=== PATIENT | female | born 1935 | race Caucasian/White ===

== ENCOUNTER → 2017-06-17 | Outpatient (CLI) | payer OTHER ==
[2017-06-17 18:04] LABS: BASO % 0.6 %; BASO ABS # 0.03 K/uL (0-0.2); COMPLETE YES; EOS % 0.4 %; HEMATOCRIT 39.1 % (37-47); IG% 0.2 %; LYMPH % 18.9 %; LYMPH ABS # 1.01 K/uL (1.2-3.4); MEAN CELL VOLUME 89.3 fL (80-100); MEAN CORPUSCULAR HEMOGLOBIN 29.2 pg (25-34); MEAN CORPUSCULAR HGB CONC 32.7 g/dl (32-36); MEAN PLATELET VOLUME 9.8 fL (7.4-10.4); MONO % 10.7 %; NEUT % 69.2 %; PLATELET COUNT 324 K/uL (130-400); RED BLOOD COUNT 4.38 M/uL (4.2-5.4); WHITE BLOOD COUNT 5.34 K/uL (4.8-10.8)
[2017-06-17 18:15] LABS: ALT/SGPT 22 U/L (12-78); AST/SGOT 18 U/L (15-37); BLOOD UREA NITROGEN 17 mg/dl (7-18); BUN/CREATININE RATIO 20.3 (10-20); CALCIUM 9.5 mg/dl (8.5-10.1); CARBON DIOXIDE 31 mmol/L (21-32); CHLORIDE 101 mmol/L (98-107); CREATININE 0.83 mg/dl (0.60-1.20); GLUCOSE 80 mg/dl (70-99); POTASSIUM 3.9 mmol/L (3.5-5.1); SODIUM 137 mmol/L (136-145)
[2017-06-17 18:26] LABS: ALKALINE PHOSPHATASE 20 U/L (45-117); CHOLESTEROL 241 mg/dl (0-200); CHOLESTEROL/HDL RATIO 2.7; HDL CHOLESTEROL 90 mg/dl; TRIGLYCERIDES 62 mg/dl (0-150); VERY LOW DENSITY LIPOPROT CALC 12 mg/dl
== END | disposition home or self-care (01) ==
LOC: C.LABSPEC 17:26
PROVIDERS: ATTEND Internal Medicine
DX: R53.83 Other fatigue (principal); E78.5 Hyperlipidemia, unspecified; R63.4 Abnormal weight loss

== ENCOUNTER → 2018-01-30 | Outpatient (CLI) | payer OTHER ==
[2018-01-30 18:16] LABS: BASO % 0.3 %; BASO ABS # 0.02 K/uL (0-0.2); EOS % 0.5 %; EOS ABS # 0.03 K/uL (0-0.5); HEMATOCRIT 38.5 % (37-47); HEMOGLOBIN 12.7 g/dL (12.0-16.0); IG# 0.02 K/uL (0.00-0.02); LYMPH % 20.3 %; LYMPH ABS # 1.32 K/uL (1.2-3.4); MEAN CELL VOLUME 85.6 fL (80-100); MEAN CORPUSCULAR HEMOGLOBIN 28.2 pg (25-34); MEAN PLATELET VOLUME 9.6 fL (7.4-10.4); MONO % 9.5 %; MONO ABS # 0.62 K/uL (0.11-0.59); NEUT % 69.1 %; PLATELET COUNT 378 K/uL (130-400); RED CELL DISTRIBUTION WIDTH CV 13.7 % (11.5-14.5); RED CELL DISTRIBUTION WIDTH SD 42.5 fL (36.4-46.3); WHITE BLOOD COUNT 6.51 K/uL (4.8-10.8)
[2018-01-30 18:39] LABS: ALBUMIN 3.5 gm/dl (3.4-5.0); ALT/SGPT 20 U/L (12-78); BLOOD UREA NITROGEN 26 mg/dl (7-18); CALCIUM 9.4 mg/dl (8.5-10.1); CARBON DIOXIDE 30 mmol/L (21-32); CREATININE 0.87 mg/dl (0.60-1.20); GLUCOSE 107 mg/dl (70-99); LIPASE 213 U/L (73-393); POTASSIUM 4.1 mmol/L (3.5-5.1); SODIUM 136 mmol/L (136-145)
[2018-01-30 18:42] LABS: ALKALINE PHOSPHATASE 25 U/L (45-117); AST/SGOT 14 U/L (15-37); TOTAL PROTEIN 7.2 gm/dl (6.4-8.2)
== END | disposition home or self-care (01) ==
LOC: C.LABSPEC 17:51
PROVIDERS: ATTEND Internal Medicine
DX: R10.9 Unspecified abdominal pain (principal); R63.4 Abnormal weight loss

== ENCOUNTER → 2018-06-15 | Outpatient (CLI) | payer OTHER ==
[2018-06-15 18:30] LABS: BASO % 0.5 %; BASO ABS # 0.03 K/uL (0-0.2); EOS % 0.6 %; EOS ABS # 0.04 K/uL (0-0.5); HEMATOCRIT 40.7 % (37-47); HEMOGLOBIN 12.8 g/dL (12.0-16.0); IG# 0.02 K/uL (0.00-0.02); LYMPH % 17.8 %; LYMPH ABS # 1.14 K/uL (1.2-3.4); MEAN CELL VOLUME 86.2 fL (80-100); MEAN CORPUSCULAR HEMOGLOBIN 27.1 pg (25-34); MEAN CORPUSCULAR HGB CONC 31.4 g/dl (32-36); MEAN PLATELET VOLUME 9.8 fL (7.4-10.4); MONO % 6.6 %; MONO ABS # 0.42 K/uL (0.11-0.59); NEUT % 74.2 %; NEUT ABS # 4.75 K/uL (1.4-6.5); PLATELET COUNT 381 K/uL (130-400); RED CELL DISTRIBUTION WIDTH CV 14.5 % (11.5-14.5); RED CELL DISTRIBUTION WIDTH SD 44.9 fL (36.4-46.3)
[2018-06-15 18:45] LABS: ALBUMIN 3.4 gm/dl (3.4-5.0); ALKALINE PHOSPHATASE 27 U/L (45-117); ALT/SGPT 20 U/L (12-78); AST/SGOT 20 U/L (15-37); BLOOD UREA NITROGEN 20 mg/dl (7-18); CALCIUM 8.8 mg/dl (8.5-10.1); CARBON DIOXIDE 29 mmol/L (21-32); CHOLESTEROL 223 mg/dl (0-200); CREATININE 0.94 mg/dl (0.60-1.20); GLUCOSE 87 mg/dl (70-99); LDL CHOLESTEROL (DIRECT) 123 mg/dl; POTASSIUM 4.5 mmol/L (3.5-5.1); SODIUM 135 mmol/L (136-145); TOTAL PROTEIN 7.7 gm/dl (6.4-8.2)
== END | disposition home or self-care (01) ==
LOC: C.LABSPEC 17:41
PROVIDERS: ATTEND Internal Medicine
DX: E78.5 Hyperlipidemia, unspecified (principal); R63.4 Abnormal weight loss

== ENCOUNTER 2018-11-16 08:20 | Inpatient (IN) ==
[2018-11-16] MEDS ORDERED: ONDANSETRON INJ 2 MG/ML 2 ML VIAL IV STA (08:52)
[2018-11-16] MEDS ORDERED: SODIUM CHLORIDE 0.9% 1000ML 500 ML IV ONE (08:52)
[2018-11-16] MEDS ORDERED: HYDROmorphone INJ 0.5 MG/0.5 ML SYR IV PRN (08:52)
[2018-11-16 09:00] LABS: iSTAT Ionized Calcium 1.1 mmol/l (1.12-1.32)
[2018-11-16 09:04] LABS: Basophils # (auto) 0.02 K/uL (0-0.2); Basophils % (auto) 0.2 %; Hematocrit (blood only) 43.3 % (37-47); Hemoglobin 14.4 g/dL (12.0-16.0); Immature Granulocytes # (auto) 0.02 K/uL (0.00-0.02); Immature Granulocytes % (auto) 0.2 %; Lymphocytes # (auto) 0.57 K/uL (1.2-3.4); Lymphocytes % (auto) 5.5 %; Mean Corpuscular Hgb Conc 33.3 g/dL (32-36); Mean Corpuscular Volume 84.4 fL (80-100); Mean Platelet Volume 9.9 fL (7.4-10.4); Monocytes # (auto) 0.35 K/uL (0.11-0.59); Monocytes % (auto) 3.4 %; Neutrophils # (auto) 9.37 K/uL (1.4-6.5); Neutrophils % (auto) 90.7 %; Platelet Count 387 K/uL (130-400); RDW Coefficient of Variation 13.8 % (11.5-14.5); RDW Standard Deviation 42.8 fL (36.4-46.3); Red Blood Count 5.13 M/uL (4.2-5.4); White Blood Count 10.33 K/uL (4.8-10.8)
[2018-11-16 09:12] LABS: Alanine Aminotransferase 16 U/L (12-78); Albumin Level 3.8 gm/dl (3.4-5.0); Aspartate Aminotransferase 15 U/L (15-37); BUN Creatinine Ratio 27.7 (10-20); Blood Urea Nitrogen 27 mg/dl (7-18); Calcium 9.8 mg/dl (8.5-10.1); Carbon Dioxide 20 mmol/L (21-32); Chloride 98 mmol/L (98-107); Est GFR (Non-African American) 52.6; Glucose 101 mg/dl (70-99); Potassium 4.3 mmol/L (3.5-5.1); Sodium 134 mmol/L (136-145)
[2018-11-16] MEDS ORDERED: OPTIRAY 320 125ml IV PRN (09:13)
[2018-11-16 09:15] LABS: Albumin Globulin Ratio 0.8 (0.9-2); Alkaline Phosphatase 32 U/L (45-117); Bilirubin,Total 0.5 mg/dl (0.1-1); Globulin 4.8 gm/dl (2.5-4.0); Total Protein 8.6 gm/dl (6.4-8.2)
--- NOTE | 2018-11-16 09:42 | CT Scan Report ---
ADDENDUM Addendum: Left lower lobe consolidation and tree-in-bud nodules suggest an infectious process such as bronchopneumonia. Electronically signed by: Suleman Salazar M.D. 11/16/2018 9:[address] OF THE ABDOMEN AND PELVIS WITH CONTRAST CLINICAL HISTORY: Diffuse abdominal pain. COMPARISON STUDY: None. TECHNIQUE: Following IV administration of 120 mL of Optiray-320, axial images of the abdomen and pelv is were obtained from the lung bases to the proximal femurs. Images were reviewed in the axial, sagit leodan, and coronal planes. IV contrast was administered without complication. Automated exposure contr ol was utilized for the study. A dose lowering technique was utilized adhering to the principles of ALARA. Oral contrast was administered. CT DOSE: 246.59 mGy.cm FINDINGS: Visualized portions of the lower lungs demonstrate tree-in-bud nodules within the left lowe r lobe with mild consolidation. No pneumatosis, free air or portal venous gas is present. A small codi unt of ascites within the pelvis is noted. The liver, spleen, right adrenal gland, pancreas are unrem arkable. A small left adrenal nodule is statistically benign. There is no biliary or pancreatic ducta l dilatation. There is extensive plaque of the abdominal aorta which is normal in caliber. There is m oderate to marked cecal distention. The cecum measures 7.2 cm in caliber. There is twisting of the m esentery within the right lower quadrant and multiple colonic transition points are noted with twisti ng of the central mesentery with involvement of the transverse colon/ascending colon. There is mesent malgorzata vessels]. There is wall thickening of a loop of colon. Several suspected fibroids measure up to 3.9 cm. No suspicious osseous lesions are noted. Oral contrast reaches the cecum. The colon is redund ant. IMPRESSION: Moderate to marked cecal distention with swirling of the central mesentery and right colon mesentery. These findings suggest a volvulus/internal hernia which involves the cecum. In addition, transition points within the ascending colon and transverse colon suggest additional sites of colonic obstructio n either due to internal hernia or volvulus. Associated ascites, mesenteric vessel engorgement and mi ld wall thickening of a colonic loop. No pneumatosis, free air or portal venous gas. Surgical consult ation is recommended. Discussed with Dr. Blancas at time of dictation. Electronically signed by: Suleman Salazar M.D. 11/16/2018 9:41 AM
[2018-11-16] MEDS ORDERED: LORazepam 0.25 MG/0.5 ML VIAL IV PRN (09:43)
[2018-11-16 09:52] LABS: Creatine Kinase 41 U/L (26-192); Creatine Kinase MB 1.6 ng/ml (0.5-3.6); Troponin I < 0.015 ng/ml (0-0.045)
--- NOTE | 2018-11-16 10:01 | XRay Report ---
XR chest 1V portable HISTORY: 83 years-old Female Pt diffuse abd pain acute generalized abdominal pain COMPARISON: CT abdomen and pelvis same day, chest radiograph 07/24/2009 TECHNIQUE: Portable AP view of the chest FINDINGS: Cardiac silhouette is normal in size. Calcification the thoracic aortic arch. Suggested emphysema wit h areas of chronic interstitial coarsening. Reticular nodular opacities about the left midlung and le ft lung base are noted with ill-defined 1.8 x 2.7 cm nodule of the lateral left midlung. Degenerative changes of the shoulders and spine. IMPRESSION: 1. Reticular nodular opacities about the left midlung and left lung base suggest pneumonitis with bro nchiolitis as seen on CT study of same day. 2. Ill-defined 2.4 x 1.8 cm nodular opacity of the lateral left midlung may reflect focal area of pne umonitis, scarring or underlying pulmonary nodule. Follow-up imaging to document resolution recommend ed. The above report was generated using voice recognition software. It may contain grammatical, syntax o r spelling errors. Electronically signed by: David Egan M.D. 11/16/2018 10:00 AM
--- NOTE | 2018-11-16 10:02 | History & Physical Report ---
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 Will need abdominal exploration with possible bowel resection, possible ileostomy or colostomy. History of Present Illness Primary Care Provider: David Lee MD 83 y/o female woke up early Andre morning bloated with nausea, vomiting, dry heaves. Not able to tolerate anything po for past two days, no flatus or BM. Has tried taking Pepto. Has lost 30 pounds in past 12-18 months. Has had some bloating, urgent BMs, diarrhea off and on during that time. No previous abdominal surgery or colonoscopy. Allergies Allergy/AdvReac Type Severity Reaction Status Date / Time codeine Allergy Unknown ? Verified 11/16/18 10:06 Home Medications Home Medications Medication Instructions Recorded Confirmed Type bismuth subsalicylate 524 mg PO QID PRN 11/16/18 11/16/18 History [Pepto-Bismol] Past Med/Surg History Medical History No known health problems Family History Other Family history non-contributory Social History marital status: / Current Living Situation: Alone current occupational status: retired Other Information That Helps Us Care for You: No Feels Safe at Home: Yes Safety Concerns: Feels Safe At This Time Smoking Status: Never smoker Do You Dip or Chew Tobacco: No Second Hand Exposure: No Tobacco Cessation Education Requested by Patient: No Hx Alcohol Use: No Hx Substance Use: No Beliefs That Will Affect Care: None Preferred Language: Estonian Communication Ability: Effective Review of Systems lives alone Constitutional: + weight loss Respiratory: no cough and no dyspnea Cardiovascular: no chest pain and no chest pain with activity Physical Exam 2 Vital Signs (Past 24 Hours): Last Vital Signs Temp 36.5 C 11/16/18 08:26 Pulse 105 H 11/16/18 09:19 Resp 24 11/16/18 09:19 BP 184/67 H 11/16/18 09:19 Pulse Ox 100 11/16/18 09:23 Constitutional: + thin and + in distress (mild) Respiratory: normal respiratory effort, lungs clear to auscultation Cardiovascular: Rate/Rhythm: + tachycardic Extremities: no pedal edema Gastrointestinal (Abdomen): Inspection/Auscultation: + abdomen distended Percussion/Palpation: + abdomen tender Skin: no rashes, warm and dry Results & Data Diagnostic Findings CT OF THE ABDOMEN AND PELVIS WITH CONTRAST CLINICAL HISTORY: Diffuse abdominal pain. COMPARISON STUDY: None. TECHNIQUE: Following IV administration of 120 mL of Optiray-320, axial images of the abdomen and pelvis were obtained from the lung bases to the proximal femurs. Images were reviewed in the axial, sagittal, and coronal planes. IV contrast was administered without complication. Automated exposure control was utilized for the study. A dose lowering technique was utilized adhering to the principles of ALARA. Oral contrast was administered. CT DOSE: 246.59 mGy.cm FINDINGS: Visualized portions of the lower lungs demonstrate tree-in-bud nodules within the left lower lobe with mild consolidation. No pneumatosis, free air or portal venous gas is present. A small amount of ascites within the pelvis is noted. The liver, spleen, right adrenal gland, pancreas are unremarkable. A small left adrenal nodule is statistically benign. There is no biliary or pancreatic ductal dilatation. There is extensive plaque of the abdominal aorta which is normal in caliber. There is moderate to marked cecal distention. The cecum measures 7.2 cm in caliber. There is twisting of the mesentery within the right lower quadrant and multiple colonic transition points are noted with twisting of the central mesentery with involvement of the transverse colon/ascending colon. There is mesenteric vessels]. There is wall thickening of a loop of colon. Several suspected fibroids measure up to 3.9 cm. No suspicious osseous lesions are noted. Oral contrast reaches the cecum. The colon is redundant. IMPRESSION: Moderate to marked cecal distention with swirling of the central mesentery and right colon mesentery. These findings suggest a volvulus/internal hernia which involves the cecum. In addition, transition points within the ascending colon and transverse colon suggest additional sites of colonic obstruction either due to internal hernia or volvulus. Associated ascites, mesenteric vessel engorgement and mild wall thickening of a colonic loop. No pneumatosis, free air or portal venous gas. Surgical consultation is recommended. Discussed with Dr. Blancas at time of dictation. Electronically signed by: Suleman Salazar M.D. 11/16/2018 9:41 AM Dictated: 11/16/18943 Transcribed: 11/16/1844
[2018-11-16] MEDS ORDERED: PIPERACILL/TAZOBAC CONSULT ACTIVE PRN (10:17)
[2018-11-16] MEDS ORDERED: PIPERACILLIN/TAZOBACTAM 3.375 GM/115 ML BAG IV STA (10:17)
[2018-11-16] MEDS ORDERED: fentaNYL citrate 100 MCG/2 ML VIAL ONE ×2 (10:24→11:32)
[2018-11-16] MEDS ORDERED: LACTATED RINGER'S 1,000 ML IV SCH (10:30)
[2018-11-16] MEDS ORDERED: PROPOFOL IV EMULSION 10 MG/ML 20 ML VIAL IV ONE (10:34)
[2018-11-16] MEDS ORDERED: ONDANSETRON INJ 2 MG/ML 2 ML VIAL ONE (10:34)
[2018-11-16] MEDS ORDERED: LIDOCAINE HCL 2% 2 ML VIAL/AMP(20MG/ML) INFIL ONE (10:34)
[2018-11-16] MEDS ORDERED: DEXAMETHASONE SOD INJ 4 MG/ML VIAL ONE (10:34)
[2018-11-16] MEDS ORDERED: ROCURONIUM BROMIDE 10 MG/ML 5 ML VIAL ONE (10:34)
--- NOTE | 2018-11-16 10:34 | Anesthesiology Consultation ---
Date of Service November 16, 2018 Assessment & Plan (1) Encounter for pre-operative examination: Chart Review Chart Review: Acceptable Risk for Surgery and Patient NOT seen in Pre Admission Testing Consults Requested none ASA [id number] Proposed Anesthesia Anesthesia Type: General Risk / Benefits Reviewed With: PT / POA / Parent / Guardian, Accepts Plan and Informed Consent Obtained NPO Date Last Intake of Fluids: 11/15/18 Time Last Intake of Fluids: 22:00 Date Last Intake of Solids: 11/14/18 Time Last Intake of Solids: 19:00 History Surgery Operation Date: 11/16/18 07:00 Proposed Procedures p Exploratory Laparotomy, Bowel Resection - Alonso Granados MD, FACS Height/Weight Height: 5 ft Weight: 42.6 kg Allergies Allergy/AdvReac Type Severity Reaction Status Date / Time codeine Allergy Unknown ? Verified 11/16/18 10:06 Medications Home Medications Medication Instructions Recorded Confirmed Last Taken bismuth subsalicylate 524 mg PO QID PRN 11/16/18 11/16/18 11/15/18 09:00 [Pepto-Bismol] Active Medications Generic Name Dose Route Start Last Admin Trade Name Freq PRN Reason Stop Dose Admin Hydromorphone HCl 0.5 mg 11/16/18 08:52 11/16/18 09:01 Dilaudid IV 11/30/18 08:51 0.5 mg Q15M PRN Administration Pain Lorazepam 0.25 mg in 0.5 mls @ 0.5 mls/min 11/16/18 09:43 11/16/18 09:59 Ativan IV 12/16/18 09:42 0.5 mls/min UD PRN Administration Agitation Ioversol 120 ml 11/16/18 09:13 11/16/18 09:13 Optiray 320 125ml IV 11/20/18 09:12 120 ml ONCE PRN Administration Interaction Checking Past Medical History Medical History Advanced age Bowel obstruction No known health problems Past Family History Family History Other Family history non-contributory Social History Smoking Status: Never smoker Do You Dip or Chew Tobacco: No Hx Alcohol Use: No Hx Substance Use: No Physical Exam Vital Signs Last Vital Signs Temp 36.6 C 11/16/18 10:55 Pulse 102 H 11/16/18 10:55 Resp 20 11/16/18 10:55 BP 172/79 H 11/16/18 10:55 Pulse Ox 95 11/16/18 10:55 Constitutional + cachectic ENMT Mouth: + dentures Thyromental Distance: > or= 3.5 Finger Breadths Mallampati Class: II Neck normal visual inspection Respiratory normal respiratory effort Cardiovascular Rate/Rhythm: regular rhythm and + tachycardic Musculoskeletal Spine: no pain with cervical ROM Neurologic moves all extremities Psychiatric Orientation: alert and oriented x 3 Patient appears to be in discomfort Testing Electrocardiogram Date: 11/16/18 Findings: + ST @ (118) Laboratory Results 11/16/18 08:40 11/16/18 08:40 11/16/18 08:46 POC Glucose (other) 101 H
--- NOTE | 2018-11-16 10:54 | History & Physical Bridge Note ---
Date of Service November 16, 2018 History & Physical Bridge Note I have examined the patient, reviewed the History & Physical and in the interval since the performance of the History & Physical I have noted the following changes of clinical significance: no changes noted have discussed surgery in detail with pt and family including colon resection unlikely colostomy they want to proceed with surgery for acute abdomen secondary colonic distention etc
[2018-11-16] MEDS ORDERED: MEPERIDINE HCL 25 MG/ML CARP IV PRN (11:39)
[2018-11-16] MEDS ORDERED: ATROPINE SULFATE 0.1 MG/ML 5ML SYR IV PRN (11:39)
[2018-11-16] MEDS ORDERED: PHENYLEPHRINE 100MCG/ML 5ML SYR IV PRN (11:39)
[2018-11-16] MEDS ORDERED: ePHEDrine sulfate 50 MG/ML AMP IV PRN (11:39)
[2018-11-16] MEDS ORDERED: ONDANSETRON INJ 2 MG/ML 2 ML VIAL IV PRN ×2 (11:39→14:30)
[2018-11-16] MEDS ORDERED: NEOSTIGMINE METHYLSULFATE 5 MG/5 ML SYR ONE (11:46)
[2018-11-16] MEDS ORDERED: GLYCOPYRROLATE 0.2 MG/ML VIAL ONE (11:46)
--- NOTE | 2018-11-16 12:35 | Post Operative Brief Note ---
Immediate Post Op Note v1 Date of Surgery November 16, 2018 Pre & Post Diagnosis Operation Date: 11/16/18 07:00 Pre-Op Diagnosis: Cecal volvulus Post-Op Diagnosis: Cecal volvulus Procedure Operation Date: 11/16/18 07:00 Actual Procedures p Exploratory Laparotomy, Bowel Resection(Not Applicable) - Alonso Granados MD, FACS Surgeon Alonso Granados MD, FACS Credit Resolution Representative b mally magdaleno Estimated Blood Loss 50 Findings Consistent with Post-Op Diagnosis
--- NOTE | 2018-11-16 12:56 | Operative Report ---
Post Operative Report Date of Surgery November 16, 2018 Pre & Post Diagnosis Operation Date: 11/16/18 07:00 Pre-Op Diagnosis: Cecal volvulus Post-Op Diagnosis: Cecal volvulus Procedure Operation Date: 11/16/18 07:00 Actual Procedures p Exploratory Laparotomy, Bowel Resection(Not Applicable) - Alonso Granados MD, FACS Patient was brought into the operating room theater supine position general endotracheal anesthesia Marie catheter inserted the abdomen was prepped Betadine solution properly draped systemic antibiotics giving a timeout was had made an incision starting just to the left of the umbilicus right of the umbilicus approximately 3 inches up for the epigastric area deepened to subcutaneous tissue cautery was used to control some bleeders the abdomen was entered easily identified distended colon that appeared grossly nonischemic we then we were able to extract it out of the abdomen and the cecum up towards the hepatic flexure and what we identified that the patient had at least 2 twists in the involving the right colon the hepatic flexure to the transverse colon area we were able then to in a counterclockwise fashion reduce this to normal position were we able then to align it on top of the abdomen identify the terminal ileum the right colon hepatic flexure transverse colon down to the descending colon of note there was no evidence of ischemia although the cecum was markedly dilated we also noted that the patient had a significant amount of fecal contents all the way to the most of the splenic flexure where further down there was just gas and no real contents we at this point then used a ETHAN stapler to divide the terminal ileum approximately 6 inches from the ileocecal valve and similarly divided the colon and the ETHAN stapler just proximal to the hepatic flexure and splenic flexure we then scored the mesentery and using Cheri clamps divided the mesentery to the colon that we had outlined the omentum greater omentum was freed up from the stomach the duodenum was avoided I was the stomach we marked the apical mesenteric resection with a hemostat as we tied a 2-0 silk doubly the 2 edges of the colon and the terminal ileum was then aligned by first closing the mesentery with interrupted 3-0 silk sutures sufficient enough to avoid any opening for an internal hernia the 2 lines of the staple line was then reimburse is reinforced with 3-0 silk interrupted suture intestinal clamps were placed we placed towels around the operative field at this time have returned all the intestine back into the abdomen except the loops of we were working another towel was placed that we would use that as the contents of anything that we did with the anastomosis a euif-le-snof anastomosis was done with 3-0 silk outer layer 3-0 chromic inner layer anastomosis was checked for patency appears satisfactory could accommodate 2 fingers. Once this had been completed we noticed that when we opened the small bowel with a significant amount of thickened greenish contents indicating that almost like a vegetable bezoar patient may not be chewing her food very well but this was very well localized. All the instruments used for anastomosis were then taken off the operative field we changed our gloves and then returned the viscera back in anatomic position we actually had done the changing of the glove pliers to as closing the external layer of 3-0 silk sutures. The area was checked hemostasis appear satisfactory the NG tube was at 55 in the stomach we closed the wound with interrupted number pretty 1 PDS [id number] also of note we checked the descending colon after what appeared to be the proximal sigmoid there was just distention there was no evidence of any structure in the colon itself was normal caliber there. Subcutaneous tissue not closed quarter- inch [place] subcuticular katie for skin edges dressing was applied procedure was tolerated well estimated blood loss 50 cc addendum Patrice TARANGO was present throughout the whole case helped with exposure anastomosis and closure of the wound` Surgeon Alonso Granados MD, FACS Hull Line Crew Member jean carlos tarango Estimated Blood Loss 50 Findings Consistent with Post-Op Diagnosis Specimens right hepatic and transverse colon I attest to the content of the Intraoperative Record and any orders documented therein. Any exceptions are noted below.
[2018-11-16] MEDS: LABETALOL HCL IV 5 MG/ML 20ML IV PRN ×3 (13:05→13:33)
[2018-11-16] MEDS: fentaNYL citrate 100 MCG/2 ML VIAL IV PRN ×4 (13:10→13:35)
--- NOTE | 2018-11-16 13:37 | Anesthesiology Progress Note ---
Date of Service November 16, 2018 Anesthesia Post Procedure Vital Signs Vital Signs: Temp Pulse Pulse Pulse Pulse Resp BP 11/16/18 13:15 91 H 18 11/16/18 13:05 114 H 20 11/16/18 12:55 102 H 15 11/16/18 12:47 36.8 C 101 H 20 11/16/18 10:55 36.6 C 102 H 20 11/16/18 10:31 108 H 20 197/87 H 11/16/18 10:30 109 H 28 H 11/16/18 10:00 106 H 32 H 190/84 H 11/16/18 09:30 106 H 25 H 191/85 H 11/16/18 09:23 11/16/18 09:19 105 H 24 11/16/18 09:18 103 H 24 11/16/18 09:17 104 H 29 H 184/67 H 11/16/18 09:01 105 H 33 H 194/81 H 11/16/18 09:00 104 H 34 H 11/16/18 08:59 105 H 34 H 181/116 H 11/16/18 08:51 106 H 37 H 11/16/18 08:47 107 H 33 H 200/82 H 11/16/18 08:26 36.5 C 114 H 20 154/71 H BP BP Pulse Ox 11/16/18 13:15 193/74 H 100 11/16/18 13:05 201/90 H 100 11/16/18 12:55 189/73 H 100 11/16/18 12:47 186/75 H 100 11/16/18 10:55 172/79 H 95 11/16/18 10:31 95 11/16/18 10:30 91 11/16/18 10:00 11/16/18 09:30 99 11/16/18 09:23 100 11/16/18 09:19 184/67 H 100 11/16/18 09:18 99 11/16/18 09:17 100 11/16/18 09:01 100 11/16/18 09:00 100 11/16/18 08:59 100 11/16/18 08:51 98 11/16/18 08:47 100 11/16/18 08:26 95 Pain Intensity Bilateral Abdomen: Pain Intensity: 4 Notes Mental Status: alert / awake / arousable Patient Amnestic to Procedure: Yes Nausea / Vomiting: adequately controlled Pain: adequately controlled Airway Patency, RR, SpO2: stable & adequate BP & HR: stable & adequate Hydration State: stable & adequate Anesthetic Complications: no major complications apparent and Pt Satisfied with anesthetic care
[2018-11-16] MEDS ORDERED: MoRPHine SULFATE 4 MG/ML 1 ML CARP\\VIAL IV PRN (14:30)
[2018-11-16] MEDS ORDERED: MoRPHine SULFATE 2 MG/ML CARP IV PRN (14:30)
[2018-11-16] MEDS: LACTATED RINGER'S 1,000 ML IV SCH (14:45)
[2018-11-16 15:20] LABS: Prothrombin Time 10.5 Seconds (9.0-12.0)
[2018-11-16] MEDS: ACETAMINOPHEN 1,000 MG/100 ML VIAL IV PRN (15:58)
[2018-11-16] MEDS ORDERED: MoRPHine SULFATE 4 MG/ML 1 ML CARP\\VIAL IV STA (16:29)
[2018-11-16] MEDS ORDERED: NALOXONE HCL 0.4 MG/1 ML VIAL/CARP IV PRN (16:29)
[2018-11-16] MEDS: SODIUM CHLORIDE 0.9% 1000ML 1,000 ML IV SCH (16:54)
[2018-11-16] MEDS: MoRPHine SULFATE PCA 50 MG/50ML IV PRN ×2 (17:37→18:57)
[2018-11-16] MEDS: PIPERACILLIN/TAZOBACTAM 3.375 GM in DEXTROSE 5% 100 ML IV SCH (18:14)
--- NOTE | 2018-11-16 18:15 | Critical Care Consultation ---
Date of Consultation November 16, 2018 Assessment & Plan (1) Cecal volvulus: Impression: 1. Cecal volvulus, status post partial colectomy. 2. Postop pain. 3. Postop delirium, improving. 4. History of abnormal CT of the chest with tree-in-bud, there is also left midlung nodule which needs to be evaluated later. Plan: 1. Appreciate Dr. Granados input. 2. Pain control with HYDROELECTRIC PRODUCTION MANAGER. 3. Gentle hydration. 4. N.p.o. 5. DVT and GI prophylaxis. 6. Further evaluation of the chest with CT scan was the patient is recovered from her surgery. 7. The tree-in-bud appearance is suspicious for chronic micro-aspiration. 8. Discussed with the nursing staff. Critical care time spent with the patient was 35 minutes. History of Present Illness Reason for Consultation: Post abdominal surgery. Needed ICU monitoring. Requesting Physician: Dr. Granados Attending Physician: Alonso Granados MD, [facility] History of Present Illness Dear Dr. Granados: Thank you for the kind referral of Mrs. Benavides to critical care service. This is 83-year-old female without significant past medical history has been taken only Pepto-Bismol, has been in her usual status of health, she presented after waking up on the morning of the with unusual abdominal pain accompanied also with nausea. The patient presented to the hospital and underwent a workup which revealed cecal volvulus. Patient was taken to the OR and had surgical repair, the patient returned to the ICU for further monitoring the patient does not have a history of cardiac disease in the past. And she has not had a history of lung disease. Previous workup including CAT scan back in 2008 showed tree-in-bud appearance mainly in the right lower lobe. However the patient could not give me history at the moment as she was postop. Review of system was very limited. No chest pain was reported and abdominal pain has been noted and expected postop. No increased swelling in her lower extremities. No bowel movement reported prior to her admission. Family history is not obtainable, as well as review of system was very limited. Social history, the patient is non-smoker lifetime. Allergies Allergy/AdvReac Type Severity Reaction Status Date / Time codeine Allergy Unknown ? Verified 11/16/18 10:06 Home Medications Home Medications Medication Instructions Recorded Confirmed Type bismuth subsalicylate 524 mg PO QID PRN 11/16/18 11/16/18 History [Pepto-Bismol] Patient History Medical History Advanced age Bowel obstruction No known health problems Family History Other Family history non-contributory Social History marital status: / Current Living Situation: Alone current occupational status: retired Other Information That Helps Us Care for You: No Feels Safe at Home: Yes Smoking Status: Never smoker Do You Dip or Chew Tobacco: No Hx Alcohol Use: No Hx Substance Use: No Beliefs That Will Affect Care: Evangelical Communication Ability: Effective Environmental Project Manager Required: No Review of Systems Review of system is limited, as the patient was barely awakened from the operation. Physical Exam 2 Vital Signs (Past 24 Hours): Last Vital Signs Temp 36.6 C 11/16/18 17:00 Pulse 86 11/16/18 16:16 Resp 25 H 11/16/18 16:16 BP 125/43 L 11/16/18 16:16 Pulse Ox 99 11/16/18 16:16 Physical Exam: Elderly female, her vital signs remained stable, O2 sat is maintained at 98% on nasal cannula, S1-S2 regular rate and rhythm, lungs are clear, silent bowel sounds, postop, no edema. Neurologically difficult to assess as the patient still lethargic from the effect of the medications. Results & Data Laboratory Results Her labs were reviewed personally. Diagnostic Findings Chest x-ray showed left mid lung nodule, hyperinflated lungs, previous CAT scan of the chest as well as a CAT scan of the abdomen on this admission showing the lower part of the chest with tree-in-bud appearance. The patient does have dilated colon on the abdominal CT consistent with large bowel obstruction.
[2018-11-16] MEDS: HEPARIN SOD 5,000 UNIT/0.5 ML VIAL SQ SCH (20:20)
[2018-11-16 20:42] LABS: Appearance Urine Clear (Clear); Bacteria Urine Automated Negative (Negative); Bilirubin Urine Negative (Negative); Color Urine Yellow; Glucose Urine UA Negative (Negative); Ketones Urine 1+ (Negative); Leukocyte Esterase Urine Negative (Negative); Nitrite Urine Negative (Negative); Protein Urine Trace (Negative); Specific Gravity Urine > 1.045 (1.000-1.030); Urobilinogen Urine Negative (Negative)
[2018-11-17] MEDS: PIPERACILLIN/TAZOBACTAM 3.375 GM in DEXTROSE 5% 100 ML IV SCH ×3 (00:11→17:30)
[2018-11-17] MEDS: LACTATED RINGER'S 1,000 ML IV SCH ×2 (00:17→07:58)
[2018-11-17 04:50] LABS: Basophils # (auto) 0.01 K/uL (0-0.2); Basophils % (auto) 0.1 %; Hematocrit (blood only) 36.2 % (37-47); Hemoglobin 11.6 g/dL (12.0-16.0); Immature Granulocytes # (auto) 0.06 K/uL (0.00-0.02); Immature Granulocytes % (auto) 0.3 %; Lymphocytes # (auto) 0.77 K/uL (1.2-3.4); Lymphocytes % (auto) 4.1 %; Mean Corpuscular Volume 84.4 fL (80-100); Mean Platelet Volume 9.2 fL (7.4-10.4); Monocytes # (auto) 1.15 K/uL (0.11-0.59); Monocytes % (auto) 6.1 %; Neutrophils # (auto) 16.99 K/uL (1.4-6.5); Neutrophils % (auto) 89.4 %; Platelet Count 255 K/uL (130-400); RDW Coefficient of Variation 14.1 % (11.5-14.5); Red Blood Count 4.29 M/uL (4.2-5.4); White Blood Count 18.98 K/uL (4.8-10.8)
[2018-11-17] MEDS: ACETAMINOPHEN 1,000 MG/100 ML VIAL IV PRN (05:31)
[2018-11-17 05:34] LABS: BUN Creatinine Ratio 28.2 (10-20); Calcium 8.5 mg/dl (8.5-10.1); Creatinine Clr Calc Pharmacy 26.6 ml/min; Est GFR (African American) 68.5; Est GFR (Non-African American) 59.1; Magnesium 1.9 mg/dl (1.8-2.4); Phosphorus 4.5 mg/dl (2.5-4.9); Potassium 3.6 mmol/L (3.5-5.1)
[2018-11-17] MEDS: MoRPHine SULFATE PCA 50 MG/50ML IV PRN ×3 (06:55→23:30)
--- NOTE | 2018-11-17 07:49 | Emergency Department Note ---
Entered by Mili Whitney acting as a scribe for History of Present Illness General Chief complaint: Abdominal Pain Stated complaint: ABDOMINAL PAIN Time Seen by Provider: 11/16/18 08:31 Source: patient History of Present Illness Onset (ago): day(s) 3 Location: abdomen Pain Consistency: + other (worsening) Maximum Pain Intensity: 10 Exacerbated By: + movement Associated symptoms: + nausea/vomiting (Positive nausea. Negative vomiting.) and + other (constipated) The patient is an 83 year old female who presents to the Emergency Room with complaints of worsening abdominal pain starting 3 days ago. The patient states that the pain started when she was no longer able to acid remover her bowels. She states that along with it she has been nauseous and attempted to vomit, but can t. She notes that moving around makes the pain a little better. The patient denies a history of having any abdominal surgeries. Home Medications Home Medications Medication Instructions Recorded Confirmed Type bismuth subsalicylate 524 mg PO QID PRN 11/16/18 11/16/18 History [Pepto-Bismol] Allergies Allergy/AdvReac Type Severity Reaction Status Date / Time codeine Allergy Unknown ? Verified 11/16/18 10:06 Past Med/Surg History Medical History Advanced age Bowel obstruction No known health problems Family History Other Family history non-contributory Social History marital status: / Current Living Situation: Alone current occupational status: retired Other Information That Helps Us Care for You: No Feels Safe at Home: Yes Smoking Status: Never smoker Do You Dip or Chew Tobacco: No Hx Alcohol Use: No Hx Substance Use: No Beliefs That Will Affect Care: Worship Communication Ability: Effective De Icer Required: No Review of Systems See HPI for pertinent positives & negatives. and A total of 10 systems reviewed and were otherwise negative Physical Exam Vital Signs Vital Signs - 24 hr 11/16/18 08:26 11/16/18 08:47 11/16/18 08:51 Temperature 36.5 C Temperature Source Oral Sepsis Recent Fever Within 48 Hours No Sepsis Action Taken by Nursing No Action Required Pulse Rate 114 H 107 H 106 H Pulse Rate [Apical] Pulse Rate [Bilateral Carotid] Pulse Rate [Right Finger] Pulse Rhythm [Apical] Pulse Rhythm [Right Finger] Pulse Strength [Apical] Pulse Strength [Right Finger] Respiratory Rate 20 33 H 37 H Respiratory Effort / Characteristics Non-Labored Respiratory Depth Normal Respiratory Pattern Blood Pressure 154/71 H 200/82 H Blood Pressure [Left Arm] Blood Pressure [Right Arm] Blood Pressure Mean 98 121 Blood Pressure Mean [Left Arm] Blood Pressure Mean [Right Arm] Blood Pressure Position [Left Arm] Blood Pressure Position [Right Arm] Pulse Oximetry 95 100 98 Oxygen Delivery Method Room Air Oxygen Flow Rate Fraction of Inspired Oxygen SaO2/FiO2 Ratio 11/16/18 08:59 11/16/18 09:00 11/16/18 09:01 Temperature Temperature Source Sepsis Recent Fever Within 48 Hours Sepsis Action Taken by Nursing Pulse Rate 105 H 104 H 105 H Pulse Rate [Apical] Pulse Rate [Bilateral Carotid] Pulse Rate [Right Finger] Pulse Rhythm [Apical] Pulse Rhythm [Right Finger] Pulse Strength [Apical] Pulse Strength [Right Finger] Respiratory Rate 34 H 34 H 33 H Respiratory Effort / Characteristics Respiratory Depth Respiratory Pattern Blood Pressure 181/116 H 194/81 H Blood Pressure [Left Arm] Blood Pressure [Right Arm] Blood Pressure Mean 137 118 Blood Pressure Mean [Left Arm] Blood Pressure Mean [Right Arm] Blood Pressure Position [Left Arm] Blood Pressure Position [Right Arm] Pulse Oximetry 100 100 100 Oxygen Delivery Method Oxygen Flow Rate Fraction of Inspired Oxygen SaO2/FiO2 Ratio 11/16/18 09:17 11/16/18 09:18 11/16/18 09:19 Temperature Temperature Source Sepsis Recent Fever Within 48 Hours Sepsis Action Taken by Nursing Pulse Rate 104 H 103 H Pulse Rate [Apical] Pulse Rate [Bilateral Carotid] 105 H Pulse Rate [Right Finger] Pulse Rhythm [Apical] Pulse Rhythm [Right Finger] Pulse Strength [Apical] Pulse Strength [Right Finger] Respiratory Rate 29 H 24 24 Respiratory Effort / Characteristics Non-Labored Respiratory Depth Normal Respiratory Pattern Blood Pressure 184/67 H Blood Pressure [Left Arm] Blood Pressure [Right Arm] 184/67 H Blood Pressure Mean 106 Blood Pressure Mean [Left Arm] Blood Pressure Mean [Right Arm] 106 Blood Pressure Position [Left Arm] Blood Pressure Position [Right Arm] Pulse Oximetry 100 99 100 Oxygen Delivery Method Room Air Oxygen Flow Rate Fraction of Inspired Oxygen SaO2/FiO2 Ratio 11/16/18 09:23 11/16/18 09:30 11/16/18 09:51 Temperature Temperature Source Sepsis Recent Fever Within 48 Hours Sepsis Action Taken by Nursing Pulse Rate 106 H Pulse Rate [Apical] Pulse Rate [Bilateral Carotid] Pulse Rate [Right Finger] Pulse Rhythm [Apical] Pulse Rhythm [Right Finger] Pulse Strength [Apical] Pulse Strength [Right Finger] Respiratory Rate 25 H Respiratory Effort / Characteristics Spontaneous Respiratory Depth Normal Respiratory Pattern Tachypnea Blood Pressure 191/85 H Blood Pressure [Left Arm] Blood Pressure [Right Arm] Blood Pressure Mean 120 Blood Pressure Mean [Left Arm] Blood Pressure Mean [Right Arm] Blood Pressure Position [Left Arm] Blood Pressure Position [Right Arm] Pulse Oximetry 100 99 Oxygen Delivery Method Room Air Room Air Oxygen Flow Rate Fraction of Inspired Oxygen SaO2/FiO2 Ratio 11/16/18 10:00 11/16/18 10:30 11/16/18 10:31 Temperature Temperature Source Sepsis Recent Fever Within 48 Hours Sepsis Action Taken by Nursing Pulse Rate 106 H 109 H 108 H Pulse Rate [Apical] Pulse Rate [Bilateral Carotid] Pulse Rate [Right Finger] Pulse Rhythm [Apical] Pulse Rhythm [Right Finger] Pulse Strength [Apical] Pulse Strength [Right Finger] Respiratory Rate 32 H 28 H 20 Respiratory Effort / Characteristics Respiratory Depth Respiratory Pattern Blood Pressure 190/84 H 197/87 H Blood Pressure [Left Arm] Blood Pressure [Right Arm] Blood Pressure Mean 119 123 Blood Pressure Mean [Left Arm] Blood Pressure Mean [Right Arm] Blood Pressure Position [Left Arm] Blood Pressure Position [Right Arm] Pulse Oximetry 91 95 Oxygen Delivery Method Oxygen Flow Rate Fraction of Inspired Oxygen SaO2/FiO2 Ratio 11/16/18 10:32 11/16/18 10:55 11/16/18 12:47 Temperature 36.6 C 36.8 C Temperature Source Oral Temporal Artery Scan Sepsis Recent Fever Within 48 Hours Sepsis Action Taken by Nursing Pulse Rate 108 H Pulse Rate [Apical] 101 H Pulse Rate [Bilateral Carotid] Pulse Rate [Right Finger] 102 H Pulse Rhythm [Apical] Regular Pulse Rhythm [Right Finger] Regular Pulse Strength [Apical] Pulse Strength [Right Finger] Normal Respiratory Rate 27 H 20 20 Respiratory Effort / Characteristics Non-Labored Spontaneous Normal for Patient Non-Labored Spontaneous Respiratory Depth Normal Normal Respiratory Pattern Regular Regular Blood Pressure Blood Pressure [Left Arm] 186/75 H Blood Pressure [Right Arm] 172/79 H Blood Pressure Mean Blood Pressure Mean [Left Arm] 112 Blood Pressure Mean [Right Arm] 110 Blood Pressure Position [Left Arm] Lying Blood Pressure Position [Right Arm] Semi-fowlers Pulse Oximetry 94 95 100 Oxygen Delivery Method Room Air Oxymask Oxygen Flow Rate 10 Fraction of Inspired Oxygen SaO2/FiO2 Ratio 11/16/18 12:55 11/16/18 13:05 11/16/18 13:15 Temperature Temperature Source Temporal Artery Scan Temporal Artery Scan Temporal Artery Scan Sepsis Recent Fever Within 48 Hours Sepsis Action Taken by Nursing Pulse Rate Pulse Rate [Apical] 102 H 114 H 91 H Pulse Rate [Bilateral Carotid] Pulse Rate [Right Finger] Pulse Rhythm [Apical] Regular Regular Regular Pulse Rhythm [Right Finger] Pulse Strength [Apical] Pulse Strength [Right Finger] Respiratory Rate 15 20 18 Respiratory Effort / Characteristics Non-Labored Spontaneous Non-Labored Spontaneous Non-Labored Spontaneous Respiratory Depth Normal Normal Normal Respiratory Pattern Regular Regular Regular Blood Pressure Blood Pressure [Left Arm] 189/73 H 201/90 H 193/74 H Blood Pressure [Right Arm] Blood Pressure Mean Blood Pressure Mean [Left Arm] 111 127 113 Blood Pressure Mean [Right Arm] Blood Pressure Position [Left Arm] Lying Lying Lying Blood Pressure Position [Right Arm] Pulse Oximetry 100 100 100 Oxygen Delivery Method Oxymask Oxymask Oxymask Oxygen Flow Rate 10 10 10 Fraction of Inspired Oxygen SaO2/FiO2 Ratio 11/16/18 13:25 11/16/18 13:35 11/16/18 13:45 Temperature Temperature Source Temporal Artery Scan Temporal Artery Scan Temporal Artery Scan Sepsis Recent Fever Within 48 Hours Sepsis Action Taken by Nursing Pulse Rate Pulse Rate [Apical] 83 82 82 Pulse Rate [Bilateral Carotid] Pulse Rate [Right Finger] Pulse Rhythm [Apical] Regular Regular Regular Pulse Rhythm [Right Finger] Pulse Strength [Apical] Pulse Strength [Right Finger] Respiratory Rate 18 18 18 Respiratory Effort / Characteristics Non-Labored Spontaneous Non-Labored Spontaneous Non-Labored Spontaneous Respiratory Depth Normal Normal Normal Respiratory Pattern Regular Regular Regular Blood Pressure Blood Pressure [Left Arm] 160/56 H 141/54 H 157/58 H Blood Pressure [Right Arm] Blood Pressure Mean Blood Pressure Mean [Left Arm] 90 83 91 Blood Pressure Mean [Right Arm] Blood Pressure Position [Left Arm] Lying Lying Lying Blood Pressure Position [Right Arm] Pulse Oximetry 100 100 100 Oxygen Delivery Method Oxymask Nasal Cannula Nasal Cannula Oxygen Flow Rate 10 3 3 Fraction of Inspired Oxygen SaO2/FiO2 Ratio 11/16/18 13:55 11/16/18 14:16 11/16/18 14:25 Temperature 36.3 C L Temperature Source Temporal Artery Scan Sepsis Recent Fever Within 48 Hours Sepsis Action Taken by Nursing Pulse Rate 86 84 Pulse Rate [Apical] 84 Pulse Rate [Bilateral Carotid] Pulse Rate [Right Finger] Pulse Rhythm [Apical] Regular Pulse Rhythm [Right Finger] Pulse Strength [Apical] Pulse Strength [Right Finger] Respiratory Rate 13 24 18 Respiratory Effort / Characteristics Non-Labored Spontaneous Respiratory Depth Normal Respiratory Pattern Regular Blood Pressure 154/60 H Blood Pressure [Left Arm] 150/64 H Blood Pressure [Right Arm] Blood Pressure Mean 91 Blood Pressure Mean [Left Arm] 92 Blood Pressure Mean [Right Arm] Blood Pressure Position [Left Arm] Lying Blood Pressure Position [Right Arm] Pulse Oximetry 100 100 100 Oxygen Delivery Method Nasal Cannula Oxygen Flow Rate 3 Fraction of Inspired Oxygen SaO2/FiO2 Ratio 11/16/18 14:30 11/16/18 14:31 11/16/18 14:45 Temperature 36.5 C Temperature Source Oral Sepsis Recent Fever Within 48 Hours Sepsis Action Taken by Nursing Pulse Rate 82 81 84 Pulse Rate [Apical] 82 Pulse Rate [Bilateral Carotid] Pulse Rate [Right Finger] Pulse Rhythm [Apical] Regular Pulse Rhythm [Right Finger] Pulse Strength [Apical] Normal Pulse Strength [Right Finger] Respiratory Rate 19 24 17 Respiratory Effort / Characteristics Non-Labored Spontaneous Respiratory Depth Normal Respiratory Pattern Regular Blood Pressure 156/60 H Blood Pressure [Left Arm] 154/60 H Blood Pressure [Right Arm] Blood Pressure Mean 92 Blood Pressure Mean [Left Arm] 91 Blood Pressure Mean [Right Arm] Blood Pressure Position [Left Arm] Lying Blood Pressure Position [Right Arm] Pulse Oximetry 100 100 95 Oxygen Delivery Method Nasal Cannula Oxygen Flow Rate Fraction of Inspired Oxygen 2 SaO2/FiO2 Ratio 5000 11/16/18 14:46 11/16/18 15:00 11/16/18 15:01 Temperature Temperature Source Sepsis Recent Fever Within 48 Hours Sepsis Action Taken by Nursing Pulse Rate 86 83 84 Pulse Rate [Apical] Pulse Rate [Bilateral Carotid] Pulse Rate [Right Finger] Pulse Rhythm [Apical] Pulse Rhythm [Right Finger] Pulse Strength [Apical] Pulse Strength [Right Finger] Respiratory Rate 19 19 21 Respiratory Effort / Characteristics Respiratory Depth Respiratory Pattern Blood Pressure 126/57 L 134/52 L Blood Pressure [Left Arm] Blood Pressure [Right Arm] Blood Pressure Mean 80 79 Blood Pressure Mean [Left Arm] Blood Pressure Mean [Right Arm] Blood Pressure Position [Left Arm] Blood Pressure Position [Right Arm] Pulse Oximetry 98 100 100 Oxygen Delivery Method Oxygen Flow Rate Fraction of Inspired Oxygen SaO2/FiO2 Ratio 11/16/18 15:15 11/16/18 15:16 11/16/18 15:30 Temperature Temperature Source Sepsis Recent Fever Within 48 Hours Sepsis Action Taken by Nursing Pulse Rate 88 89 87 Pulse Rate [Apical] Pulse Rate [Bilateral Carotid] Pulse Rate [Right Finger] Pulse Rhythm [Apical] Pulse Rhythm [Right Finger] Pulse Strength [Apical] Pulse Strength [Right Finger] Respiratory Rate 19 29 H 16 Respiratory Effort / Characteristics Respiratory Depth Respiratory Pattern Blood Pressure 115/45 L Blood Pressure [Left Arm] Blood Pressure [Right Arm] Blood Pressure Mean 68 Blood Pressure Mean [Left Arm] Blood Pressure Mean [Right Arm] Blood Pressure Position [Left Arm] Blood Pressure Position [Right Arm] Pulse Oximetry 100 100 100 Oxygen Delivery Method Oxygen Flow Rate Fraction of Inspired Oxygen SaO2/FiO2 Ratio 11/16/18 15:31 11/16/18 15:45 11/16/18 15:46 Temperature Temperature Source Sepsis Recent Fever Within 48 Hours Sepsis Action Taken by Nursing Pulse Rate 87 92 H 89 Pulse Rate [Apical] Pulse Rate [Bilateral Carotid] Pulse Rate [Right Finger] Pulse Rhythm [Apical] Pulse Rhythm [Right Finger] Pulse Strength [Apical] Pulse Strength [Right Finger] Respiratory Rate 14 30 H 19 Respiratory Effort / Characteristics Respiratory Depth Respiratory Pattern Blood Pressure 135/45 L 120/45 L Blood Pressure [Left Arm] Blood Pressure [Right Arm] Blood Pressure Mean 75 70 Blood Pressure Mean [Left Arm] Blood Pressure Mean [Right Arm] Blood Pressure Position [Left Arm] Blood Pressure Position [Right Arm] Pulse Oximetry 100 98 99 Oxygen Delivery Method Oxygen Flow Rate Fraction of Inspired Oxygen SaO2/FiO2 Ratio 11/16/18 16:00 11/16/18 16:01 11/16/18 16:15 Temperature 36.9 C Temperature Source Oral Sepsis Recent Fever Within 48 Hours Sepsis Action Taken by Nursing Pulse Rate 88 91 H 88 Pulse Rate [Apical] Pulse Rate [Bilateral Carotid] Pulse Rate [Right Finger] Pulse Rhythm [Apical] Pulse Rhythm [Right Finger] Pulse Strength [Apical] Pulse Strength [Right Finger] Respiratory Rate 20 31 H 24 Respiratory Effort / Characteristics Respiratory Depth Respiratory Pattern Blood Pressure 123/48 L Blood Pressure [Left Arm] Blood Pressure [Right Arm] Blood Pressure Mean 73 Blood Pressure Mean [Left Arm] Blood Pressure Mean [Right Arm] Blood Pressure Position [Left Arm] Blood Pressure Position [Right Arm] Pulse Oximetry 100 100 100 Oxygen Delivery Method Oxygen Flow Rate Fraction of Inspired Oxygen SaO2/FiO2 Ratio 11/16/18 16:16 11/16/18 17:00 11/16/18 20:00 Temperature 36.6 C Temperature Source Oral Sepsis Recent Fever Within 48 Hours Sepsis Action Taken by Nursing Pulse Rate 86 Pulse Rate [Apical] 94 H Pulse Rate [Bilateral Carotid] Pulse Rate [Right Finger] Pulse Rhythm [Apical] Regular Pulse Rhythm [Right Finger] Pulse Strength [Apical] Normal Pulse Strength [Right Finger] Respiratory Rate 25 H 11 L Respiratory Effort / Characteristics Non-Labored Spontaneous Respiratory Depth Normal Respiratory Pattern Regular Blood Pressure 125/43 L Blood Pressure [Left Arm] 132/48 L Blood Pressure [Right Arm] Blood Pressure Mean 70 Blood Pressure Mean [Left Arm] 76 Blood Pressure Mean [Right Arm] Blood Pressure Position [Left Arm] Left Lateral Blood Pressure Position [Right Arm] Pulse Oximetry 99 100 Oxygen Delivery Method Nasal Cannula Oxygen Flow Rate 2 Fraction of Inspired Oxygen SaO2/FiO2 Ratio 11/16/18 22:00 11/16/18 23:00 11/17/18 00:00 Temperature 36.4 C L Temperature Source Oral Sepsis Recent Fever Within 48 Hours Sepsis Action Taken by Nursing Pulse Rate 90 Pulse Rate [Apical] 87 90 90 Pulse Rate [Bilateral Carotid] Pulse Rate [Right Finger] Pulse Rhythm [Apical] Regular Regular Regular Pulse Rhythm [Right Finger] Pulse Strength [Apical] Normal Normal Normal Pulse Strength [Right Finger] Respiratory Rate 18 19 17 Respiratory Effort / Characteristics Non-Labored Spontaneous Non-Labored Spontaneous Non-Labored Spontaneous Respiratory Depth Normal Normal Normal Respiratory Pattern Regular Regular Regular Blood Pressure Blood Pressure [Left Arm] 144/78 H 149/51 H 138/50 L Blood Pressure [Right Arm] Blood Pressure Mean Blood Pressure Mean [Left Arm] 100 83 79 Blood Pressure Mean [Right Arm] Blood Pressure Position [Left Arm] Lying Lying Lying Blood Pressure Position [Right Arm] Pulse Oximetry 100 100 100 Oxygen Delivery Method Nasal Cannula Nasal Cannula Nasal Cannula Oxygen Flow Rate 2 2 2 Fraction of Inspired Oxygen SaO2/FiO2 Ratio 11/17/18 01:00 11/17/18 01:52 11/17/18 03:00 Temperature Temperature Source Sepsis Recent Fever Within 48 Hours Sepsis Action Taken by Nursing Pulse Rate Pulse Rate [Apical] 80 92 H 85 Pulse Rate [Bilateral Carotid] Pulse Rate [Right Finger] Pulse Rhythm [Apical] Regular Regular Regular Pulse Rhythm [Right Finger] Pulse Strength [Apical] Normal Normal Normal Pulse Strength [Right Finger] Respiratory Rate 14 17 12 Respiratory Effort / Characteristics Non-Labored Spontaneous Non-Labored Spontaneous Non-Labored Spontaneous Respiratory Depth Normal Normal Normal Respiratory Pattern Regular Regular Regular Blood Pressure Blood Pressure [Left Arm] 139/53 L 135/60 140/60 Blood Pressure [Right Arm] Blood Pressure Mean Blood Pressure Mean [Left Arm] 81 85 86 Blood Pressure Mean [Right Arm] Blood Pressure Position [Left Arm] Lying Lying Lying Blood Pressure Position [Right Arm] Pulse Oximetry 98 98 99 Oxygen Delivery Method Nasal Cannula Nasal Cannula Nasal Cannula Oxygen Flow Rate 2 2 2 Fraction of Inspired Oxygen SaO2/FiO2 Ratio 11/17/18 04:00 11/17/18 05:00 11/17/18 06:00 Temperature 36.5 C Temperature Source Oral Sepsis Recent Fever Within 48 Hours Sepsis Action Taken by Nursing Pulse Rate Pulse Rate [Apical] 92 H 104 H 90 Pulse Rate [Bilateral Carotid] Pulse Rate [Right Finger] Pulse Rhythm [Apical] Regular Regular Pulse Rhythm [Right Finger] Pulse Strength [Apical] Normal Normal Pulse Strength [Right Finger] Respiratory Rate 15 24 17 Respiratory Effort / Characteristics Non-Labored Spontaneous Non-Labored Spontaneous Non-Labored Spontaneous Respiratory Depth Normal Normal Normal Respiratory Pattern Regular Regular Regular Blood Pressure Blood Pressure [Left Arm] 132/58 L 150/62 H 124/55 L Blood Pressure [Right Arm] Blood Pressure Mean Blood Pressure Mean [Left Arm] 82 91 78 Blood Pressure Mean [Right Arm] Blood Pressure Position [Left Arm] Lying Lying Lying Blood Pressure Position [Right Arm] Pulse Oximetry 96 97 97 Oxygen Delivery Method Room Air Room Air Room Air Oxygen Flow Rate Fraction of Inspired Oxygen SaO2/FiO2 Ratio GENERAL: Awake, alert, well-appearing, in no distress HENT: Normocephalic, atraumatic. Oropharynx unremarkable. EYES: Normal conjunctiva. Sclera non-icteric. NECK: Supple. No nuchal rigidity. FROM. No masses. RESPIRATORY: Clear to auscultation. No wheezes. No rales. Normal respiratory effort. CARDIAC: Normal rate. Normal rhythm. No murmurs. No rubs. Extremities warm and well perfused. Pulses equal. No JVD. GI: Soft, non-distended. Diffuse tenderness to palpation. No rebound or guarding. No masses. RECTAL: Deferred. MUSCULOSKELETAL: Atraumatic. Chest examination reveals no tenderness. The back is symmetrical on inspection without obvious abnormality. There is no CVA tenderness to palpation. No joint edema. LOWER EXTREMITIES: Calves are equal size bilaterally and non-tender. No edema. No discoloration. NEURO: Normal sensorium. No sensory or motor deficits noted. Course 0850: Past medical records reviewed. The patient was evaluated in room B4B, and a complete history and physical examination were performed. I originally went to see the patient 10 minutes prior, but she was placed in the wrong room by the nursing staff. In turn, she was not seen by me for half an hour from the time of checking in. 0853: I called CT at this time and expressed that it is important that she goes to CT as soon as possible. 0913: I reevaluated the patient and spoke with the family at this time. They note that she was supposed to have a CT a year ago, but she cancelled it. 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 0936: I called for the general surgeon at this time. 0938: I reviewed the patient's case with Patrice Cevallos PA-C -General Surgeon. He will evaluate the patient for further management. 0943: I reevaluated the patient. I updated her and her family at this time on her test results. I discussed the treatment plan with them at this time. They verbally agree and understand. 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 Time: 09:35 Consultation #2: I reviewed the patient's case with Patrice Cevallos PA-C -General Surgeon. He will evaluate the patient for further management. Time: 09:38 Administered Medications Heparin Sodium (Porcine) (Heparin Sodium (Porcine)) 5,000 units SQ Q12 CLEO Stop: 12/16/18 20:59 Last Admin: 11/16/18 20:20 Dose: 5,000 units Lactated Ringer's (Lr) 1,000 mls @ 125 mls/hr IV .Q8H CLEO Stop: 12/16/18 14:29 Last Infusion: 11/17/18 00:17 Dose: 125 mls/hr Admin: 11/17/18 00:17 Dose: 100 mls/hr Infusion: 11/17/18 00:17 Dose: 100 mls/hr Admin: 11/16/18 14:45 Dose: 100 mls/hr Acetaminophen (Ofirmev) 1,000 mg in 100 mls @ 400 mls/hr IV Q8H PRN PRN Reason: MILD Pain (Scale 1,2,3) Stop: 12/16/18 14:29 Last Infusion: 11/17/18 05:47 Dose: 0 mls/hr Admin: 11/17/18 05:31 Dose: 400 mls/hr Infusion: 11/16/18 16:42 Dose: 0 mls/hr Admin: 11/16/18 15:58 Dose: 400 mls/hr Piperacillin Sod/Tazobactam (Sod 3.375 gm/ Dextrose) 115 mls @ 28.75 mls/hr IV Q8H CLEO; Protocol Stop: 11/26/18 15:59 Last Infusion: 11/17/18 04:11 Dose: 0 mls/hr Admin: 11/17/18 00:11 Dose: 28.8 mls/hr Infusion: 11/16/18 22:14 Dose: 0 mls/hr Admin: 11/16/18 18:14 Dose: 28.8 mls/hr Sodium Chloride (Nss 1000ml) 1,000 mls @ 15 mls/hr IV .Q24H CLEO Stop: 11/30/18 16:29 Last Admin: 11/16/18 16:54 Dose: Not Given Morphine Sulfate (Morphine Fuse Assembler 50 Mg/50 Ml) 50 mg IV PRN PRN; Protocol PRN Reason: Pain Stop: 11/30/18 16:28 Last Admin: 11/17/18 06:55 Dose: 50 mg Admin: 11/16/18 18:57 Dose: 50 mg Admin: 11/16/18 17:37 Dose: 50 mg Discontinued Medications Fentanyl Citrate (Fentanyl Citrate) 25 mcg IV Q5M PRN PRN Reason: PACU Use Only-Pain Stop: 11/16/18 16:39 Last Admin: 11/16/18 13:35 Dose: 25 mcg Admin: 11/16/18 13:25 Dose: 25 mcg Admin: 11/16/18 13:15 Dose: 25 mcg Admin: 11/16/18 13:10 Dose: 25 mcg Hydromorphone HCl (Dilaudid) 0.5 mg IV Q15M PRN PRN Reason: Pain Stop: 11/30/18 08:51 Last Admin: 11/16/18 09:01 Dose: 0.5 mg Sodium Chloride (Nss 1000ml) 500 mls @ 999 mls/hr IV .Q31M ONE Stop: 11/16/18 09:22 Last Infusion: 11/16/18 09:52 Dose: Admin: 11/16/18 09:16 Dose: 999 mls/hr Lorazepam (Ativan) 0.25 mg in 0.5 mls @ 0.5 mls/min IV UD PRN PRN Reason: Agitation Stop: 12/16/18 09:42 Last Admin: 11/16/18 09:59 Dose: 0.5 mls/min Piperacillin Sod/Tazobactam Sod (Zosyn) 3.375 gm in 115 mls @ 230 mls/hr IV NOW STA Stop: 11/16/18 10:46 Last Infusion: 11/16/18 17:49 Dose: 0 mls/hr Admin: 11/16/18 11:09 Dose: 230 mls/hr Ioversol (Optiray 320 125ml) 120 ml IV ONCE PRN PRN Reason: Interaction Checking Stop: 11/20/18 09:12 Last Admin: 11/16/18 09:13 Dose: 120 ml Labetalol HCl (Normodyne) 5 mg IV Q5M PRN PRN Reason: PACU Use-SBP>160 or DBP>100 Stop: 11/16/18 16:39 Last Admin: 11/16/18 13:33 Dose: 5 mg Admin: 11/16/18 13:20 Dose: 5 mg Admin: 11/16/18 13:05 Dose: 5 mg Morphine Sulfate (Morphine Sulfate) 4 mg IV Q2H PRN PRN Reason: MODERATE Pain (Scale 4,5,6) Stop: 11/30/18 14:29 Last Admin: 11/16/18 14:46 Dose: 4 mg Morphine Sulfate (Morphine Sulfate) 4 mg IV NOW STA Stop: 11/16/18 16:30 Last Admin: 11/16/18 17:16 Dose: 4 mg Ondansetron HCl (Zofran) 4 mg IV NOW STA Stop: 11/16/18 08:53 Last Admin: 11/16/18 09:00 Dose: 4 mg Medical Decision Making Differential Diagnosis Differential diagnosis: Etiologies such as biliary colic, cholecystitis, hepatitis, perihepatitis, pancreatitis, cardiac disease, pancreatitis, gastritis, peptic ulcer disease, appendicitis, ovarian cyst, ovarian torsion, ectopic , pelvic inflammatory disease, cystitis, diverticulitis, mesenteric ischemia, inflammatory bowel disease, ileus, bowel obstruction, aortic pathology, shingles , as well as others were considered. Medical Records Attestation: I reviewed the patient's medical records. Home Medications Current Medication List: was personally reviewed by me Laboratory Data Attestation: I reviewed the patient's lab results. Result diagrams: 11/17/18 04:41 11/17/18 04:41 Lab Results 11/16/18 11/16/18 11/16/18 Range/Units 08:40 08:40 08:40 WBC 10.33 (4.8-10.8) K/uL RBC 5.13 (4.2-5.4) M/uL Hgb 14.4 (12.0-16.0) g/dL POC Hgb (12.0-16.0) g/dl Hct 43.3 (37-47) % POC Hct (37-47) % MCV 84.4 (80-100) fL MCH 28.1 (25-34) pg MCHC 33.3 (32-36) g/dL RDW Std Deviation 42.8 (36.4-46.3) fL RDW Coeff of Sidney 13.8 (11.5-14.5) % Plt Count 387 (130-400) K/uL MPV 9.9 (7.4-10.4) fL Immature Gran % (Auto) 0.2 % Neut % (Auto) 90.7 % Lymph % (Auto) 5.5 % [place] % (Auto) 3.4 % Eos % (Auto) 0.0 % Baso % (Auto) 0.2 % Immature Gran # (Auto) 0.02 (0.00-0.02) K/uL Neut # (Auto) 9.37 H (1.4-6.5) K/uL Lymph # (Auto) 0.57 L (1.2-3.4) K/uL [place] # (Auto) 0.35 (0.11-0.59) K/uL Eos # (Auto) 0.00 (0-0.5) K/uL Baso # (Auto) 0.02 (0-0.2) K/uL PT (9.0-12.0) Seconds INR (0.9-1.1) POC Sodium (135-144) mEq/L Sodium 134 L (136-145) mmol/L POC Potassium (3.3-5.0) mEq/L Potassium 4.3 (3.5-5.1) mmol/L POC Chloride (101-112) mEq/L Chloride 98 (98-107) mmol/L Carbon Dioxide 20 L (21-32) mmol/L POC Total CO2 (24-31) mEq/l Anion Gap 16.0 H (3-11) POC Anion Gap (16-25) mmol/L POC BUN (7-18) mg/dl BUN 27 H (7-18) mg/dl Creatinine 0.98 (0.6-1.2) mg/dl POC Creatinine (0.6-1.3) mg/dl Est Cr Clr Drug Dosing Not Reportable Est GFR ( Amer) 61.0 Est GFR (Non-Af Amer) 52.6 BUN/Creatinine Ratio 27.7 H (10-20) Glucose 101 H (70-99) mg/dl POC Glucose (70-99) POC Glucose (other) (70-99) mg/dl Calcium 9.8 (8.5-10.1) mg/dl POC Ioniz Calcium Jojo (1.12-1.32) mmol/l Phosphorus (2.5-4.9) mg/dl Magnesium (1.8-2.4) mg/dl Total Bilirubin 0.5 (0.1-1) mg/dl AST 15 (15-37) U/L ALT 16 (12-78) U/L Alkaline Phosphatase 32 L (45-117) U/L Total Creatine Kinase 41 (26-192) U/L CK-MB (CK-2) 1.6 (0.5-3.6) ng/ml CK/CKMB % Calc 3.9 H (0-3.0) Troponin I < 0.015 (0-0.045) ng/ml Total Protein 8.6 H (6.4-8.2) gm/dl Albumin 3.8 (3.4-5.0) gm/dl Globulin 4.8 H (2.5-4.0) gm/dl Albumin/Globulin Ratio 0.8 L (0.9-2) Lipase 158 (73-393) U/L Urine Color Urine Appearance (Clear) Urine pH (4.5-7.5) Ur Specific [place] (1.000-1.030) Urine Protein (Negative) Urine Glucose (UA) (Negative) Urine Ketones (Negative) Urine Blood (Negative) Urine Nitrite (Negative) Urine Bilirubin (Negative) Urine Urobilinogen (Negative) Ur Leukocyte Esterase (Negative) Urine WBC (Auto) (0-5) /hpf Urine RBC (Auto) (0-4) /hpf U Hyaline Cast (Auto) (0-5) /lpf U Epithel Cells (Auto) (0-5) /lpf Urine Bacteria (Auto) (Negative) Nasal Screen MRSA (PCR) (Negative) 11/16/18 11/16/18 11/16/18 Range/Units 08:40 08:46 14:50 WBC (4.8-10.8) K/uL RBC (4.2-5.4) M/uL Hgb (12.0-16.0) g/dL POC Hgb 16.0 (12.0-16.0) g/dl Hct (37-47) % POC Hct 47 (37-47) % MCV (80-100) fL MCH (25-34) pg MCHC (32-36) g/dL RDW Std Deviation (36.4-46.3) fL RDW Coeff of Sidney (11.5-14.5) % Plt Count (130-400) K/uL MPV (7.4-10.4) fL Immature Gran % (Auto) % Neut % (Auto) % Lymph % (Auto) % [place] % (Auto) % Eos % (Auto) % Baso % (Auto) % Immature Gran # (Auto) (0.00-0.02) K/uL Neut # (Auto) (1.4-6.5) K/uL Lymph # (Auto) (1.2-3.4) K/uL [place] # (Auto) (0.11-0.59) K/uL Eos # (Auto) (0-0.5) K/uL Baso # (Auto) (0-0.2) K/uL PT 10.5 (9.0-12.0) Seconds INR 1.0 (0.9-1.1) POC Sodium 136 (135-144) mEq/L Sodium (136-145) mmol/L POC Potassium 4.3 (3.3-5.0) mEq/L Potassium (3.5-5.1) mmol/L POC Chloride 100 L (101-112) mEq/L Chloride (98-107) mmol/L Carbon Dioxide (21-32) mmol/L POC Total CO2 21 L (24-31) mEq/l Anion Gap (3-11) POC Anion Gap 20.0 (16-25) mmol/L POC BUN 26 H (7-18) mg/dl BUN (7-18) mg/dl Creatinine (0.6-1.2) mg/dl POC Creatinine 0.9 (0.6-1.3) mg/dl Est Cr Clr Drug Dosing Est GFR ( Amer) Est GFR (Non-Af Amer) BUN/Creatinine Ratio (10-20) Glucose (70-99) mg/dl POC Glucose (70-99) POC Glucose (other) 101 H (70-99) mg/dl Calcium (8.5-10.1) mg/dl POC Ioniz Calcium Jojo 1.10 L (1.12-1.32) mmol/l Phosphorus (2.5-4.9) mg/dl Magnesium (1.8-2.4) mg/dl Total Bilirubin (0.1-1) mg/dl AST (15-37) U/L ALT (12-78) U/L Alkaline Phosphatase (45-117) U/L Total Creatine Kinase (26-192) U/L CK-MB (CK-2) (0.5-3.6) ng/ml CK/CKMB % Calc (0-3.0) Troponin I (0-0.045) ng/ml Total Protein (6.4-8.2) gm/dl Albumin (3.4-5.0) gm/dl Globulin (2.5-4.0) gm/dl Albumin/Globulin Ratio (0.9-2) Lipase (73-393) U/L Urine Color Urine Appearance (Clear) Urine pH (4.5-7.5) Ur Specific [place] (1.000-1.030) Urine Protein (Negative) Urine Glucose (UA) (Negative) Urine Ketones (Negative) Urine Blood (Negative) Urine Nitrite (Negative) Urine Bilirubin (Negative) Urine Urobilinogen (Negative) Ur Leukocyte Esterase (Negative) Urine WBC (Auto) (0-5) /hpf Urine RBC (Auto) (0-4) /hpf U Hyaline Cast (Auto) (0-5) /lpf U Epithel Cells (Auto) (0-5) /lpf Urine Bacteria (Auto) (Negative) Nasal Screen MRSA (PCR) Negative (Negative) 11/16/18 11/17/18 11/17/18 Range/Units 20:20 00:44 04:41 WBC 18.98 H (4.8-10.8) K/uL RBC 4.29 (4.2-5.4) M/uL Hgb 11.6 L (12.0-16.0) g/dL POC Hgb (12.0-16.0) g/dl Hct 36.2 L (37-47) % POC Hct (37-47) % MCV 84.4 (80-100) fL MCH 27.0 (25-34) pg MCHC 32.0 (32-36) g/dL RDW Std Deviation 43.0 (36.4-46.3) fL RDW Coeff of Sidney 14.1 (11.5-14.5) % Plt Count 255 (130-400) K/uL MPV 9.2 (7.4-10.4) fL Immature Gran % (Auto) 0.3 % Neut % (Auto) 89.4 % Lymph % (Auto) 4.1 % [place] % (Auto) 6.1 % Eos % (Auto) 0.0 % Baso % (Auto) 0.1 % Immature Gran # (Auto) 0.06 H (0.00-0.02) K/uL Neut # (Auto) 16.99 H (1.4-6.5) K/uL Lymph # (Auto) 0.77 L (1.2-3.4) K/uL [place] # (Auto) 1.15 H (0.11-0.59) K/uL Eos # (Auto) 0.00 (0-0.5) K/uL Baso # (Auto) 0.01 (0-0.2) K/uL PT (9.0-12.0) Seconds INR (0.9-1.1) POC Sodium (135-144) mEq/L Sodium (136-145) mmol/L POC Potassium (3.3-5.0) mEq/L Potassium (3.5-5.1) mmol/L POC Chloride (101-112) mEq/L Chloride (98-107) mmol/L Carbon Dioxide (21-32) mmol/L POC Total CO2 (24-31) mEq/l Anion Gap (3-11) POC Anion Gap (16-25) mmol/L POC BUN (7-18) mg/dl BUN (7-18) mg/dl Creatinine (0.6-1.2) mg/dl POC Creatinine (0.6-1.3) mg/dl Est Cr Clr Drug Dosing Est GFR ( Amer) Est GFR (Non-Af Amer) BUN/Creatinine Ratio (10-20) Glucose (70-99) mg/dl POC Glucose 141 H (70-99) POC Glucose (other) (70-99) mg/dl Calcium (8.5-10.1) mg/dl POC Ioniz Calcium Jojo (1.12-1.32) mmol/l Phosphorus (2.5-4.9) mg/dl Magnesium (1.8-2.4) mg/dl Total Bilirubin (0.1-1) mg/dl AST (15-37) U/L ALT (12-78) U/L Alkaline Phosphatase (45-117) U/L Total Creatine Kinase (26-192) U/L CK-MB (CK-2) (0.5-3.6) ng/ml CK/CKMB % Calc (0-3.0) Troponin I (0-0.045) ng/ml Total Protein (6.4-8.2) gm/dl Albumin (3.4-5.0) gm/dl Globulin (2.5-4.0) gm/dl Albumin/Globulin Ratio (0.9-2) Lipase (73-393) U/L Urine Color Yellow Urine Appearance Clear (Clear) Urine pH 5.0 (4.5-7.5) Ur Specific [place] > 1.045 H (1.000-1.030) Urine Protein Trace H (Negative) Urine Glucose (UA) Negative (Negative) Urine Ketones 1+ H (Negative) Urine Blood 1+ H (Negative) Urine Nitrite Negative (Negative) Urine Bilirubin Negative (Negative) Urine Urobilinogen Negative (Negative) Ur Leukocyte Esterase Negative (Negative) Urine WBC (Auto) 1-5 (0-5) /hpf Urine RBC (Auto) 10-30 H (0-4) /hpf U Hyaline Cast (Auto) 1-5 (0-5) /lpf U Epithel Cells (Auto) 10-20 H (0-5) /lpf Urine Bacteria (Auto) Negative (Negative) Nasal Screen MRSA (PCR) (Negative) 11/17/18 11/17/18 Range/Units 04:41 05:43 WBC (4.8-10.8) K/uL RBC (4.2-5.4) M/uL Hgb (12.0-16.0) g/dL POC Hgb (12.0-16.0) g/dl Hct (37-47) % POC Hct (37-47) % MCV (80-100) fL MCH (25-34) pg MCHC (32-36) g/dL RDW Std Deviation (36.4-46.3) fL RDW Coeff of Sidney (11.5-14.5) % Plt Count (130-400) K/uL MPV (7.4-10.4) fL Immature Gran % (Auto) % Neut % (Auto) % Lymph % (Auto) % [place] % (Auto) % Eos % (Auto) % Baso % (Auto) % Immature Gran # (Auto) (0.00-0.02) K/uL Neut # (Auto) (1.4-6.5) K/uL Lymph # (Auto) (1.2-3.4) K/uL [place] # (Auto) (0.11-0.59) K/uL Eos # (Auto) (0-0.5) K/uL Baso # (Auto) (0-0.2) K/uL PT (9.0-12.0) Seconds INR (0.9-1.1) POC Sodium (135-144) mEq/L Sodium 137 (136-145) mmol/L POC Potassium (3.3-5.0) mEq/L Potassium 3.6 D (3.5-5.1) mmol/L POC Chloride (101-112) mEq/L Chloride 103 (98-107) mmol/L Carbon Dioxide 27 (21-32) mmol/L POC Total CO2 (24-31) mEq/l Anion Gap 7.0 (3-11) POC Anion Gap (16-25) mmol/L POC BUN (7-18) mg/dl BUN 25 H (7-18) mg/dl Creatinine 0.89 (0.6-1.2) mg/dl POC Creatinine (0.6-1.3) mg/dl Est Cr Clr Drug Dosing 26.6 Est GFR ( Amer) 68.5 Est GFR (Non-Af Amer) 59.1 BUN/Creatinine Ratio 28.2 H (10-20) Glucose 134 H (70-99) mg/dl POC Glucose 126 H (70-99) POC Glucose (other) (70-99) mg/dl Calcium 8.5 (8.5-10.1) mg/dl POC Ioniz Calcium Jojo (1.12-1.32) mmol/l Phosphorus 4.5 (2.5-4.9) mg/dl Magnesium 1.9 (1.8-2.4) mg/dl Total Bilirubin (0.1-1) mg/dl AST (15-37) U/L ALT (12-78) U/L Alkaline Phosphatase (45-117) U/L Total Creatine Kinase (26-192) U/L CK-MB (CK-2) (0.5-3.6) ng/ml CK/CKMB % Calc (0-3.0) Troponin I (0-0.045) ng/ml Total Protein (6.4-8.2) gm/dl Albumin (3.4-5.0) gm/dl Globulin (2.5-4.0) gm/dl Albumin/Globulin Ratio (0.9-2) Lipase (73-393) U/L Urine Color Urine Appearance (Clear) Urine pH (4.5-7.5) Ur Specific [place] (1.000-1.030) Urine Protein (Negative) Urine Glucose (UA) (Negative) Urine Ketones (Negative) Urine Blood (Negative) Urine Nitrite (Negative) Urine Bilirubin (Negative) Urine Urobilinogen (Negative) Ur Leukocyte Esterase (Negative) Urine WBC (Auto) (0-5) /hpf Urine RBC (Auto) (0-4) /hpf U Hyaline Cast (Auto) (0-5) /lpf U Epithel Cells (Auto) (0-5) /lpf Urine Bacteria (Auto) (Negative) Nasal Screen MRSA (PCR) (Negative) Imaging Data Radiologist's Impression: Radiology results as stated below per my review and the radiologist's interpretation: ADDENDUM Addendum: Left lower lobe consolidation and tree-in-bud nodules suggest an infectious process such as bronchopneumonia. Electronically signed by: Suleman Salazar M.D. 11/16/2018 9:[address] OF THE ABDOMEN AND PELVIS WITH CONTRAST CLINICAL HISTORY: Diffuse abdominal pain. COMPARISON STUDY: None. TECHNIQUE: Following IV administration of 120 mL of Optiray-320, axial images of the abdomen and pelvis were obtained from the lung bases to the proximal femurs. Images were reviewed in the axial, sagittal, and coronal planes. IV contrast was administered without complication. Automated exposure control was utilized for the study. A dose lowering technique was utilized adhering to the principles of ALARA. Oral contrast was administered. CT DOSE: 246.59 mGy.cm FINDINGS: Visualized portions of the lower lungs demonstrate tree-in-bud nodules within the left lower lobe with mild consolidation. No pneumatosis, free air or portal venous gas is present. A small amount of ascites within the pelvis is noted. The liver, spleen, right adrenal gland, pancreas are unremarkable. A small left adrenal nodule is statistically benign. There is no biliary or pancreatic ductal dilatation. There is extensive plaque of the abdominal aorta which is normal in caliber. There is moderate to marked cecal distention. The cecum measures 7.2 cm in caliber. There is twisting of the mesentery within the right lower quadrant and multiple colonic transition points are noted with twisting of the central mesentery with involvement of the transverse colon/ascending colon. There is mesenteric vessels]. There is wall thickening of a loop of colon. Several suspected fibroids measure up to 3.9 cm. No suspicious osseous lesions are noted. Oral contrast reaches the cecum. The colon is redundant. IMPRESSION: Moderate to marked cecal distention with swirling of the central mesentery and right colon mesentery. These findings suggest a volvulus/internal hernia which involves the cecum. In addition, transition points within the ascending colon and transverse colon suggest additional sites of colonic obstruction either due to internal hernia or volvulus. Associated ascites, mesenteric vessel engorgement and mild wall thickening of a colonic loop. No pneumatosis, free air or portal venous gas. Surgical consultation is recommended. Discussed with Dr. Blancas at time of dictation. Electronically signed by: Suleman Salazar M.D. 11/16/2018 9:41 AM XR chest 1V portable HISTORY: 83 years-old Female Pt diffuse abd pain acute generalized abdominal pain COMPARISON: CT abdomen and pelvis same day, chest radiograph 07/24/2009 TECHNIQUE: Portable AP view of the chest FINDINGS: Cardiac silhouette is normal in size. Calcification the thoracic aortic arch. Suggested emphysema with areas of chronic interstitial coarsening. Reticular nodular opacities about the left midlung and left lung base are noted with ill- defined 1.8 x 2.7 cm nodule of the lateral left midlung. Degenerative changes of the shoulders and spine. IMPRESSION: 1. Reticular nodular opacities about the left midlung and left lung base suggest pneumonitis with bronchiolitis as seen on CT study of same day. 2. Ill-defined 2.4 x 1.8 cm nodular opacity of the lateral left midlung may reflect focal area of pneumonitis, scarring or underlying pulmonary nodule. Follow-up imaging to document resolution recommended. The above report was generated using voice recognition software. It may contain grammatical, syntax or spelling errors. Electronically signed by: David Egan M.D. 11/16/2018 10:00 AM ECG Data Attestation: I personally reviewed and interpreted this ECG as follows: Indication: abdominal pain Rate (beats per minute): 117 Rhythm: sinus tachycardia Findings: no ST depression and no ST elevation Blood Pressure Blood Pressure Findings: Elevated blood pressure Blood Pressure Disposition: further management by hospitalist MDM Narrative This is an 83-year-old female who presents emergency department complaining of diffuse abdominal pain. Due to the nature of the patient's pain as well as physical examination the patient was immediately sent for a CAT scan of the abdomen pelvis. This was concerning for cecal volvulus. She does have an elevation in her white blood cell count. An NG tube was placed. Patient was given Dilaudid for her pain. Due to the nature of the CAT scan findings the case was discussed with the on-call surgeon who did take the patient to the operating room. Patient and family were in agreement with the treatment plan. Impression & Plan Abdominal pain, Cecal volvulus Critical Care Time I have personally spent greater than 30 minutes of critical care time in the direct management of this patient. This includes bedside care, interpretation of diagnostic studies, and testing, discussion with consultants, patient, and family members, and other required patient management activities. This 30 minutes is in excess of all separately billable procedures. Critical Care Time: Yes Total Critical Care Time: 30 Discharge Plan Visit Data *Final* Discharge Date/Time: 11/16/18 11:18 Chief Complaint: Abdominal Pain Stated Complaint: ABDOMINAL PAIN ED Provider: Main Blancas Discharge Problem: Abdominal pain, Cecal volvulus Patient Disposition: Still a Patient Discharge Instructions Interventions: ED Discharge Assessment Last Done: 11/16/18 10:46 The scribe's documentation has been prepared under my direction and personally reviewed by me in its entirety. I confirm that the note above accurately reflects all work, treatment, procedures, and medical decision making performed by me.
--- NOTE | 2018-11-17 07:55 | Anesthesiology Progress Note ---
Date of Service November 17, 2018 Anesthesia Post Procedure Vital Signs Vital Signs: Temp Pulse Pulse Pulse Pulse Resp BP 11/17/18 06:00 90 17 11/17/18 05:00 104 H 24 11/17/18 04:00 36.5 C 92 H 15 11/17/18 03:00 85 12 11/17/18 01:52 92 H 17 11/17/18 01:00 80 14 11/17/18 00:00 36.4 C L 90 90 17 11/16/18 23:00 90 19 11/16/18 22:00 87 18 11/16/18 20:00 94 H 11 L 11/16/18 17:00 36.6 C 11/16/18 16:16 86 25 H 125/43 L 11/16/18 16:15 88 24 11/16/18 16:01 91 H 31 H 123/48 L 11/16/18 16:00 36.9 C 88 20 11/16/18 15:46 89 19 120/45 L 11/16/18 15:45 92 H 30 H 11/16/18 15:31 87 14 135/45 L 11/16/18 15:30 87 16 11/16/18 15:16 89 29 H 115/45 L 11/16/18 15:15 88 19 11/16/18 15:01 84 21 134/52 L 11/16/18 15:00 83 19 11/16/18 14:46 86 19 126/57 L 11/16/18 14:45 84 17 11/16/18 14:31 81 24 156/60 H 11/16/18 14:30 36.5 C 82 82 19 11/16/18 14:25 84 18 11/16/18 14:16 86 24 154/60 H 11/16/18 13:55 36.3 C L 84 13 11/16/18 13:45 82 18 11/16/18 13:35 82 18 11/16/18 13:25 83 18 11/16/18 13:15 91 H 18 11/16/18 13:05 114 H 20 11/16/18 12:55 102 H 15 11/16/18 12:47 36.8 C 101 H 20 11/16/18 10:55 36.6 C 102 H 20 11/16/18 10:32 108 H 27 H 11/16/18 10:31 108 H 20 197/87 H 11/16/18 10:30 109 H 28 H 11/16/18 10:00 106 H 32 H 190/84 H 11/16/18 09:30 106 H 25 H 191/85 H 11/16/18 09:23 11/16/18 09:19 105 H 24 11/16/18 09:18 103 H 24 11/16/18 09:17 104 H 29 H 184/67 H 11/16/18 09:01 105 H 33 H 194/81 H 11/16/18 09:00 104 H 34 H 11/16/18 08:59 105 H 34 H 181/116 H 11/16/18 08:51 106 H 37 H 11/16/18 08:47 107 H 33 H 200/82 H 11/16/18 08:26 36.5 C 114 H 20 154/71 H BP BP Pulse Ox 11/17/18 06:00 124/55 L 97 11/17/18 05:00 150/62 H 97 11/17/18 04:00 132/58 L 96 11/17/18 03:00 140/60 99 11/17/18 01:52 135/60 98 11/17/18 01:00 139/53 L 98 11/17/18 00:00 138/50 L 100 11/16/18 23:00 149/51 H 100 11/16/18 22:00 144/78 H 100 11/16/18 20:00 132/48 L 100 11/16/18 17:00 11/16/18 16:16 99 11/16/18 16:15 100 11/16/18 16:01 100 11/16/18 16:00 100 11/16/18 15:46 99 11/16/18 15:45 98 11/16/18 15:31 100 11/16/18 15:30 100 11/16/18 15:16 100 11/16/18 15:15 100 11/16/18 15:01 100 11/16/18 15:00 100 11/16/18 14:46 98 11/16/18 14:45 95 11/16/18 14:31 100 11/16/18 14:30 154/60 H 100 11/16/18 14:25 100 11/16/18 14:16 100 11/16/18 13:55 150/64 H 100 11/16/18 13:45 157/58 H 100 11/16/18 13:35 141/54 H 100 11/16/18 13:25 160/56 H 100 11/16/18 13:15 193/74 H 100 11/16/18 13:05 201/90 H 100 11/16/18 12:55 189/73 H 100 11/16/18 12:47 186/75 H 100 11/16/18 10:55 172/79 H 95 11/16/18 10:32 94 11/16/18 10:31 95 11/16/18 10:30 91 11/16/18 10:00 11/16/18 09:30 99 11/16/18 09:23 100 11/16/18 09:19 184/67 H 100 11/16/18 09:18 99 11/16/18 09:17 100 11/16/18 09:01 100 11/16/18 09:00 100 11/16/18 08:59 100 11/16/18 08:51 98 11/16/18 08:47 100 11/16/18 08:26 95 Pain Intensity Bilateral Abdomen: Pain Intensity: 10 Notes Mental Status: alert / awake / arousable and participated in evaluation Patient Amnestic to Procedure: Yes Nausea / Vomiting: adequately controlled Pain: improving with treatment Airway Patency, RR, SpO2: stable & adequate BP & HR: stable & adequate Hydration State: stable & adequate Anesthetic Complications: no major complications apparent
[2018-11-17] MEDS: HEPARIN SOD 5,000 UNIT/0.5 ML VIAL SQ SCH ×2 (08:01→21:38)
--- NOTE | 2018-11-17 08:13 | Surgery Progress Note ---
Date of Service November 17, 2018 Assessment & Plan (1) Cecal volvulus: POD 1 colectomy for volvulus d/c NG, sips for now cont TAG MAKER PT/OT Subjective No nausea, c/o sore throat, no flatus, pain control better Physical Exam 2 Vital Signs (Past 24 Hours): Last Vital Signs Temp 36.5 C 11/17/18 04:00 Pulse 90 11/17/18 06:00 Resp 17 11/17/18 06:00 BP 124/55 L 11/17/18 06:00 Pulse Ox 97 11/17/18 06:00 Gastrointestinal (Abdomen): Inspection/Auscultation: + abdomen distended ( slightly) and + abdominal surgical incision (minimal drainage) Percussion/ Palpation: abdomen soft NG output minimal, UOP 60 cc q2h
[2018-11-17] MEDS ORDERED: LACTATED RINGER'S 1,000 ML IV SCH (12:29)
--- NOTE | 2018-11-17 13:34 | Critical Care Progress Note ---
Date of Service November 17, 2018 Assessment & Plan (1) Cecal volvulus: Impression: 1. Cecal volvulus, status post partial colectomy. 2. Postop pain. 3. Postop delirium, improving. 4. History of abnormal CT of the chest with tree-in-bud, there is also left midlung nodule which needs to be evaluated later. Plan: 1. Appreciate Dr. Granados input. 2. Pain control with REVENUE AUDIT CLERK. 3. Gentle hydration. 4. N.p.o. until stated otherwise by surgery. 5. DVT and GI prophylaxis. 6. Further evaluation of the chest with CT scan was the patient is recovered from her surgery. 7. The tree-in-bud appearance is suspicious for chronic micro-aspiration. 8. Discussed with the nursing staff. 9. Disposition plan to regular floor if okay with surgery. Critical care time spent with the patient was 35 minutes. Thank you, will follow as needed. Subjective Continues to complain of occasional pain, she denies any chest pain per se, the abdominal pain has been off and on, she is tolerating the REVENUE AUDIT CLERK pump. No nausea or vomiting, no bowel movement, no shortness of breath. Slept overnight without any difficulty. Physical Exam 2 Vital Signs (Past 24 Hours): Last Vital Signs Temp 36.5 C 11/17/18 12:32 Pulse 87 11/17/18 12:32 Resp 18 11/17/18 12:32 BP 126/50 L 11/17/18 12:32 Pulse Ox 94 11/17/18 12:32 Physical Exam: Vital signs are stable, S1-S2 regular rate and rhythm, distant breath sounds bilaterally, tenderness from postop abdomen, no edema. Neurologically she is intact and following commands properly. Results & Data Laboratory Results Labs has been reviewed, are acceptable except for slightly elevated white count. Diagnostic Findings No new imaging.
[2018-11-17] MEDS: NSS + 20MEQ KCL 20 MEQ/1,000 ML BAG IV SCH (14:14)
--- NOTE | 2018-11-17 15:45 | Consultation ---
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 Suggest swallow eval when able to take po. History of Present Illness Attending Physician: Alonso Granados MD, FACS History of Present Illness Ms. Benavides is feeling "doped up". She has some abdominal discomfort but it is tolerable. No other complaints. Allergies Allergy/AdvReac Type Severity Reaction Status Date / Time codeine Allergy Unknown ? Verified 11/16/18 10:06 Home Medications Home Medications Medication Instructions Recorded Confirmed Type bismuth subsalicylate 524 mg PO QID PRN 11/16/18 11/16/18 History [Pepto-Bismol] Patient History Medical History Advanced age Bowel obstruction No known health problems Family History Other Family history non-contributory Social History marital status: / Current Living Situation: Alone current occupational status: retired Other Information That Helps Us Care for You: No Feels Safe at Home: Yes Smoking Status: Never smoker Do You Dip or Chew Tobacco: No Hx Alcohol Use: No Hx Substance Use: No Beliefs That Will Affect Care: Hindu Communication Ability: Effective Physical Exam 2 Vital Signs (Past 24 Hours): Last Vital Signs Temp 36.9 C 11/17/18 15:02 Pulse 98 H 11/17/18 15:02 Resp 18 11/17/18 15:02 BP 118/63 11/17/18 15:02 Pulse Ox 93 11/17/18 15:02 Physical Exam: General: no distress Eyes: normal inspection, PERLL Respiratory: chest non tender, clear to auscultation, normal breath sounds, no respiratory distress, no accessory muscle use Cardiac: regular rate and rhythm, no rub or gallop, no murmur, no edema, no jvd GI/: active bowel sounds, no abd pain or tenderness, soft, non distended Extremities: normal range of motion, normal strength, non tender Neuro:oriented x 3, moves all extremities Psych: drowsy, normal mood and affect Skin: normal color, dry Results & Data Laboratory Results Abnormal lab results 11/16/18 11/17/18 11/17/18 Range/Units 20:20 00:44 04:41 WBC 18.98 H (4.8-10.8) K/uL Hgb 11.6 L (12.0-16.0) g/dL Hct 36.2 L (37-47) % Immature Gran # (Auto) 0.06 H (0.00-0.02) K/uL Neut # (Auto) 16.99 H (1.4-6.5) K/uL Lymph # (Auto) 0.77 L (1.2-3.4) K/uL Moca # (Auto) 1.15 H (0.11-0.59) K/uL BUN (7-18) mg/dl BUN/Creatinine Ratio (10-20) Glucose (70-99) mg/dl POC Glucose 141 H (70-99) Ur Specific [place]eter[place] > 1.045 H (1.000-1.030) Urine Protein Trace H (Negative) Urine Ketones 1+ H (Negative) Urine Blood 1+ H (Negative) Urine RBC (Auto) 10-30 H (0-4) /hpf U Epithel Cells (Auto) 10-20 H (0-5) /lpf 11/17/18 11/17/18 Range/Units 04:41 05:43 WBC (4.8-10.8) K/uL Hgb (12.0-16.0) g/dL Hct (37-47) % Immature Gran # (Auto) (0.00-0.02) K/uL Neut # (Auto) (1.4-6.5) K/uL Lymph # (Auto) (1.2-3.4) K/uL Moca # (Auto) (0.11-0.59) K/uL BUN 25 H (7-18) mg/dl BUN/Creatinine Ratio 28.2 H (10-20) Glucose 134 H (70-99) mg/dl POC Glucose 126 H (70-99) Ur Specific [place] (1.000-1.030) Urine Protein (Negative) Urine Ketones (Negative) Urine Blood (Negative) Urine RBC (Auto) (0-4) /hpf U Epithel Cells (Auto) (0-5) /lpf
[2018-11-17] MEDS: SODIUM CHLORIDE 0.9% 1000ML 1,000 ML IV SCH (17:18)
[2018-11-18] MEDS: PIPERACILLIN/TAZOBACTAM 3.375 GM in DEXTROSE 5% 100 ML IV SCH ×4 (00:18→23:54)
[2018-11-18] MEDS: NSS + 20MEQ KCL 20 MEQ/1,000 ML BAG IV SCH ×2 (03:02→14:45)
[2018-11-18 06:44] LABS: Basophils # (auto) 0.02 K/uL (0-0.2); Basophils % (auto) 0.1 %; Eosinophils # (auto) 0.02 K/uL (0-0.5); Eosinophils % (auto) 0.1 %; Hematocrit (blood only) 32.3 % (37-47); Hemoglobin 10.5 g/dL (12.0-16.0); Immature Granulocytes # (auto) 0.03 K/uL (0.00-0.02); Immature Granulocytes % (auto) 0.2 %; Lymphocytes # (auto) 0.82 K/uL (1.2-3.4); Mean Corpuscular Hgb Conc 32.5 g/dL (32-36); Mean Corpuscular Volume 86.1 fL (80-100); Mean Platelet Volume 9.2 fL (7.4-10.4); Monocytes # (auto) 0.74 K/uL (0.11-0.59); Monocytes % (auto) 5.4 %; Neutrophils # (auto) 11.96 K/uL (1.4-6.5); Neutrophils % (auto) 88.2 %; Platelet Count 270 K/uL (130-400); RDW Coefficient of Variation 14.4 % (11.5-14.5); RDW Standard Deviation 45.2 fL (36.4-46.3); Red Blood Count 3.75 M/uL (4.2-5.4); White Blood Count 13.59 K/uL (4.8-10.8)
[2018-11-18 07:06] LABS: Est GFR (African American) 81.6; Est GFR (Non-African American) 70.4
[2018-11-18] MEDS: MoRPHine SULFATE PCA 50 MG/50ML IV PRN (07:06)
[2018-11-18 07:07] LABS: BUN Creatinine Ratio 25.2 (10-20); Calcium 8.3 mg/dl (8.5-10.1); Creatinine Clr Calc Pharmacy 37.3 ml/min
[2018-11-18] MEDS: HEPARIN SOD 5,000 UNIT/0.5 ML VIAL SQ SCH ×2 (09:01→21:30)
--- NOTE | 2018-11-18 09:47 | Hospitalist Progress Note ---
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 Swallow eval Subjective Ms. 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 She reports frequent belching and is having difficulty swallowing. Review of Systems All systems reviewed & are unremarkable except as noted in HPI & below Physical Exam 2 Vital Signs (Past 24 Hours): Last Vital Signs Temp 36.9 C 11/18/18 07:14 Pulse 114 H 11/18/18 07:14 Resp 12 11/18/18 07:14 BP 149/68 H 11/18/18 07:14 Pulse Ox 92 11/18/18 07:14 Physical Exam: General: no distress Eyes: normal inspection, PERLL Respiratory: chest non tender, clear to auscultation, normal breath sounds, no respiratory distress, no accessory muscle use Cardiac: regular rate and rhythm, no rub or gallop, no murmur, no edema, no jvd GI/: active bowel sounds, no abd pain or tenderness, soft, non distended Extremities: normal range of motion, normal strength, non tender Neuro/Psych: alert and oriented x 3, normal mood and affect Skin: normal color, dry
--- NOTE | 2018-11-18 10:33 | Surgery Progress Note ---
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 -ambulate -taking po in OK Present on Admission?: No Subjective Constitutional: no fever and no chills Gastrointestinal: + abdominal pain (moderate); no nausea and no vomiting No flatus Genitourinary (Female): + difficulty urinating (poor urine output and bladder scan with only 60cc) Physical Exam 2 Vital Signs (Past 24 Hours): Last Vital Signs Temp 36.9 C 11/18/18 07:14 Pulse 114 H 11/18/18 07:14 Resp 12 11/18/18 07:14 BP 149/68 H 11/18/18 07:14 Pulse Ox 92 11/18/18 07:14 Constitutional: no acute distress Respiratory: normal respiratory effort, lungs clear to auscultation Cardiovascular: Rate/Rhythm: regular rhythm and + tachycardic Gastrointestinal (Abdomen): Inspection/Auscultation: + abdomen distended ( slight) and normal bowel sounds Percussion/Palpation: + abdomen tender and abdomen soft Skin: no rashes, warm and dry
[2018-11-18] MEDS ORDERED: SODIUM CHLORIDE 0.9% 1000ML 500 ML IV ONE (10:45)
[2018-11-18] MEDS ORDERED: MoRPHine SULFATE 4 MG/ML 1 ML CARP\\VIAL IV PRN ×2 (10:52→10:58)
[2018-11-18] MEDS: MoRPHine SULFATE 2 MG/ML CARP IV PRN ×2 (19:44→19:56)
[2018-11-18] MEDS: ACETAMINOPHEN 1,000 MG/100 ML VIAL IV PRN (19:45)
[2018-11-19] MEDS: NSS + 20MEQ KCL 20 MEQ/1,000 ML BAG IV SCH (00:16)
[2018-11-19] MEDS: MoRPHine SULFATE 2 MG/ML CARP IV PRN ×4 (04:04→21:56)
[2018-11-19] MEDS: ACETAMINOPHEN 1,000 MG/100 ML VIAL IV PRN (05:31)
[2018-11-19 06:50] LABS: Basophils # (auto) 0.02 K/uL (0-0.2); Basophils % (auto) 0.2 %; Eosinophils # (auto) 0.22 K/uL (0-0.5); Eosinophils % (auto) 2.3 %; Hematocrit (blood only) 31.1 % (37-47); Immature Granulocytes # (auto) 0.03 K/uL (0.00-0.02); Immature Granulocytes % (auto) 0.3 %; Lymphocytes # (auto) 0.75 K/uL (1.2-3.4); Lymphocytes % (auto) 7.9 %; Mean Corpuscular Hgb Conc 32.2 g/dL (32-36); Mean Corpuscular Volume 85.9 fL (80-100); Mean Platelet Volume 9.1 fL (7.4-10.4); Monocytes # (auto) 0.58 K/uL (0.11-0.59); Monocytes % (auto) 6.1 %; Neutrophils % (auto) 83.2 %; Platelet Count 257 K/uL (130-400); RDW Coefficient of Variation 14.4 % (11.5-14.5); RDW Standard Deviation 44.9 fL (36.4-46.3); Red Blood Count 3.62 M/uL (4.2-5.4)
[2018-11-19 07:26] LABS: BUN Creatinine Ratio 24.6 (10-20); Calcium 8.5 mg/dl (8.5-10.1); Creatinine Clr Calc Pharmacy 50.3 ml/min; Est GFR (Non-African American) 84.5; Potassium 3.8 mmol/L (3.5-5.1)
--- NOTE | 2018-11-19 08:42 | Surgery Progress Note ---
Date of Service November 19, 2018 Assessment & Plan (1) Post-operative state: -low urine output improved, fluids to 70cc/hr -pain controlled -ambulated better yesterday -had BM yesterday but doesn't feel advancing diet -slow progress Subjective Constitutional: no fever and no chills Gastrointestinal: + abdominal pain (mild); no nausea and no vomiting moving bowels Physical Exam 2 Vital Signs (Past 24 Hours): Last Vital Signs Temp 36.2 C L 11/19/18 07:06 Pulse 92 H 11/19/18 07:06 Resp 14 11/19/18 07:06 BP 182/76 H 11/19/18 07:06 Pulse Ox 92 11/19/18 07:06 Constitutional: well developed and well nourished; no acute distress Respiratory: normal respiratory effort, lungs clear to auscultation Cardiovascular: RRR, no murmur, no edema Gastrointestinal (Abdomen): Inspection/Auscultation: normal bowel sounds Percussion/Palpation: + abdomen tender (mild) and abdomen soft Skin: no rashes, warm and dry
--- NOTE | 2018-11-19 09:22 | Hospitalist Progress Note ---
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 Swallow eval (3) HTN (hypertension): SBP 180s - pain is controlled. Will dc fluids and see how she does over the day. Will put in order for prn hydralazine Subjective Ms. Benavides is feeling somewhat better today. She is able to take in her clear liquid diet. Her pain is better. She is hypertensive this am. Review of Systems All systems reviewed & are unremarkable except as noted in HPI & below Physical Exam 2 Vital Signs (Past 24 Hours): Last Vital Signs Temp 36.2 C L 11/19/18 07:06 Pulse 92 H 11/19/18 07:06 Resp 14 11/19/18 07:06 BP 182/76 H 11/19/18 07:06 Pulse Ox 92 11/19/18 07:06 Physical Exam: General: no distress Eyes: normal inspection, PERLL Respiratory: chest non tender, clear to auscultation, normal breath sounds, no respiratory distress, no accessory muscle use Cardiac: regular rate and rhythm, no rub or gallop, no murmur, no edema, no jvd GI/: tympanic bowel sounds, no abd pain or tenderness, soft, mildly distended Extremities: normal range of motion, normal strength, non tender Neuro/Psych: alert and oriented x 3, normal mood and affect Skin: normal color, dry Results & Data Laboratory Results Abnormal lab results 11/19/18 11/19/18 Range/Units 06:30 06:30 RBC 3.62 L (4.2-5.4) M/uL Hgb 10.0 L (12.0-16.0) g/dL Hct 31.1 L (37-47) % Immature Gran # (Auto) 0.03 H (0.00-0.02) K/uL Neut # (Auto) 7.90 H (1.4-6.5) K/uL Lymph # (Auto) 0.75 L (1.2-3.4) K/uL Carbon Dioxide 20 L (21-32) mmol/L Creatinine 0.57 L (0.6-1.2) mg/dl BUN/Creatinine Ratio 24.6 H (10-20) Glucose 65 L (70-99) mg/dl
[2018-11-19] MEDS: PIPERACILLIN/TAZOBACTAM 3.375 GM in DEXTROSE 5% 100 ML IV SCH ×2 (10:04→16:46)
[2018-11-19] MEDS: HEPARIN SOD 5,000 UNIT/0.5 ML VIAL SQ SCH ×2 (10:07→20:41)
[2018-11-19] MEDS: HydrALAZINE HCL 20 MG/ML VIAL IV PRN ×2 (10:11→16:56)
[2018-11-19] MEDS: OXYCODONE/ACETAMINOPHEN 5mg/325mg TAB PO PRN (16:45)
[2018-11-19] MEDS: METOPROLOL TARTRATE 25 MG TAB PO SCH (19:22)
[2018-11-20] MEDS: PIPERACILLIN/TAZOBACTAM 3.375 GM in DEXTROSE 5% 100 ML IV SCH ×3 (00:35→16:30)
[2018-11-20] MEDS: OXYCODONE/ACETAMINOPHEN 5mg/325mg TAB PO PRN ×2 (00:43→07:29)
[2018-11-20 07:05] LABS: Basophils # (auto) 0.03 K/uL (0-0.2); Basophils % (auto) 0.4 %; Eosinophils # (auto) 0.37 K/uL (0-0.5); Eosinophils % (auto) 4.5 %; Hematocrit (blood only) 32.4 % (37-47); Hemoglobin 10.4 g/dL (12.0-16.0); Immature Granulocytes # (auto) 0.01 K/uL (0.00-0.02); Immature Granulocytes % (auto) 0.1 %; Lymphocytes # (auto) 0.74 K/uL (1.2-3.4); Mean Corpuscular Hgb Conc 32.1 g/dL (32-36); Mean Corpuscular Volume 84.6 fL (80-100); Mean Platelet Volume 9.2 fL (7.4-10.4); Monocytes # (auto) 0.59 K/uL (0.11-0.59); Monocytes % (auto) 7.2 %; Neutrophils # (auto) 6.51 K/uL (1.4-6.5); Neutrophils % (auto) 78.8 %; Platelet Count 317 K/uL (130-400); RDW Coefficient of Variation 14.3 % (11.5-14.5); RDW Standard Deviation 43.9 fL (36.4-46.3); Red Blood Count 3.83 M/uL (4.2-5.4); White Blood Count 8.25 K/uL (4.8-10.8)
[2018-11-20] MEDS: HydrALAZINE HCL 20 MG/ML VIAL IV PRN (07:21)
[2018-11-20 07:36] LABS: BUN Creatinine Ratio 17.9 (10-20); Calcium 8.5 mg/dl (8.5-10.1); Creatinine Clr Calc Pharmacy 57.4 ml/min; Est GFR (African American) 102.3; Est GFR (Non-African American) 88.3; Potassium 3.3 mmol/L (3.5-5.1)
[2018-11-20] MEDS: HEPARIN SOD 5,000 UNIT/0.5 ML VIAL SQ SCH ×2 (08:40→21:49)
[2018-11-20] MEDS: METOPROLOL TARTRATE 25 MG TAB PO SCH ×2 (08:45→21:38)
[2018-11-20] MEDS ORDERED: MoRPHine SULFATE 4 MG/ML 1 ML CARP\\VIAL IV STA (09:07)
[2018-11-20] MEDS ORDERED: POTASSIUM CHLORIDE 20 MEQ TABCR PO ONE (09:15)
--- NOTE | 2018-11-20 09:30 | Surgery Progress Note ---
Date of Service November 20, 2018 Assessment & Plan (1) Cecal volvulus: POD 4 colectomy for volvulus bloated but bowels moving HR 100s Hgb stable at [address] pending Subjective BM this Am, feels bloated not much appetite, no nausea, c/o incision pain Physical Exam 2 Vital Signs (Past 24 Hours): Last Vital Signs Temp 36.7 C 11/20/18 07:10 Pulse 109 H 11/20/18 08:43 Resp 18 11/20/18 07:10 BP 160/69 H 11/20/18 08:43 Pulse Ox 93 11/20/18 07:10 Gastrointestinal (Abdomen): Inspection/Auscultation: + abdomen distended ( moderate) and + abdominal surgical incision (clean, minimal laura drainage)
--- NOTE | 2018-11-20 09:56 | CT Scan Report ---
CT OF THE ABDOMEN AND PELVIS WITHOUT CONTRAST CLINICAL HISTORY: abdominal pain, post op cecal volvulus repair COMPARISON STUDY: CT of the abdomen and pelvis November 16, 2018. TECHNIQUE: Axial images of the abdomen and pelvis were obtained without IV contrast. Images were revi ewed in the axial, sagittal, and coronal planes. Automated exposure control was utilized for the shalini dy. A dose lowering technique was utilized adhering to the principles of ALARA. FINDINGS: Small bilateral pleural effusions, left larger than right, have developed since CT of Decem 2017. Left lower lobe airspace opacity has slightly increased. Bronchiectasis and opacity wit hin the right middle lobe and lingula is likely chronic. There is evidence for mild interstitial cierra a. Evaluation of the abdomen and pelvis is suboptimal as unenhanced exam. Interval laparotomy with ri ght hemicolectomy is noted. Moderate pneumoperitoneum is likely postsurgical. There are calcified gra nulomas within the spleen. Unenhanced images of the liver, adrenal glands, kidneys and pancreas are u nremarkable. There is mild mesenteric infiltration and a small amount of ascites within the abdomen a nd pelvis. No well-defined fluid collection is identified. The majority of the small bowel is mildly dilated, measuring up to 3.3 cm in caliber. There is gas within remaining portions of the colon. Ther e are several apparent decompressed small bowel loops within the left lower quadrant. A definite hartely sition point is not identified however there is apparent narrowing with angulation of the central sma ll bowel loops shown on image 239 of [id number]. No suspicious osseous lesion is noted. There is extensive v ascular calcification. IMPRESSION: 1. Status post right hemicolectomy. Moderate pneumoperitoneum, likely postsurgical. Small amount of a scites and mesenteric infiltration. No fluid collection to suggest abscess. 2. Mild dilatation of the small bowel and stomach. Apparent decompressed small bowel loops within the left lower quadrant with an equivocal transition point within the lower abdomen. However, gas within the remaining portions of the colon. A postoperative ileus is favored however a partial small bowel obstruction could appear similar. 3. Increase in left lower lobe airspace opacity which favors an infectious process. 4. Interval development of small bilateral pleural effusions and mild interstitial pulmonary edema. Electronically signed by: Suleman Salazar M.D. 11/20/2018 9:55 AM
[2018-11-20] MEDS ORDERED: ACETAMINOPHEN 1000 MG/100 ML IV IV SCH (10:15)
[2018-11-20] MEDS: POTASSIUM CHLORIDE PWD 20 MEQ PACK PO ONE ×2 (10:20→10:22)
[2018-11-20] MEDS ORDERED: POTASSIUM CHLORIDE 20 MEQ/15 ML UDC PO SCH (10:45)
--- NOTE | 2018-11-20 11:52 | Hospitalist Progress Note ---
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 There was noted opacity possibly infectious,will watch for now, now overt s/s of pneumonia Bowel regimen, pain control, dvt proph, abx per primary (2) Aspiration into airway: Tree in bud opacities seen on CT could indicate micro aspiration. Swallow eval without evidence of swallowing issue - minced moist diet and thin liquids recommended (3) HTN (hypertension): SBP 180s - Fluids dc'd, started metoprolol 25 mg bid with some improvement - SBP 160 (4) Hypokalemia: 20 mEq IV as patient unable to tolerate pills today. She will need to be restarted on her home regimen of supplementation as she is chronically low when able. Subjective Ms. Benavides is painful in her abdomen today. Continues to be tachycardic and hyperensive despite addition of po metoprolol. Review of Systems All systems reviewed & are unremarkable except as noted in HPI & below Physical Exam 2 Vital Signs (Past 24 Hours): Last Vital Signs Temp 36.7 C 11/20/18 07:10 Pulse 109 H 11/20/18 08:43 Resp 18 11/20/18 07:10 BP 160/69 H 11/20/18 08:43 Pulse Ox 93 11/20/18 07:10 Physical Exam: General: no distress Eyes: normal inspection, PERLL Respiratory: chest non tender, clear to auscultation, normal breath sounds, no respiratory distress, no accessory muscle use Cardiac: regular rate and rhythm, no rub or gallop, no murmur, no edema, no jvd GI/: active bowel sounds, abdomen tender to palpation, soft, distended Extremities: normal range of motion, normal strength, non tender Neuro/Psych: alert and oriented x 3, normal mood and affect Skin: normal color, dry Results & Data Laboratory Results Abnormal lab results 11/19/18 11/20/18 11/20/18 Range/Units 20:36 06:53 06:53 RBC 3.83 L (4.2-5.4) M/uL Hgb 10.4 L (12.0-16.0) g/dL Hct 32.4 L (37-47) % Neut # (Auto) 6.51 H (1.4-6.5) K/uL Lymph # (Auto) 0.74 L (1.2-3.4) K/uL Potassium 3.3 L (3.5-5.1) mmol/L Creatinine 0.50 L (0.6-1.2) mg/dl POC Glucose 100 H (70-99)
[2018-11-20] MEDS: ACETAMINOPHEN 65 ML IV SCH ×2 (12:11→19:00)
[2018-11-20] MEDS: MoRPHine SULFATE 2 MG/ML CARP IV PRN ×2 (12:17→16:42)
[2018-11-20] MEDS: CELECOXIB 100 MG CAP PO SCH ×2 (12:38→21:34)
[2018-11-20] MEDS: POTASSIUM ACETATE 10 MEQ in 0.9 % SODIUM CHLORIDE 100 ML IV SCH ×2 (13:18→16:30)
[2018-11-21] MEDS: PIPERACILLIN/TAZOBACTAM 3.375 GM in DEXTROSE 5% 100 ML IV SCH ×3 (00:06→15:38)
[2018-11-21] MEDS: ACETAMINOPHEN 65 ML IV SCH ×3 (02:49→17:43)
[2018-11-21 07:38] LABS: Basophils # (auto) 0.04 K/uL (0-0.2); Basophils % (auto) 0.6 %; Eosinophils # (auto) 0.39 K/uL (0-0.5); Eosinophils % (auto) 5.9 %; Hematocrit (blood only) 32.8 % (37-47); Hemoglobin 10.7 g/dL (12.0-16.0); Immature Granulocytes # (auto) 0.01 K/uL (0.00-0.02); Immature Granulocytes % (auto) 0.2 %; Lymphocytes # (auto) 0.67 K/uL (1.2-3.4); Lymphocytes % (auto) 10.1 %; Mean Corpuscular Hgb Conc 32.6 g/dL (32-36); Mean Platelet Volume 8.8 fL (7.4-10.4); Monocytes % (auto) 7.5 %; Neutrophils # (auto) 5.05 K/uL (1.4-6.5); Neutrophils % (auto) 75.7 %; Platelet Count 329 K/uL (130-400); RDW Coefficient of Variation 14.3 % (11.5-14.5); RDW Standard Deviation 44.1 fL (36.4-46.3); Red Blood Count 3.86 M/uL (4.2-5.4); White Blood Count 6.66 K/uL (4.8-10.8)
[2018-11-21 08:24] LABS: BUN Creatinine Ratio 19.4 (10-20); Calcium 8.3 mg/dl (8.5-10.1); Creatinine Clr Calc Pharmacy 52.2 ml/min; Est GFR (African American) 99.1; Est GFR (Non-African American) 85.5; Potassium 3.5 mmol/L (3.5-5.1)
[2018-11-21] MEDS: METOPROLOL TARTRATE 25 MG TAB PO SCH ×2 (08:25→20:12)
[2018-11-21] MEDS: CELECOXIB 100 MG CAP PO SCH ×2 (08:25→20:12)
[2018-11-21] MEDS: HEPARIN SOD 5,000 UNIT/0.5 ML VIAL SQ SCH ×2 (08:29→20:14)
--- NOTE | 2018-11-21 10:57 | Hospitalist Progress Note ---
Addendum entered and electronically signed by Venus Montero PA-C 11/21/18 16:50: Addendum (Blank) Addendum November 21, 2018 16:47 1. Underweight: BMI is 15.7; encourage clear liquid diet, advance as tolerated. 2. Severe protein calorie malnutrition Will add supplements with meals when pt. is tolerating PO intake. Obtain CMP on 11/22/18 to evaluate albumin level. 3. HTN Will add Lisinopril 10 mg PO daily. Original Note: Date of Service November 21, 2018 Assessment & Plan (1) Cecal volvulus: - S/p Right hemicolectomy on 11/16/18, currently POD#5. Surgeon op note mentioned a suspected vegetable bezoar in the small bowel and added that she may not be properly chewing her food - CT A/P 11/20: moderate pneumoperitoneum; no evidence of abscess; possible post op ileus vs. partial small bowel obstruction. - Pain control, wound care and DVT ppx per primary team. - Monitor CBC closely -- hgb has remained stable ~10, leukocytosis resolved. - Monitor urine output closely -- consider starting IV fluids if PO intake is limited. (2) Aspiration into airway: - CT A/P 11/16 showed tree in bud opacities concerning for aspiration. Repeat CT 11/20 showed increased LLL airspace nodular opacity. Also with left midlung nodule-infectious vs other? Had leukocytosis which is now improved after starting Zosyn - Swallow evaluation -- approved for minced moist diet and thin liquids. - On Zosyn IV for empiric coverage of aspiration PNA. Pulmonary recommends f/u on nodule--> would suggest CT Chest in 1-2 months to ensure resolution (3) HTN (hypertension): - Has remained hypertensive, BP 160-170's. - Started Metoprolol 25 mg BID on 11/19; consider increasing dose if no improvement over next 24 hours. (4) Hypokalemia: - K level 3.5 -- no replacement required. (5) DVT prophylaxis: Heparin SQ Dispo: Will continue to follow, please call with any questions. Supervising Physician Co-Signing Physician Notes PA Supervision Note: I did not personally see or examine the patient today, but I verified all pineda points of EMELINA Montero's assessment and plan with the following exceptions/ additions: None Subjective Pt is doing well, currently post op from a colectomy for a cecal volvulus on . She states pain in abdomen at site of surgical incision is now resolving , well controlled. BP has been elevated, very little improvement after starting Metoprolol 25 mg BID. She states she has not had an issue with blood pressure control in the past and has never had to take an anti-hypertensive. Will continue to monitor. Pt. denies aspiration during eating -- no episodes of choking or coughing during meals. Physical Exam 2 Vital Signs (Past 24 Hours): Last Vital Signs Temp 36.7 C 11/21/18 07:37 Pulse 87 11/21/18 07:37 Resp 18 11/21/18 07:37 BP 174/71 H 11/21/18 07:37 Pulse Ox 93 11/21/18 07:37 Physical Exam: General: Resting comfortably in no apparent distress; A&OX3 HEENT: NC/AT; PERRLA with EOMI; [place] conjunctiva, MMM. Neck: Supple and nontender Cardiac: RRR w/o murmurs, gallops or rubs Lungs: CTA bilaterally; No rhonchi, wheezing, or rales Abdomen: Dressing noted over abdomen, now discharge noted; Bowel normoactive X 4 Extremities: Warm. No cyanosis or edema present Neuro: No focal weakness Skin: No rash Results & Data Laboratory Results 11/21/18 11/21/18 11/21/18 Range/Units 08:10 07:27 07:27 WBC 6.66 (4.8-10.8) K/uL RBC 3.86 L (4.2-5.4) M/uL Hgb 10.7 L (12.0-16.0) g/dL Hct 32.8 L (37-47) % MCV 85.0 (80-100) fL MCH 27.7 (25-34) pg MCHC 32.6 (32-36) g/dL RDW Std Deviation 44.1 (36.4-46.3) fL RDW Coeff of Sidney 14.3 (11.5-14.5) % Plt Count 329 (130-400) K/uL MPV 8.8 (7.4-10.4) fL Immature Gran % (Auto) 0.2 % Neut % (Auto) 75.7 % Lymph % (Auto) 10.1 % Bradley % (Auto) 7.5 % Eos % (Auto) 5.9 % Baso % (Auto) 0.6 % Immature Gran # (Auto) 0.01 (0.00-0.02) K/uL Neut # (Auto) 5.05 (1.4-6.5) K/uL Lymph # (Auto) 0.67 L (1.2-3.4) K/uL Bradley # (Auto) 0.50 (0.11-0.59) K/uL Eos # (Auto) 0.39 (0-0.5) K/uL Baso # (Auto) 0.04 (0-0.2) K/uL Sodium 137 (136-145) mmol/L Potassium 3.5 (3.5-5.1) mmol/L Chloride 103 (98-107) mmol/L Carbon Dioxide 23 (21-32) mmol/L Anion Gap 11.0 (3-11) BUN 11 (7-18) mg/dl Creatinine 0.55 L (0.6-1.2) mg/dl Est Cr Clr Drug Dosing 52.2 ml/min Est GFR ( Amer) 99.1 Est GFR (Non-Af Amer) 85.5 BUN/Creatinine Ratio 19.4 (10-20) Glucose 78 (70-99) mg/dl POC Glucose 84 (70-99) Calcium 8.3 L (8.5-10.1) mg/dl 11/20/18 11/20/18 11/20/18 Range/Units 20:48 17:16 11:54 WBC (4.8-10.8) K/uL RBC (4.2-5.4) M/uL Hgb (12.0-16.0) g/dL Hct (37-47) % MCV (80-100) fL MCH (25-34) pg MCHC (32-36) g/dL RDW Std Deviation (36.4-46.3) fL RDW Coeff of Sidney (11.5-14.5) % Plt Count (130-400) K/uL MPV (7.4-10.4) fL Immature Gran % (Auto) % Neut % (Auto) % Lymph % (Auto) % Bradley % (Auto) % Eos % (Auto) % Baso % (Auto) % Immature Gran # (Auto) (0.00-0.02) K/uL Neut # (Auto) (1.4-6.5) K/uL Lymph # (Auto) (1.2-3.4) K/uL Bradley # (Auto) (0.11-0.59) K/uL Eos # (Auto) (0-0.5) K/uL Baso # (Auto) (0-0.2) K/uL Sodium (136-145) mmol/L Potassium (3.5-5.1) mmol/L Chloride (98-107) mmol/L Carbon Dioxide (21-32) mmol/L Anion Gap (3-11) BUN (7-18) mg/dl Creatinine (0.6-1.2) mg/dl Est Cr Clr Drug Dosing ml/min Est GFR ( Amer) Est GFR (Non-Af Amer) BUN/Creatinine Ratio (10-20) Glucose (70-99) mg/dl POC Glucose 101 H 99 97 (70-99) Calcium (8.5-10.1) mg/dl
[2018-11-21] MEDS: OXYCODONE/ACETAMINOPHEN 5mg/325mg TAB PO PRN ×3 (11:25→21:43)
--- NOTE | 2018-11-21 11:30 | Surgery Progress Note ---
Date of Service November 21, 2018 doing fine, passed some gas and BM, pt denies nausea, no vomiting, Assessment & Plan (1) Post-operative state: -low urine output improved, fluids to 70cc/hr -pain controlled -ambulated better yesterday -had BM yesterday but doesn't feel advancing diet -slow progress 11/21/2018 11: 29am doing better, clear diet today, will F/U Subjective Gastrointestinal: + abdominal pain (mild); no nausea and no vomiting Genitourinary (Female): + difficulty urinating (poor urine output and bladder scan with only 60cc) Physical Exam 2 Vital Signs (Past 24 Hours): Last Vital Signs Temp 36.7 C 11/21/18 07:37 Pulse 87 11/21/18 07:37 Resp 18 11/21/18 07:37 BP 174/71 H 11/21/18 07:37 Pulse Ox 93 11/21/18 07:37 Constitutional: WD/WN, vitals as above Neck: trachea midline, no thyromegaly Respiratory: normal respiratory effort, lungs clear to auscultation Cardiovascular: RRR, no murmur, no edema Gastrointestinal (Abdomen): Percussion/Palpation: abdomen soft no distend, BS + Neurologic: awake Psychiatric: Orientation: alert and oriented x 3 Results & Data Laboratory Results Abnormal lab results 11/20/18 11/21/18 11/21/18 Range/Units 20:48 07:27 07:27 RBC 3.86 L (4.2-5.4) M/uL Hgb 10.7 L (12.0-16.0) g/dL Hct 32.8 L (37-47) % Lymph # (Auto) 0.67 L (1.2-3.4) K/uL Creatinine 0.55 L (0.6-1.2) mg/dl POC Glucose 101 H (70-99) Calcium 8.3 L (8.5-10.1) mg/dl
[2018-11-21] MEDS: LISINOPRIL 10 MG TAB PO SCH (17:10)
[2018-11-22] MEDS: PIPERACILLIN/TAZOBACTAM 3.375 GM in DEXTROSE 5% 100 ML IV SCH ×4 (00:06→23:28)
[2018-11-22] MEDS: OXYCODONE/ACETAMINOPHEN 5mg/325mg TAB PO PRN (01:50)
[2018-11-22] MEDS: ACETAMINOPHEN 65 ML IV SCH ×3 (02:02→18:41)
[2018-11-22 05:57] LABS: Hemoglobin 10.3 g/dL (12.0-16.0); Mean Corpuscular Hgb Conc 32.2 g/dL (32-36); Mean Corpuscular Volume 85.1 fL (80-100); Mean Platelet Volume 9.3 fL (7.4-10.4); Platelet Count 353 K/uL (130-400); RDW Coefficient of Variation 14.3 % (11.5-14.5); RDW Standard Deviation 44.6 fL (36.4-46.3); Red Blood Count 3.76 M/uL (4.2-5.4); White Blood Count 6.08 K/uL (4.8-10.8)
[2018-11-22 06:27] LABS: Albumin Level 2.1 gm/dl (3.4-5.0); BUN Creatinine Ratio 21.3 (10-20); Calcium 8.1 mg/dl (8.5-10.1); Creatinine Clr Calc Pharmacy 52.2 ml/min; Est GFR (African American) 99.1; Est GFR (Non-African American) 85.5; Magnesium 1.4 mg/dl (1.8-2.4); Potassium 3.2 mmol/L (3.5-5.1)
[2018-11-22 06:30] LABS: Albumin Globulin Ratio 0.6 (0.9-2); Bilirubin,Total 0.3 mg/dl (0.2-1); Globulin 3.6 gm/dl (2.5-4.0); Total Protein 5.7 gm/dl (6.4-8.2)
--- NOTE | 2018-11-22 08:10 | Surgery Progress Note ---
Date of Service November 22, 2018 Assessment & Plan (1) Cecal volvulus: POD 6 colectomy for volvulus seen with Dr. Granados improving, slowly check KUB, probably advance diet Subjective bowels moving, still having pain from incision Physical Exam 2 Vital Signs (Past 24 Hours): Last Vital Signs Temp 36.7 C 11/22/18 06:53 Pulse 91 H 11/22/18 06:53 Resp 16 11/22/18 06:53 BP 176/68 H 11/22/18 06:53 Pulse Ox 95 11/22/18 06:53 Gastrointestinal (Abdomen): Inspection/Auscultation: + abdomen distended ( minimal) and + abdominal surgical incision (clean, dry) Percussion/Palpation : + abdomen tender (incision) and abdomen soft
--- NOTE | 2018-11-22 08:12 | XRay Report ---
XR KUB CLINICAL HISTORY: 83 years-old Female presenting with post op colectomy. TECHNIQUE: Single supine view of the abdomen was obtained. COMPARISON: CT from 11/20/2018. FINDINGS: Midline skin katie in place. Diffuse gaseous distention of small and large bowel. Pneumoperitoneum evident in the right abdomen as on recent CT. This may be consistent with the recent postsurgical set ting. The distribution of bowel gas does not favor an obstructive process. Suture margins noted in th e left abdomen. Numerous pelvic phleboliths. Osseous structures normal. Minimal basilar opacities. No pleural effusion or pneumothorax. IMPRESSION: 1. Persistent pneumoperitoneum, which may be consistent with the recent postsurgical setting. 2. Findings most suggestive of ileus. No convincing evidence of an obstructive process. Electronically signed by: Nehemiah Nuñez M.D. 11/22/2018 8:11 AM
[2018-11-22] MEDS ORDERED: POTASSIUM CHLORIDE 20 MEQ TABCR PO ONE (08:13)
[2018-11-22] MEDS: CELECOXIB 100 MG CAP PO SCH ×2 (08:33→20:49)
[2018-11-22] MEDS: METOPROLOL TARTRATE 25 MG TAB PO SCH ×2 (08:33→20:49)
[2018-11-22] MEDS: LISINOPRIL 10 MG TAB PO SCH (08:34)
[2018-11-22] MEDS: MAGNESIUM SULFATE / D5W 1 GM/100 ML BAG IV SCH ×2 (08:35→09:41)
[2018-11-22] MEDS: HEPARIN SOD 5,000 UNIT/0.5 ML VIAL SQ SCH ×2 (09:44→20:46)
--- NOTE | 2018-11-22 15:27 | Hospitalist Progress Note ---
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 - CT A/P 11/20: moderate pneumoperitoneum; no evidence of abscess; possible post op ileus vs. partial small bowel obstruction. - Pain control, wound care and DVT ppx per primary team. - Monitor CBC closely -- hgb has remained stable ~10. - Monitor urine output closely, start IV fluids if PO intake is limited. (2) Aspiration into airway: - CT A/P 11/16 showed tree in bud opacities concerning for aspiration. Repeat CT 11/20 showed increased LLL airspace nodular opacity. - Swallow evaluation -- approved for minced moist diet and thin liquids. - On Zosyn IV for empiric coverage of aspiration PNA; leukocytosis now resolved on IV abx. - Surgeon op note mentioned a suspected vegetable bezoar in the small bowel and added that she may not be properly chewing her food. (3) Abnormal CXR: - CXR showed 2.4x1.8 nodular opacity of lateral left midlung. Will need f/ u CT chest in 1-2 months. (4) HTN (hypertension): - Remains hypertensive, SBP 150-160's. - Started Metoprolol 25 mg BID on 11/19. - Started Lisinopril 10 mg on 11/21. (5) Severe protein-calorie malnutrition: - Encourage supplements with meals when pt. is tolerating PO intake. (6) Underweight: - BMI 15.7. (7) Electrolyte abnormality: - K level 3.2, Mag level 1.4. - Ordered K 40 mEq PO and Mag 2 gm IV. (8) DVT prophylaxis: - Heparin subQ. Dispo: Will continue to follow, please call with any questions. Supervising Physician Co-Signing Physician Notes Attending Attestation - Chart reviewed in detail, and care plan d/w EMELINA Juarez. I agree w/ the pineda components of her documentation. Continues to recover from surgery for cecal volvulus, now POD # 6. Replace low K and low Mag. Adjust BP meds. Will cont to follow. Shawn Foster MD Subjective Pt. is doing well today. She is requesting to get up and move around independently; we discussed calling for assistance. She denies significant pain in abdomen. Has been tolerating advanced diet. BP remains elevated, added Lisinopril yesterday. Review of Systems All systems reviewed & are unremarkable except as noted in HPI & below Constitutional: + weakness; no fever and no chills Respiratory: no cough and no dyspnea Cardiovascular: no chest pain and no palpitations Gastrointestinal: no abdominal pain, no nausea, no constipation and no diarrhea/ loose stools Genitourinary (Female): no difficulty urinating Allergy / Immunological: no rash Physical Exam 2 Vital Signs (Past 24 Hours): Last Vital Signs Temp 36.7 C 11/22/18 06:53 Pulse 91 H 11/22/18 06:53 Resp 16 11/22/18 06:53 BP 176/68 H 11/22/18 06:53 Pulse Ox 95 11/22/18 06:53 Physical Exam: General: Resting comfortably in no apparent distress; A&OX3 HEENT: NC/AT; PERRLA with EOMI; [place] conjunctiva, MMM. Neck: Supple and nontender Cardiac: RRR w/o murmurs, gallops or rubs Lungs: CTA bilaterally; No rhonchi, wheezing, or rales Abdomen: Dressing noted over abdomen; Bowel normoactive X 4 Extremities: Warm. No cyanosis or edema present Neuro: No focal weakness Skin: No rash Results & Data Laboratory Results 11/22/18 11/22/18 11/22/18 Range/Units 12:10 07:58 05:22 WBC (4.8-10.8) K/uL RBC (4.2-5.4) M/uL Hgb (12.0-16.0) g/dL Hct (37-47) % MCV (80-100) fL MCH (25-34) pg MCHC (32-36) g/dL RDW Std Deviation (36.4-46.3) fL RDW Coeff of [place] (11.5-14.5) % Plt Count (130-400) K/uL MPV (7.4-10.4) fL Sodium 138 (136-145) mmol/L Potassium 3.2 L (3.5-5.1) mmol/L Chloride 104 (98-107) mmol/L Carbon Dioxide 26 (21-32) mmol/L Anion Gap 8.0 (3-11) BUN 12 (7-18) mg/dl Creatinine 0.55 L (0.6-1.2) mg/dl Est Cr Clr Drug Dosing 52.2 ml/min Est GFR ( Amer) 99.1 Est GFR (Non-Af Amer) 85.5 BUN/Creatinine Ratio 21.3 H (10-20) Glucose 82 (70-99) mg/dl POC Glucose 109 H 77 (70-99) Calcium 8.1 L (8.5-10.1) mg/dl Magnesium 1.4 L (1.8-2.4) mg/dl Total Bilirubin 0.3 (0.2-1) mg/dl AST 25 (15-37) U/L ALT 17 (12-78) U/L Alkaline Phosphatase 17 L (45-117) U/L Total Protein 5.7 L (6.4-8.2) gm/dl Albumin 2.1 L (3.4-5.0) gm/dl Globulin 3.6 (2.5-4.0) gm/dl Albumin/Globulin Ratio 0.6 L (0.9-2) 11/22/18 11/21/18 11/21/18 Range/Units 05:22 20:34 17:28 WBC 6.08 (4.8-10.8) K/uL RBC 3.76 L (4.2-5.4) M/uL Hgb 10.3 L (12.0-16.0) g/dL Hct 32.0 L (37-47) % MCV 85.1 (80-100) fL MCH 27.4 (25-34) pg MCHC 32.2 (32-36) g/dL RDW Std Deviation 44.6 (36.4-46.3) fL RDW Coeff of [place] 14.3 (11.5-14.5) % Plt Count 353 (130-400) K/uL MPV 9.3 (7.4-10.4) fL Sodium (136-145) mmol/L Potassium (3.5-5.1) mmol/L Chloride (98-107) mmol/L Carbon Dioxide (21-32) mmol/L Anion Gap (3-11) BUN (7-18) mg/dl Creatinine (0.6-1.2) mg/dl Est Cr Clr Drug Dosing ml/min Est GFR ( Amer) Est GFR (Non-Af Amer) BUN/Creatinine Ratio (10-20) Glucose (70-99) mg/dl POC Glucose 109 H 102 H (70-99) Calcium (8.5-10.1) mg/dl Magnesium (1.8-2.4) mg/dl Total Bilirubin (0.2-1) mg/dl AST (15-37) U/L ALT (12-78) U/L Alkaline Phosphatase (45-117) U/L Total Protein (6.4-8.2) gm/dl Albumin (3.4-5.0) gm/dl Globulin (2.5-4.0) gm/dl Albumin/Globulin Ratio (0.9-2)
[2018-11-23] MEDS: OXYCODONE/ACETAMINOPHEN 5mg/325mg TAB PO PRN ×2 (01:08→14:02)
[2018-11-23] MEDS: ACETAMINOPHEN 65 ML IV SCH ×2 (01:16→11:01)
--- NOTE | 2018-11-23 06:27 | Surgery Progress Note ---
Date of Service November 23, 2018 Assessment & Plan (1) Cecal volvulus: pod 7 reevaluate with Social service reg discharge plans pt does not want to go home or to skilled nursing POD 6 colectomy for volvulus seen with Dr. Granados improving, slowly check KUB, probably advance diet Subjective does not want to go home(lives alone) social service note seen Physical Exam 2 Vital Signs (Past 24 Hours): Last Vital Signs Temp 36.8 C 11/22/18 23:11 Pulse 84 11/22/18 23:11 Resp 16 11/22/18 23:11 BP 173/70 H 11/22/18 23:27 Pulse Ox 95 11/22/18 23:11 Physical Exam: alert with multiple non specific complaints Gastrointestinal (Abdomen): benign soft no tenderness Results & Data Diagnostic Findings kub from yesterday noted path noted
[2018-11-23 08:20] LABS: BUN Creatinine Ratio 15.6 (10-20); Calcium 8.2 mg/dl (8.5-10.1); Creatinine Clr Calc Pharmacy 63.8 ml/min; Est GFR (African American) 105.9; Est GFR (Non-African American) 91.4; Magnesium 1.8 mg/dl (1.8-2.4); Potassium 3.3 mmol/L (3.5-5.1)
[2018-11-23] MEDS ORDERED: POTASSIUM CHLORIDE 20 MEQ TABCR PO STA (08:26)
[2018-11-23] MEDS: CELECOXIB 100 MG CAP PO SCH (09:10)
[2018-11-23] MEDS: METOPROLOL TARTRATE 25 MG TAB PO SCH (09:11)
[2018-11-23] MEDS: LISINOPRIL 10 MG TAB PO SCH (09:12)
[2018-11-23] MEDS: HEPARIN SOD 5,000 UNIT/0.5 ML VIAL SQ SCH (09:13)
[2018-11-23] MEDS ORDERED: LISINOPRIL 10 MG TAB PO ONE (10:30)
--- NOTE | 2018-11-23 14:00 | Hospitalist Progress Note ---
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 partial small bowel obstruction. - Pain control, wound care and DVT ppx per primary team. - Monitor CBC closely -- hgb has remained stable ~10. (2) Aspiration into airway: - CT A/P 11/16 showed tree in bud opacities concerning for aspiration. Repeat CT 11/20 showed increased LLL airspace nodular opacity. - Swallow evaluation -- approved for minced moist diet and thin liquids. - Completed course of Zosyn IV for aspiration PNA coverage; leukocytosis resolved on IV abx. - Surgeon op note mentioned a suspected vegetable bezoar in the small bowel and added that she may not be properly chewing her food. (3) Abnormal CXR: - CXR showed 2.4x1.8 nodular opacity of lateral left midlung. Will need f/ u CT chest in 1-2 months. (4) HTN (hypertension): - Remains hypertensive despite treatment with 2 agents. - Started Metoprolol 25 mg BID on 11/19. - Started Lisinopril 10 mg on 11/21; increase dose to 20 mg PO daily. (5) Severe protein-calorie malnutrition: - Encourage supplements with meals. Advanced to regular diet. (6) Underweight: - BMI 15.7. (7) Electrolyte abnormality: - K level 3.3. - Ordered K 40 mEq PO; start KCl 20 mEq PO daily on 11/24/18. (8) DVT prophylaxis: - Heparin subQ. Dispo: Discharge to [facility] this afternoon. Will sign off. Supervising Physician Co-Signing Physician Notes Attending Attestation - Chart reviewed in detail, and care plan d/w EMELINA Juarez. I agree w/ the pineda components of her documentation. Pt's hypomagnesemia is resolved. Hypokalemia improved but not resolved - continue to replace. POD #7 from cecal volvulus surgery. Primary surgical team to d/c patient to [facility] today. Ok from medical standpoint to d/c to rehab. Cont to adjust BP meds at [facility]. Shawn Foster MD Subjective Patient is POD#7 following colectomy for cecal volvulus. She is doing well, no issues today. Pt. was agreeable to a [facility] referral and was accepted. She will be discharged to [facility] this afternoon. Abdominal pain is well controlled, having regular BMs and denies difficulty urinating. Review of Systems All systems reviewed & are unremarkable except as noted in HPI & below Constitutional: no fever, no chills and no weakness Respiratory: no cough and no dyspnea Cardiovascular: no chest pain, no palpitations and no edema Gastrointestinal: no abdominal pain, no nausea and no constipation Genitourinary (Female): no difficulty urinating Allergy / Immunological: no rash Physical Exam 2 Vital Signs (Past 24 Hours): Last Vital Signs Temp 36.4 C L 11/23/18 07:25 Pulse 83 11/23/18 07:25 Resp 16 11/23/18 07:25 BP 159/69 H 11/23/18 07:25 Pulse Ox 97 11/23/18 07:25 Physical Exam: General: Resting comfortably in no apparent distress; A&OX3 HEENT: NC/AT; PERRLA with EOMI; [place] conjunctiva, MMM. Neck: Supple and nontender Cardiac: RRR w/o murmurs, gallops or rubs Lungs: CTA bilaterally; No rhonchi, wheezing, or rales Abdomen: Dressing noted over abdomen; Bowel normoactive X 4 Extremities: Warm. No cyanosis or edema present Neuro: No focal weakness Skin: No rash Results & Data Laboratory Results 11/23/18 11/23/18 11/23/18 Range/Units 11:54 08:18 07:03 Sodium 137 (136-145) mmol/L Potassium 3.3 L (3.5-5.1) mmol/L Chloride 103 (98-107) mmol/L Carbon Dioxide 27 (21-32) mmol/L Anion Gap 8.0 (3-11) BUN 7 D (7-18) mg/dl Creatinine 0.45 L (0.6-1.2) mg/dl Est Cr Clr Drug Dosing 63.8 ml/min Est GFR ( Amer) 105.9 Est GFR (Non-Af Amer) 91.4 BUN/Creatinine Ratio 15.6 (10-20) Glucose 91 (70-99) mg/dl POC Glucose 109 H 102 H (70-99) Calcium 8.2 L (8.5-10.1) mg/dl Magnesium 1.8 (1.8-2.4) mg/dl 11/22/18 11/22/18 Range/Units 20:23 16:59 Sodium (136-145) mmol/L Potassium (3.5-5.1) mmol/L Chloride (98-107) mmol/L Carbon Dioxide (21-32) mmol/L Anion Gap (3-11) BUN (7-18) mg/dl Creatinine (0.6-1.2) mg/dl Est Cr Clr Drug Dosing ml/min Est GFR ( Amer) Est GFR (Non-Af Amer) BUN/Creatinine Ratio (10-20) Glucose (70-99) mg/dl POC Glucose 104 H 112 H (70-99) Calcium (8.5-10.1) mg/dl Magnesium (1.8-2.4) mg/dl
--- NOTE | 2018-11-23 14:39 | Discharge Summary ---
Date of Service November 23, 2018 Admission HPI Per Admitting Provider 83 y/o female woke [place] early [place] morning bloated with nausea, vomiting, dry heaves. Not able to tolerate anything po for past two days, no flatus or BM. Has tried taking Pepto. Has lost 30 pounds in past 12-18 months. Has had some bloating, urgent BMs, diarrhea off and on during that time. No previous abdominal surgery or colonoscopy. Principal Diagnosis Cecal volvulus Discharge Exam Gastrointestinal (Abdomen) Inspection/Auscultation: + abdominal surgical incision (clean, dry); abdomen not distended Percussion/Palpation: abdomen soft Discharge Data Allergies Allergy/AdvReac Type Severity Reaction Status Date / Time codeine Allergy Unknown ? Verified 11/16/18 10:06 Consultations 11/16/18 Consult Assistant Reading Teacher Routine 11/17/18 Consult Hospitalist Routine Procedures Performed Operation Date: 11/16/18 07:00 Actual Procedures p Exploratory Laparotomy, Bowel Resection(Not Applicable) - Alonso Granados MD, FACS Ordered Studies 11/16/18 08:52 CT abd pelvis IV con only Stat 11/20/18 09:37 CT abd pelvis wo con Routine Hospital Course (1) Cecal volvulus: (1) Cecal volvulus: - S/p Right and transverse colectomy on 11/16/18 - CT 11/20 for pain and tachycardia: moderate pneumoperitoneum (postoperative); no evidence of abscess; post op ileus - Pain control has been an issue, started on Celebrex in addition to Percocet. - hgb has remained stable ~10. (2) Aspiration into airway: - CT A/P 11/16 showed tree in bud opacities concerning for aspiration. Repeat CT 11/20 showed increased LLL airspace nodular opacity. - Swallow evaluation -- approved for minced moist diet and thin liquids. - Completed course of Zosyn IV for aspiration PNA coverage. (3) Abnormal CXR: - CXR showed 2.4x1.8 nodular opacity of lateral left midlung. Will need f/ u CT chest in 1-2 months. (4) HTN (hypertension): - Remains hypertensive despite treatment with 2 agents. - Started Metoprolol 25 mg BID on 11/19. - Started Lisinopril 10 mg on 11/21; increase dose to 20 mg PO daily. (5) Severe protein-calorie malnutrition: - Encourage supplements with meals. Advanced to regular diet. (6) Underweight: - BMI 15.7. (7) Electrolyte abnormality: - K level 3.3. - Ordered K 40 mEq PO; start KCl 20 mEq PO daily on 11/24/18. (8) DVT prophylaxis: - Heparin subQ. Total Time Total Time Spent Total Time Spent (In Minutes): 20 Discharge Plan Discharge Items Patient Disposition: Transfer Inpatient Rehab Fac Reason For Visit: CECAL VOLVULUS Discharge Diagnosis: Right Colectomy Discharge Goals: Improve nutritional status Activity: Per 'Additional Instructions' section Lifting: No more than 10 pounds Bathing: No limitations Non-emergency contact: Surgeon Call non-emergency contact if: you have any medication questions, your pain is not controlled, your temperature is above 101.5 and your wound has increased redness Follow-up/Referrals: Alonso Granados MD, FACS [Surgeon] - (Call to make an appt for 1 week) David Lee MD [Primary Care Provider] - (You should have your blood pressure checked within 1 week) Diet: Regular Addtl Provider Instructions: Prescriptions: New celecoxib [Celebrex] 100 mg Capsule 100 mg PO BID Qty: 30 RF: 0 metoprolol tartrate 25 mg Tablet 25 mg PO BID Qty: 30 RF: 0 oxycodone-acetaminophen [Percocet] 5-325 mg tablet 1 tab PO Q4H PRN (Reason: pain) Qty: 15 RF: 0 lisinopril [Zestril] 10 mg Tablet 20 mg PO QAM Qty: 1 RF: 0 potassium chloride [Klor-Con M20] 20 mEq Tablet,Er Particles/Crystals 20 meq PO QAM 1 Days Qty: 1 RF: 0 Discontinued bismuth subsalicylate [Pepto-Bismol] 262 mg/15 mL Suspension 524 mg PO QID PRN (Reason: upset stomach) RF: 0 Stand-Alone Forms: [facility], [facility] Discharge Orders: Discharge Order (Routine); Ordered 11/23/18 Ordered By: Leonard Cevallos Jr Skilled Items Patient informed of condition?: Yes DNR: No Discharge Level of Care: Acute rehab Communicable Disease: No Discharge Prognosis: Improving Admission Data Admit Date/Time: 11/16/18 12:50 Attending Provider: Alonso Granados Admit Provider: Alonso Granados Primary Care Provider: David Lee Other Providers: Alonso Granados ; Eleanor Salter ; Porsha Resendez Service: Surgical Services Other Pending Studies at Discharge: No
[2018-11-24] MEDS ORDERED: LISINOPRIL 10 MG TAB PO SCH (09:00)
[2018-11-24] MEDS ORDERED: POTASSIUM CHLORIDE 20 MEQ TABCR PO SCH (09:00)
== END 2018-11-23 16:32 | DRG 329 ==
LOC: ED 08:20 → ASU 10:55 → 1E 12:50 → 3W 11-17 10:38
DX: I10 Essential (primary) hypertension; K56.2 Volvulus; Z88.5 Allergy status to narcotic agent; E87.6 Hypokalemia; R41.0 Disorientation, unspecified; E87.8 Other disorders of electrolyte and fluid balance, not elsewhere classified; E43 Unspecified severe protein-calorie malnutrition; Z68.1 Body mass index [BMI] 19.9 or less, adult

== ENCOUNTER 2020-05-24 21:00 | Inpatient (IN) ==
[2020-05-24] MEDS ORDERED: MoRPHine SULFATE 4 MG/ML 1 ML CARP\\VIAL IV PRN (21:22)
[2020-05-24] MEDS ORDERED: ONDANSETRON INJ 2 MG/ML 2 ML VIAL IV STA (21:22)
[2020-05-24 21:30] LABS: Basophils # (auto) 0.01 K/uL (0-0.2); Basophils % (auto) 0.1 %; Hematocrit (blood only) 49.2 % (37-47); Hemoglobin 16.2 g/dL (12.0-16.0); Immature Granulocytes # (auto) 0.05 K/uL (0.00-0.02); Immature Granulocytes % (auto) 0.3 %; Lymphocytes # (auto) 0.47 K/uL (1.2-3.4); Lymphocytes % (auto) 2.8 %; Mean Corpuscular Hemoglobin 29.2 pg (25-34); Mean Corpuscular Hgb Conc 32.9 g/dL (32-36); Mean Corpuscular Volume 88.6 fL (80-100); Mean Platelet Volume 9.6 fL (7.4-10.4); Monocytes # (auto) 0.85 K/uL (0.11-0.59); Neutrophils % (auto) 91.8 %; Platelet Count 378 K/uL (130-400); RDW Coefficient of Variation 13.2 % (11.5-14.5); Red Blood Count 5.55 M/uL (4.2-5.4); White Blood Count 17.08 K/uL (4.8-10.8)
[2020-05-24] MEDS ORDERED: SODIUM CHLORIDE 0.9% 1000ML 1,000 ML IV SCH (21:30)
[2020-05-24 21:53] LABS: Alanine Aminotransferase 91 U/L (12-78); Albumin Level 3.7 gm/dl (3.4-5.0); Aspartate Aminotransferase 105 U/L (15-37); BUN Creatinine Ratio 20.8 (10-20); Blood Urea Nitrogen 27 mg/dl (7-18); C Reactive Protein 0.64 mg/dl (0-0.29); Calcium 9.4 mg/dl (8.5-10.1); Carbon Dioxide 26 mmol/L (21-32); Chloride 100 mmol/L (98-107); Creatinine Clr Calc Pharmacy 22.9 ml/min; Est GFR (Non-African American) 37.1; Glucose 196 mg/dl (70-99); Potassium 4.4 mmol/L (3.5-5.1); Sodium 134 mmol/L (136-145)
[2020-05-24 21:55] LABS: Albumin Globulin Ratio 0.9 (0.9-2); Alkaline Phosphatase 32 U/L (45-117); Bilirubin,Total 0.5 mg/dl (0.2-1); Lipase 4736 U/L (73-393); Total Protein 7.7 gm/dl (6.4-8.2)
--- NOTE | 2020-05-24 22:06 | Emergency Department Note ---
Impression & Plan Acute pancreatitis, Abdominal pain ED Provider Note NAME: VEE CHUA AGE: 84 SEX: F : 1935 ARRIVES VIA: Walk-In INFORMANT: Patient, ED PROVIDER(S): Carlos Laura DO CHIEF COMPLAINT: Abdominal pain HPI: The patient is an 84-year-old female who presented to the emergency department for an evaluation of abdominal pain. The patient has had very severe lower abdominal pain since this morning. She denies having any dysuria or frequency. The patient's pain is very severe at this time. She states her pain is worsened with any movement as well as standing. She does complain of nausea but no vomiting at this time. She is had no diarrhea. There is been no reported fever. She denies having any chest pain or difficulty breathing. The patient's pain is severe at this time. She did not take any medication prior to arrival. The patient states that she has a history of bowel obstruction in the past. ROS: See above HPI for pertinent positives & negatives. A total of 10 systems reviewed and were otherwise negative. PAST MEDICAL HISTORY: See Below PAST SURGICAL HISTORY: See Below FAMILY HISTORY: See Below SOCIAL HISTORY: See Below HOME MEDICATIONS: See Below ALLERGIES: See Below VITALS: See Below PHYSICAL EXAMINATION: GENERAL: The patient is awake and alert. She is very anxious and frail- appearing. She appears to be in moderate pain. EYES: The conjunctivae are clear. The pupils are round and reactive. EARS, NOSE, MOUTH AND THROAT: The nose is without any evidence of any deformity. Mucous membranes are moist. Tongue is midline. NECK: The neck is nontender and supple. RESPIRATORY: Normal respiratory effort is noted there is no evidence of wheezing rhonchi or rales CARDIOVASCULAR: Regular rate and rhythm noted there no murmurs rubs or gallops normal S1 normal S2. GASTROINTESTINAL: The abdomen is moderately distended. There is diffuse tenderness to palpation as well as guarding in the upper abdomen. MUSCULOSKELETAL/EXTREMITIES: There is no evidence of gross deformity full range of motion is noted in the hips and shoulders. SKIN: There is no obvious evidence of any rash. Trace pedal edema was noted. NEUROLOGIC: Patient is awake alert and oriented x3. MEDICAL DECISION MAKING: The patient is an 84-year-old female who presented to the emergency department for an evaluation of abdominal pain. The patient's pain was very severe. The patient appeared to have a surgical abdomen on initial physical exam. For this reason further laboratory and radiographic studies were obtained. The patient was treated with IV pain medication and IV fluids in the emergency department. She was also treated with IV antibiotics as well as H2 greg and proton pump inhibitor. CT appear to be consistent with severe pancreatitis with signs of necrosis. I discussed the patient's laboratory and radiographic studies with her and her family member. I also discussed her case with the on-call [facility] hospitalist. They have agreed to evaluate the patient in the emergency department for further management and disposition. I did discuss the patient's condition with her son and he is aware the severity of the patient's findings on CAT scan. Triage Nursing notes reviewed. Prior medical records reviewed Vital Signs: reviewed and remarkable for tachycardia and hypertension. Differential diagnosis: Etiologies such as appendicitis, diverticulitis, obstruction, inflammatory bowel disease, renal colic, PUD, biliary pathology, pancreatitis, mesenteric ischemia, aortic pathology, infections, genitourinary, UTI, perforated viscus, as well as others were entertained. ER treatment provided: See below Diagnostics interpreted by me: ECG: EKG was obtained in the emergency department. My interpretation is normal sinus rhythm at 93 bpm. There is no ectopy. There is no acute ST segment abnormalities noted. No previous tracing was available. Cardiac Monitoring: An order was placed for continuous cardiac monitoring. The monitor shows a rate of 85 with sinus rhythm. Laboratory studies: As stated above and show below. Imaging studies: See below Consultation(s): 2300: I discussed this case with Dr. Zhou. He will evaluate the patient in the emergency department for further management disposition. 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 Verified 05/24/20 22:19 Home Meds Home Medications Medication Instructions Recorded Confirmed lisinopril 20 mg PO DAILY 05/24/20 05/24/20 Previous Rx's Medication Instructions Recorded metoprolol tartrate 25 mg PO BID #30 tab 11/23/18 Flutter Valve #1 ea 07/27/19 Results & Data (ED) Vital Signs Vital Signs - 24 hr 05/24/20 21:02 05/24/20 21:37 05/24/20 23:06 Temperature 36.4 C L Temperature Source Oral Pulse Rate 97 H Pulse Rate [Apical] 94 H Respiratory Rate 20 23 Respiratory Effort / Characteristics Non-Labored Spontaneous Respiratory Depth Normal Blood Pressure 157/77 H Blood Pressure [Left Arm] 165/87 H Blood Pressure Mean 103 Blood Pressure Mean [Left Arm] 113 Pulse Oximetry 97 94 96 Oxygen Delivery Method Room Air Room Air Room Air Sepsis Recent Fever Within 48 Hours No Sepsis New/Unexplained Change in Mental Status No Sepsis Action Taken by Nursing No Action Required 05/25/20 00:37 Temperature Temperature Source Pulse Rate Pulse Rate [Apical] 97 H Respiratory Rate 24 Respiratory Effort / Characteristics Respiratory Depth Blood Pressure Blood Pressure [Left Arm] 176/110 H Blood Pressure Mean Blood Pressure Mean [Left Arm] 132 Pulse Oximetry 100 Oxygen Delivery Method Room Air Sepsis Recent Fever Within 48 Hours Sepsis New/Unexplained Change in Mental Status Sepsis Action Taken by Care Home Medications Current Medication List: was personally reviewed by me Laboratory Data Attestation: I reviewed the patient's lab results. Result diagrams: 05/24/20 21:20 05/24/20 21:20 Lab Results 05/24/20 05/24/20 05/24/20 Range/Units 21:20 21:20 21:20 WBC 17.08 H (4.8-10.8) K/uL RBC 5.55 H (4.2-5.4) M/uL Hgb 16.2 H (12.0-16.0) g/dL POC Hgb (12.0-16.0) g/dl Hct 49.2 H (37-47) % POC Hct (37-47) % MCV 88.6 (80-100) fL MCH 29.2 (25-34) pg MCHC 32.9 (32-36) g/dL RDW Std Deviation 43.0 (36.4-46.3) fL RDW Coeff of [place] 13.2 (11.5-14.5) % Plt Count 378 (130-400) K/uL MPV 9.6 (7.4-10.4) fL Immature Gran % (Auto) 0.3 % Neut % (Auto) 91.8 % Lymph % (Auto) 2.8 % [place] % (Auto) 5.0 % Eos % (Auto) 0.0 % Baso % (Auto) 0.1 % Neut # (Auto) 15.70 H (1.4-6.5) K/uL Lymph # (Auto) 0.47 L (1.2-3.4) K/uL [place] # (Auto) 0.85 H (0.11-0.59) K/uL Eos # (Auto) 0.00 (0-0.5) K/uL Baso # (Auto) 0.01 (0-0.2) K/uL Immature Gran # (Auto) 0.05 H (0.00-0.02) K/uL ESR 25 H (0-21) mm/hr PT (9.0-12.0) Seconds INR (0.9-1.1) APTT (21.0-31.0) Seconds PTT Ratio POC Sodium (135-144) mmol/L Sodium 134 L (136-145) mmol/L POC Potassium (3.3-5.0) mmol/L Potassium 4.4 (3.5-5.1) mmol/L POC Chloride (101-112) mmol/L Chloride 100 (98-107) mmol/L Carbon Dioxide 26 (21-32) mmol/L POC Total CO2 (24-31) mmol/L Anion Gap 8.0 (3-11) POC Anion Gap (16-25) mmol/L POC BUN (7-18) mg/dl BUN 27 H (7-18) mg/dl Creatinine 1.30 H (0.6-1.2) mg/dl POC Creatinine (0.6-1.3) mg/dl Est Cr Clr Drug Dosing 22.9 ml/min Est GFR ( Amer) 43.0 Est GFR (Non-Af Amer) 37.1 BUN/Creatinine Ratio 20.8 H (10-20) Glucose 196 H (70-99) mg/dl POC Glucose (other) (70-99) mg/dl Calcium 9.4 (8.5-10.1) mg/dl POC Ioniz Calcium Jojo (1.12-1.32) mmol/l Total Bilirubin 0.5 (0.2-1) mg/dl AST 105 H (15-37) U/L ALT 91 H (12-78) U/L Alkaline Phosphatase 32 L (45-117) U/L Troponin I < 0.015 (0-0.045) ng/ml C-Reactive Protein 0.64 H (0-0.29) mg/dl Total Protein 7.7 (6.4-8.2) gm/dl Albumin 3.7 (3.4-5.0) gm/dl Globulin 4.0 (2.5-4.0) gm/dl Albumin/Globulin Ratio 0.9 (0.9-2) Lipase 4736 H (73-393) U/L 05/24/20 05/24/20 Range/Units 21:53 22:08 WBC (4.8-10.8) K/uL RBC (4.2-5.4) M/uL Hgb (12.0-16.0) g/dL POC Hgb 17.0 H (12.0-16.0) g/dl Hct (37-47) % POC Hct 50 H (37-47) % MCV (80-100) fL MCH (25-34) pg MCHC (32-36) g/dL RDW Std Deviation (36.4-46.3) fL RDW Coeff of [place] (11.5-14.5) % Plt Count (130-400) K/uL MPV (7.4-10.4) fL Immature Gran % (Auto) % Neut % (Auto) % Lymph % (Auto) % [place] % (Auto) % Eos % (Auto) % Baso % (Auto) % Neut # (Auto) (1.4-6.5) K/uL Lymph # (Auto) (1.2-3.4) K/uL [place] # (Auto) (0.11-0.59) K/uL Eos # (Auto) (0-0.5) K/uL Baso # (Auto) (0-0.2) K/uL Immature Gran # (Auto) (0.00-0.02) K/uL ESR (0-21) mm/hr PT 10.9 (9.0-12.0) Seconds INR 1.0 (0.9-1.1) APTT 23.1 (21.0-31.0) Seconds PTT Ratio 0.8 POC Sodium 131 L (135-144) mmol/L Sodium (136-145) mmol/L POC Potassium 7.3 H* (3.3-5.0) mmol/L Potassium (3.5-5.1) mmol/L POC Chloride 97 L (101-112) mmol/L Chloride (98-107) mmol/L Carbon Dioxide (21-32) mmol/L POC Total CO2 28 (24-31) mmol/L Anion Gap (3-11) POC Anion Gap 14.0 L (16-25) mmol/L POC BUN 42 H (7-18) mg/dl BUN (7-18) mg/dl Creatinine (0.6-1.2) mg/dl POC Creatinine 1.0 (0.6-1.3) mg/dl Est Cr Clr Drug Dosing ml/min Est GFR ( Amer) Est GFR (Non-Af Amer) BUN/Creatinine Ratio (10-20) Glucose (70-99) mg/dl POC Glucose (other) 204 H (70-99) mg/dl Calcium (8.5-10.1) mg/dl POC Ioniz Calcium Jojo 1.05 L (1.12-1.32) mmol/l Total Bilirubin (0.2-1) mg/dl AST (15-37) U/L ALT (12-78) U/L Alkaline Phosphatase (45-117) U/L Troponin I (0-0.045) ng/ml C-Reactive Protein (0-0.29) mg/dl Total Protein (6.4-8.2) gm/dl Albumin (3.4-5.0) gm/dl Globulin (2.5-4.0) gm/dl Albumin/Globulin Ratio (0.9-2) Lipase (73-393) U/L Administered Medications Morphine Sulfate (Morphine Sulfate) 4 mg IV Q15M PRN PRN Reason: Pain Stop: 06/07/20 21:21 Last Admin: 05/24/20 21:33 Dose: 4 mg Documented by: [id number] Discontinued Medications Famotidine (Pepcid 20mg Iv Push) 20 mg IV ONE STA Stop: 05/24/20 23:01 Last Admin: 05/24/20 23:07 Dose: 20 mg Documented by: [id number] Hydromorphone HCl (Dilaudid) 0.2 mg IV NOW STA Stop: 05/24/20 23:53 Last Admin: 05/24/20 23:58 Dose: 0.2 mg Documented by: [id number] Sodium Chloride (Nss 1000ml) 1,000 mls @ 999 mls/hr IV .Q1H1M CLEO Stop: 05/24/20 22:30 Last Infusion: 05/24/20 22:37 Dose: 0 mls/hr Documented by: [id number] Admin: 05/24/20 21:33 Dose: 999 mls/hr Documented by: [id number] Piperacillin Sod/Tazobactam Sod (Zosyn) 4.5 gm in 120 mls @ 240 mls/hr IV NOW ONE Stop: 05/24/20 23:29 Last Infusion: 05/24/20 23:38 Dose: 0 mls/hr Documented by: [id number] Admin: 05/24/20 23:07 Dose: 240 mls/hr Documented by: [id number] Pantoprazole Sodium 40 mg/ (Syringe) 10 mls @ 5 mls/min IV NOW ONE Stop: 05/24/20 23:01 Last Admin: 05/24/20 23:07 Dose: 5 mls/min Documented by: [id number] Ondansetron HCl (Zofran) 4 mg IV NOW STA Stop: 05/24/20 21:23 Last Admin: 05/24/20 21:33 Dose: 4 mg Documented by: [id number] Imaging Data Radiologist's Impression: Preliminary Findings Only See Final Report For Complete Findings CT ABDOMEN & PELVIS Without Contrast: Acute pancreatitis with marked peripancreatic fat stranding and free fluid. There is indistinctness of the pancreatic head and uncinate process which could potentially represent necrosis but evaluation is difficult given the lack of contrast. There is no drainable fluid collection. Tree-in-bud nodularity at the lung bases bilaterally with areas of mucus plugging potentially related to nonspecific infectious/inflammatory etiology or aspiration. Radiologist: Ivan Guzman MD Study ready at 22:31 and initial results transmitted at 22:50 Blood Pressure Blood Pressure Findings: Elevated blood pressure Blood Pressure Disposition: further management by hospitalist Discharge Plan Visit Data Chief Complaint: Abdominal Pain Stated Complaint: ADB PAIN ED Provider: Carlos Laura Discharge Problem: Acute pancreatitis, Abdominal pain Patient Disposition: Being Evaluated by Hospitalist Condition: Good Forms Stand Alone Forms: [facility] Prescriptions Prescriptions: No Action (DME) Flutter Valve Device See Dose Instructions .ROUTE .MEDSUPPLY Qty: 1 RF: 0 metoprolol tartrate 25 mg Tablet 25 mg PO BID Qty: 30 RF: 0 lisinopril 20 mg tablet 20 mg PO DAILY RF: 0 Referrals Referrals: David Lee MD [Primary Care Provider] -
[2020-05-24 22:23] LABS: iSTAT Ionized Calcium 1.05 mmol/l (1.12-1.32); iSTAT Potassium 7.3 mmol/L (3.3-5.0)
[2020-05-24 22:25] LABS: Partial Thromboplastin Ratio 0.8; Partial Thromboplastin Time 23.1 Seconds (21.0-31.0); Prothrombin Time 10.9 Seconds (9.0-12.0)
[2020-05-24 22:33] LABS: Troponin I < 0.015 ng/ml (0-0.045)
[2020-05-24] MEDS ORDERED: PIPERACILLIN/TAZOBACTAM 4.5 GM/120 ML BAG IV ONE (23:00)
[2020-05-24] MEDS ORDERED: PANTOprazole 40 MG in SYRINGE 0 ML IV ONE (23:00)
[2020-05-24] MEDS ORDERED: PIPERACILL/TAZOBAC CONSULT ACTIVE PRN (23:00)
[2020-05-24] MEDS ORDERED: FAMOTIDINE 20MG/5ML IV PUSH IV STA (23:00)
[2020-05-24] MEDS ORDERED: HYDROmorphone INJ 0.5 MG/0.5 ML SYR IV STA (23:52)
--- NOTE | 2020-05-25 01:29 | History & Physical Report ---
Date of Service May 25, 2020 Assessment & Plan (1) Acute pancreatitis: 4-year-old man with acute pancreatitis and possible pancreatic head mass Acute pancreatitis Potential including gallstone or obstructive mass CT scan not completely clear, possible pancreatic head mass and necrosis will evaluate with MRCP Primaxin for potential necrosis Made n.p.o., fluid resuscitating got 100 bolus in ED currently with lactated Ringer's at 125 mils an hour Extreme pain, titrating up Dilaudid as needed; Zofran for nausea [place] criteria of at least 3 on admission projecting at least 15% mortality rate Given patient's history of progressive weight loss, elevated liver enzymes, and concerning CT scan I am very concerned for cancer, will need to have ongoing discussion with patient and patient's son about goals of care as patient's goals of care appear to be conservative, will likely benefit from palliative care constantly to discuss goals of care I elected to hold off until diagnostics are back Failure to thrive Patient has been progressively smaller and weaker per son, very poor p.o. inta ke, as patient recovers would consider nutrition consult as patient is not currently eating solid foods If abnormality CT scan is pancreatic head mass, could help explain weight loss and progressive weakness Hypertension Holding patient's home lisinopril and metoprolol for acute illness and potential for hypotension As we have pain in her control expect blood pressure to decrease CHARANJIT Likely prerenal secondary to vomiting dehydration Elevated hemoglobin Likely secondary to hemoconcentration from dehydration DVT prophylaxis: Heparin 5000 units subcu twice daily Fluids electrolytes nutrition: N.p.o., lactated Ringer at 125 mils per hour Disposition: PCU for IV antibiotics and close monitoring as patient has potential to get much worse as patient's pain becomes better controlled and MR CP come back will be important have goals of care discussion with patient and family DNR/DNI no resuscitation (2) Abdominal pain: (3) Mild cognitive impairment: (4) Electrolyte abnormality: (5) Abnormal CXR: (6) Underweight: (7) Severe protein-calorie malnutrition: (8) DVT prophylaxis: (9) HTN (hypertension): History of Present Illness Chief Complaint: Abdominal Pain, nausea Primary Care Provider: David Vaughan MD Milady Benavides is an 84 year old woman with a PMH significant for hypertension and cecal volvulus with partial colectomy in 2018 she presents today with 1 day history of severe epigastric abdominal pain and nausea with vomiting. She was in her usual state of health up until this morning, she was out in the yard doing yard work yesterday, she lives by herself at home, her sister lives [place] within a baseball throw [place] of her house and her son also lives locally and checks in on her regularly. She is accompanied by her son at present who helps with a history as patient is in too much pain to give her history. Patient nurses no symptoms [place] the abdominal pain and vomiting, she says that she has not had fevers chills shortness of breath chest pain bowel changes urinary changes or any other concerns patient denies weight loss however her son says she has been steadily losing weight and muscle mass over the course of the last year or 2. He tells me that she has stopped eating solid food and is just eating a meal replacement liquid known as quotation Sylvia Green quotation sylvia she has not talked to her family about this but the son discovered it today when he went to see her at her house. On arrival to emergency department patient ascending extreme pain tachycardic hypertensive afebrile saturating well on room air no increased work of breathing or tachypnea. Lab work was significant for an elevated white count of 17.08 with hemoglobin of 16.2, elevated ESR of 25, hyponatremia 134, and an CHARANJIT with a creatinine of 1.3 above her normal baseline. Patient had elevated AST ALT at 105 and 91 respectively, and her lipase was 4736. CT abdomen was ordered which shows a possible mass or obstruction in the head of the pancreas, pancreatitis with possible necrosis. Patient was given 1 dose of Zosyn, a dose of morphine, and 1 L normal saline. On my evaluation patient was asked in extreme pain had difficulty having a conversation with me, patient was oriented to person place time and situation, patient did tell me very clearly that she would not want any extreme measures taken to save her life, she would not want chest compressions she would not want a breathing tube and she would not want any electrical shocks. She is since using any medication, her and son are both concerned about opiate pain medication, patient in the past is declined antibiotics. 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 An appointment with pulmonology patient declined treatment. Allergies Allergy/AdvReac Type Severity Reaction Status Date / Time codeine Allergy Unknown ? Verified 05/24/20 22:19 Home Medications Home Medications Medication Instructions Recorded Confirmed Type metoprolol tartrate 25 mg PO BID #30 tab 11/23/18 05/24/20 Rx Flutter Valve #1 ea 07/27/19 11/26/19 Rx lisinopril 20 mg PO DAILY 05/24/20 05/24/20 History Past Med/Surg History Medical History Advanced age Bowel obstruction No known health problems Surgical History History of hemicolectomy Family History Unknown Family history non-contributory Social History Preferred Language: Urdu Communication Ability: Effective Visual Impairment: No Limitations Call Center Assistant Required: No Beliefs That Will Affect Care: None marital status: / Current Living Situation: Alone current occupational status: retired Other Information That Helps Us Care for You: No Feels Safe at Home: Yes Smoking Status: Unknown if ever smoked Hx Alcohol Use: No Hx Substance Use: No during the past year weight has: decreased > 10 lbs Review of Systems Review of Systems: All systems reviewed & are unremarkable except as noted in HPI & below Physical Exam Constitutional: + acute distress, + ill appearing and + cachectic Eyes: PERRL, conjunctivae normal, anicteric sclerae ENMT: external ear and nose normal, oropharynx normal Respiratory: normal respiratory effort, lungs clear to auscultation Cardiovascular: Rate/Rhythm: regular rhythm and + tachycardic Heart Sounds: + murmur (Systolic); no click and no gallop Gastrointestinal (Abdomen): Globally exquisitely tender, soft, no masses detected Skin: no rashes, warm and dry Neurologic: PERRL, EOMI, accommodation nl, no face palsy, no dysarthria Psychiatric: A+Ox3, euthymic affect Results & Data Results & Data ([facility]) Vital Signs (Past 12 Hours) Vital Signs Temp Pulse Pulse Resp BP BP Pulse Ox 05/25/20 01:18 103 H 18 179/101 H 100 07/05/20 00:37 97 H 24 176/110 H 100 05/24/20 23:06 94 H 23 165/87 H 96 05/24/20 21:37 94 05/24/20 21:02 36.4 C L 97 H 20 157/77 H 97 Code Status & VTE Plan VTE Prophylaxis Plan VTE Prophylaxis will be ordered: Yes Supervising Physician Co-Signing Physician Notes Attending addendum: I have physically seen this patient, have supervised the medical residents activities, and agree with the H&P unless as otherwise noted. Assessment and Plan: Acute pancreatitis/question of pancreatic head necrosis versus mass. Order MRCP Zosyn 4.5 g IV every 8 hours. Zofran 4 mg IV every 6 hours PRN Famotidine 20 mg IV every 12 hours Dilaudid 0.2 mg IV every 3 hours as needed severe pain Consult gastroenterology History of severe protein calorie malnutrition Overall poor poor prognosis Palliative care consult Chronic pulmonary inflammation/pneumonitis/mucous plugging at the bases bilaterally- Patient has refused treatment in the outpatient setting. We will treat as treating pancreatitis. Acute kidney injury- Secondary to dehydration Repeat labs in a.m. after IV fluids Remaining orders and notations as noted Resident Activity Tracking Resident Involvement: Resident Care Provided Care Provided: Adult Hospital Medicine (1) Abdominal pain Abdominal location: generalized Qualified Code(s): R10.84 - Generalized abdominal pain (2) Acute pancreatitis Acute pancreatitis complication: infected necrosis Pancreatitis type: unspecified pancreatitis type Qualified Code(s): K85.92 - Acute pancreatitis with infected necrosis, unspecified
[2020-05-25] MEDS ORDERED: HYDROmorphone INJ 0.5 MG/0.5 ML SYR ONE (02:03)
[2020-05-25] MEDS ORDERED: HYDROmorphone INJ 0.5 MG/0.5 ML SYR IV STA (02:04)
[2020-05-25] MEDS ORDERED: HYDROmorphone INJ 0.5 MG/0.5 ML SYR IV PRN (02:04)
[2020-05-25] MEDS ORDERED: POLYETHYLENE (MIRALAX) 17 GM PACK PO PRN (02:04)
[2020-05-25] MEDS ORDERED: IMIPENEM/CILASTATIN CONSULT ACTIVE PRN (02:04)
[2020-05-25] MEDS: LACTATED RINGER'S 1,000 ML IV SCH ×3 (02:10→20:06)
[2020-05-25] MEDS: IMIPENEM/CILASTATIN SODIUM 200 MG in DEXTROSE 5% 100 ML IV SCH ×4 (03:31→21:54)
[2020-05-25 06:11] LABS: Basophils # (auto) 0.01 K/uL (0-0.2); Basophils % (auto) 0.1 %; Hematocrit (blood only) 50.3 % (37-47); Hemoglobin 16.8 g/dL (12.0-16.0); Immature Granulocytes # (auto) 0.06 K/uL (0.00-0.02); Immature Granulocytes % (auto) 0.3 %; Lymphocytes # (auto) 0.47 K/uL (1.2-3.4); Lymphocytes % (auto) 2.4 %; Mean Corpuscular Hemoglobin 29.5 pg (25-34); Mean Corpuscular Hgb Conc 33.4 g/dL (32-36); Mean Corpuscular Volume 88.4 fL (80-100); Mean Platelet Volume 9.7 fL (7.4-10.4); Neutrophils # (auto) 18.01 K/uL (1.4-6.5); Neutrophils % (auto) 90.2 %; Platelet Count 333 K/uL (130-400); RDW Coefficient of Variation 13.3 % (11.5-14.5); RDW Standard Deviation 43.1 fL (36.4-46.3); Red Blood Count 5.69 M/uL (4.2-5.4); White Blood Count 19.95 K/uL (4.8-10.8)
[2020-05-25 06:38] LABS: Albumin Level 2.9 gm/dl (3.4-5.0); BUN Creatinine Ratio 23.7 (10-20); Calcium 8.1 mg/dl (8.5-10.1); Creatinine Clr Calc Pharmacy 21.6 ml/min; Est GFR (Non-African American) 39.7; Potassium 4.3 mmol/L (3.5-5.1)
[2020-05-25 06:41] LABS: Albumin Globulin Ratio 0.8 (0.9-2); Bilirubin,Total 0.6 mg/dl (0.2-1); Globulin 3.9 gm/dl (2.5-4.0); Total Protein 6.8 gm/dl (6.4-8.2)
[2020-05-25] MEDS: HEPARIN SOD 5,000 UNIT/0.5 ML VIAL SQ SCH ×2 (07:34→23:21)
[2020-05-25] MEDS: ONDANSETRON INJ 2 MG/ML 2 ML VIAL IV PRN ×3 (07:44→23:21)
--- NOTE | 2020-05-25 09:20 | CT Scan Report ---
ABDOMEN AND PELVIS CT WITHOUT CONTRAST CT DOSE: 243.27 mGy.cm HISTORY: Acute severe generalized abdominal pain lower pain TECHNIQUE: Multiaxial CT images of the abdomen and pelvis were performed without contrast. A dose lo wering technique was utilized adhering to the principles of ALARA. COMPARISON STUDY: CT abdomen and pelvis 05/26/2019. FINDINGS: Areas of bibasilar bronchiectasis, mucous plugging and left greater than right tree-in-bud nodules redemonstrated. Calcified granulomata of the basal left lower lobe. No pneumatosis or pneumop eritoneum. Imaged inferior cardiac chambers are unremarkable. Trace pericardial effusion. Limited evaluation of the solid abdominal organs without the use of IV contrast. Scattered calcified granulomata noted throughout the spleen and liver. Unremarkable appearance of the adrenal glands. The re is mild gallbladder distention. No cholelithiasis or choledocholithiasis identified. No significan t biliary ductal dilation. There is interstitial with extensive peripancreatic stranding, most pronou nced surrounding the uncinate process, pancreatic head and neck distribution. Mild generalized pancre atic atrophy. No drainable fluid collection. There is ill-defined decreased attenuation of the pancre atic head and uncinate process. Limited evaluation without the use of IV contrast. Free fluid extends into the lower mesentery, right pericolic gutter and dependent pelvis. Mild cortical thinning of the kidneys. No hydronephrosis. Unchanged indeterminate calcification of th e right hemipelvis on image 228 series 3. Probable fibroid uterus. Extensive calcified plaque of the abdominal aorta. Prominent gastrohepatic lymph nodes are likely reactive. Mild nonspecific distal esophageal wall thickening. No bowel obstruction. Mild colonic diverticulosis without acute diverticulitis. Postoperative changes of prior right hemicolectomy. Soft tissues are u nremarkable. Demineralized appearance of the bones. Degenerative changes of the spine, pelvis and hip s. Healed remote fracture of the left inferior pubic ramus. IMPRESSION: 1. Findings compatible with acute severe pancreatitis. Ill-defined decreased attenuation of the pancr eatic head and uncinate process is likely secondary to interstitial edema with developing pancreatic necrosis also within the differential, however not well evaluated without the use of IV contrast. No drainable fluid collection. 2. Mild gallbladder distention. No cholelithiasis identified. 3. Postoperative changes of prior right hemicolectomy. 4. 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 5. Prior granulomatous disease. 6. Additional findings as above. ACT 112: Negative or not required by law. The above report was generated using voice recognition software. It may contain grammatical, syntax o r spelling errors. Electronically signed by: David Egan M.D. 05/25/2020 9:19 AM
--- NOTE | 2020-05-25 12:17 | Electrocardiogram Report ---
Test Reason : Blood Pressure : / mmHG Vent. Rate : 093 BPM Atrial Rate : 093 BPM P-R Int : 114 ms QRS Dur : 062 ms QT Int : 370 ms P-R-T Axes : 061 042 057 degrees QTc Int : 460 ms Normal sinus rhythm Normal ECG When compared with ECG of 26-MAY-2019 19:22, No significant change was found Confirmed by Carlos Hartley ([id number]) on 05/25/2020 12:17:19 PM Referred By: REFERRED SELF Confirmed By:Carlos Hartley
[2020-05-25] MEDS: HYDROmorphone INJ 1 MG/ML SYRINGE IV PRN ×2 (12:36→16:50)
--- NOTE | 2020-05-25 18:56 | Magnetic Resonance Report ---
MR MRCP HISTORY: 84 years-old Female Pancreatitis follow-up study in a patient with acute severe pancreatiti s. COMPARISON: CT abdomen pelvis 05/24/2020, 05/26/2019 TECHNIQUE: MRCP was obtained without the use of IV contrast. FINDINGS: [employer] localizer images demonstrate no gross thoracic abnormality. Small pleural effusions. Small magdy cardial effusion. Mild cardiomegaly. Nonspecific bilateral perinephric stranding. Unremarkable appear ance of the spleen and liver. Atheromatous plaque of the abdominal aorta. No bowel obstruction identi fied. 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 Increased amount of abdominal pelvic ascites which now appears to be small to moderate throughout. Ex tensive peripancreatic and interstitial pancreatic edema, most pronounced in the pancreatic head, unc inate process and pancreatic neck. Moderate gallbladder distention with layering cholelithiasis. Ther e are a few small gallstones measuring up to 2-3 mm within the proximal cystic duct/gallbladder neck. There is no significant gallbladder wall thickening. Common bile duct enters 9 mm, likely within nor mal limits for the patient's age. No significant intrahepatic biliary ductal dilation. No pancreatic ductal dilation. The study is mildly motion degraded. There are a few tiny 1 mm apparent filling defe cts within the common bile duct which are best seen on the 3-D MRCP images (for example please see im age 80 of series 8). IMPRESSION: 1. Gallbladder distention with cholelithiasis. Gallstones are also present within the gallbladder nec k and proximal cystic duct. There is no significant gallbladder wall thickening identified at this ti me, however the patient should be followed closely to exclude acute cholecystitis. 2. Marked acute pancreatitis with inflammation most pronounced in the uncinate process, pancreatic he ad and neck. Study is not tailored to assess for underlying pancreatic mass, however follow-up after resolution of acute symptoms is recommended. There is increased amount of reactive mesenteric edema w ith abdominal pelvic ascites ascites from the 05/24/2020 exam. 3. The common bile duct measures within the upper limits of normal and there are several tiny intralu amie filling defects suspicious for choledocholithiasis. 4. Small bilateral pleural effusions. ACT 112: Negative or not required by law. The above report was generated using voice recognition software. It may contain grammatical, syntax o r spelling errors. Electronically signed by: David Egan M.D. 05/25/2020 6:55 PM
--- NOTE | 2020-05-25 19:24 | Hospitalist Progress Note ---
Date of Service May 25, 2020 Assessment & Plan (1) Acute pancreatitis: likely 2nd gallstones. MRCP today with gallstones including stones in the cystic duct and also suspected stones in the CBD. keep NPO. cont LR - increase rate to 150cc/hr. repeat LFTs/lipase/BMP am. ?necrosis on CT last evening but MRCP does not show such. [id number], I am concerned she could have early cholecystitis and/or cholangitis; thus - leave imipenem as is. (2) Gallstones: as seen on MRCP today. abnormal LFTs, sepsis, and leukocytosis concerning for early cholecystitis. I am also concerned she could have cholangitis given her clinical picture. Spoke with Dr Ellis from GI --- will have [facility] see in am for consideration of ERCP. I spoke with pt's son by phone along with [id number] about these issues (see below). (3) Choledocholithiasis: as seen on MRCP. clinical picture concerning for early cholangitis. cont aggressive hydration with LR. cont broad-spectrum IV antibiotics. if any fever obtain blood cx's but uncertain if helpful at this point (has had abx since yesterday evening). [facility] GI consult for consideration of ERCP. repeat LFTs am. (4) Sepsis: 2nd acute pancreatitis +/- early cholecystitis +/- early cholangitis? cont LR hydration. cont broad-spectrum IV abx. 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 Saw pulmonary in fall 2018 - patient declined additional work-up and treatment. (6) Severe protein-calorie malnutrition: ongoing for 6-12 months or more. 2nd to chronic JIMENA infection? other? CT yesterday with some concern for possible pancreatic head mass -- this was not seen on MRCP today. (7) ATN (acute tubular necrosis): sepsis-associated IV fluids repeat BMP am (8) Abnormal LFTs: 2nd to cholecystitis? 2nd to early cholangitis? (t bili noted to be normal, however) repeat LFTs am. (9) Polycythemia: hemoconcentration in setting of dehydration/sepsis? secondary polycythemia 2nd to chronic hypoxia from suspected JIMENA? repeat CBC am. (10) Essential (primary) hypertension: holding CONNER and BB (11) Hyperglycemia: likely reactive to sepsis check a1c in am - r/o early preDM or T2DM (12) Encephalopathy: metabolic - from sepsis toxic - from dilaudid receiving large doses of dilaudid given her age and body size; will decrease dilaudid dose down to 0.25mg increments (13) DVT prophylaxis: heparin 5000 BID updated pt's son and [id number] by phone 05/25 patient in the last 1-2 years has NOT wanted aggressive care I asked the question if patient would want an ERCP and son felt she probably would they are uncertain about whether she would want a gall bladder surgery will hold on gen surg consult until CBD issue/choledocholithiasis issue is taken care of Admission and Anticipated Discharge Date Admission Date: May 25, 2020 Subjective patient sedated during the visit. does wake up to name being called, but very weak and confused. was able to tell me she had ongoing abdominal pain and that the pain meds do help. denied vomiting. also able to tell me that she has 3 sons. tele normal overnight. Review of Systems Review of Systems: Unobtainable due to cognitive status Physical Exam Constitutional: + ill appearing, + cachectic, + altered mental status and + frail appearing; + not well developed, + not well nourished and no acute distress ENMT: Mouth: + dry oral mucous membranes Respiratory: normal respiratory effort, lungs clear to auscultation Cardiovascular: Rate/Rhythm: regular rate and regular rhythm Heart Sounds: normal S1 and normal S2; no murmur Vessels: posterior tibial pulses present and dorsalis pedis pulses present; no JVD Extremities: no edema Gastrointestinal (Abdomen): Inspection/Auscultation: + abdomen distended; + abnormal bowel sounds (decreased ) Percussion/Palpation: + abdomen tender (mid-abdomen ); no hepatosplenomegaly Skin: + pallor; no jaundice Psychiatric: Orientation: + not alert and + not oriented x 3 Results & Data Results & Data ([facility]) Vital Signs (Past 12 Hours) Vital Signs Temp Pulse Resp BP Pulse Ox 05/25/20 18:45 36.5 C 104 H 20 97/63 L 92 05/25/20 15:27 36.7 C 115 H 18 144/81 H 95 05/25/20 11:41 36.6 C 108 H 17 141/78 H 95 05/25/20 07:42 36.5 C 111 H 19 127/62 95 Laboratory Results Laboratory Results - last 24 hr 05/24/20 05/24/20 05/24/20 21:20 21:20 21:20 WBC 17.08 H RBC 5.55 H Hgb 16.2 H POC Hgb Hct 49.2 H POC Hct MCV 88.6 MCH 29.2 MCHC 32.9 RDW Std Deviation 43.0 RDW Coeff of [place] 13.2 Plt Count 378 MPV 9.6 Immature Gran % (Auto) 0.3 Neut % (Auto) 91.8 Lymph % (Auto) 2.8 [place] % (Auto) 5.0 Eos % (Auto) 0.0 Baso % (Auto) 0.1 Neut # (Auto) 15.70 H Lymph # (Auto) 0.47 L [place] # (Auto) 0.85 H Eos # (Auto) 0.00 Baso # (Auto) 0.01 Immature Gran # (Auto) 0.05 H ESR 25 H PT INR APTT PTT Ratio POC Sodium Sodium 134 L POC Potassium Potassium 4.4 POC Chloride Chloride 100 Carbon Dioxide 26 POC Total CO2 Anion Gap 8.0 POC Anion Gap POC BUN BUN 27 H Creatinine 1.30 H POC Creatinine Est Cr Clr Drug Dosing 22.9 Est GFR ( Amer) 43.0 Est GFR (Non-Af Amer) 37.1 BUN/Creatinine Ratio 20.8 H Glucose 196 H POC Glucose (other) Calcium 9.4 POC Ioniz Calcium Jojo Total Bilirubin 0.5 AST 105 H ALT 91 H Alkaline Phosphatase 32 L Troponin I < 0.015 C-Reactive Protein 0.64 H Total Protein 7.7 Albumin 3.7 Globulin 4.0 Albumin/Globulin Ratio 0.9 Amylase Lipase 4736 H 05/24/20 05/24/20 05/25/20 21:53 22:08 05:33 WBC 19.95 H RBC 5.69 H Hgb 16.8 H POC Hgb 17.0 H Hct 50.3 H POC Hct 50 H MCV 88.4 MCH 29.5 MCHC 33.4 RDW Std Deviation 43.1 RDW Coeff of [place] 13.3 Plt Count 333 MPV 9.7 Immature Gran % (Auto) 0.3 Neut % (Auto) 90.2 Lymph % (Auto) 2.4 [place] % (Auto) 7.0 Eos % (Auto) 0.0 Baso % (Auto) 0.1 Neut # (Auto) 18.01 H Lymph # (Auto) 0.47 L [place] # (Auto) 1.40 H Eos # (Auto) 0.00 Baso # (Auto) 0.01 Immature Gran # (Auto) 0.06 H ESR PT 10.9 INR 1.0 APTT 23.1 PTT Ratio 0.8 POC Sodium 131 L Sodium POC Potassium 7.3 H* Potassium POC Chloride 97 L Chloride Carbon Dioxide POC Total CO2 28 Anion Gap POC Anion Gap 14.0 L POC BUN 42 H BUN Creatinine POC Creatinine 1.0 Est Cr Clr Drug Dosing Est GFR ( Amer) Est GFR (Non-Af Amer) BUN/Creatinine Ratio Glucose POC Glucose (other) 204 H Calcium POC Ioniz Calcium Jojo 1.05 L Total Bilirubin AST ALT Alkaline Phosphatase Troponin I C-Reactive Protein Total Protein Albumin Globulin Albumin/Globulin Ratio Amylase Lipase 05/25/20 05:33 WBC RBC Hgb POC Hgb Hct POC Hct MCV MCH MCHC RDW Std Deviation RDW Coeff of [place] Plt Count MPV Immature Gran % (Auto) Neut % (Auto) Lymph % (Auto) [place] % (Auto) Eos % (Auto) Baso % (Auto) Neut # (Auto) Lymph # (Auto) [place] # (Auto) Eos # (Auto) Baso # (Auto) Immature Gran # (Auto) ESR PT INR APTT PTT Ratio POC Sodium Sodium 135 L POC Potassium Potassium 4.3 POC Chloride Chloride 103 Carbon Dioxide 22 POC Total CO2 Anion Gap 11.0 POC Anion Gap POC BUN BUN 29 H Creatinine 1.23 H POC Creatinine Est Cr Clr Drug Dosing 21.6 Est GFR ( Amer) 46.0 Est GFR (Non-Af Amer) 39.7 BUN/Creatinine Ratio 23.7 H Glucose 186 H POC Glucose (other) Calcium 8.1 L POC Ioniz Calcium Jojo Total Bilirubin 0.6 AST 55 H ALT 64 Alkaline Phosphatase 30 L Troponin I C-Reactive Protein Total Protein 6.8 Albumin 2.9 L Globulin 3.9 Albumin/Globulin Ratio 0.8 L Amylase 493 H Lipase 2268 H PG Care Time/CCT Total # of Minutes Spent Total Time Spent with Patient: Total time spent is greater than 50% in coordination of care (as documented) at patient's floor/unit and/or counseling patient: Coding Level of Care Code 20373 Subseq [facility] 3 Diagnoses Acute pancreatitis K85.92 Acute pancreatitis complication: infected necrosis Pancreatitis type: unspecified pancreatitis type Gallstones K80.20 Choledocholithiasis K80.50 Sepsis A41.9; R65.20 Sepsis acute organ dysfunction status: with acute organ dysfunction Sepsis type: sepsis due to unspecified organism Severe sepsis acute organ dysfunction type: unspecified Severe sepsis shock status: without septic shock JIMENA (mycobacterium avium-intracellulare) A31.0 Severe protein-calorie malnutrition E43 ATN (acute tubular necrosis) N17.0 Abnormal LFTs R94.5 Polycythemia D75.1 Essential (primary) hypertension I10 Hyperglycemia R73.9 Encephalopathy G93.40 DVT prophylaxis Z29.9 (1) Sepsis Sepsis acute organ dysfunction status: with acute organ dysfunction Sepsis type: sepsis due to unspecified organism Severe sepsis acute organ dysfunction type: unspecified Severe sepsis shock status: without septic shock Qualified Code(s): A41.9 - Sepsis, unspecified organism; R65.20 - Severe sepsis without septic shock (2) Acute pancreatitis Acute pancreatitis complication: infected necrosis Pancreatitis type: unspecified pancreatitis type Qualified Code(s): K85.92 - Acute pancreatitis with infected necrosis, unspecified
[2020-05-25] MEDS: PANTOprazole 40 MG in SYRINGE 0 ML IV SCH (20:06)
--- NOTE | 2020-05-25 22:40 | Billing Data ---
Date of Service May 25, 2020 Coding Level of Care Code 21728 Initial Inpt Care Lvl 3
[2020-05-26 01:29] LABS: Appearance Urine Cloudy (Clear); Bilirubin Urine Negative (Negative); Blood Urine Negative (Negative); Color Urine Dark Yellow; Epithelial Cell Urine Auto >30 /lpf (0-5); Glucose Urine UA Negative (Negative); Ketones Urine Trace (Negative); Leukocyte Esterase Urine Negative (Negative); Nitrite Urine Negative (Negative); Protein Urine 1+ (Negative); RBC Urine Automated 0-4 /hpf (0-4); Specific Gravity Urine 1.021 (1.000-1.030); Urobilinogen Urine Negative (Negative); pH Urine 5.5 (4.5-7.5)
[2020-05-26 01:38] LABS: Bacteria Urine Automated 1+ (Negative)
[2020-05-26] MEDS: IMIPENEM/CILASTATIN SODIUM 200 MG in DEXTROSE 5% 100 ML IV SCH ×4 (04:09→21:01)
[2020-05-26] MEDS: LACTATED RINGER'S 1,000 ML IV SCH ×3 (04:09→19:43)
[2020-05-26] MEDS: HYDROmorphone INJ 1 MG/ML SYRINGE IV PRN ×3 (05:10→11:47)
[2020-05-26 06:26] LABS: Estimated Average Glucose 105 mg/dl; Hemoglobin A1C 5.3 % (4.5-5.6)
[2020-05-26 06:27] LABS: Hematocrit (blood only) 41.6 % (37-47); Hemoglobin 13.9 g/dL (12.0-16.0); Mean Corpuscular Hemoglobin 29.4 pg (25-34); Mean Corpuscular Hgb Conc 33.4 g/dL (32-36); Mean Corpuscular Volume 88.1 fL (80-100); Mean Platelet Volume 9.9 fL (7.4-10.4); Platelet Count 279 K/uL (130-400); RDW Coefficient of Variation 13.5 % (11.5-14.5); RDW Standard Deviation 44.2 fL (36.4-46.3); Red Blood Count 4.72 M/uL (4.2-5.4); White Blood Count 26.42 K/uL (4.8-10.8)
[2020-05-26 06:28] LABS: Basophils # (auto) 0.01 K/uL (0-0.2); Immature Granulocytes % (auto) 0.4 %; Lymphocytes # (auto) 0.49 K/uL (1.2-3.4); Lymphocytes % (auto) 1.9 %; Monocytes # (auto) 1.61 K/uL (0.11-0.59); Monocytes % (auto) 6.1 %; Neutrophils # (auto) 24.21 K/uL (1.4-6.5); Neutrophils % (auto) 91.6 %; RBC Morphology Unremarkable
[2020-05-26 06:52] LABS: Albumin Level 2.1 gm/dl (3.4-5.0); Calcium 7.5 mg/dl (8.5-10.1); Est GFR (African American) 48.9; Est GFR (Non-African American) 42.2; Potassium 4.1 mmol/L (3.5-5.1)
[2020-05-26 07:10] LABS: Albumin Globulin Ratio 0.7 (0.9-2); Bilirubin,Total 0.5 mg/dl (0.2-1); Globulin 3.1 gm/dl (2.5-4.0); Total Protein 5.2 gm/dl (6.4-8.2)
--- NOTE | 2020-05-26 08:09 | Gastrointestinal Consultation ---
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 Pt remains on empiric ABX, LFTs, lipase trending down though WBC has incr'd to 26k today; pt remains afebrile, normotensive but tachycardic. On exam she has some abd distention and abd is exquisitely tender. Overall picture is that of possible gallstone pancreatitis vs pancreatic mass, ? early cholangitis - Will plan for ERCP today - Keep NPO - Continue empiric ABX per primary team - Continue IVF - Continue analgesia PRN - Continue antiemetics PRN - Consider surgical consult for cholecystectomy - Further recommendations to follow procedure Thank you for allowing us to participate in the care of this patient. Please call with any acute changes, questions or concerns. Please see addendum below with additional recommendation from my supervising physician. (2) Choledocholithiasis: Supervising Physician Co-Signing Physician Notes I have seen and examined the patient and discussed the management with Cecilia Law PA-C. Admited through the ER with severe abd pain. Significant pmhx for right hemicolectomy for bowel obstruction in the past. PE significant for abdominal ttp throughout all quadrants Labs sig for lipase elevation CT A/P without contrast and MRCP reviewed. Continue IV LR, empiric abx, npo status, ERCP likely later today. On sub q heparin for dvt prophylaxis. 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 JIMENA infection, presented to the ER yesterday with severe epigastric pain, n/v, and per chart notes, has been having issues with poor appetite and weight loss over the last year. On arrival she was found to be tachycardic with leukocytosis, CHARANJIT, hyponatremia and elevated transaminases (AST 104, ALT 91), with lipase > 4000. Non cont CTAP demonstrated findings c/w severe acute pancreatitis with possible necrosis, no drainable fluid collection. She was started on empiric ABX, IVF and analgesia. MRCP demonstrated GB stones and distention, but no significant wall thickening, gallstones in the GB neck and proximal cystic duct, and CBD of 9 mm and suspected choledocholithiasis. This AM lipase trended down to 1334, LFTs improved (AST 41, ALT 33, ALP 19), and tbili WNL, though WBC inc'd to 26k, HGB 13.9, cr 1.17. On exam she remains tachycardic, with significant pain and she is having a difficult time having a conversation. She is not oriented to place, person, and could not reliably tell me how long the pain has been going on, though she does admit to ongoing poor appetite and weight loss. Having some nausea, no vomiting, melena, hematochezia, hematemesis, chest pain, dyspnea, cough, leg edema, fever, chills. She tells me she's had no BM since admission. Has a 4 oz glass of wine nightly; no tobacco. Allergies Allergy/AdvReac Type Severity Reaction Status Date / Time codeine Allergy Unknown ? Verified 05/24/20 22:19 Home Medications Home Medications Medication Instructions Recorded Confirmed Type metoprolol tartrate 25 mg PO BID #30 tab 11/23/18 05/24/20 Rx Flutter Valve #1 ea 07/27/19 11/26/19 Rx lisinopril 20 mg PO DAILY 05/24/20 05/24/20 History Patient History Medical History Advanced age Bowel obstruction No known health problems Surgical History History of hemicolectomy Family History Unknown Family history non-contributory Social History Preferred Language: Gambian Communication Ability: Effective Visual Impairment: No Limitations Gymnastic Teacher Required: No Beliefs That Will Affect Care: None marital status: / Current Living Situation: Alone current occupational status: retired Other Information That Helps Us Care for You: No Feels Safe at Home: Yes Smoking Status: Unknown if ever smoked Hx Alcohol Use: No Hx Substance Use: No during the past year weight has: decreased > 10 lbs Review of Systems Review of Systems: Limited as above due to pt being uncomfortable and having some cognitive difficulties Physical Exam Constitutional: + ill appearing and + thin lying in bed with eyes closed, occasionally moaning in pain Eyes: + anicteric sclerae Respiratory: normal respiratory effort, lungs clear to auscultation Cardiovascular: Rate/Rhythm: regular rhythm and + tachycardic no leg edema Gastrointestinal (Abdomen): Inspection/Auscultation: normal bowel sounds abd is mildly distended, soft but exquisitely tender throughout to even mild palpation Skin: no rashes, warm and dry no jaundice Psychiatric: alert and opens eyes to voice, not oriented to person, place, not able to give much history Results & Data ([facility]) Vital Signs (Past 12 Hours) Vital Signs Temp Pulse Pulse Resp BP Pulse Ox 05/26/20 07:44 36.4 C L 118 H 18 153/83 H 96 05/26/20 07:32 115 H 05/26/20 04:00 36.4 C L 116 H 18 164/75 H 96 05/26/20 00:00 36.8 C 119 H 18 150/79 H 96 Laboratory Results 05/26/20 05/26/20 05/26/20 Range/Units 05:51 05:51 05:51 WBC 26.42 H (4.8-10.8) K/uL RBC 4.72 (4.2-5.4) M/uL Hgb 13.9 (12.0-16.0) g/dL Hct 41.6 (37-47) % MCV 88.1 (80-100) fL MCH 29.4 (25-34) pg MCHC 33.4 (32-36) g/dL RDW Std Deviation 44.2 (36.4-46.3) fL RDW Coeff of [place] 13.5 (11.5-14.5) % Plt Count 279 (130-400) K/uL MPV 9.9 (7.4-10.4) fL Immature Gran % (Auto) 0.4 % Neut % (Auto) 91.6 % Lymph % (Auto) 1.9 % [place] % (Auto) 6.1 % Eos % (Auto) 0.0 % Baso % (Auto) 0.0 % Neut # (Auto) 24.21 H (1.4-6.5) K/uL Lymph # (Auto) 0.49 L (1.2-3.4) K/uL [place] # (Auto) 1.61 H (0.11-0.59) K/uL Eos # (Auto) 0.00 (0-0.5) K/uL Baso # (Auto) 0.01 (0-0.2) K/uL Immature Gran # (Auto) 0.10 H (0.00-0.02) K/uL RBC Morphology Unremarkable Sodium 137 (136-145) mmol/L Potassium 4.1 (3.5-5.1) mmol/L Chloride 106 (98-107) mmol/L Carbon Dioxide 26 (21-32) mmol/L Anion Gap 5.0 (3-11) BUN 36 H (7-18) mg/dl Creatinine 1.17 (0.6-1.2) mg/dl Est Cr Clr Drug Dosing 23.0 ml/min Est GFR ( Amer) 48.9 Est GFR (Non-Af Amer) 42.2 BUN/Creatinine Ratio 31.0 H (10-20) Glucose 122 H (70-99) mg/dl Estimat Average Glucose 105 mg/dl Hemoglobin A1c 5.3 (4.5-5.6) % Calcium 7.5 L (8.5-10.1) mg/dl Total Bilirubin 0.5 (0.2-1) mg/dl AST 41 H (15-37) U/L ALT 33 (12-78) U/L Alkaline Phosphatase 19 L (45-117) U/L Total Protein 5.2 L D (6.4-8.2) gm/dl Albumin 2.1 L (3.4-5.0) gm/dl Globulin 3.1 (2.5-4.0) gm/dl Albumin/Globulin Ratio 0.7 L (0.9-2) Lipase 1334 H (73-393) U/L Urine Color Urine Appearance (Clear) Urine pH (4.5-7.5) Ur Specific [place] (1.000-1.030) Urine Protein (Negative) Urine Glucose (UA) (Negative) Urine Ketones (Negative) Urine Blood (Negative) Urine Nitrite (Negative) Urine Bilirubin (Negative) Urine Urobilinogen (Negative) Ur Leukocyte Esterase (Negative) Urine WBC (Auto) (0-5) /hpf Urine RBC (Auto) (0-4) /hpf U Hyaline Cast (Auto) (0-5) /lpf U Epithel Cells (Auto) (0-5) /lpf Urine Bacteria (Auto) (Negative) Urine Yeast 05/26/20 Range/Units 01:10 WBC (4.8-10.8) K/uL RBC (4.2-5.4) M/uL Hgb (12.0-16.0) g/dL Hct (37-47) % MCV (80-100) fL MCH (25-34) pg MCHC (32-36) g/dL RDW Std Deviation (36.4-46.3) fL RDW Coeff of [place] (11.5-14.5) % Plt Count (130-400) K/uL MPV (7.4-10.4) fL Immature Gran % (Auto) % Neut % (Auto) % Lymph % (Auto) % [place] % (Auto) % Eos % (Auto) % Baso % (Auto) % Neut # (Auto) (1.4-6.5) K/uL Lymph # (Auto) (1.2-3.4) K/uL [place] # (Auto) (0.11-0.59) K/uL Eos # (Auto) (0-0.5) K/uL Baso # (Auto) (0-0.2) K/uL Immature Gran # (Auto) (0.00-0.02) K/uL RBC Morphology Sodium (136-145) mmol/L Potassium (3.5-5.1) mmol/L Chloride (98-107) mmol/L Carbon Dioxide (21-32) mmol/L Anion Gap (3-11) BUN (7-18) mg/dl Creatinine (0.6-1.2) mg/dl Est Cr Clr Drug Dosing ml/min Est GFR ( Amer) Est GFR (Non-Af Amer) BUN/Creatinine Ratio (10-20) Glucose (70-99) mg/dl Estimat Average Glucose mg/dl Hemoglobin A1c (4.5-5.6) % Calcium (8.5-10.1) mg/dl Total Bilirubin (0.2-1) mg/dl AST (15-37) U/L ALT (12-78) U/L Alkaline Phosphatase (45-117) U/L Total Protein (6.4-8.2) gm/dl Albumin (3.4-5.0) gm/dl Globulin (2.5-4.0) gm/dl Albumin/Globulin Ratio (0.9-2) Lipase (73-393) U/L Urine Color Dark Yellow Urine Appearance Cloudy A (Clear) Urine pH 5.5 (4.5-7.5) Ur Specific [place] 1.021 (1.000-1.030) Urine Protein 1+ H (Negative) Urine Glucose (UA) Negative (Negative) Urine Ketones Trace H (Negative) Urine Blood Negative (Negative) Urine Nitrite Negative (Negative) Urine Bilirubin Negative (Negative) Urine Urobilinogen Negative (Negative) Ur Leukocyte Esterase Negative (Negative) Urine WBC (Auto) 1-5 (0-5) /hpf Urine RBC (Auto) 0-4 (0-4) /hpf U Hyaline Cast (Auto) 10-30 H (0-5) /lpf U Epithel Cells (Auto) >30 H (0-5) /lpf Urine Bacteria (Auto) 1+ H (Negative) Urine Yeast Not Reportable Diagnostic Findings CTAP 1. Findings compatible with acute severe pancreatitis. Ill-defined decreased attenuation of the pancreatic head and uncinate process is likely secondary to interstitial edema with developing pancreatic necrosis also within the differential, however not well evaluated without the use of IV contrast. No drainable fluid collection. 2. Mild gallbladder distention. No cholelithiasis identified. 3. Postoperative changes of prior right hemicolectomy. 4. 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 5. Prior granulomatous disease. 6. Additional findings as above. MRCP 1. Gallbladder distention with cholelithiasis. Gallstones are also present within the gallbladder neck and proximal cystic duct. There is no significant gallbladder wall thickening identified at this time, however the patient should be followed closely to exclude acute cholecystitis. 2. Marked acute pancreatitis with inflammation most pronounced in the uncinate process, pancreatic head and neck. Study is not tailored to assess for underlying pancreatic mass, however follow-up after resolution of acute symptoms is recommended. There is increased amount of reactive mesenteric edema with abdominal pelvic ascites ascites from the 05/24/2020 exam. 3. The common bile duct measures within the upper limits of normal and there are several tiny intraluminal filling defects suspicious for choledocholithiasis. 4. Small bilateral pleural effusions (1) Acute pancreatitis Acute pancreatitis complication: infected necrosis Pancreatitis type: unspecified pancreatitis type Qualified Code(s): K85.92 - Acute pancreatitis with infected necrosis, unspecified
[2020-05-26] MEDS: HEPARIN SOD 5,000 UNIT/0.5 ML VIAL SQ SCH ×2 (08:42→20:00)
[2020-05-26] MEDS: PANTOprazole 40 MG in SYRINGE 0 ML IV SCH (10:41)
[2020-05-26] MEDS ORDERED: HYDROmorphone INJ 0.5 MG/0.5 ML SYR IV STA (12:42)
[2020-05-26] MEDS ORDERED: ACETAMINOPHEN 1000 MG/100 ML IV IV STA (12:42)
--- NOTE | 2020-05-26 13:15 | Hospitalist Progress Note ---
Date of Service May 26, 2020 Assessment & Plan (1) Acute pancreatitis: likely 2nd gallstones and/or sludge. MRCP with gallstones including stones in the cystic duct and also suspected stones in the CBD. cont NPO status. cont LR at 150cc/hr. repeat LFTs/lipase. ?necrosis on CT at time of admission but MRCP did not show such. Cont imipenem - will cover for cholangitis, cholecystitis, and if any necrosis of pancreas will cover that as well. Note taken of worsening leukocytosis. To OR today for ERCP by Stefanie FAY. (2) Gallstones: seen on MRCP. abnormal LFTs, sepsis, and leukocytosis concerning for early cholecystitis. I have concern for cholangitis as well. To OR today for ERCP. Cont IV antibiotics, LR hydration, pain meds, etc. Repeat labs am. I had a lengthy discussion today with patient about probable need for lap vonda. She IS agreeable to such. Understands that gall bladder was cause of her pancreatitis. Will consult general surgery. (3) Choledocholithiasis: as seen on MRCP. clinical picture concerning for possible early cholangitis. cont aggressive hydration with LR. cont broad-spectrum IV antibiotics. To OR today for ERCP. (4) Sepsis: 2nd acute pancreatitis +/- early cholecystitis +/- early cholangitis? cont LR hydration. cont broad-spectrum IV abx. (5) ATN (acute tubular necrosis): sepsis-associated. improving slowly. cont IV fluids with repeat BMP am. 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 Saw pulmonary in fall 2018 - patient declined additional work-up and treatment at that time. O2 sats stable in room air. (7) Severe protein-calorie malnutrition: ongoing for 6-12 months or more. 2nd to chronic JIMENA infection? other? CT yesterday with some concern for possible pancreatic head mass -- this was not seen on MRCP. Could consider EUS in the future. When eating again (post-surgery) add MVI, boost, etc. (8) Abnormal LFTs: 2nd to cholecystitis? repeat LFTs today relatively stable. repeat LFTs again in am. (9) Polycythemia: suspect some element of hemoconcentration in setting of dehydration/sepsis. cannot exclude secondary polycythemia 2nd to chronic hypoxia from suspected JIMENA but less likely. H/H improved today. repeat CBC am. (10) Essential (primary) hypertension: continue to hold CONNER and BB (11) Hyperglycemia: reactive to sepsis. hba1c 5.3%. (12) Encephalopathy: improved today was likely combination of metabolic from sepsis and toxic from high doses of dilaudid yesterday (13) DVT prophylaxis: heparin 5000 BID updated pt's son and [id number] by phone 05/25 updated pt's son at bedside today briefly Admission and Anticipated Discharge Date Admission Date: May 25, 2020 Subjective patient with ongoing abdominal pain. needed several extra doses of dilaudid this am to remain comfortable. during my bedside rounds she was comfortable (received dilaudid and IV tylenol just before arrival). she was much more awake and alert today than yesterday. she began to shake during the visit and I asked her what was wrong. she said "the holy Spirit" was causing the shaking. her son subsequently arrived and stated that this behavior is normal for her and she does it at home as well. telemetry with sinus tach. no vomiting or nausea. passing some flatus. Review of Systems Constitutional: + fatigue and + anorexia; no fever and no chills Respiratory: no cough and no dyspnea Cardiovascular: no chest pain Gastrointestinal: + abdominal pain and + bloating; no vomiting Physical Exam Constitutional: + ill appearing, + cachectic and + frail appearing; + not well developed, + not well nourished, no acute distress and no altered mental status ENMT: Mouth: + dry oral mucous membranes Respiratory: normal respiratory effort, lungs clear to auscultation Cardiovascular: Rate/Rhythm: regular rhythm and + tachycardic Heart Sounds: normal S1 and normal S2; no murmur Vessels: posterior tibial pulses present and dorsalis pedis pulses present; no JVD Extremities: no edema Gastrointestinal (Abdomen): Inspection/Auscultation: + abdomen distended; + abnormal bowel sounds (decreased ) Percussion/Palpation: + abdomen tender (mid-abdomen ); no hepatosplenomegaly Skin: + pallor; no jaundice Psychiatric: Orientation: alert and oriented x 3 Results & Data Results & Data ([facility]) Vital Signs (Past 12 Hours) Vital Signs Temp Pulse Pulse Resp BP Pulse Ox 05/26/20 11:48 36.4 C L 120 H 18 154/79 H 96 05/26/20 07:44 36.4 C L 118 H 18 153/83 H 96 05/26/20 07:32 115 H 05/26/20 04:00 36.4 C L 116 H 18 164/75 H 96 Laboratory Results Laboratory Results - last 24 hr 05/26/20 05/26/20 05/26/20 01:10 05:51 05:51 WBC 26.42 H RBC 4.72 Hgb 13.9 Hct 41.6 MCV 88.1 MCH 29.4 MCHC 33.4 RDW Std Deviation 44.2 RDW Coeff of [place] 13.5 Plt Count 279 MPV 9.9 Immature Gran % (Auto) 0.4 Neut % (Auto) 91.6 Lymph % (Auto) 1.9 [place] % (Auto) 6.1 Eos % (Auto) 0.0 Baso % (Auto) 0.0 Neut # (Auto) 24.21 H Lymph # (Auto) 0.49 L [place] # (Auto) 1.61 H Eos # (Auto) 0.00 Baso # (Auto) 0.01 Immature Gran # (Auto) 0.10 H RBC Morphology Unremarkable Sodium 137 Potassium 4.1 Chloride 106 Carbon Dioxide 26 Anion Gap 5.0 BUN 36 H Creatinine 1.17 Est Cr Clr Drug Dosing 23.0 Est GFR ( Amer) 48.9 Est GFR (Non-Af Amer) 42.2 BUN/Creatinine Ratio 31.0 H Glucose 122 H Estimat Average Glucose Hemoglobin A1c Calcium 7.5 L Total Bilirubin 0.5 AST 41 H ALT 33 Alkaline Phosphatase 19 L Total Protein 5.2 L D Albumin 2.1 L Globulin 3.1 Albumin/Globulin Ratio 0.7 L Lipase 1334 H Urine Color Dark Yellow Urine Appearance Cloudy A Urine pH 5.5 Ur Specific [place] 1.021 Urine Protein 1+ H Urine Glucose (UA) Negative Urine Ketones Trace H Urine Blood Negative Urine Nitrite Negative Urine Bilirubin Negative Urine Urobilinogen Negative Ur Leukocyte Esterase Negative Urine WBC (Auto) 1-5 Urine RBC (Auto) 0-4 U Hyaline Cast (Auto) 10-30 H U Epithel Cells (Auto) >30 H Urine Bacteria (Auto) 1+ H Urine Yeast Not Reportable 05/26/20 05:51 WBC RBC Hgb Hct MCV MCH MCHC RDW Std Deviation RDW Coeff of [place] Plt Count MPV Immature Gran % (Auto) Neut % (Auto) Lymph % (Auto) [place] % (Auto) Eos % (Auto) Baso % (Auto) Neut # (Auto) Lymph # (Auto) [place] # (Auto) Eos # (Auto) Baso # (Auto) Immature Gran # (Auto) RBC Morphology Sodium Potassium Chloride Carbon Dioxide Anion Gap BUN Creatinine Est Cr Clr Drug Dosing Est GFR ( Amer) Est GFR (Non-Af Amer) BUN/Creatinine Ratio Glucose Estimat Average Glucose 105 Hemoglobin A1c 5.3 Calcium Total Bilirubin AST ALT Alkaline Phosphatase Total Protein Albumin Globulin Albumin/Globulin Ratio Lipase Urine Color Urine Appearance Urine pH Ur Specific [place] Urine Protein Urine Glucose (UA) Urine Ketones Urine Blood Urine Nitrite Urine Bilirubin Urine Urobilinogen Ur Leukocyte Esterase Urine WBC (Auto) Urine RBC (Auto) U Hyaline Cast (Auto) U Epithel Cells (Auto) Urine Bacteria (Auto) Urine Yeast PG Care Time/CCT Total # of Minutes Spent Total Time Spent with Patient: Total time spent is greater than 50% in coordination of care (as documented) at patient's floor/unit and/or counseling patient: Coding Level of Care Code 01997 Subseq Hosp Care Lvl 2 Diagnoses Acute pancreatitis K85.92 Acute pancreatitis complication: infected necrosis Pancreatitis type: unspecified pancreatitis type Gallstones K80.20 Choledocholithiasis K80.50 Sepsis A41.9; R65.20 Sepsis acute organ dysfunction status: with acute organ dysfunction Sepsis type: sepsis due to unspecified organism Severe sepsis acute organ dysfunction type: unspecified Severe sepsis shock status: without septic shock ATN (acute tubular necrosis) N17.0 JIMENA (mycobacterium avium-intracellulare) A31.0 Severe protein-calorie malnutrition E43 Abnormal LFTs R94.5 Polycythemia D75.1 Essential (primary) hypertension I10 Hyperglycemia R73.9 Encephalopathy G93.40 DVT prophylaxis Z29.9 (1) Sepsis Sepsis acute organ dysfunction status: with acute organ dysfunction Sepsis type: sepsis due to unspecified organism Severe sepsis acute organ dysfunction type: unspecified Severe sepsis shock status: without septic shock Qualified Code(s): A41.9 - Sepsis, unspecified organism; R65.20 - Severe sepsis without septic shock (2) Acute pancreatitis Acute pancreatitis complication: infected necrosis Pancreatitis type: unspecified pancreatitis type Qualified Code(s): K85.92 - Acute pancreatitis with infected necrosis, unspecified
[2020-05-26] MEDS ORDERED: IOVERSOL 50ml IV ONE (14:54)
--- NOTE | 2020-05-26 15:21 | Anesthesiology Consultation ---
Date of Service May 26, 2020 Assessment & Plan (1) Encounter for pre-operative examination: Chart Review Chart Review: Acceptable Risk for Surgery History Surgery Operation Date: 05/26/20 09:40 Proposed Procedures p Endoscopic Retrograde Cholangiopancreatogram - Leora Rousseau MD Operation Date: 05/28/20 07:15 Proposed Procedures p Laparoscopic Cholecystectomy - Edmund Izaguirre MD Height/Weight Height: 5 ft 2 in Weight: 42.3 kg Allergies Allergy/AdvReac Type Severity Reaction Status Date / Time codeine Allergy Unknown ? Verified 05/24/20 22:19 Medications Home Medications Medication Instructions Recorded Confirmed Last Taken metoprolol tartrate 25 mg PO BID #30 tab 11/23/18 05/24/20 05/26/19 Flutter Valve #1 ea 07/27/19 11/26/19 Unknown lisinopril 20 mg PO DAILY 05/24/20 05/24/20 Unknown Active Medications Generic Name Dose Route Start Last Admin Trade Name Freq PRN Reason Stop Dose Admin Heparin Sodium (Porcine) 5,000 units 05/25/20 09:00 05/26/20 08:42 Heparin Sodium (Porcine) SQ 06/24/20 08:59 5,000 units Q12 CLEO Administration Hydromorphone HCl 0.5 mg 05/26/20 10:11 05/26/20 11:47 Dilaudid IV 06/08/20 02:36 0.5 mg Q3H PRN Administration Pain Lactated Ringer's 1,000 mls @ 150 mls/hr 05/25/20 02:04 05/26/20 10:41 Lr IV 06/24/20 02:03 150 mls/hr .[id number] CLEO Administration Imipenem/Cilastatin Sodium 200 108 mls @ 100 mls/hr 05/25/20 03:00 05/26/20 11:46 mg/ Dextrose IV 06/04/20 02:59 Infused Q6H CLEO Infusion Protocol Pantoprazole Sodium 40 mg/ 10 mls @ 5 mls/min 05/25/20 19:10 05/26/20 10:41 Syringe IV 06/24/20 19:09 5 mls/min DAILY@1100 CLEO Administration Ondansetron HCl 4 mg 05/25/20 02:04 05/25/20 23:21 Zofran IV 06/24/20 02:03 4 mg Q4H PRN Administration Nausea And Vomiting Past Medical History Medical History (Updated 05/26/20 @ 15:19 by Leonard Quintero MD) Acute pancreatitis (Acute) Advanced age Bowel obstruction Choledocholithiasis Encephalopathy No known health problems Past Family History Family History Unknown Family history non-contributory Past Surgical History Surgical History History of hemicolectomy Social History Smoking Status: Unknown if ever smoked Hx Alcohol Use: No Hx Substance Use: No Physical Exam Vital Signs Last Vital Signs Temp 36.8 C 05/26/20 15:11 Pulse 111 H 05/26/20 15:11 Resp 18 05/26/20 15:11 BP 123/57 L 05/26/20 15:11 Pulse Ox 92 05/26/20 15:11 Testing Laboratory Results 05/26/20 05:51 05/26/20 05:51 PT 10.9 Seconds (9.0-12.0) 05/24/20 22:08 INR 1.0 (0.9-1.1) 05/24/20 22:08 APTT 23.1 Seconds (21.0-31.0) 05/24/20 22:08 Hemoglobin A1c 5.3 % (4.5-5.6) 05/26/20 05:51 Urine Color Dark Yellow 05/26/20 01:10 Urine Appearance Cloudy (Clear) A 05/26/20 01:10 Urine pH 5.5 (4.5-7.5) 05/26/20 01:10 Ur Specific [place] 1.021 (1.000-1.030) 05/26/20 01:10 Urine Protein 1+ (Negative) H 05/26/20 01:10 Urine Glucose (UA) Negative (Negative) 05/26/20 01:10 Urine Ketones Trace (Negative) H 05/26/20 01:10 Urine Nitrite Negative (Negative) 05/26/20 01:10 Ur Leukocyte Esterase Negative (Negative) 05/26/20 01:10 Urine WBC (Auto) 1-5 /hpf (0-5) 05/26/20 01:10 Urine RBC (Auto) 0-4 /hpf (0-4) 05/26/20 01:10 U Hyaline Cast (Auto) 10-30 /lpf (0-5) H 05/26/20 01:10 U Epithel Cells (Auto) >30 /lpf (0-5) H 05/26/20 01:10 Urine Bacteria (Auto) 1+ (Negative) H 05/26/20 01:10 Electrocardiogram Date: 05/24/20 Findings: + NSR @ (93)
--- NOTE | 2020-05-26 15:24 | Surgery Consultation ---
Date of Consultation May 26, 2020 Assessment & Plan (1) Choledocholithiasis: pt is a 84 year-old female who was admitted to hospital for acute pancreatitis, RUQ pain, acute cholecystitis, gallstone, IMP: acute pancreatitis, acute cholecystitis, cholelithiasis Plan, I recommend to do laparoscopic cholecystectomy possible open or cholangiogram on 05/28/2020. D/W benefits, risks and alternatives of the surgery, pt understood, she agrees with the surgery, I answered all questions, (2) Acute pancreatitis: (3) Gallstones: (4) Acute cholecystitis due to biliary calculus: History of Present Illness Attending Physician: Shawn Foster History of Present Illness Chief Complaint: Abdominal Pain, nausea Primary Care Provider: David Vaughan MD Milady Benavides is an 84 year old woman with a PMH significant for hypertension and cecal volvulus with partial colectomy in 2018 she presents today with 1 day history of severe epigastric abdominal pain and nausea with vomiting. She was in her usual state of health up until this morning, she was out in the yard doing yard work yesterday, she lives by herself at home, her sister lives quotation [place] within [place] her house and her son also lives locally and checks in on her regularly. She is accompanied by her son at present who helps with a history as patient is in too much pain to give her history. Patient nurses no symptoms Crane the abdominal pain and vomiting, she says that she has not had fevers chills shortness of breath chest pain bowel changes urinary changes or any other concerns patient denies weight loss however her son says she has been steadily losing weight and muscle mass over the course of the last year or 2. He tells me that she has stopped eating solid food and is just eating a meal replacement liquid known as quotation Sylvia Green quotation sylvia she has not talked to her family about this but the son discovered it today when he went to see her at her house. On arrival to emergency department patient ascending extreme pain tachycardic hypertensive afebrile saturating well on room air no increased work of breathing or tachypnea. Lab work was significant for an elevated white count of 17.08 with hemoglobin of 16.2, elevated ESR of 25, hyponatremia 134, and an CHARANJIT with a creatinine of 1.3 above her normal baseline. Patient had elevated AST ALT at 105 and 91 respectively, and her lipase was 4736. CT abdomen was ordered which shows a possible mass or obstruction in the head of the pancreas, pancreatitis with possible necrosis. Patient was given 1 dose of Zosyn, a dose of morphine, and 1 L normal saline. On my evaluation patient was asked in extreme pain had difficulty having a conversation with me, patient was oriented to person place time and situation, patient did tell me very clearly that she would not want any extreme measures taken to save her life, she would not want chest compressions she would not want a breathing tube and she would not want any electrical shocks. She is since using any medication, her and son are both concerned about opiate pain medication, patient in the past is declined antibiotics. 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 An appointment with pulmonology patient declined treatment. I ( Edmund Izaguirre mD ) got a call for consult acute cholecystitis with cholelithiasis, I reviewedpt's H/P , labs, CT scan, MRCP, with pt, pt is still have RUQ pain, pt will have ERCP today, Allergies Allergy/AdvReac Type Severity Reaction Status Date / Time codeine Allergy Unknown ? Verified 05/24/20 22:19 Home Medications Home Medications Medication Instructions Recorded Confirmed Type metoprolol tartrate 25 mg PO BID #30 tab 11/23/18 05/24/20 Rx Flutter Valve #1 ea 07/27/19 11/26/19 Rx lisinopril 20 mg PO DAILY 05/24/20 05/24/20 History Past Med/Surg History Medical History Advanced age Bowel obstruction No known health problems Surgical History History of hemicolectomy Family History Unknown Family history non-contributory Social History Preferred Language: Cameroonian Communication Ability: Effective Visual Impairment: No Limitations Idea Man Required: No Beliefs That Will Affect Care: None marital status: / Current Living Situation: Alone current occupational status: retired Other Information That Helps Us Care for You: No Feels Safe at Home: Yes Smoking Status: Unknown if ever smoked Hx Alcohol Use: No Hx Substance Use: No during the past year weight has: decreased > 10 lbs Review of Systems Review of Systems: All systems reviewed & are unremarkable except as noted in HPI & below Allergies Allergy/AdvReac Type Severity Reaction Status Date / Time codeine Allergy Unknown ? Verified 05/24/20 22:19 Home Medications Home Medications Medication Instructions Recorded Confirmed Type metoprolol tartrate 25 mg PO BID #30 tab 11/23/18 05/24/20 Rx Flutter Valve #1 ea 07/27/19 11/26/19 Rx lisinopril 20 mg PO DAILY 05/24/20 05/24/20 History Patient History Surgical History History of hemicolectomy Family History Unknown Family history non-contributory Social History Preferred Language: Cameroonian Communication Ability: Effective Visual Impairment: No Limitations Idea Man Required: No Beliefs That Will Affect Care: None marital status: / Current Living Situation: Alone current occupational status: retired Other Information That Helps Us Care for You: No Feels Safe at Home: Yes Smoking Status: Unknown if ever smoked Hx Alcohol Use: No Hx Substance Use: No during the past year weight has: decreased > 10 lbs Review of Systems Review of Systems: All systems reviewed & are unremarkable except as noted in HPI & below Constitutional: as per Subjective / HPI Eyes: as per Subjective / HPI Ear, Nose, Mouth, Throat: as per Subjective / HPI Respiratory: as per Subjective / HPI Cardiovascular: as per Subjective / HPI Additional Comments: HTN, abnormal EKG Gastrointestinal: as per Subjective / HPI Genitourinary: as per Subjective / HPI Musculoskeletal: as per Subjective / HPI Integumentary: as per Subjective / HPI Neurologic: as per Subjective / HPI Psychiatric: as per Subjective / HPI Endocrine: as per Subjective / HPI Hematologic / Lymphatic: as per Subjective / HPI Allergy / Immunological: as per Subjective / HPI Physical Exam Constitutional: WD/WN, vitals as above well developed and + ill appearing Eyes: PERRL, conjunctivae normal, anicteric sclerae ENMT: external ear and nose normal, oropharynx normal Neck: trachea midline, no thyromegaly Respiratory: normal respiratory effort, lungs clear to auscultation Cardiovascular: RRR, no murmur, no edema Rate/Rhythm: regular rate and regular rhythm Heart Sounds: normal S1 and normal S2 Gastrointestinal (Abdomen): normal bowel sounds, soft, nontender, no hepatosplenomegaly mild tenderness at RUQ, no rebound pain, BS + Musculoskeletal: no cyanosis or clubbing, extremities motor strength 5/5 Skin: no rashes, warm and dry Neurologic: patellar DTR's 2+ bilat, sensation intact Psychiatric: Orientation: alert and oriented x 3 Results & Data Vital Signs (Past 12 Hours) Vital Signs Temp Pulse Pulse Pulse Resp BP Pulse Ox 05/26/20 15:11 36.8 C 111 H 111 H 18 123/57 L 92 05/26/20 14:56 108 H 05/26/20 11:48 36.4 C L 120 H 18 154/79 H 96 05/26/20 07:44 36.4 C L 118 H 18 153/83 H 96 05/26/20 07:32 115 H 05/26/20 04:00 36.4 C L 116 H 18 164/75 H 96 Laboratory Results Abnormal lab results 05/26/20 05/26/20 05/26/20 Range/Units 01:10 05:51 05:51 WBC 26.42 H (4.8-10.8) K/uL Neut # (Auto) 24.21 H (1.4-6.5) K/uL Lymph # (Auto) 0.49 L (1.2-3.4) K/uL Briscoe # (Auto) 1.61 H (0.11-0.59) K/uL Immature Gran # (Auto) 0.10 H (0.00-0.02) K/uL BUN 36 H (7-18) mg/dl BUN/Creatinine Ratio 31.0 H (10-20) Glucose 122 H (70-99) mg/dl Calcium 7.5 L (8.5-10.1) mg/dl AST 41 H (15-37) U/L Alkaline Phosphatase 19 L (45-117) U/L Total Protein 5.2 L D (6.4-8.2) gm/dl Albumin 2.1 L (3.4-5.0) gm/dl Albumin/Globulin Ratio 0.7 L (0.9-2) Lipase 1334 H (73-393) U/L Urine Appearance Cloudy A (Clear) Urine Protein 1+ H (Negative) Urine Ketones Trace H (Negative) U Hyaline Cast (Auto) 10-30 H (0-5) /lpf U Epithel Cells (Auto) >30 H (0-5) /lpf Urine Bacteria (Auto) 1+ H (Negative) Diagnostic Findings MR MRCP HISTORY: 84 years-old Female Pancreatitis follow-up study in a patient with acute severe pancreatitis. COMPARISON: CT abdomen pelvis 05/24/2020, 05/26/2019 TECHNIQUE: MRCP was obtained without the use of IV contrast. FINDINGS: Architecture Intern localizer images demonstrate no gross thoracic abnormality. Small pleural effusions. Small pericardial effusion. Mild cardiomegaly. Nonspecific bilateral perinephric stranding. Unremarkable appearance of the spleen and liver. Atheromatous plaque of the abdominal aorta. No bowel obstruction identified. 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 Increased amount of abdominal pelvic ascites which now appears to be small to moderate throughout. Extensive peripancreatic and interstitial pancreatic edema, most pronounced in the pancreatic head, uncinate process and pancreatic neck. Moderate gallbladder distention with layering cholelithiasis. There are a few small gallstones measuring up to 2-3 mm within the proximal cystic duct/gallbladder neck. There is no significant gallbladder wall thickening. Common bile duct enters 9 mm, likely within normal limits for the patient's age. No significant intrahepatic biliary ductal dilation. No pancreatic ductal dilation. The study is mildly motion degraded. There are a few tiny 1 mm apparent filling defects within the common bile duct which are best seen on the 3-D MRCP images (for example please see image 82 of series 8). IMPRESSION: 1. Gallbladder distention with cholelithiasis. Gallstones are also present within the gallbladder neck and proximal cystic duct. There is no significant gallbladder wall thickening identified at this time, however the patient should be followed closely to exclude acute cholecystitis. 2. Marked acute pancreatitis with inflammation most pronounced in the uncinate process, pancreatic head and neck. Study is not tailored to assess for underlying pancreatic mass, however follow-up after resolution of acute symptoms is recommended. There is increased amount of reactive mesenteric edema with abdominal pelvic ascites ascites from the 05/24/2020 exam. 3. The common bile duct measures within the upper limits of normal and there are several tiny intraluminal filling defects suspicious for choledocholithiasis. 4. Small bilateral pleural effusions. ABDOMEN AND PELVIS CT WITHOUT CONTRAST CT DOSE: 243.27 mGy.cm HISTORY: Acute severe generalized abdominal pain lower pain TECHNIQUE: Multiaxial CT images of the abdomen and pelvis were performed without contrast. A dose lowering technique was utilized adhering to the principles of ALARA. COMPARISON STUDY: CT abdomen and pelvis 05/26/2019. FINDINGS: Areas of bibasilar bronchiectasis, mucous plugging and left greater than right tree-in-bud nodules redemonstrated. Calcified granulomata of the basal left lower lobe. No pneumatosis or pneumoperitoneum. Imaged inferior cardiac chambers are unremarkable. Trace pericardial effusion. Limited evaluation of the solid abdominal organs without the use of IV contrast. Scattered calcified granulomata noted throughout the spleen and liver. Unremarkable appearance of the adrenal glands. There is mild gallbladder distention. No cholelithiasis or choledocholithiasis identified. No significant biliary ductal dilation. There is interstitial with extensive peripancreatic stranding, most pronounced surrounding the uncinate process, pancreatic head and neck distribution. Mild generalized pancreatic atrophy. No drainable fluid collection. There is ill-defined decreased attenuation of the pancreatic head and uncinate process. Limited evaluation without the use of IV contrast. Free fluid extends into the lower mesentery, right pericolic gutter and dependent pelvis. Mild cortical thinning of the kidneys. No hydronephrosis. Unchanged indeterminate calcification of the right hemipelvis on image 228 series 3. Probable fibroid uterus. Extensive calcified plaque of the abdominal aorta. Prominent gastrohepatic lymph nodes are likely reactive. Mild nonspecific distal esophageal wall thickening. No bowel obstruction. Mild colonic diverticulosis without acute diverticulitis. Postoperative changes of prior right hemicolectomy. Soft tissues are unremarkable. Demineralized appearance of the bones. Degenerative changes of the spine, pelvis and hips. Healed remote fracture of the left inferior pubic ramus. IMPRESSION: 1. Findings compatible with acute severe pancreatitis. Ill-defined decreased attenuation of the pancreatic head and uncinate process is likely secondary to interstitial edema with developing pancreatic necrosis also within the differential, however not well evaluated without the use of IV contrast. No drainable fluid collection. 2. Mild gallbladder distention. No cholelithiasis identified. 3. Postoperative changes of prior right hemicolectomy. 4. 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 5. Prior granulomatous disease. 6. Additional findings as above. (1) Acute pancreatitis Acute pancreatitis complication: infected necrosis Pancreatitis type: unspecified pancreatitis type Qualified Code(s): K85.92 - Acute pancreatitis with infected necrosis, unspecified
[2020-05-26] MEDS ORDERED: LIDOCAINE HCL 2% 2 ML VIAL/AMP(20MG/ML) INFIL ONE (15:25)
[2020-05-26] MEDS ORDERED: PROPOFOL IV EMULSION 10 MG/ML 20 ML VIAL IV ONE (15:25)
[2020-05-26] MEDS ORDERED: fentaNYL citrate 100 MCG/2 ML VIAL ONE (15:26)
--- NOTE | 2020-05-26 16:45 | History & Physical Bridge Note ---
Date of Service May 26, 2020 History & Physical Bridge Note I have examined the patient, reviewed the History & Physical and in the interval since the performance of the History & Physical I have noted the following changes of clinical significance: no changes noted Spoke to son and consented for ERCP.
[2020-05-26] MEDS ORDERED: INDOMETHACIN 50 MG SUPP PR ONE (17:07)
[2020-05-26] MEDS ORDERED: SUCCINYLCHOLINE CHLORIDE 20 MG/ML 10 ML VIAL IV ONE (17:27)
--- NOTE | 2020-05-26 17:51 | Operative Report ---
Post Operative Report Pre & Post Diagnosis Operation Date: 05/26/20 09:40 Pre-Op Diagnosis: Acute Pancreatitis, Choledocholithiasis Post-Op Diagnosis: Acute Pancreatitis, Choledocholithiasis Operation Date: 05/28/20 07:15 <No data on this case meets the specified criteria> I identified the patient and participated in the time-out.: Yes Procedure Operation Date: 05/26/20 09:40 Actual Procedures p Endoscopic Retrograde Cholangiopancreatogram(Not Applicable) - Leora Rousseau MD Operation Date: 05/28/20 07:15 <No data on this case meets the specified criteria> Surgeon Leora Rousseau MD Customer Support Assistant None Estimated Blood Loss 0 Findings See Below (CBD sludge, edema of duodenum.) Specimens None Description of Procedure ERCP, stent placement I attest to the content of the Intraoperative Record and any orders documented therein. Any exceptions are noted below.
[2020-05-26] MEDS ORDERED: ePHEDrine sulfate 50 MG/ML AMP IV PRN (18:00)
[2020-05-26] MEDS ORDERED: ATROPINE SULFATE 0.1 MG/ML 10ML SYR IV PRN (18:00)
--- NOTE | 2020-05-26 18:03 | Fluoroscopy Report ---
FL ERCP biliary ductal CLINICAL HISTORY: Cholelithiasis. Pancreatitis.Choledocholithiasis. COMPARISON STUDY: MRCP dated 05/25/2020 FLUOROSCOPY TIME: 2 minutes 10 seconds. NUMBER OF FLUOROSCOPIC IMAGES: 15 FINDINGS: Portable images from an ERCP are provided for interpretation. The pancreatic duct was cannu lated and retrograde fashion and a catheter was advanced. The catheter was then placed into the commo n bile duct. Several common bile duct filling defects were visualized. It appears that a sphincteroto my was performed. A balloon catheter was swept through the common bile duct. There is filling of the gallbladder. There are multiple tiny gallbladder filling defects. Final images demonstrate a biliary enteric stent and pancreatic tail enteric stent. IMPRESSION: Fluoroscopic spot images obtained during an ERCP with placement biliary and pancreatic s tents. ACT 112: Negative or not required by law. Electronically signed by: Matt Coe M.D. 05/26/2020 6:02 PM
--- NOTE | 2020-05-26 18:06 | GI REPORT ---
Patient Name: Arely Benavides Procedure Date: 05/26/2020 4:50 PM Date of : 1935 Admit Type: Inpatient Age: 84 Gender: Female Attending MD: Leora Rousseau MD Procedure: ERCP Providers: Leora Rousseau MD Referring MD: Myah Mejia M.d. Indications: Bile duct stone on magnetic resonance cholangiopancreatography, For therapy of bile duct stone(s), Gallstone associated acute pancreatitis Medicines: General Anesthesia Complications: No immediate complications. Estimated Blood Loss: Estimated blood loss: none. Procedure: Pre-Anesthesia Assessment: - Prior to the procedure, a History and Physical was performed, and patient medications, allergies and sensitivities were reviewed. The patient's tolerance of previous anesthesia was reviewed. - The alternatives, risks and benefits of the procedure were discussed at length with the patient's son. The patient's proxy verbalized understanding of the risks as well as the alternatives and wished to proceed with the procedure. - Patient identification and proposed procedure were verified prior to the procedure by the physician and the nurse. The procedure was verified in the procedure room. - Pre-procedure physical examination revealed no contraindications to sedation. After obtaining informed consent, the scope was passed under direct vision. Throughout the procedure, the patient's blood pressure, pulse, and oxygen saturations were monitored continuously. The Scope was introduced through the mouth, and advanced to the duodenum and used to inject contrast into the bile duct. The ERCP was accomplished without difficulty. The patient tolerated the procedure well. Findings: The basket machine operator film was normal. The esophagus was successfully intubated under direct vision. The scope was advanced to a normal major papilla in the descending duodenum without detailed examination of the pharynx, larynx and associated structures, and upper GI tract. The upper GI tract was grossly normal. There was severe edema of the second portion of the duodenum likely due to pancreatitis. The ventral pancreatic duct was inadvertently cannulated on the first attempt. The guidewire was kept in place to assist in biliary ductal cannulation. A 0.025 inch straight standard wire was passed into the biliary tree. The Dreamtome sphincterotome was passed over the guidewire and the bile duct was then deeply cannulated. Contrast was injected. I personally interpreted the bile duct images. Ductal flow of contrast was adequate. Image quality was adequate. Contrast extended to the main bile duct. Opacification of the entire biliary tree was successful. The maximum diameter of the ducts was 9 mm. Biliary sphincterotomy was made with a monofilament traction (standard) sphincterotome using ERBE electrocautery. There was no post-sphincterotomy bleeding. The biliary tree was swept with a 12 mm balloon starting at the bifurcation. Sludge was swept from the duct. One 5 Fr by 9 cm plastic pancreatic stent with a single external pigtail and no internal flaps was placed into the ventral pancreatic duct. Clear fluid flowed through the stent. The stent was in good position. One 10 Fr by 8 cm plastic biliary stent with a single external flap and a single internal flap was placed into the common bile duct. Bile flowed through the stent. The stent was in good position. Indomethacin 100 mg was given via suppository to decrease the risk of post-ERCP pancreatitis (PEP). Impression: - Edematous duodenal wall. - A biliary sphincterotomy was performed. - The biliary tree was swept and sludge was found. - One plastic pancreatic stent was placed into the ventral pancreatic duct. - One plastic biliary stent was placed into the common bile duct. Recommendation: - [facility] patient to [facility] for [facility] care. - Avoid aspirin and nonsteroidal anti-inflammatory medicines for 5 days. - Refer to a surgeon for cholecystectomy. - Repeat ERCP in 4 weeks to remove stents, will also schedule an EUS for follow up on pancreatitis. COMMENT: She reported diffuse abdominal pain and tenderness prior to the procedure, likely due to pancreatitis with possible ileus. Keep low threshold for repeat imaging to check for developing complications related to her pancreatitis. Leora Rousseau MD 05/26/2020 6:06:19 PM This report has been signed electronically. Note Initiated On: 05/26/2020 4:50 PM Number of Addenda: 0 I attest to the content of the Intraoperative Record and orders documented therein, exceptions below {[id number]}
[2020-05-26] MEDS ORDERED: LABETALOL HCL IV 5 MG/ML 20ML IV STA (18:41)
[2020-05-26] MEDS ORDERED: LABETALOL HCL IV 5 MG/ML 20ML IV ONE (18:42)
[2020-05-26] MEDS ORDERED: GLUCAGON FOR INJ 1 MG VIAL ONE (18:46)
[2020-05-26] MEDS ORDERED: ONDANSETRON INJ 2 MG/ML 2 ML VIAL IV STA (18:59)
--- NOTE | 2020-05-26 19:10 | Anesthesiology Progress Note ---
Date of Service May 26, 2020 Anesthesia Post Procedure Vital Signs Vital Signs: Temp Pulse Pulse Pulse Resp BP BP 05/26/20 19:00 97 H 19 116/49 L 05/26/20 18:55 90 12 114/51 L 05/26/20 18:50 94 H 20 101/48 L 05/26/20 18:40 113 H 18 169/68 H 05/26/20 18:30 36.6 C 115 H 21 174/75 H 05/26/20 18:21 36.5 C 119 H 19 139/74 05/26/20 15:11 36.8 C 111 H 111 H 18 123/57 L 05/26/20 14:56 108 H 05/26/20 11:48 36.4 C L 120 H 18 154/79 H 05/26/20 07:44 36.4 C L 118 H 18 153/83 H 05/26/20 07:32 115 H 05/26/20 04:00 36.4 C L 116 H 18 164/75 H 05/26/20 00:00 36.8 C 119 H 18 150/79 H Pulse Ox 05/26/20 19:00 98 05/26/20 18:55 96 05/26/20 18:50 97 05/26/20 18:40 98 05/26/20 18:30 93 05/26/20 18:21 96 05/26/20 15:11 92 05/26/20 14:56 05/26/20 11:48 96 05/26/20 07:44 96 05/26/20 07:32 05/26/20 04:00 96 05/26/20 00:00 96 Pain Intensity Abdomen: Pain Intensity: 10 Transfer of Care Handoff Completed per policy Notes Mental Status: alert / awake / arousable Patient Amnestic to Procedure: Yes Nausea / Vomiting: adequately controlled Pain: adequately controlled Airway Patency, RR, SpO2: stable & adequate BP & HR: stable & adequate Hydration State: stable & adequate Anesthetic Complications: no major complications apparent
[2020-05-26] MEDS: ONDANSETRON INJ 2 MG/ML 2 ML VIAL IV PRN (19:58)
[2020-05-26] MEDS ORDERED: Nursing to Pharmacy Communication SCH (20:45)
[2020-05-27] MEDS: HYDROmorphone INJ 1 MG/ML SYRINGE IV PRN ×3 (01:50→20:45)
[2020-05-27] MEDS: LACTATED RINGER'S 1,000 ML IV SCH ×3 (02:24→16:13)
[2020-05-27] MEDS: IMIPENEM/CILASTATIN SODIUM 200 MG in DEXTROSE 5% 100 ML IV SCH ×2 (04:35→09:47)
[2020-05-27 06:22] LABS: Eosinophils # (auto) 0.01 K/uL (0-0.5); Eosinophils % (auto) 0.1 %; Hematocrit (blood only) 35.6 % (37-47); Hemoglobin 11.7 g/dL (12.0-16.0); Immature Granulocytes # (auto) 0.05 K/uL (0.00-0.02); Immature Granulocytes % (auto) 0.3 %; Lymphocytes % (auto) 3.4 %; Mean Corpuscular Hgb Conc 32.9 g/dL (32-36); Mean Corpuscular Volume 88.1 fL (80-100); Mean Platelet Volume 10.1 fL (7.4-10.4); Monocytes # (auto) 0.94 K/uL (0.11-0.59); Monocytes % (auto) 5.3 %; Neutrophils # (auto) 16.02 K/uL (1.4-6.5); Neutrophils % (auto) 90.9 %; Platelet Count 219 K/uL (130-400); RDW Coefficient of Variation 13.7 % (11.5-14.5); RDW Standard Deviation 44.5 fL (36.4-46.3); Red Blood Count 4.04 M/uL (4.2-5.4); White Blood Count 17.62 K/uL (4.8-10.8)
[2020-05-27 07:06] LABS: Albumin Level 1.7 gm/dl (3.4-5.0); BUN Creatinine Ratio 33.5 (10-20); Calcium 7.5 mg/dl (8.5-10.1); Creatinine Clr Calc Pharmacy 27.7 ml/min; Est GFR (African American) 57.7; Est GFR (Non-African American) 49.8; Potassium 4.2 mmol/L (3.5-5.1)
[2020-05-27 07:08] LABS: Albumin Globulin Ratio 0.5 (0.9-2); Bilirubin,Total 0.5 mg/dl (0.2-1); Globulin 3.1 gm/dl (2.5-4.0); Total Protein 4.8 gm/dl (6.4-8.2)
[2020-05-27] MEDS: HEPARIN SOD 5,000 UNIT/0.5 ML VIAL SQ SCH ×2 (08:13→21:57)
--- NOTE | 2020-05-27 08:15 | Gastroenterology Progress Note ---
Date of Service May 27, 2020 Assessment & Plan (1) Acute pancreatitis: 84 y/o female admitted with severe abd pain, found to have acute pancreatitis, gallstones in the GB neck/proximal cystic duct and CBD, possible pancreatic mass on imaging, along with leukocytosis. She underwent ERCP yest erday with biliary sludge noted which was swept, and 1 plastic CBD stent and 1 plastic PD stent placed. Doing much better today; abd pain much improved, abd is soft, WBC improving; LFTs trending down. Surgery service planning for cholecystectomy. - Continue ABX per primary service - Diet as per surgery team in conjunction with cholecystectomy arrangements - Continue IVF - Analgesia/antiemetics PRN - With increased chance of ileus given her pancreatitis, would start bowel regimen (Miralax daily) and OOB as tolerated/able to be done safely - Repeat ERCP 4 weeks to remove stents, with EUS to f/u on pancreatitis - our service will arrange - GI will sign off, please call with questions Thank you for allowing us to participate in the care of this patient. Please call with any acute changes, questions or concerns. Please see addendum below with additional recommendation from my supervising physician. Admission and Anticipated Discharge Date Admission Date: May 25, 2020 Supervising Physician Co-Signing Physician Notes I have seen and examined the patient and discussed the management with Cecilia Law PA-C. PE - less abd ttp compared to yesterday. S/p ercp with plastic biliary/metal stents. Abx for 7 days. Agree with further plan of care as per Cecilia's assessment and plan. Subjective Patient seen and examined, chart reviewed. Pt underwent ERCP yesterday which demonstrated biliary sludge which was swept and one plastic stent placed into the CBD and one plastic stent placed into the PD. Pt doing much better today; states her pain is all but resolved. No BM. WBC improving 26k -> 17k; LFTs trending down; tbili WNL, HGB, renal fxn stable; she's afebrile. Denies nausea, vomiting, hematemesis, melena, hematochezia. Review of Systems Constitutional: no fever and no body aches Cardiovascular: no chest pain and no dyspnea Gastrointestinal: as per Subjective / HPI Endocrine: + fatigue Physical Exam Constitutional: well developed; no acute distress resting comfortably in bed Eyes: + anicteric sclerae Respiratory: normal respiratory effort, lungs clear to auscultation Cardiovascular: Rate/Rhythm: regular rate and regular rhythm Gastrointestinal (Abdomen): soft, mildly distended, mild generalized residual tenderness - much improved from yesterday; normal BS, no rebound, guarding Skin: no rashes, warm and dry no jaundice Psychiatric: Orientation: alert exhibits short-term memory lapses Results & Data ([facility]) Vital Signs (Past 12 Hours) Vital Signs Temp Pulse Pulse Resp BP BP Pulse Ox 05/27/20 07:23 102 H 05/27/20 07:16 36.5 C 103 H 18 117/63 92 05/27/20 03:12 36.5 C 108 H 19 138/66 93 05/26/20 23:23 36.4 C L 95 H 19 131/58 L 95 Laboratory Results 05/27/20 05/27/20 Range/Units 05:24 05:24 WBC 17.62 H (4.8-10.8) K/uL RBC 4.04 L (4.2-5.4) M/uL Hgb 11.7 L (12.0-16.0) g/dL Hct 35.6 L (37-47) % MCV 88.1 (80-100) fL MCH 29.0 (25-34) pg MCHC 32.9 (32-36) g/dL RDW Std Deviation 44.5 (36.4-46.3) fL RDW Coeff of Sidney 13.7 (11.5-14.5) % Plt Count 219 (130-400) K/uL MPV 10.1 (7.4-10.4) fL Immature Gran % (Auto) 0.3 % Neut % (Auto) 90.9 % Lymph % (Auto) 3.4 % Stokes % (Auto) 5.3 % Eos % (Auto) 0.1 % Baso % (Auto) 0.0 % Neut # (Auto) 16.02 H (1.4-6.5) K/uL Lymph # (Auto) 0.60 L (1.2-3.4) K/uL Stokes # (Auto) 0.94 H (0.11-0.59) K/uL Eos # (Auto) 0.01 (0-0.5) K/uL Baso # (Auto) 0.00 (0-0.2) K/uL Immature Gran # (Auto) 0.05 H (0.00-0.02) K/uL Sodium 139 (136-145) mmol/L Potassium 4.2 (3.5-5.1) mmol/L Chloride 107 (98-107) mmol/L Carbon Dioxide 24 (21-32) mmol/L Anion Gap 8.0 (3-11) BUN 34 H (7-18) mg/dl Creatinine 1.02 (0.6-1.2) mg/dl Est Cr Clr Drug Dosing 27.7 ml/min Est GFR ( Amer) 57.7 Est GFR (Non-Af Amer) 49.8 BUN/Creatinine Ratio 33.5 H (10-20) Glucose 76 (70-99) mg/dl Calcium 7.5 L (8.5-10.1) mg/dl Total Bilirubin 0.5 (0.2-1) mg/dl AST 39 H (15-37) U/L ALT 29 (12-78) U/L Alkaline Phosphatase 20 L (45-117) U/L Total Protein 4.8 L (6.4-8.2) gm/dl Albumin 1.7 L (3.4-5.0) gm/dl Globulin 3.1 (2.5-4.0) gm/dl Albumin/Globulin Ratio 0.5 L (0.9-2) Lipase 371 (73-393) U/L (1) Acute pancreatitis Acute pancreatitis complication: infected necrosis Pancreatitis type: unspecified pancreatitis type Qualified Code(s): K85.92 - Acute pancreatitis with infected necrosis, unspecified
--- NOTE | 2020-05-27 11:00 | Hospitalist Progress Note ---
Date of Service May 27, 2020 Assessment & Plan (1) Acute pancreatitis: Secondary to choledocholithiasis as below. Lipase improved s/p ERCP Diet as per surgery recommendations cont LR at 125ml/hr (2) Choledocholithiasis: s/p ERCP with pancreatic and biliary stent placement with significant improvement in symptoms cont IV fluids LR 125ml/hr given persistent tachycardia as below To OR today for ERCP. (3) Sepsis: Suspected on admission - possible source pancreatic necrosis (not seen on MRCP) vs. early cholecystitis/cholangitis - difficult to exclude given elevated WBC but patient was afebrile - given no pancreatic necrosis seen on MRCP and resolution of symptoms s/p ERCP will switch antibiotics to cipro/metronidazole pending lap vonda - if lap vonda not suggestive of infection can discontinue antibiotics post operatively as afebrile throughout admission and no definitive evidence of cholecystitis or cholangitis on imaging. (4) ATN (acute tubular necrosis): Sepsis-associated. Cr 1.02, still above baseline 0.45 in November but continues to improve. Cont IV fluids with repeat BMP am. (5) Ileus: MiraLAX 17g PO daily as per GI recommendations. (6) Severe protein-calorie malnutrition: Ongoing for 6-12 months or more. 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 Saw pulmonary in fall 2018 - patient declined additional work-up and treatment at that time. O2 sats stable in room air. (8) Essential (primary) hypertension: Will restart metoprolol due to ongoing tachycardia to assess whether appropriate or inappropriate. Continue to hold lisinopril. (9) Tachycardia: Restart metoprolol as above Continue LR 125ml/hr Repeat EKG (10) DVT prophylaxis: heparin 5000 BID, hold before surgery in AM Admission and Anticipated Discharge Date Admission Date: May 25, 2020 Subjective Patient feels much improved. Without abdominal pain when seen when abdomen not palpated. Difficult to get longer-standing history from patient as she is unable to give me timelines on her weight loss or decreased appetite. No current nausea, vomiting. No bowel movement since admission but also not had anything to eat. Review of Systems Review of Systems: All systems reviewed & are unremarkable except as noted in HPI & below Physical Exam Constitutional: well developed, + cachectic and + frail appearing; + not well nourished, no acute distress and no altered mental status Eyes: + anicteric sclerae; normal pupil size Neck: normal visual inspection and trachea midline Respiratory: normal respiratory effort, lungs clear to auscultation Cardiovascular: RRR, no murmur, no edema Gastrointestinal (Abdomen): Inspection/Auscultation: + abdomen distended; + abnormal bowel sounds (decreased) Percussion/Palpation: + abdomen tender (RLQ); no hepatosplenomegaly Musculoskeletal: no cyanosis or clubbing, extremities motor strength 5/5 Skin: no rashes, warm and dry + pallor; no jaundice Neurologic: moves all extremities and awake; not confused Psychiatric: Orientation: alert and oriented x 3 Results & Data Results & Data ([facility]) Vital Signs (Past 12 Hours) Vital Signs Temp Pulse Pulse Resp BP BP Pulse Ox 05/27/20 07:23 102 H 05/27/20 07:16 36.5 C 103 H 18 117/63 92 05/27/20 03:12 36.5 C 108 H 19 138/66 93 05/26/20 23:23 36.4 C L 95 H 19 131/58 L 95 PG Care Time/CCT Total # of Minutes Spent Total Time Spent with Patient: Total time spent is greater than 50% in coordination of care (as documented) at patient's floor/unit and/or counseling patient: Coding Level of Care Code 47176 Subseq Hosp Care Lvl 2 Diagnoses Acute pancreatitis K85.92 Acute pancreatitis complication: infected necrosis Pancreatitis type: unspecified pancreatitis type Choledocholithiasis K80.50 Sepsis A41.9; R65.20 Sepsis type: sepsis due to unspecified organism Sepsis acute organ dysfunction status: with acute organ dysfunction Severe sepsis acute organ dysfunction type: unspecified Severe sepsis shock status: without septic shock ATN (acute tubular necrosis) N17.0 Ileus K56.7 Severe protein-calorie malnutrition E43 JIMENA (mycobacterium avium-intracellulare) A31.0 Essential (primary) hypertension I10 Tachycardia R00.0 DVT prophylaxis Z29.9 (1) Acute pancreatitis Acute pancreatitis complication: infected necrosis Pancreatitis type: unspecified pancreatitis type Qualified Code(s): K85.92 - Acute pancreatitis with infected necrosis, unspecified (2) Sepsis Sepsis type: sepsis due to unspecified organism Sepsis acute organ dysfunction status: with acute organ dysfunction Severe sepsis acute organ dysfunction type: unspecified Severe sepsis shock status: without septic shock Qualified Code(s): A41.9 - Sepsis, unspecified organism; R65.20 - Severe sepsis without septic shock
[2020-05-27] MEDS: PANTOprazole 40 MG in SYRINGE 0 ML IV SCH (11:01)
[2020-05-27] MEDS ORDERED: POLYETHYLENE (MIRALAX) 17 GM PACK PO ONE (13:57)
[2020-05-27] MEDS ORDERED: ACETAMINOPHEN 1,000 MG/100 ML VIAL IV PRN (13:59)
--- NOTE | 2020-05-27 14:22 | Surgery Progress Note ---
Date of Service May 27, 2020 Assessment & Plan (1) Choledocholithiasis: POD # 1 s/p ERCP with pancreatic and biliary stent placement. Common bile duct sludge present. - improvement of leukocytosis to 17K - abdominal pain resolved after ERCP - t. bili wnl and lfts improved - lipase down to 371 Plan: Plan for laparoscopic cholecystectomy tomorrow obtained informed consent okay for liquids or low fat diet today, NPO after midnight continue medical management (2) Acute pancreatitis: lipase improved to 371 abdominal pain now resolved after ERCP and stent placement (3) Acute cholecystitis due to biliary calculus: plan as above Dr. Izaguirre has seen patient, obtained informed consent, agrees with above. Subjective feeling better today denies of any abdominal pain since ERCP ordered liquids for lunch today Physical Exam Constitutional: WD/WN, vitals as above no acute distress and not ill appearing Skin: no rashes, warm and dry Psychiatric: Orientation: alert and oriented x 3 Results & Data Vital Signs (Past 12 Hours) Vital Signs Temp Pulse Pulse Resp BP BP Pulse Ox 05/27/20 11:25 36.7 C 117 H 18 133/68 90 05/27/20 07:23 102 H 05/27/20 07:16 36.5 C 103 H 18 117/63 92 05/27/20 03:12 36.5 C 108 H 19 138/66 93 Laboratory Results 05/27/20 05/27/20 Range/Units 05:24 05:24 WBC 17.62 H (4.8-10.8) K/uL RBC 4.04 L (4.2-5.4) M/uL Hgb 11.7 L (12.0-16.0) g/dL Hct 35.6 L (37-47) % MCV 88.1 (80-100) fL MCH 29.0 (25-34) pg MCHC 32.9 (32-36) g/dL RDW Std Deviation 44.5 (36.4-46.3) fL RDW Coeff of Sidney 13.7 (11.5-14.5) % Plt Count 219 (130-400) K/uL MPV 10.1 (7.4-10.4) fL Immature Gran % (Auto) 0.3 % Neut % (Auto) 90.9 % Lymph % (Auto) 3.4 % Ward % (Auto) 5.3 % Eos % (Auto) 0.1 % Baso % (Auto) 0.0 % Neut # (Auto) 16.02 H (1.4-6.5) K/uL Lymph # (Auto) 0.60 L (1.2-3.4) K/uL Ward # (Auto) 0.94 H (0.11-0.59) K/uL Eos # (Auto) 0.01 (0-0.5) K/uL Baso # (Auto) 0.00 (0-0.2) K/uL Immature Gran # (Auto) 0.05 H (0.00-0.02) K/uL Sodium 139 (136-145) mmol/L Potassium 4.2 (3.5-5.1) mmol/L Chloride 107 (98-107) mmol/L Carbon Dioxide 24 (21-32) mmol/L Anion Gap 8.0 (3-11) BUN 34 H (7-18) mg/dl Creatinine 1.02 (0.6-1.2) mg/dl Est Cr Clr Drug Dosing 27.7 ml/min Est GFR ( Amer) 57.7 Est GFR (Non-Af Amer) 49.8 BUN/Creatinine Ratio 33.5 H (10-20) Glucose 76 (70-99) mg/dl Calcium 7.5 L (8.5-10.1) mg/dl Total Bilirubin 0.5 (0.2-1) mg/dl AST 39 H (15-37) U/L ALT 29 (12-78) U/L Alkaline Phosphatase 20 L (45-117) U/L Total Protein 4.8 L (6.4-8.2) gm/dl Albumin 1.7 L (3.4-5.0) gm/dl Globulin 3.1 (2.5-4.0) gm/dl Albumin/Globulin Ratio 0.5 L (0.9-2) Lipase 371 (73-393) U/L (1) Acute pancreatitis Acute pancreatitis complication: infected necrosis Pancreatitis type: unspecified pancreatitis type Qualified Code(s): K85.92 - Acute pancreatitis with infected necrosis, unspecified
[2020-05-27] MEDS ORDERED: METOPROLOL TARTRATE 25 MG TAB PO ONE (14:37)
[2020-05-27] MEDS: ACETAMINOPHEN 325 MG TAB PO PRN (16:23)
[2020-05-27] MEDS: metroNIDAZOLE 500 MG/100 ML BAG IV SCH (16:24)
[2020-05-27] MEDS: CIPROFLOXACIN / D5W 400 MG/200 ML BAG IV SCH (16:24)
[2020-05-27] MEDS: METOPROLOL TARTRATE 25 MG TAB PO SCH (21:02)
[2020-05-28] MEDS: LACTATED RINGER'S 1,000 ML IV SCH ×3 (00:05→19:25)
[2020-05-28] MEDS: metroNIDAZOLE 500 MG/100 ML BAG IV SCH ×3 (00:06→16:13)
[2020-05-28 06:04] LABS: Basophils # (auto) 0.01 K/uL (0-0.2); Basophils % (auto) 0.1 %; Eosinophils # (auto) 0.01 K/uL (0-0.5); Eosinophils % (auto) 0.1 %; Hematocrit (blood only) 35.6 % (37-47); Hemoglobin 11.6 g/dL (12.0-16.0); Immature Granulocytes # (auto) 0.06 K/uL (0.00-0.02); Immature Granulocytes % (auto) 0.3 %; Lymphocytes # (auto) 0.58 K/uL (1.2-3.4); Lymphocytes % (auto) 3.1 %; Mean Corpuscular Hemoglobin 28.7 pg (25-34); Mean Corpuscular Hgb Conc 32.6 g/dL (32-36); Mean Corpuscular Volume 88.1 fL (80-100); Mean Platelet Volume 9.7 fL (7.4-10.4); Monocytes # (auto) 1.14 K/uL (0.11-0.59); Monocytes % (auto) 6.2 %; Neutrophils # (auto) 16.65 K/uL (1.4-6.5); Neutrophils % (auto) 90.2 %; Platelet Count 256 K/uL (130-400); RDW Coefficient of Variation 13.8 % (11.5-14.5); Red Blood Count 4.04 M/uL (4.2-5.4); White Blood Count 18.45 K/uL (4.8-10.8)
[2020-05-28] MEDS: HYDROmorphone INJ 1 MG/ML SYRINGE IV PRN (06:06)
[2020-05-28 06:25] LABS: Albumin Level 1.8 gm/dl (3.4-5.0); Calcium 8.2 mg/dl (8.5-10.1); Creatinine Clr Calc Pharmacy 46.3 ml/min; Est GFR (African American) 91.4; Est GFR (Non-African American) 78.8; Potassium 4.1 mmol/L (3.5-5.1)
[2020-05-28 06:26] LABS: Albumin Globulin Ratio 0.6 (0.9-2); Bilirubin,Total 0.5 mg/dl (0.2-1); Globulin 3.2 gm/dl (2.5-4.0)
[2020-05-28] MEDS ORDERED: ONDANSETRON INJ 2 MG/ML 2 ML VIAL ONE (06:38)
[2020-05-28] MEDS ORDERED: PROPOFOL IV EMULSION 10 MG/ML 20 ML VIAL IV ONE (06:38)
[2020-05-28] MEDS ORDERED: fentaNYL citrate 100 MCG/2 ML VIAL ONE ×2 (06:38→08:04)
[2020-05-28] MEDS ORDERED: LIDOCAINE HCL 2% 2 ML VIAL/AMP(20MG/ML) INFIL ONE (06:38)
[2020-05-28] MEDS ORDERED: ROCURONIUM BROMIDE 10 MG/ML 5 ML VIAL IV ONE (06:38)
--- NOTE | 2020-05-28 06:57 | Electrocardiogram Report ---
Test Reason : Blood Pressure : / mmHG Vent. Rate : 127 BPM Atrial Rate : 127 BPM P-R Int : 130 ms QRS Dur : 064 ms QT Int : 304 ms P-R-T Axes : 073 018 045 degrees QTc Int : 441 ms Sinus tachycardia Possible Left atrial enlargement Low voltage QRS Cannot rule out Anterior infarct , age undetermined Abnormal ECG When compared with ECG of 24-MAY-2020 22:13, Nonspecific T wave abnormality, worse in Anterior leads Confirmed by Martin Meier ([id number]) on 05/28/2020 6:57:24 AM Referred By: REFERRED SELF Confirmed By:Martin Meier
[2020-05-28] MEDS ORDERED: CEFAZOLIN 2000MG 2,000 MG/15 ML SYR IV ONE (07:06)
--- NOTE | 2020-05-28 07:06 | History & Physical Bridge Note ---
Date of Service May 28, 2020 History & Physical Bridge Note I have examined the patient, reviewed the History & Physical and in the interval since the performance of the History & Physical I have noted the following changes of clinical significance: no changes noted Supervising Physician Co-Signing Physician Notes I have seen and examined the patient and discussed the management with Cecilia Law PA-C. PE - less abd ttp compared to yesterday. S/p ercp with plastic biliary/metal stents. Abx for 7 days. Agree with further plan of care as per Cecilia's assessment and plan.
[2020-05-28] MEDS ORDERED: BUPIVACAINE 0.5 % 5 MG/1 ML MPF 30ML VIAL ONE (07:07)
[2020-05-28] MEDS ORDERED: LIDOCAINE HCL 1% 20 ML VIAL ONE (07:08)
[2020-05-28] MEDS ORDERED: CEFAZOLIN 2,000 MG/15 ML IV PUSH IV ONE (07:08)
[2020-05-28] MEDS ORDERED: BACITRACIN OINT 15 GM TUBE ONE (07:08)
[2020-05-28] MEDS ORDERED: ePHEDrine sulfate 50 MG/ML AMP IV PRN (08:11)
[2020-05-28] MEDS ORDERED: DEXAMETHASONE SOD INJ 4 MG/ML VIAL IV PRN (08:11)
[2020-05-28] MEDS ORDERED: PROMETHAZINE HCL 12.5 MG in SODIUM CHLORIDE 0.9% 50 ML IV PRN (08:11)
[2020-05-28] MEDS ORDERED: HYDROmorphone INJ 1 MG/ML SYRINGE IV PRN (08:11)
[2020-05-28] MEDS ORDERED: ATROPINE SULFATE 0.1 MG/ML 10ML SYR IV PRN (08:11)
[2020-05-28] MEDS ORDERED: METOCLOPRAMIDE HCL INJ 5 MG/ML 2 ML VIAL IV PRN (08:11)
[2020-05-28] MEDS ORDERED: fentaNYL citrate 100 MCG/2 ML VIAL IV PRN (08:11)
[2020-05-28] MEDS ORDERED: ONDANSETRON INJ 2 MG/ML 2 ML VIAL IV PRN (08:11)
--- NOTE | 2020-05-28 08:41 | Hospitalist Progress Note ---
Date of Service May 28, 2020 Assessment & Plan (1) Acute pancreatitis: Secondary to choledocholithiasis as below. Lipase improved s/p ERCP Diet as per surgery recommendations cont LR at 125ml/hr (2) Choledocholithiasis: s/p ERCP with pancreatic and biliary stent placement with significant improvement in symptoms cont IV fluids LR 125ml/hr given persistent tachycardia as below 05/28/20 laparscopic cholecystectomy (3) Sepsis: Suspected on admission - possible source pancreatic necrosis (not seen on MRCP) vs. early cholecystitis/cholangitis - difficult to exclude given elevated WBC but patient was afebrile - given no pancreatic necrosis seen on MRCP and resolution of symptoms s/p ERCP will switch antibiotics to cipro/metronidazole - if lap vonda not suggestive of infection can discontinue antibiotics post operatively as afebrile throughout admission and no definitive evidence of cholecystitis or cholangitis on imaging. (4) ATN (acute tubular necrosis): Sepsis-associated. Cr 1.02, still above baseline 0.45 in November but continues to improve. Cont IV fluids follow BMP am. (5) Ileus: MiraLAX 17g PO daily as per GI recommendations. (6) Severe protein-calorie malnutrition: Ongoing for 6-12 months or more. 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 Saw pulmonary in fall 2018 - patient declined additional work-up and treatment at that time. O2 sats stable in room air. (8) Essential (primary) hypertension: Will restart metoprolol due to ongoing tachycardia to assess whether appropriate or inappropriate. Continue to hold lisinopril. (9) Tachycardia: Restart metoprolol as above Continue LR 125ml/hr Repeat EKG (10) DVT prophylaxis: heparin 5000 BID, hold before surgery in AM Admission and Anticipated Discharge Date Admission Date: May 25, 2020 Subjective this pt is slightly sedate from surgery otherwise is doing well Review of Systems Review of Systems: Unobtainable due to cognitive status Physical Exam Physical Exam: The patient appeared well Vital signs as documented. Lungs are clear to auscultation and appear unlabored Cardiac exam, Rhythm is regular.. No murmurs, rubs or gallops. Abdominal exam reveals hypoactive bowel sounds typical postoperative abdomen guarding but tender to exam Extremities are nonedematous and both pedal pulses are normal. Neurologic exam is alert to voice Skin is without bruises or rashes Results & Data Results & Data ([facility]) Vital Signs (Past 12 Hours) Vital Signs Temp Pulse Resp BP BP Pulse Ox 05/28/20 06:58 98.6 F 102 H 16 158/62 H 98 05/28/20 03:42 98.1 F 102 H 16 177/71 H 94 05/27/20 23:02 98.1 F 105 H 16 131/72 93 PG Care Time/CCT Total # of Minutes Spent Total Time Spent with Patient: Total time spent is greater than 50% in coordination of care (as documented) at patient's floor/unit and/or counseling patient: Coding Level of Care Code 52220 Subseq Hosp Care Lvl 3 Diagnoses Acute pancreatitis K85.92 Acute pancreatitis complication: infected necrosis Pancreatitis type: unspecified pancreatitis type Choledocholithiasis K80.50 Sepsis A41.9; R65.20 Sepsis acute organ dysfunction status: with acute organ dysfunction Sepsis type: sepsis due to unspecified organism Severe sepsis acute organ dysfunction type: unspecified Severe sepsis shock status: without septic shock ATN (acute tubular necrosis) N17.0 Ileus K56.7 Severe protein-calorie malnutrition E43 JIMENA (mycobacterium avium-intracellulare) A31.0 Essential (primary) hypertension I10 Tachycardia R00.0 DVT prophylaxis Z29.9 (1) Sepsis Sepsis acute organ dysfunction status: with acute organ dysfunction Sepsis type: sepsis due to unspecified organism Severe sepsis acute organ dysfunction type: unspecified Severe sepsis shock status: without septic shock Qualified Code(s): A41.9 - Sepsis, unspecified organism; R65.20 - Severe sepsis without septic shock (2) Acute pancreatitis Acute pancreatitis complication: infected necrosis Pancreatitis type: unspecified pancreatitis type Qualified Code(s): K85.92 - Acute pancreatitis with infected necrosis, unspecified
--- NOTE | 2020-05-28 08:59 | Post Operative Brief Note ---
Immediate Post Op Note v1 Date of Surgery May 28, 2020 Pre & Post Diagnosis Operation Date: 05/26/20 09:40 Pre-Op Diagnosis: Acute Pancreatitis, Choledocholithiasis Post-Op Diagnosis: Acute Pancreatitis, Choledocholithiasis Operation Date: 05/28/20 07:15 Pre-Op Diagnosis: Acute Cholecystitis, CHOLELITHIASIS Post-Op Diagnosis: Acute Cholecystitis, CHOLELITHIASIS I identified the patient and participated in the time-out.: Yes Procedure Operation Date: 05/26/20 09:40 Actual Procedures p Endoscopic Retrograde Cholangiopancreatogram(Not Applicable) - Leora Rousseau MD Operation Date: 05/28/20 07:15 Actual Procedures p Laparoscopic Cholecystectomy(Not Applicable) - Edmund Izaguirre MD Surgeon Edmund Izaguirre MD Stogie Packer [place] Estimated Blood Loss 10 Findings Consistent with Post-Op Diagnosis Fluids 1000ML Anesthesia Type General Complications none Disposition Accompanied Patient To Recovery: Yes Disposition: Recovery Room Overlapping Procedure I was immediately available: during the entire case.
[2020-05-28] MEDS ORDERED: SUGAMMADEX SODIUM 200 MG/2 ML VIAL IV ONE (09:31)
--- NOTE | 2020-05-28 11:15 | Anesthesiology Progress Note ---
Date of Service May 28, 2020 Anesthesia Post Procedure Vital Signs Vital Signs: Temp Pulse Pulse Resp BP BP Pulse Ox 05/28/20 10:56 703 H 05/28/20 10:25 37.2 C 97 H 18 152/78 H 98 05/28/20 10:15 37.2 C 97 H 18 150/71 H 98 05/28/20 10:05 97 H 18 168/63 H 98 05/28/20 09:55 101 H 18 163/63 H 98 05/28/20 09:45 37.1 C 100 H 18 166/65 H 98 05/28/20 06:58 37 C 102 H 16 158/62 H 98 05/28/20 03:42 36.7 C 102 H 16 177/71 H 94 05/27/20 23:02 36.7 C 105 H 16 131/72 93 05/27/20 19:27 36.7 C 107 H 22 147/70 H 90 05/27/20 15:38 93 05/27/20 15:35 36.7 C 127 H 23 149/69 H 90 05/27/20 14:52 165/70 H 05/27/20 11:25 36.7 C 117 H 18 133/68 90 Pain Intensity Abdomen: Pain Intensity: 10 Transfer of Care Handoff Completed per policy Notes Mental Status: alert / awake / arousable and participated in evaluation Patient Amnestic to Procedure: Yes Nausea / Vomiting: adequately controlled Pain: adequately controlled Airway Patency, RR, SpO2: stable & adequate BP & HR: stable & adequate Hydration State: stable & adequate Anesthetic Complications: no major complications apparent
--- NOTE | 2020-05-28 11:33 | Operative Report (OR) ---
DATE OF OPERATION: 05/28/2020 PREOPERATIVE DIAGNOSES: Acute cholecystitis, cholelithiasis. POSTOPERATIVE DIAGNOSES: Acute cholecystitis, cholelithiasis. OPERATION: Laparoscopic cholecystectomy. SURGEON: Edmund Izaguirre MD. TAX RECORD CLERK: Cecilia Perez PA-C. ANESTHESIA: General. ESTIMATED BLOOD LOSS: About 10 mL. FINDINGS: Acute cholecystitis with cholelithiasis and ascites. COMPLICATIONS: None. INDICATIONS FOR THE PROCEDURE: This is an 84-year-old female who was admitted to the hospital for acute cholecystitis with cholelithiasis and pancreatitis. The patient is post-stat ERCP and patient is required to do the laparoscopic cholecystectomy, possible open, possible cholangiogram. I did talk to the patient about the benefit, risk, alternate procedure. I indicated the risks may include but not limited to such as bleeding, infection, injury to common bile duct, myocardial infarction and even . The patient understands. She signed informed consent and I answered all questions. DETAILS OF PROCEDURE: We brought the patient to the OR, put the patient in the supine position. The patient received SCD on bilateral legs to prevent DVT. Also, patient received 2 grams of Ancef IV for prophylactic antibiotic. The patient received general anesthesia without difficulty. The abdomen was prepped and draped in routine sterile fashion. After timeout, I injected local anesthesia by using 1% lidocaine mixed with 0.5% Marcaine just below the umbilicus. Then I made a small incision just below the umbilicus and opened fascia, opened peritoneum under direct vision, put a Mitul trocar in. However, at this moment, we found the patient had ascites, we suctioned some ascites. The ascites is yellow that we sent to culture. Then, we put the camera in and looked around the abdomen; it shows normal finding on the liver. However, the gallbladder showed significant inflammation, gallbladder wall edema, thickening - confirmed the diagnosis of acute cholecystitis and then we put another two 5 mm trocars on the right upper quadrant, one 11 trocar on the epigastric area. Once all trocars in, we had to decompress the distention of the gallbladder. I used a large needle. Once we decompressed, we used a grasper to hold the base of gallbladder, put in the direction to the diaphragm, another grasper to hold the pouch of gallbladder, put lateral to expose the triangle of Calot. The cystic duct was identified and mobilized. Then I put two 10 mm metal clips on the proximal cystic duct, one on the distal cystic duct and then used a scissor for transection of cystic duct. Rechecked and no bile leak. Then the cystic artery was identified and mobilized. I put two 10 mm metal clips on the proximal cystic artery, one on the distal cystic artery, then used a scissor for transection of the cystic artery. Rechecked, no active bleeding. Then we used the Bovie to take down gallbladder from the liver bed. Then rechecked, no active bleeding, no bile leak from liver bed. Then we removed the gallbladder through the catch bag. Then we reinserted the Mitul trocar in, connected to CO2 to create pneumoperitoneum, again looked around the abdomen, no active bleeding, no bile leak from liver bed. Then we removed all trocars under direct vision. No active bleeding from the trocar sites. Pneumoperitoneum was released. Then I closed the umbilical incision, fascial layer by using 0 Vicryl [id number] x2, closed the subcutaneous layer by using 2-0 Vicryl interruptedly, closed skin by using 4-0 Vicryl continuous running, closed the epigastric area trocar site fascial layer by using #1 Vicryl [id number] x2, subcutaneous layer by using 2-0 Vicryl interruptedly, closed skin by using 4-0 Vicryl interruptedly, closed another two 5 mm trocar sites skin only by using 4-0 Vicryl. Then we put the dressing on. The patient tolerated the procedure well. All instrument, needle and sponge count were correct x2 at the end of the case. After the procedure, the patient was transferred to recovery room in stable condition. The specimen was sent to pathology. I attest to the content of the Intraoperative Record and any orders documented therein. Any exception s are noted below.
[2020-05-28] MEDS: METOPROLOL TARTRATE 25 MG TAB PO SCH ×3 (11:37→21:41)
[2020-05-28] MEDS: CIPROFLOXACIN / D5W 400 MG/200 ML BAG IV SCH (11:38)
[2020-05-28] MEDS: PANTOprazole 40 MG in SYRINGE 0 ML IV SCH (11:39)
[2020-05-29] MEDS: CIPROFLOXACIN / D5W 400 MG/200 ML BAG IV SCH ×3 (00:24→23:50)
[2020-05-29] MEDS: LACTATED RINGER'S 1,000 ML IV SCH ×2 (00:24→21:06)
[2020-05-29] MEDS: metroNIDAZOLE 500 MG/100 ML BAG IV SCH ×4 (00:24→23:50)
[2020-05-29] MEDS: HYDROmorphone INJ 1 MG/ML SYRINGE IV PRN ×2 (05:50→12:38)
[2020-05-29] MEDS: lisinopriL 20 MG TAB PO SCH (08:00)
[2020-05-29] MEDS: METOPROLOL TARTRATE 25 MG TAB PO SCH ×2 (08:00→21:36)
[2020-05-29 08:08] LABS: Basophils # (auto) 0.01 K/uL (0-0.2); Basophils % (auto) 0.1 %; Eosinophils # (auto) 0.05 K/uL (0-0.5); Eosinophils % (auto) 0.3 %; Hematocrit (blood only) 36.3 % (37-47); Immature Granulocytes % (auto) 0.5 %; Lymphocytes # (auto) 0.57 K/uL (1.2-3.4); Mean Corpuscular Hemoglobin 29.5 pg (25-34); Mean Corpuscular Hgb Conc 33.1 g/dL (32-36); Mean Corpuscular Volume 89.2 fL (80-100); Mean Platelet Volume 9.3 fL (7.4-10.4); Monocytes # (auto) 1.32 K/uL (0.11-0.59); Neutrophils # (auto) 16.93 K/uL (1.4-6.5); Neutrophils % (auto) 89.1 %; Platelet Count 269 K/uL (130-400); RDW Coefficient of Variation 13.9 % (11.5-14.5); RDW Standard Deviation 45.5 fL (36.4-46.3); Red Blood Count 4.07 M/uL (4.2-5.4); White Blood Count 18.98 K/uL (4.8-10.8)
[2020-05-29 08:37] LABS: Albumin Level 1.8 gm/dl (3.4-5.0); BUN Creatinine Ratio 27.2 (10-20); Calcium 8.4 mg/dl (8.5-10.1); Creatinine Clr Calc Pharmacy 44.4 ml/min; Est GFR (African American) 87.9; Est GFR (Non-African American) 75.8; Potassium 4.2 mmol/L (3.5-5.1)
[2020-05-29 08:39] LABS: Albumin Globulin Ratio 0.6 (0.9-2); Bilirubin,Total 0.6 mg/dl (0.2-1); Globulin 3.2 gm/dl (2.5-4.0)
[2020-05-29] MEDS: PANTOprazole 40 MG in SYRINGE 0 ML IV SCH (11:32)
--- NOTE | 2020-05-29 14:17 | Hospitalist Progress Note ---
Date of Service May 29, 2020 Assessment & Plan (1) Acute pancreatitis: Secondary to choledocholithiasis as below. Lipase improved s/p ERCP Diet as per surgery recommendations GI planning for outpt f/u in 4 weeks for stent removal and EUS for eval of possible mass (2) Choledocholithiasis: s/p ERCP with pancreatic and biliary stent placement on 05/26 with significant improvement in symptoms cont IV fluids LR 125ml/hr given persistent tachycardia as below 05/28/20 laparscopic cholecystectomy GI planning for outpt f/u in 4 weeks for stent removal and EUS for eval of possible mass (3) Sepsis: Suspected on admission - possible source pancreatic necrosis (not seen on MRCP) vs. early cholecystitis/cholangitis - difficult to exclude given elevated WBC but patient was afebrile - given no pancreatic necrosis seen on MRCP and resolution of symptoms s/p ERCP will switch antibiotics to cipro/metronidazole - if lap vonda not suggestive of infection can discontinue antibiotics post operatively as afebrile throughout admission and no definitive evidence of cholecystitis or cholangitis on imaging. (4) ATN (acute tubular necrosis): Sepsis-associated. Cr WNL Continue IVF (5) Ileus: MiraLAX 17g PO daily as per GI recommendations. (6) Severe protein-calorie malnutrition: Ongoing for 6-12 months or more. 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 Saw pulmonary in fall 2018 - patient declined additional work-up and treatment at that time. (8) Essential (primary) hypertension: Will restart metoprolol due to ongoing tachycardia to assess whether appropriate or inappropriate. Continue to hold lisinopril. (9) Tachycardia: Restart metoprolol as above Continue LR 125ml/hr Repeat EKG (10) DVT prophylaxis: heparin 5000 BID, hold before surgery in AM Admission and Anticipated Discharge Date Admission Date: May 25, 2020 Subjective Pt states she feels very weak and her back is "tired" from sitting up too long. No further abd pain, n/v. She is tolerating full liquids without issue. Pt denies fever, SOB, chest pain, c/d, LE pain or swelling. Review of Systems Review of Systems: Pertinent positives and negatives reviewed in HPI--all others negative Physical Exam Constitutional: WD/WN, vitals as above Eyes: normal visual tabor by confrontation and + anicteric sclerae Neck: normal visual inspection and trachea midline Respiratory: normal respiratory effort, lungs clear to auscultation Cardiovascular: Rate/Rhythm: regular rate and regular rhythm Gastrointestinal (Abdomen): Inspection/Auscultation: abdomen not distended Percussion/Palpation: abdomen soft; abdomen nontender Musculoskeletal: Head/Neck/Chest: normocephalic and head atraumatic negative for edema, peripheral pulses intact Skin: no rashes, warm and dry Neurologic: awake; not confused Speech / Cognition: normal speech Psychiatric: A+Ox3, euthymic affect Results & Data Results & Data ([facility]) Vital Signs (Past 12 Hours) Vital Signs Temp Pulse Resp BP BP Pulse Ox 05/29/20 11:59 36.6 C 99 H 17 146/74 H 97 05/29/20 08:00 36.5 C 104 H 18 165/71 H 96 05/29/20 03:41 36.7 C 96 H 17 147/65 H 98 PG Care Time/CCT Total # of Minutes Spent Total Time Spent with Patient: Total time spent is greater than 50% in coordination of care (as documented) at patient's floor/unit and/or counseling patient: Coding Level of Care Code 37064 Subseq Hosp Care Lvl 3 Diagnoses Acute pancreatitis K85.92 Acute pancreatitis complication: infected necrosis Pancreatitis type: unspecified pancreatitis type Choledocholithiasis K80.50 Sepsis A41.9; R65.20 Sepsis type: sepsis due to unspecified organism Sepsis acute organ dysfunction status: with acute organ dysfunction Severe sepsis acute organ dysfunction type: unspecified Severe sepsis shock status: without septic shock ATN (acute tubular necrosis) N17.0 Ileus K56.7 Severe protein-calorie malnutrition E43 JIMENA (mycobacterium avium-intracellulare) A31.0 Essential (primary) hypertension I10 Tachycardia R00.0 DVT prophylaxis Z29.9 (1) Acute pancreatitis Acute pancreatitis complication: infected necrosis Pancreatitis type: unspecified pancreatitis type Qualified Code(s): K85.92 - Acute pancreatitis with infected necrosis, unspecified (2) Sepsis Sepsis type: sepsis due to unspecified organism Sepsis acute organ dysfunc tion status: with acute organ dysfunction Severe sepsis acute organ dysfunction type: unspecified Severe sepsis shock status: without septic shock Qualified Code(s): A41.9 - Sepsis, unspecified organism; R65.20 - Severe sepsis without septic shock
[2020-05-29] MEDS ORDERED: bisacodyL 10 MG SUPP PR STA (15:18)
--- NOTE | 2020-05-29 15:24 | Surgery Progress Note ---
Date of Service May 29, 2020 Assessment & Plan (1) Acute cholecystitis due to biliary calculus: POD # 1 s/p laparoscopic cholecystectomy - afebrile, leukocytosis of 18.98K (18.45 yesterday,stable) - moderate abdominal distention as of note small bowel was dilated when entering abdomen for laparoscopic cholecystectomy. - passing gas but no bowel movement - feeling weak today - t. bili, LFTs wnl Plan: She likely still has ileus from the pancreatitis. Would keep on clear liquids given abdominal distention. If vomiting occurs may need NGT. Dulcolax suppository now to help stimulate more flatus /bm Encouraged OOB to chair and ambulate to help increase GI motility Would continue IV Abx given leukocytosis of 18K repeat cbc incentive spirometer scds for dvt prophylaxis PT/OT consulted (2) Choledocholithiasis: POD # 3 s/p ERCP with pancreatic and biliary stent placement. Common bile duct sludge present. t.bili/lfts wnl I ( Bo Izaguirre MD) called pt's son Lavell [phone] , I informed him about his Mom surgery finding and the procedure she had, he understood, he thinks me for take care his Mom, (3) Acute pancreatitis: elevated lipase resolved may have persistent ileus given dilated bowel during laparoscopic cholecystectomy and abdominal distention today plan as above Subjective not feeling well today, feeling bloated with abdominal pressure tolerated clears okay, no n/v not much abdominal pain just pressure passed gas today but no bowel movement very tired and weak today has not had bm since admission, no troubles with constipation at home Physical Exam Constitutional: WD/WN, vitals as above no acute distress Respiratory: normal respiratory effort; no respiratory distress Gastrointestinal (Abdomen): Inspection/Auscultation: + abdomen distended ( moderate distention); + abnormal bowel sounds (hypoactive) Percussion/Palpation: + abdomen tender (at incision sites) and + abdomen rigid; no guarding Skin: no rashes, warm and dry + incision (covered with dry dressings) Psychiatric: A+Ox3, euthymic affect Results & Data Vital Signs (Past 12 Hours) Vital Signs Temp Pulse Resp BP BP Pulse Ox 05/29/20 11:59 36.6 C 99 H 17 146/74 H 97 05/29/20 08:00 36.5 C 104 H 18 165/71 H 96 05/29/20 03:41 36.7 C 96 H 17 147/65 H 98 Laboratory Results 05/29/20 05/29/20 Range/Units 07:44 07:44 WBC 18.98 H (4.8-10.8) K/uL RBC 4.07 L (4.2-5.4) M/uL Hgb 12.0 (12.0-16.0) g/dL Hct 36.3 L (37-47) % MCV 89.2 (80-100) fL MCH 29.5 (25-34) pg MCHC 33.1 (32-36) g/dL RDW Std Deviation 45.5 (36.4-46.3) fL RDW Coeff of [place] 13.9 (11.5-14.5) % Plt Count 269 (130-400) K/uL MPV 9.3 (7.4-10.4) fL Immature Gran % (Auto) 0.5 % Neut % (Auto) 89.1 % Lymph % (Auto) 3.0 % [place] % (Auto) 7.0 % Eos % (Auto) 0.3 % Baso % (Auto) 0.1 % Neut # (Auto) 16.93 H (1.4-6.5) K/uL Lymph # (Auto) 0.57 L (1.2-3.4) K/uL [place] # (Auto) 1.32 H (0.11-0.59) K/uL Eos # (Auto) 0.05 (0-0.5) K/uL Baso # (Auto) 0.01 (0-0.2) K/uL Immature Gran # (Auto) 0.10 H (0.00-0.02) K/uL Sodium 135 L (136-145) mmol/L Potassium 4.2 (3.5-5.1) mmol/L Chloride 102 (98-107) mmol/L Carbon Dioxide 28 (21-32) mmol/L Anion Gap 5.0 (3-11) BUN 20 H (7-18) mg/dl Creatinine 0.72 (0.6-1.2) mg/dl Est Cr Clr Drug Dosing 44.4 ml/min Est GFR ( Amer) 87.9 Est GFR (Non-Af Amer) 75.8 BUN/Creatinine Ratio 27.2 H (10-20) Glucose 68 L (70-99) mg/dl Calcium 8.4 L (8.5-10.1) mg/dl Total Bilirubin 0.6 (0.2-1) mg/dl AST 36 (15-37) U/L ALT 23 (12-78) U/L Alkaline Phosphatase 26 L (45-117) U/L Total Protein 5.0 L (6.4-8.2) gm/dl Albumin 1.8 L (3.4-5.0) gm/dl Globulin 3.2 (2.5-4.0) gm/dl Albumin/Globulin Ratio 0.6 L (0.9-2) (1) Acute pancreatitis Acute pancreatitis complication: infected necrosis Pancreatitis type: unspecified pancreatitis type Qualified Code(s): K85.92 - Acute pancreatitis with infected necrosis, unspecified
[2020-05-29] MEDS ORDERED: LACTATED RINGER'S 500 ML IV ONE (19:53)
--- NOTE | 2020-05-29 19:54 | Surgery Progress Note ---
Date of Service pt is doing fine, no abdominal pain, no nausea, no vomiting, May 29, 2020 Assessment & Plan (1) Acute cholecystitis due to biliary calculus: F/U S/P lap vonda , pt is doing fine, Plan I called pt's Son Lavell, ([phone]) on the phone, I informed hism about his Mom surgery finding and the procedure she had, he understood, he thinks me for take care his Mom, Physical Exam Constitutional: WD/WN, vitals as above Eyes: PERRL, conjunctivae normal, anicteric sclerae Neck: trachea midline, no thyromegaly Respiratory: normal respiratory effort, lungs clear to auscultation Cardiovascular: RRR, no murmur, no edema Gastrointestinal (Abdomen): soft, NT, ND, all incisions intact, no redness, Neurologic: awake Psychiatric: Orientation: alert and oriented x 3 Results & Data Vital Signs (Past 12 Hours) Vital Signs Temp Pulse Pulse Resp BP BP Pulse Ox 05/29/20 15:55 36.7 C 98 H 18 156/69 H 98 05/29/20 11:59 36.6 C 99 H 17 146/74 H 97 05/29/20 08:00 36.5 C 104 H 18 165/71 H 96 Laboratory Results Abnormal lab results 05/29/20 05/29/20 Range/Units 07:44 07:44 WBC 18.98 H (4.8-10.8) K/uL RBC 4.07 L (4.2-5.4) M/uL Hct 36.3 L (37-47) % Neut # (Auto) 16.93 H (1.4-6.5) K/uL Lymph # (Auto) 0.57 L (1.2-3.4) K/uL [place] # (Auto) 1.32 H (0.11-0.59) K/uL Immature Gran # (Auto) 0.10 H (0.00-0.02) K/uL Sodium 135 L (136-145) mmol/L BUN 20 H (7-18) mg/dl BUN/Creatinine Ratio 27.2 H (10-20) Glucose 68 L (70-99) mg/dl Calcium 8.4 L (8.5-10.1) mg/dl Alkaline Phosphatase 26 L (45-117) U/L Total Protein 5.0 L (6.4-8.2) gm/dl Albumin 1.8 L (3.4-5.0) gm/dl Albumin/Globulin Ratio 0.6 L (0.9-2)
[2020-05-30] MEDS: LACTATED RINGER'S 1,000 ML IV SCH (03:14)
[2020-05-30 08:13] LABS: Basophils # (auto) 0.01 K/uL (0-0.2); Basophils % (auto) 0.1 %; Eosinophils # (auto) 0.07 K/uL (0-0.5); Eosinophils % (auto) 0.5 %; Hematocrit (blood only) 32.6 % (37-47); Hemoglobin 10.9 g/dL (12.0-16.0); Immature Granulocytes # (auto) 0.08 K/uL (0.00-0.02); Immature Granulocytes % (auto) 0.6 %; Lymphocytes # (auto) 0.95 K/uL (1.2-3.4); Lymphocytes % (auto) 6.5 %; Mean Corpuscular Hemoglobin 28.8 pg (25-34); Mean Corpuscular Hgb Conc 33.4 g/dL (32-36); Monocytes # (auto) 0.68 K/uL (0.11-0.59); Monocytes % (auto) 4.7 %; Neutrophils # (auto) 12.72 K/uL (1.4-6.5); Neutrophils % (auto) 87.6 %; Platelet Count 245 K/uL (130-400); RDW Coefficient of Variation 13.8 % (11.5-14.5); RDW Standard Deviation 43.4 fL (36.4-46.3); Red Blood Count 3.79 M/uL (4.2-5.4); White Blood Count 14.51 K/uL (4.8-10.8)
[2020-05-30] MEDS: METOPROLOL TARTRATE 25 MG TAB PO SCH ×2 (08:41→21:02)
[2020-05-30] MEDS: lisinopriL 20 MG TAB PO SCH (08:41)
[2020-05-30] MEDS: metroNIDAZOLE 500 MG/100 ML BAG IV SCH ×3 (08:41→23:15)
[2020-05-30 08:45] LABS: Albumin Level 1.6 gm/dl (3.4-5.0); Calcium 7.8 mg/dl (8.5-10.1); Creatinine Clr Calc Pharmacy 62.6 ml/min; Est GFR (African American) 100.9; Est GFR (Non-African American) 87.1; Potassium 3.6 mmol/L (3.5-5.1)
[2020-05-30 08:55] LABS: Albumin Globulin Ratio 0.6 (0.9-2); Bilirubin,Total 0.5 mg/dl (0.2-1); Globulin 2.9 gm/dl (2.5-4.0); Total Protein 4.5 gm/dl (6.4-8.2)
[2020-05-30] MEDS ORDERED: POLYETHYLENE (MIRALAX) 17 GM PACK PO ONE (11:26)
--- NOTE | 2020-05-30 11:26 | Surgery Progress Note ---
Date of Service May 30, 2020 Assessment & Plan (1) Acute cholecystitis due to biliary calculus: POD # 2 s/p laparoscopic cholecystectomy - afebrile, leukocytosis of 14KK (18.45 yesterday) - improvement in abdominal distention as of note small bowel was dilated when entering abdomen for laparoscopic cholecystectomy and ascites was present. - passing gas but no bowel movement - feeling weak - t. bili, LFTs wnl Plan: She likely still has ileus from the pancreatitis. Advance diet slowly as tolerated. May need boost/ensure supplementation given poor oral intake. Miralax now and as needed Encouraged OOB to chair and ambulate to help increase GI motility Would continue IV Abx given leukocytosis , improving incentive spirometer scds for dvt prophylaxis PT/OT Dr. [place] covering this weekend (2) Choledocholithiasis: POD # 4 s/p ERCP with pancreatic and biliary stent placement. Common bile duct sludge present. t.bili/lfts wnl (3) Acute pancreatitis: elevated lipase resolved Plan as above Subjective patient sitting up in chair states she still is not feeling well, still weak denies abdominal pain, n/v not eating much abdominal pressure has resolved passing gas, denies a bowel movement Physical Exam Constitutional: WD/WN, vitals as above no acute distress Respiratory: no respiratory distress and no labored breathing Gastrointestinal (Abdomen): Percussion/Palpation: abdomen soft; abdomen nontender, no guarding and abdomen not rigid Skin: no rashes, warm and dry Psychiatric: Orientation: alert Results & Data Vital Signs (Past 12 Hours) Vital Signs Temp Pulse Pulse Resp BP Pulse Ox 05/30/20 08:38 36.8 C 100 H 20 169/72 H 98 05/30/20 02:59 36.6 C 107 H 20 182/83 H 98 05/30/20 00:44 97 H 05/30/20 00:00 36.6 C 108 H 18 185/80 H 96 Laboratory Results 05/30/20 05/30/20 Range/Units 07:53 07:53 WBC 14.51 H (4.8-10.8) K/uL RBC 3.79 L (4.2-5.4) M/uL Hgb 10.9 L (12.0-16.0) g/dL Hct 32.6 L (37-47) % MCV 86.0 (80-100) fL MCH 28.8 (25-34) pg MCHC 33.4 (32-36) g/dL RDW Std Deviation 43.4 (36.4-46.3) fL RDW Coeff of [place] 13.8 (11.5-14.5) % Plt Count 245 (130-400) K/uL MPV 9.0 (7.4-10.4) fL Immature Gran % (Auto) 0.6 % Neut % (Auto) 87.6 % Lymph % (Auto) 6.5 % [place] % (Auto) 4.7 % Eos % (Auto) 0.5 % Baso % (Auto) 0.1 % Neut # (Auto) 12.72 H (1.4-6.5) K/uL Lymph # (Auto) 0.95 L (1.2-3.4) K/uL [place] # (Auto) 0.68 H (0.11-0.59) K/uL Eos # (Auto) 0.07 (0-0.5) K/uL Baso # (Auto) 0.01 (0-0.2) K/uL Immature Gran # (Auto) 0.08 H (0.00-0.02) K/uL Sodium 134 L (136-145) mmol/L Potassium 3.6 (3.5-5.1) mmol/L Chloride 101 (98-107) mmol/L Carbon Dioxide 27 (21-32) mmol/L Anion Gap 6.0 (3-11) BUN 12 (7-18) mg/dl Creatinine 0.51 L (0.6-1.2) mg/dl Est Cr Clr Drug Dosing 62.6 ml/min Est GFR ( Amer) 100.9 Est GFR (Non-Af Amer) 87.1 BUN/Creatinine Ratio 23.0 H (10-20) Glucose 108 H (70-99) mg/dl Calcium 7.8 L (8.5-10.1) mg/dl Total Bilirubin 0.5 (0.2-1) mg/dl AST 22 (15-37) U/L ALT 15 (12-78) U/L Alkaline Phosphatase 23 L (45-117) U/L Total Protein 4.5 L (6.4-8.2) gm/dl Albumin 1.6 L (3.4-5.0) gm/dl Globulin 2.9 (2.5-4.0) gm/dl Albumin/Globulin Ratio 0.6 L (0.9-2) (1) Acute pancreatitis Acute pancreatitis complication: infected necrosis Pancreatitis type: unspecified pancreatitis type Qualified Code(s): K85.92 - Acute pancreatitis with infected necrosis, unspecified
[2020-05-30] MEDS: PANTOprazole 40 MG in SYRINGE 0 ML IV SCH (11:36)
[2020-05-30] MEDS: CIPROFLOXACIN / D5W 400 MG/200 ML BAG IV SCH ×2 (11:36→23:16)
[2020-05-30] MEDS: HYDROmorphone INJ 1 MG/ML SYRINGE IV PRN ×3 (14:06→23:15)
--- NOTE | 2020-05-30 15:40 | Hospitalist Progress Note ---
Date of Service May 30, 2020 Assessment & Plan (1) Acute pancreatitis: Secondary to choledocholithiasis as below. Lipase improved s/p ERCP Diet as per surgery recommendations GI planning for outpt f/u in 4 weeks for stent removal and EUS for eval of possible mass (2) Choledocholithiasis: s/p ERCP with pancreatic and biliary stent placement on 05/26 with significant improvement in symptoms 05/28/20 lap cholecystectomy GI planning for outpt f/u in 4 weeks for stent removal and EUS for eval of possible mass (3) Sepsis: Suspected on admission - possible source pancreatic necrosis (not seen on MRCP) vs. early cholecystitis/cholangitis - difficult to exclude given elevated WBC but patient was afebrile - given no pancreatic necrosis seen on MRCP and resolution of symptoms s/p ERCP will switch antibiotics to cipro/metronidazole - surgery recs for ongoing abx due to elevated WBC Appears fluid overloaded--holding IVF today (4) ATN (acute tubular necrosis): Sepsis-associated. Cr WNL Resolved Holding IVF given clinically appears in fluid overload (5) Ileus: MiraLAX 17g PO daily as per GI recommendations Advancing diet slowly (6) Severe protein-calorie malnutrition: Ongoing for 6-12 months or more. 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 Saw pulmonary in fall 2018 - patient declined additional work-up and treatment at that time. (8) Essential (primary) hypertension: Will restart metoprolol due to ongoing tachycardia to assess whether appropriate or inappropriate. Continue to hold lisinopril. (9) Tachycardia: Restart metoprolol as above Continue LR 125ml/hr Repeat EKG (10) DVT prophylaxis: heparin 5000 BID, hold before surgery in AM Admission and Anticipated Discharge Date Admission Date: May 25, 2020 Subjective Pt states she feels very weak, but a bit better than yesterday. She is up in the chair for the first time in several days. No further abd pain, n/v. She is tolerating full liquids without issue other than decreased appetite. Pt denies fever, SOB, chest pain, c/d, LE pain. She does note LE swelling this AM. Review of Systems Review of Systems: Pertinent positives and negatives reviewed in HPI--all others negative Physical Exam Constitutional: WD/WN, vitals as above Eyes: normal visual tabor by confrontation and + anicteric sclerae Neck: normal visual inspection and trachea midline Respiratory: normal respiratory effort, lungs clear to auscultation Cardiovascular: Rate/Rhythm: regular rate and regular rhythm Extremities: + edema Gastrointestinal (Abdomen): Inspection/Auscultation: abdomen not distended Percussion/Palpation: abdomen soft; abdomen nontender Musculoskeletal: Head/Neck/Chest: normocephalic and head atraumatic Skin: no rashes, warm and dry Neurologic: awake; not confused Speech / Cognition: normal speech Psychiatric: Orientation: oriented x 3 Affect: + affect not euthymic (fatigued) Results & Data Results & Data ([facility]) Vital Signs (Past 12 Hours) Vital Signs Temp Pulse Pulse Resp BP Pulse Ox Pulse Ox 05/30/20 13:19 96 05/30/20 11:53 36.8 C 92 H 19 165/81 H 98 05/30/20 08:38 36.8 C 100 H 20 169/72 H 98 Pulse Ox 05/30/20 13:19 95 05/30/20 11:53 05/30/20 08:38 PG Care Time/CCT Total # of Minutes Spent Total Time Spent with Patient: Total time spent is greater than 50% in coordination of care (as documented) at patient's floor/unit and/or counseling patient: Coding Level of Care Code 53941 Subseq Hosp Care Lvl 3 Diagnoses Acute pancreatitis K85.92 Acute pancreatitis complication: infected necrosis Pancreatitis type: unspecified pancreatitis type Choledocholithiasis K80.50 Sepsis A41.9; R65.20 Sepsis type: sepsis due to unspecified organism Sepsis acute organ dysfunction status: with acute organ dysfunction Severe sepsis acute organ dysfunction type: unspecified Severe sepsis shock status: without septic shock ATN (acute tubular necrosis) N17.0 Ileus K56.7 Severe protein-calorie malnutrition E43 JIMENA (mycobacterium avium-intracellulare) A31.0 Essential (primary) hypertension I10 Tachycardia R00.0 DVT prophylaxis Z29.9 (1) Acute pancreatitis Acute pancreatitis complication: infected necrosis Pancreatitis type: unspecified pancreatitis type Qualified Code(s): K85.92 - Acute pancreatitis with infected necrosis, unspecified (2) Sepsis Sepsis type: sepsis due to unspecified organism Sepsis acute organ dysfunction status: with acute organ dysfunction Severe sepsis acute organ dysfunction type: unspecified Severe sepsis shock status: without septic shock Qualified Code(s): A41.9 - Sepsis, unspecified organism; R65.20 - Severe sepsis without septic shock
[2020-05-31] MEDS: HYDROmorphone INJ 1 MG/ML SYRINGE IV PRN ×3 (05:24→20:17)
[2020-05-31] MEDS: lisinopriL 20 MG TAB PO SCH (08:09)
[2020-05-31] MEDS: METOPROLOL TARTRATE 25 MG TAB PO SCH ×2 (08:09→21:36)
[2020-05-31] MEDS: metroNIDAZOLE 500 MG/100 ML BAG IV SCH ×2 (08:09→20:55)
[2020-05-31] MEDS: PANTOprazole 40 MG TAB PO SCH (08:09)
--- NOTE | 2020-05-31 11:02 | Surgery Progress Note ---
Date of Service May 31, 2020 Assessment & Plan (1) Acute pancreatitis: 84-year-old female admitted with gallstone pancreatitis status post ERCP with stent placement, PD #3 lap vonda. Still with some mild tenderness to palpation on exam and complaining of pain. Does not feel hungry, but she states she never feels hungry. May have ileus from pancreatitis. Slowly advance diet as tolerated Surgery will continue to follow, call with questions or concerns (2) Ileus: Subjective 84-year-old female admitted with gallstone pancreatitis status post ERCP and stent placement, POD #3 laparoscopic cholecystectomy. She does not have much of an appetite and is complaining of some lower abdominal pain. This is slightly improved. Physical Exam Constitutional: WD/WN, vitals as above Gastrointestinal (Abdomen): Percussion/Palpation: + abdomen tender (Mildly tender to palpation in the lower abdomen, no guarding) and abdomen soft; no guarding, abdomen not rigid and no hepatosplenomegaly Results & Data Vital Signs (Past 12 Hours) Vital Signs Temp Pulse Pulse Resp BP Pulse Ox 05/31/20 07:42 36.6 C 96 H 20 151/69 H 100 05/31/20 03:12 36.6 C 90 18 150/64 H 98 05/30/20 23:33 89 05/30/20 23:16 36.5 C 94 H 20 161/71 H 100 PG Care Time/CCT Total # of Minutes Spent Total Time Spent with Patient: Total time spent is greater than 50% in coordination of care (as documented) at patient's floor/unit and/or counseling patient: Coding Level of Care Code 61428 Inpt Consult Level 2 Diagnoses Acute pancreatitis K85.92 Acute pancreatitis complication: infected necrosis Pancreatitis type: unspecified pancreatitis type Ileus K56.7 (1) Acute pancreatitis Acute pancreatitis complication: infected necrosis Pancreatitis type: unspecified pancreatitis type Qualified Code(s): K85.92 - Acute pancreatitis with infected necrosis, unspecified
[2020-05-31] MEDS: CIPROFLOXACIN / D5W 400 MG/200 ML BAG IV SCH ×2 (11:38→23:35)
--- NOTE | 2020-05-31 13:49 | Hospitalist Progress Note ---
Date of Service May 31, 2020 Assessment & Plan (1) Acute pancreatitis: Secondary to choledocholithiasis as below. Lipase improved s/p ERCP Diet as per surgery recommendations GI planning for outpt f/u in 4 weeks for stent removal and EUS for eval of possible mass (2) Choledocholithiasis: s/p ERCP with pancreatic and biliary stent placement on 05/26 with significant improvement in symptoms 05/28/20 lap cholecystectomy GI planning for outpt f/u in 4 weeks for stent removal and EUS for eval of possible mass (3) Sepsis: Suspected on admission - possible source pancreatic necrosis (not seen on MRCP) vs. early cholecystitis/cholangitis - difficult to exclude given elevated WBC but patient was afebrile - given no pancreatic necrosis seen on MRCP and resolution of symptoms s/p ERCP will switch antibiotics to cipro/metronidazole - surgery recs for ongoing abx due to elevated WBC Appears fluid overloaded--holding IVF today (4) ATN (acute tubular necrosis): Sepsis-associated. Cr WNL Resolved Holding IVF given clinically appears in fluid overload (5) Ileus: MiraLAX 17g PO daily as per GI recommendations Advancing diet slowly, PO intake has improved Dilaudid use is likely contributing (6) Severe protein-calorie malnutrition: Ongoing for 6-12 months or more. 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 Saw pulmonary in fall 2018 - patient declined additional work-up and treatment at that time. (8) Essential (primary) hypertension: Will restart metoprolol due to ongoing tachycardia to assess whether appropriate or inappropriate. Continue to hold lisinopril. (9) Tachycardia: Restart metoprolol as above Continue LR 125ml/hr Repeat EKG (10) DVT prophylaxis: heparin 5000 BID, held for surgery Will restart if surgery agrees Admission and Anticipated Discharge Date Admission Date: May 25, 2020 Subjective Pt states she feels more exhausted today due to not being able to sleep last night. She states that her sleeping issues are related to roommate and other traffic in/out of the room. She has some abd pain today. She ate about half of her tray this AM. She feels her LE swelling is better. Pt denies fever, SOB, chest pain, n/v/c/d, LE pain. Review of Systems Review of Systems: Pertinent positives and negatives reviewed in HPI--all others negative Physical Exam Constitutional: WD/WN, vitals as above Eyes: normal visual tabor by confrontation and + anicteric sclerae Neck: normal visual inspection and trachea midline Respiratory: normal respiratory effort, lungs clear to auscultation Cardiovascular: Rate/Rhythm: regular rate and regular rhythm Extremities: + edema (trace pitting) Gastrointestinal (Abdomen): Inspection/Auscultation: abdomen not distended Percussion/Palpation: abdomen soft; abdomen nontender Musculoskeletal: Head/Neck/Chest: normocephalic and head atraumatic Skin: no rashes, warm and dry Neurologic: awake; not confused Speech / Cognition: normal speech Psychiatric: A+Ox3, euthymic affect Orientation: oriented x 3 Affect: + affect not euthymic (fatigued) Results & Data Results & Data ([facility]) Vital Signs (Past 12 Hours) Vital Signs Temp Pulse Resp BP BP Pulse Ox 05/31/20 12:04 36.5 C 90 18 149/67 H 98 05/31/20 07:42 36.6 C 96 H 20 151/69 H 100 05/31/20 03:12 36.6 C 90 18 150/64 H 98 PG Care Time/CCT Total # of Minutes Spent Total Time Spent with Patient: Total time spent is greater than 50% in coordination of care (as documented) at patient's floor/unit and/or counseling patient: Coding Level of Care Code 37530 Subseq Hosp Care Lvl 3 Diagnoses Acute pancreatitis K85.92 Acute pancreatitis complication: infected necrosis Pancreatitis type: unspecified pancreatitis type Choledocholithiasis K80.50 Sepsis A41.9; R65.20 Sepsis type: sepsis due to unspecified organism Sepsis acute organ dysfunction status: with acute organ dysfunction Severe sepsis acute organ dysfunction type: unspecified Severe sepsis shock status: without septic shock ATN (acute tubular necrosis) N17.0 Ileus K56.7 Severe protein-calorie malnutrition E43 JIMENA (mycobacterium avium-intracellulare) A31.0 Essential (primary) hypertension I10 Tachycardia R00.0 DVT prophylaxis Z29.9 (1) Acute pancreatitis Acute pancreatitis complication: infected necrosis Pancreatitis type: unspecified pancreatitis type Qualified Code(s): K85.92 - Acute pancreatitis with infected necrosis, unspecified (2) Sepsis Sepsis type: sepsis due to unspecified organism Sepsis acute organ dysfunction status: with acute organ dysfunction Severe sepsis acute organ dysfunction type: unspecified Severe sepsis shock status: without septic shock Qualified Code(s): A41.9 - Sepsis, unspecified organism; R65.20 - Severe sepsis without septic shock
[2020-05-31] MEDS: HEPARIN SOD 5,000 UNIT/0.5 ML VIAL SQ SCH (21:36)
[2020-05-31] MEDS ORDERED: Nursing to Pharmacy Communication SCH (23:15)
[2020-05-31] MEDS: SIMETHICONE 80 MG CHEW PO PRN (23:21)
[2020-06-01] MEDS: HYDROmorphone INJ 1 MG/ML SYRINGE IV PRN (01:46)
[2020-06-01] MEDS: SIMETHICONE 80 MG CHEW PO PRN ×2 (05:34→11:50)
[2020-06-01] MEDS: metroNIDAZOLE 500 MG/100 ML BAG IV SCH ×3 (05:34→21:28)
--- NOTE | 2020-06-01 08:39 | Surgery Progress Note ---
Date of Service June 01, 2020 Assessment & Plan (1) Acute cholecystitis due to biliary calculus: POD 4 lap vonda, ERCP day 6 slow progress HR 100's will check labs can stay on clears, advance as terry Subjective not much appetite, some flatus Physical Exam Gastrointestinal (Abdomen): Inspection/Auscultation: abdomen not distended Percussion/Palpation: + abdomen tender and abdomen soft Results & Data Vital Signs (Past 12 Hours) Vital Signs Temp Pulse Resp BP Pulse Ox 06/01/20 08:13 36.4 C L 106 H 16 175/72 H 98 05/31/20 22:57 36.4 C L 96 H 18 159/77 H 96 PG Care Time/CCT Total # of Minutes Spent Total Time Spent with Patient: Total time spent is greater than 50% in coordination of care (as documented) at patient's floor/unit and/or counseling patient: Coding Level of Care Code 76323 Inpt Consult Level 1 Diagnoses Acute cholecystitis due to biliary calculus K80.00
[2020-06-01 08:50] LABS: Basophils # (auto) 0.01 K/uL (0-0.2); Basophils % (auto) 0.1 %; Eosinophils # (auto) 0.08 K/uL (0-0.5); Eosinophils % (auto) 0.6 %; Hematocrit (blood only) 35.3 % (37-47); Hemoglobin 11.7 g/dL (12.0-16.0); Immature Granulocytes # (auto) 0.18 K/uL (0.00-0.02); Immature Granulocytes % (auto) 1.5 %; Lymphocytes # (auto) 0.59 K/uL (1.2-3.4); Lymphocytes % (auto) 4.8 %; Mean Corpuscular Hemoglobin 28.7 pg (25-34); Mean Corpuscular Hgb Conc 33.1 g/dL (32-36); Mean Corpuscular Volume 86.5 fL (80-100); Mean Platelet Volume 8.8 fL (7.4-10.4); Monocytes # (auto) 0.92 K/uL (0.11-0.59); Monocytes % (auto) 7.4 %; Neutrophils # (auto) 10.63 K/uL (1.4-6.5); Neutrophils % (auto) 85.6 %; Platelet Count 294 K/uL (130-400); RDW Coefficient of Variation 13.6 % (11.5-14.5); RDW Standard Deviation 43.4 fL (36.4-46.3); Red Blood Count 4.08 M/uL (4.2-5.4); White Blood Count 12.41 K/uL (4.8-10.8)
[2020-06-01] MEDS: METOPROLOL TARTRATE 25 MG TAB PO SCH ×2 (08:58→21:28)
[2020-06-01] MEDS: HEPARIN SOD 5,000 UNIT/0.5 ML VIAL SQ SCH ×2 (08:59→21:27)
[2020-06-01 09:28] LABS: Alanine Aminotransferase 26 U/L (12-78); Albumin Level 1.6 gm/dl (3.4-5.0); Aspartate Aminotransferase 35 U/L (15-37); BUN Creatinine Ratio 15.9 (10-20); Bilirubin Direct < 0.1 mg/dl (0-0.2); Blood Urea Nitrogen 7 mg/dl (7-18); Calcium 7.7 mg/dl (8.5-10.1); Carbon Dioxide 29 mmol/L (21-32); Chloride 101 mmol/L (98-107); Est GFR (African American) 103.7; Est GFR (Non-African American) 89.4; Glucose 108 mg/dl (70-99); Potassium 3.2 mmol/L (3.5-5.1); Sodium 136 mmol/L (136-145)
[2020-06-01 09:31] LABS: Alkaline Phosphatase 24 U/L (45-117); Bilirubin,Total 0.4 mg/dl (0.2-1); Total Protein 4.6 gm/dl (6.4-8.2)
[2020-06-01] MEDS: lisinopriL 20 MG TAB PO SCH (09:33)
[2020-06-01] MEDS: PANTOprazole 40 MG TAB PO SCH (09:33)
[2020-06-01] MEDS: CIPROFLOXACIN / D5W 400 MG/200 ML BAG IV SCH ×2 (13:00→23:33)
--- NOTE | 2020-06-01 16:09 | Hospitalist Progress Note ---
Date of Service June 01, 2020 Assessment & Plan (1) Acute pancreatitis: Secondary to choledocholithiasis as below. Lipase improved s/p ERCP Diet as per surgery recommendations GI planning for outpt f/u in 4 weeks for stent removal and EUS for eval of possible mass (2) Choledocholithiasis: s/p ERCP with pancreatic and biliary stent placement on 05/26 with significant improvement in symptoms 05/28/20 lap cholecystectomy GI planning for outpt f/u in 4 weeks for stent removal and EUS for eval of possible mass (3) Sepsis: Suspected on admission - possible source pancreatic necrosis (not seen on MRCP) vs. early cholecystitis/cholangitis - difficult to exclude given elevated WBC but patient was afebrile - given no pancreatic necrosis seen on MRCP and resolution of symptoms s/p ERCP will switch antibiotics to cipro/metronidazole - surgery recs for ongoing abx due to elevated WBC Appears fluid overloaded--holding IVF today (4) ATN (acute tubular necrosis): Sepsis-associated. Cr WNL Resolved Holding IVF given clinically appears in fluid overload (5) Ileus: MiraLAX 17g PO daily as per GI recommendations Advancing diet slowly, PO intake has improved Dilaudid use is likely contributing (6) Severe protein-calorie malnutrition: Ongoing for 6-12 months or more. 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 Saw pulmonary in fall 2018 - patient declined additional work-up and treatment at that time. (8) Essential (primary) hypertension: Will restart metoprolol due to ongoing tachycardia to assess whether appropriate or inappropriate. Continue to hold lisinopril. (9) Tachycardia: Restart metoprolol as above Continue LR 125ml/hr Repeat EKG (10) DVT prophylaxis: heparin 5000 BID, held for surgery Will restart if surgery agrees Admission and Anticipated Discharge Date Admission Date: May 25, 2020 Subjective Pt ate a decent breakfast. Ongoing abd pain. No n/v. States she did not sleep well again last night despite no roommate and moving from the more "busy" tele floor. Pt denies fever, SOB, chest pain, c/d, LE pain or swelling. Review of Systems Review of Systems: Pertinent positives and negatives reviewed in HPI--all others negative Physical Exam Constitutional: WD/WN, vitals as above Eyes: normal visual tabor by confrontation and + anicteric sclerae Neck: normal visual inspection and trachea midline Respiratory: normal respiratory effort, lungs clear to auscultation Cardiovascular: Rate/Rhythm: regular rate and regular rhythm Extremities: + edema (trace pitting) Gastrointestinal (Abdomen): Inspection/Auscultation: abdomen not distended Percussion/Palpation: abdomen soft; abdomen nontender Musculoskeletal: Head/Neck/Chest: normocephalic and head atraumatic Skin: no rashes, warm and dry Neurologic: awake; not confused Speech / Cognition: normal speech Psychiatric: A+Ox3, euthymic affect Orientation: oriented x 3 Affect: + affect not euthymic (fatigued) Results & Data Results & Data ([facility]) Vital Signs (Past 12 Hours) Vital Signs Temp Pulse Resp BP Pulse Ox 06/01/20 15:06 36.8 C 101 H 20 183/73 H 97 06/01/20 11:50 154/72 H 06/01/20 08:57 96 H 171/66 H 06/01/20 08:13 36.4 C L 106 H 16 175/72 H 98 PG Care Time/CCT Total # of Minutes Spent Total Time Spent with Patient: Total time spent is greater than 50% in coordination of care (as documented) at patient's floor/unit and/or counseling patient: Coding Level of Care Code 30398 Subseq Hosp Care Lvl 2 Diagnoses Acute pancreatitis K85.92 Acute pancreatitis complication: infected necrosis Pancreatitis type: unspecified pancreatitis type Choledocholithiasis K80.50 Sepsis A41.9; R65.20 Sepsis type: sepsis due to unspecified organism Sepsis acute organ dysfunction status: with acute organ dysfunction Severe sepsis acute organ dysfunction type: unspecified Severe sepsis shock status: without septic shock ATN (acute tubular necrosis) N17.0 Ileus K56.7 Severe protein-calorie malnutrition E43 JIMENA (mycobacterium avium-intracellulare) A31.0 Essential (primary) hypertension I10 Tachycardia R00.0 DVT prophylaxis Z29.9 (1) Acute pancreatitis Acute pancreatitis complication: infected necrosis Pancreatitis type: unspecified pancreatitis type Qualified Code(s): K85.92 - Acute pancreatitis with infected necrosis, unspecified (2) Sepsis Sepsis type: sepsis due to unspecified organism Sepsis acute organ dysfunction status: with acute organ dysfunction Severe sepsis acute organ dysfunction type: unspecified Severe sepsis shock status: without septic shock Qualified Code(s): A41.9 - Sepsis, unspecified organism; R65.20 - Severe sepsis without septic shock
[2020-06-02] MEDS: HYDROmorphone INJ 1 MG/ML SYRINGE IV PRN (01:44)
[2020-06-02] MEDS: metroNIDAZOLE 500 MG/100 ML BAG IV SCH ×3 (05:34→21:00)
[2020-06-02] MEDS: SIMETHICONE 80 MG CHEW PO PRN ×2 (05:55→22:08)
[2020-06-02 06:08] LABS: Eosinophils # (auto) 0.06 K/uL (0-0.5); Eosinophils % (auto) 0.4 %; Hematocrit (blood only) 33.4 % (37-47); Hemoglobin 11.1 g/dL (12.0-16.0); Immature Granulocytes # (auto) 0.17 K/uL (0.00-0.02); Immature Granulocytes % (auto) 1.2 %; Lymphocytes # (auto) 0.74 K/uL (1.2-3.4); Lymphocytes % (auto) 5.1 %; Mean Corpuscular Hemoglobin 28.5 pg (25-34); Mean Corpuscular Hgb Conc 33.2 g/dL (32-36); Mean Corpuscular Volume 85.9 fL (80-100); Mean Platelet Volume 9.3 fL (7.4-10.4); Monocytes # (auto) 0.81 K/uL (0.11-0.59); Monocytes % (auto) 5.6 %; Neutrophils # (auto) 12.64 K/uL (1.4-6.5); Neutrophils % (auto) 87.7 %; Platelet Count 355 K/uL (130-400); RDW Coefficient of Variation 13.7 % (11.5-14.5); RDW Standard Deviation 42.8 fL (36.4-46.3); Red Blood Count 3.89 M/uL (4.2-5.4); White Blood Count 14.42 K/uL (4.8-10.8)
[2020-06-02 06:43] LABS: BUN Creatinine Ratio 11.9 (10-20); Calcium 7.5 mg/dl (8.5-10.1); Est GFR (African American) 103.7; Est GFR (Non-African American) 89.4
[2020-06-02 07:17] LABS: Magnesium 1.3 mg/dl (1.8-2.4)
[2020-06-02] MEDS: lisinopriL 20 MG TAB PO SCH (08:13)
[2020-06-02] MEDS: PANTOprazole 40 MG TAB PO SCH (08:13)
[2020-06-02] MEDS: METOPROLOL TARTRATE 25 MG TAB PO SCH ×2 (08:13→20:53)
[2020-06-02] MEDS: HEPARIN SOD 5,000 UNIT/0.5 ML VIAL SQ SCH ×2 (08:13→20:54)
[2020-06-02] MEDS ORDERED: POTASSIUM CHLORIDE 10 MEQ / 100ML WTR IV STA (08:53)
--- NOTE | 2020-06-02 08:56 | Hospitalist Progress Note ---
Date of Service June 02, 2020 Assessment & Plan (1) Acute pancreatitis: Secondary to choledocholithiasis as below. Lipase improved s/p ERCP Diet as per surgery recommendations GI planning for outpt f/u in 4 weeks for stent removal and EUS for eval of possible mass (2) Choledocholithiasis: s/p ERCP with pancreatic and biliary stent placement on 05/26 with significant improvement in symptoms 05/28/20 lap cholecystectomy GI planning for out pt f/u in 4 weeks for stent removal and EUS for eval of possible mass CT abdomen/pelvis 05/25/20 IMPRESSION: 1. Findings compatible with acute severe pancreatitis. Ill-defined decreased attenuation of the pancreatic head and uncinate process is likely secondary to interstitial edema with developing pancreatic necrosis also within the differential, however not well evaluated without the use of IV contrast. No drainable fluid collection. 2. Mild gallbladder distention. No cholelithiasis identified. 3. Postoperative changes of prior right hemicolectomy. 4. 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 5. Prior granulomatous disease (3) Sepsis: Suspected on admission - given no pancreatic necrosis seen on MRCP and resolution of symptoms s/p ERCP will switch antibiotics to cipro/metronidazole - surgery recs for ongoing abxpost cholecystectomy with poor bowel function recovery (4) ATN (acute tubular necrosis): Sepsis-associated.Resolved Cr WNL (5) Ileus: MiraLAX 17g PO daily as per GI recommendations Advancing diet slowly, PO intake has improved Dilaudid use is likely contributing may consider Relistor (6) Severe protein-calorie malnutrition: Ongoing for 6-12 months or more. 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 Saw pulmonary in fall 2018 - patient declined additional work-up and treatment at that time. (8) Essential (primary) hypertension: Will restart metoprolol due to ongoing tachycardia to assess whether appropriate or inappropriate. Continue lisinopril. (9) Tachycardia: Restart metoprolol as above Continue LR 125ml/hr Repeat EKG 06/02/2020 hypokalemia and hypomagnesemia will need to be replete IV form because the patient is taking poor oral intake (10) DVT prophylaxis: heparin 5000 BID, Admission and Anticipated Discharge Date Admission Date: May 25, 2020 Subjective this pt is uncomfortable she has distended abdomen has mild nausea no bowel movement since the . Surgery has evaluated and will employ watchful waiting Review of Systems Review of Systems: Mild distress and fatigue no headache, blurry or double vision no speech or swallowing issues no chest pain, pressure or palpitations no shortness of breath, cough or wheezes Generalized abdominal pain, nausea and bloating with constipation no dysuria, hematuria or frequency no focal joint pain or swelling Mild bilateral lower back pain, CVA tenderness or radicular pain no bruising, bleeding or rashes no focal signs of weakness or numbness or altered sensation no complaints or anxiety or depression. Physical Exam Physical Exam: The patient appeared uncomfortable she feels cold and chilled Vital signs as documented. She is not been febrile Head exam is normocephalic atraumatic no scleral icterus Neck is without JVD, thyromegaly, or carotid bruits. Lungs are clear to auscultation, no focal loss of breath sounds Cardiac exam, Rhythm is regular.. No murmurs, rubs or gallops. Abdominal exam reveals hypoactive bowel sounds distended doughy fullness no focal tenderness Extremities are trace to 1+ edematous bilaterally and both pedal pulses are normal. Neurologic exam is alert and oriented, no focal loss of strength or sensation Skin is without bruises or rashes Psychologically is without concerns for anxiety or depression Results & Data Results & Data ([facility]) Vital Signs (Past 12 Hours) Vital Signs Temp Pulse Resp BP Pulse Ox 06/02/20 06:40 97.3 F L 103 H 18 167/71 H 92 06/01/20 23:42 145/78 H 06/01/20 23:08 97.5 F L 96 H 18 169/72 H 93 PG Care Time/CCT Total # of Minutes Spent Total Time Spent with Patient: Total time spent is greater than 50% in coordination of care (as documented) at patient's floor/unit and/or counseling patient: Coding Level of Care Code 84351 Subseq Hosp Care Lvl 3 Diagnoses Acute pancreatitis K85.92 Acute pancreatitis complication: infected necrosis Pancreatitis type: unspecified pancreatitis type Choledocholithiasis K80.50 Sepsis A41.9; R65.20 Sepsis acute organ dysfunction status: with acute organ dysfunction Sepsis type: sepsis due to unspecified organism Severe sepsis acute organ dysfunction type: unspecified Severe sepsis shock status: without septic shock ATN (acute tubular necrosis) N17.0 Ileus K56.7 Severe protein-calorie malnutrition E43 JIMENA (mycobacterium avium-intracellulare) A31.0 Essential (primary) hypertension I10 Tachycardia R00.0 DVT prophylaxis Z29.9 (1) Sepsis Sepsis acute organ dysfunction status: with acute organ dysfunction Sepsis type: sepsis due to unspecified organism Severe sepsis acute organ dysfunction type: unspecified Severe sepsis shock status: without septic shock Qualified Code(s): A41.9 - Sepsis, unspecified organism; R65.20 - Severe sepsis without septic shock (2) Acute pancreatitis Acute pancreatitis complication: infected necrosis Pancreatitis type: unspecified pancreatitis type Qualified Code(s): K85.92 - Acute pancreatitis with infected necrosis, unspecified
--- NOTE | 2020-06-02 09:22 | Surgery Progress Note ---
Date of Service June 02, 2020 Assessment & Plan (1) Acute cholecystitis due to biliary calculus: POD # 5 s/p laparoscopic cholecystectomy - afebrile, persistent leukocytosis of 14K - still having abdominal bloating , gas pains, passing flatus - hypokalemia and hypomagnesium - weakness Plan: Full liquids Add boost BID, in between meals or sip throughout day recommended Encouraged ambulation to help increase GI motility Consider changing to IV Zosyn given persistent leukocytosis. May need CT scan of abd/pelvis if wbc increases but would hold off right now. incentive spirometer scds for dvt prophylaxis continue PT/OT (2) Choledocholithiasis: POD # 7 s/p ERCP with pancreatic and biliary stent placement. Common bile duct sludge present. (3) Acute pancreatitis: elevated lipase preop resolved Plan as above Dr. Izaguirre was present during my examination and agrees with above. Subjective "feeling miserable, having a lot of gas pains" passing gas, had liquid bowel movement yesterday energy slightly improved but still fatigued still only eating clear liquids no abdominal pain, n,v no chest pain shortness of breath Physical Exam Constitutional: WD/WN, vitals as above no acute distress and not ill appearing Respiratory: + abnormal respiratory effort and no respiratory distress Gastrointestinal (Abdomen): Inspection/Auscultation: abdomen normal to inspection and + abdomen distended (very mild) Percussion/Palpation: abdomen soft; abdomen nontender, no guarding and abdomen not rigid Skin: no rashes, warm and dry + incision (covered with dressings) Psychiatric: A+Ox3, euthymic affect Results & Data Vital Signs (Past 12 Hours) Vital Signs Temp Pulse Resp BP Pulse Ox 06/02/20 06:40 36.3 C L 103 H 18 167/71 H 92 06/01/20 23:42 145/78 H 06/01/20 23:08 36.4 C L 96 H 18 169/72 H 93 Laboratory Results 06/02/20 06/02/20 06/02/20 Range/Units 06:56 05:30 05:30 WBC 14.42 H (4.8-10.8) K/uL RBC 3.89 L (4.2-5.4) M/uL Hgb 11.1 L (12.0-16.0) g/dL Hct 33.4 L (37-47) % MCV 85.9 (80-100) fL MCH 28.5 (25-34) pg MCHC 33.2 (32-36) g/dL RDW Std Deviation 42.8 (36.4-46.3) fL RDW Coeff of [place] 13.7 (11.5-14.5) % Plt Count 355 (130-400) K/uL MPV 9.3 (7.4-10.4) fL Immature Gran % (Auto) 1.2 % Neut % (Auto) 87.7 % Lymph % (Auto) 5.1 % [place] % (Auto) 5.6 % Eos % (Auto) 0.4 % Baso % (Auto) 0.0 % Neut # (Auto) 12.64 H (1.4-6.5) K/uL Lymph # (Auto) 0.74 L (1.2-3.4) K/uL [place] # (Auto) 0.81 H (0.11-0.59) K/uL Eos # (Auto) 0.06 (0-0.5) K/uL Baso # (Auto) 0.00 (0-0.2) K/uL Immature Gran # (Auto) 0.17 H (0.00-0.02) K/uL Sodium 139 (136-145) mmol/L Potassium 3.0 L (3.5-5.1) mmol/L Chloride 101 (98-107) mmol/L Carbon Dioxide 30 (21-32) mmol/L Anion Gap 8.0 (3-11) BUN 6 L (7-18) mg/dl Creatinine 0.47 L (0.6-1.2) mg/dl Est Cr Clr Drug Dosing 68.0 ml/min Est GFR ( Amer) 103.7 Est GFR (Non-Af Amer) 89.4 BUN/Creatinine Ratio 11.9 (10-20) Glucose 104 H (70-99) mg/dl Calcium 7.5 L (8.5-10.1) mg/dl Phosphorus 2.0 L (2.5-4.9) mg/dl Magnesium 1.3 L (1.8-2.4) mg/dl Total Bilirubin (0.2-1) mg/dl Direct Bilirubin (0-0.2) mg/dl AST (15-37) U/L ALT (12-78) U/L Alkaline Phosphatase (45-117) U/L Total Protein (6.4-8.2) gm/dl Albumin (3.4-5.0) gm/dl 06/01/20 Range/Units 08:39 WBC (4.8-10.8) K/uL RBC (4.2-5.4) M/uL Hgb (12.0-16.0) g/dL Hct (37-47) % MCV (80-100) fL MCH (25-34) pg MCHC (32-36) g/dL RDW Std Deviation (36.4-46.3) fL RDW Coeff of [place] (11.5-14.5) % Plt Count (130-400) K/uL MPV (7.4-10.4) fL Immature Gran % (Auto) % Neut % (Auto) % Lymph % (Auto) % [place] % (Auto) % Eos % (Auto) % Baso % (Auto) % Neut # (Auto) (1.4-6.5) K/uL Lymph # (Auto) (1.2-3.4) K/uL [place] # (Auto) (0.11-0.59) K/uL Eos # (Auto) (0-0.5) K/uL Baso # (Auto) (0-0.2) K/uL Immature Gran # (Auto) (0.00-0.02) K/uL Sodium 136 (136-145) mmol/L Potassium 3.2 L (3.5-5.1) mmol/L Chloride 101 (98-107) mmol/L Carbon Dioxide 29 (21-32) mmol/L Anion Gap 6.0 (3-11) BUN 7 (7-18) mg/dl Creatinine 0.47 L (0.6-1.2) mg/dl Est Cr Clr Drug Dosing 68.0 ml/min Est GFR ( Amer) 103.7 Est GFR (Non-Af Amer) 89.4 BUN/Creatinine Ratio 15.9 (10-20) Glucose 108 H (70-99) mg/dl Calcium 7.7 L (8.5-10.1) mg/dl Phosphorus (2.5-4.9) mg/dl Magnesium (1.8-2.4) mg/dl Total Bilirubin 0.4 (0.2-1) mg/dl Direct Bilirubin < 0.1 (0-0.2) mg/dl AST 35 (15-37) U/L ALT 26 (12-78) U/L Alkaline Phosphatase 24 L (45-117) U/L Total Protein 4.6 L (6.4-8.2) gm/dl Albumin 1.6 L (3.4-5.0) gm/dl (1) Acute pancreatitis Acute pancreatitis complication: infected necrosis Pancreatitis type: unspecified pancreatitis type Qualified Code(s): K85.92 - Acute pancreatitis with infected necrosis, unspecified
[2020-06-02] MEDS: POTASSIUM CHLORIDE / WTR 10 MEQ/100 ML PLCT IV SCH ×3 (09:32→11:16)
[2020-06-02] MEDS: MAGNESIUM SULFATE / D5W 1 GM/100 ML BAG IV SCH ×2 (09:32→11:16)
[2020-06-02] MEDS: CIPROFLOXACIN / D5W 400 MG/200 ML BAG IV SCH ×2 (12:37→23:39)
[2020-06-02] MEDS ORDERED: bisacodyL 10 MG SUPP PR ONE (19:22)
[2020-06-03] MEDS: metroNIDAZOLE 500 MG/100 ML BAG IV SCH ×2 (05:05→12:09)
[2020-06-03] MEDS: lisinopriL 20 MG TAB PO SCH (08:41)
[2020-06-03] MEDS: HEPARIN SOD 5,000 UNIT/0.5 ML VIAL SQ SCH ×2 (08:42→20:52)
[2020-06-03] MEDS: METOPROLOL TARTRATE 25 MG TAB PO SCH ×2 (08:42→20:52)
[2020-06-03] MEDS: PANTOprazole 40 MG TAB PO SCH (08:42)
[2020-06-03 09:07] LABS: Basophils # (auto) 0.02 K/uL (0-0.2); Basophils % (auto) 0.1 %; Eosinophils # (auto) 0.03 K/uL (0-0.5); Eosinophils % (auto) 0.2 %; Hematocrit (blood only) 35.9 % (37-47); Hemoglobin 12.2 g/dL (12.0-16.0); Immature Granulocytes # (auto) 0.21 K/uL (0.00-0.02); Immature Granulocytes % (auto) 1.3 %; Lymphocytes # (auto) 0.75 K/uL (1.2-3.4); Lymphocytes % (auto) 4.6 %; Mean Corpuscular Hemoglobin 28.7 pg (25-34); Mean Corpuscular Volume 84.5 fL (80-100); Mean Platelet Volume 8.6 fL (7.4-10.4); Monocytes # (auto) 1.06 K/uL (0.11-0.59); Monocytes % (auto) 6.5 %; Neutrophils # (auto) 14.26 K/uL (1.4-6.5); Neutrophils % (auto) 87.3 %; Platelet Count 392 K/uL (130-400); RDW Coefficient of Variation 13.7 % (11.5-14.5); RDW Standard Deviation 41.4 fL (36.4-46.3); Red Blood Count 4.25 M/uL (4.2-5.4); White Blood Count 16.33 K/uL (4.8-10.8)
[2020-06-03 09:48] LABS: Albumin Level 1.6 gm/dl (3.4-5.0); Bilirubin Direct 0.1 mg/dl (0-0.2); Bilirubin,Total 0.4 mg/dl (0.2-1); Total Protein 4.8 gm/dl (6.4-8.2)
[2020-06-03] MEDS: SIMETHICONE 80 MG CHEW PO PRN (11:22)
[2020-06-03] MEDS: CIPROFLOXACIN / D5W 400 MG/200 ML BAG IV SCH (12:09)
[2020-06-03] MEDS ORDERED: SOD PHOSPHATE/SOD BIPHOSPHATE ENEMA 132 ML BTL PR STA (12:10)
--- NOTE | 2020-06-03 12:10 | Surgery Progress Note ---
Date of Service pt is still feel bloating, BM 3 times, no abdominal pain, no nausea, no vomiting, but WBC 16,000 today. no fever, June 03, 2020 Assessment & Plan (1) Acute cholecystitis due to biliary calculus: POD # 5 s/p laparoscopic cholecystectomy - afebrile, persistent leukocytosis of 14K - still having abdominal bloating , gas pains, passing flatus - hypokalemia and hypomagnesium - weakness Plan: Full liquids Add boost BID, in between meals or sip throughout day recommended Encouraged ambulation to help increase GI motility Consider changing to IV Zosyn given persistent leukocytosis. May need CT scan of abd/pelvis if wbc increases but would hold off right now. incentive spirometer scds for dvt prophylaxis continue PT/OT 06/03/2020 12:13PM I recommend to do CT scan abd+ pelvis with IV contrast to R/O pancreatic abscess or necrosis , D/W benefits, risks and alternatives of CT scan, pt agrees with the CT scan, change IV zosyn, D/C cipro and flagyl, D/W hospitalist who agrees with plan, check stool C-diff repeat labs in am, will F/U (2) Choledocholithiasis: POD # 7 s/p ERCP with pancreatic and biliary stent placement. Common bile duct sludge present. (3) Acute pancreatitis: elevated lipase preop resolved Plan as above Dr. Izaguirre was present during my examination and agrees with above. Supervising Physician Co-Signing Physician Notes I have seen and examined the patient and discussed the management with Cecilia Law PA-C. PE - less abd ttp compared to yesterday. S/p ercp with plastic biliary/metal stents. Abx for 7 days. Agree with further plan of care as per Cecilia's assessment and plan. Subjective this pt is uncomfortable she has distended abdomen has mild nausea no bowel movement since the 10th. Surgery has evaluated and will employ watchful waiting Review of Systems Constitutional: as per Subjective / HPI Eyes: as per Subjective / HPI Ear, Nose, Mouth, Throat: as per Subjective / HPI Respiratory: as per Subjective / HPI Cardiovascular: as per Subjective / HPI Additional Comments: HTN, abnormal EKG Gastrointestinal: as per Subjective / HPI Genitourinary: as per Subjective / HPI Musculoskeletal: as per Subjective / HPI Integumentary: as per Subjective / HPI Neurologic: as per Subjective / HPI Psychiatric: as per Subjective / HPI Endocrine: as per Subjective / HPI Hematologic / Lymphatic: as per Subjective / HPI Allergy / Immunological: as per Subjective / HPI Physical Exam Constitutional: WD/WN, vitals as above well developed and + ill appearing Eyes: PERRL, conjunctivae normal, anicteric sclerae ENMT: external ear and nose normal, oropharynx normal Neck: trachea midline, no thyromegaly Respiratory: normal respiratory effort, lungs clear to auscultation Cardiovascular: RRR, no murmur, no edema Rate/Rhythm: regular rate and regular rhythm Heart Sounds: normal S1 and normal S2 Gastrointestinal (Abdomen): normal bowel sounds, soft, nontender, no hepatosplenomegaly Percussion/Palpation: abdomen soft mild distend, no tenderness, all incisions heal well, BS + Musculoskeletal: no cyanosis or clubbing, extremities motor strength 5/5 Skin: no rashes, warm and dry Neurologic: patellar DTR's 2+ bilat, sensation intact awake Psychiatric: Orientation: alert and oriented x 3 Results & Data Vital Signs (Past 12 Hours) Vital Signs Temp Pulse Pulse Resp BP Pulse Ox 06/03/20 09:18 97 H 18 143/78 H 95 06/03/20 07:56 36.3 C L 102 H 16 166/73 H 94 06/03/20 05:06 99 H 158/74 H (1) Acute pancreatitis Acute pancreatitis complication: infected necrosis Pancreatitis type: unspecified pancreatitis type Qualified Code(s): K85.92 - Acute pancreatitis with infected necrosis, unspecified
[2020-06-03] MEDS ORDERED: PIPERACILL/TAZOBAC CONSULT ACTIVE PRN ×2 (12:29→12:54)
[2020-06-03] MEDS ORDERED: PIPERACILLIN/TAZOBACTAM 4.5 GM in DEXTROSE 5% 100 ML IV STA (12:54)
[2020-06-03] MEDS ORDERED: PIPERACILLIN/TAZOBACTAM 3.375 GM in DEXTROSE 5% 100 ML IV ONE (13:00)
[2020-06-03] MEDS ORDERED: IOVERSOL 100ml IV PRN (13:36)
--- NOTE | 2020-06-03 13:55 | CT Scan Report ---
CT abd pelvis IV con only CLINICAL HISTORY: Pancreatitis. Evaluate for abscess. COMPARISON STUDY: CT scan dated 05/24/2020 TECHNIQUE: The patient was scanned in a dynamic helical fashion during intravenous administration of 93 cc of Optiray 320. A dose lowering technique was utilized adhering to the principles of ALARA. CT DOSE: 490.53 mGycm FINDINGS: Lower chest: There are calcified hilar and subcarinal lymph nodes. Since the prior study, the patient has developed bilateral pleural effusions with compressive lower lobe atelectatic changes. Liver: No focal hepatic masses are visualized. There is pneumobilia secondary to an indwelling biliar y enteric stent. Gallbladder: Surgically absent Spleen: Normal in size and attenuation. Pancreas: There is diminished peripancreatic edema. There is an indwelling pancreatic stent. There is an irregular complex fluid collection at the pancreatic head region measuring 7 cm in maximal transv erse diameter and 5 cm in maximal AP diameter. No gas bubbles are visualized within the collection. T here is evidence for edema within the mesentery. Adrenal glands: Unremarkable. Kidneys: There is a 15 mm peripheral hypodensity within the right kidney. No corresponding lesion was visualized on a CT scan performed in October 2019. This could represent a renal infarct. There is n o hydronephrosis. Bowel: There are no transition zones indicate bowel obstruction. Postsurgical changes of a prior righ t hemicolectomy are visualized. There is sigmoid wall edema. There is also evidence for edema involvi ng several small bowel loops. Peritoneum: There is no intraperitoneal free air or abdominal ascites. Vasculature: The abdominal aorta is normal in course and caliber. Adenopathy: None. Pelvic viscera: There is heterogeneous uterine enhancement, likely secondary to fibroids. Skeletal structures: There is diffuse body wall edema. No destructive skeletal lesions are visualized IMPRESSION: 1. Interval development of bilateral pleural effusions 2. Interval placement of biliary and pancreatic stents 3. Decreasing peripancreatic inflammatory stranding 4. Interval development of an irregular fluid collection in the region of the pancreatic head, likely representing an acute necrotic collection. There are no gas bubbles present within the collection to indicate infection. 5. No evidence of bowel obstruction. No evidence of free air 6. Rectosigmoid bowel wall edema. There is also evidence for edema within several small bowel loops. 7. Diffuse body wall edema 8. Uterine fibroids 9. Focus of decreased attenuation involving the periphery of the right kidney, possibly representing a renal infarct. ACT 112: Negative or not required by law. Electronically signed by: Matt Coe M.D. 06/03/2020 1:53 PM
--- NOTE | 2020-06-03 14:02 | Hospitalist Progress Note ---
Date of Service June 03, 2020 Assessment & Plan (1) Acute pancreatitis: Secondary to choledocholithiasis as below. Lipase improved s/p ERCP lipase recheck 06/03 due to sluggish postoperative course and remains normal Patient with very poor nutrition postoperatively with moderate to severe protein malnutrition. Repeat CT scan on 06/03 IMPRESSION: 1. Interval development of bilateral pleural effusions 2. Interval placement of biliary and pancreatic stents 3. Decreasing peripancreatic inflammatory stranding 4. Interval development of an irregular fluid collection in the region of the pancreatic head, likely representing an acute necrotic collection. There are no gas bubbles present within the collection to indicate infection. 5. No evidence of bowel obstruction. No evidence of free air 6. Rectosigmoid bowel wall edema. There is also evidence for edema within several small bowel loops. 7. Diffuse body wall edema 8. Uterine fibroids 9. Focus of decreased attenuation involving the periphery of the right kidney, possibly representing a renal infarct GI planning for outpt f/u in 4 weeks for stent removal and EUS for eval of possible mass (2) Choledocholithiasis: s/p ERCP with pancreatic and biliary stent placement on 05/26 with significant improvement in symptoms 05/28/20 lap cholecystectomy GI planning for out pt f/u in 4 weeks for stent removal and EUS for eval of possible mass CT abdomen/pelvis 05/25/20 IMPRESSION: 1. Findings compatible with acute severe pancreatitis. Ill-defined decreased attenuation of the pancreatic head and uncinate process is likely secondary to interstitial edema with developing pancreatic necrosis also within the differential, however not well evaluated without the use of IV contrast. No drainable fluid collection. 2. Mild gallbladder distention. No cholelithiasis identified. 3. Postoperative changes of prior right hemicolectomy. 4. 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 5. Prior granulomatous disease (3) Sepsis: Suspected on admission -With persistent leukocytosis changed to Zosyn therapy on 06/03/2020 - (4) ATN (acute tubular necrosis): Sepsis-associated.Resolved however high concern for infection with leukocytosis and general poor progression of hot postoperative course Cr WNL (5) Ileus: MiraLAX 17g PO daily as per GI recommendations Advancing diet slowly, PO intake has improved Dilaudid use is likely contributing may consider Relistor Given poor p.o. intake may consider peripheral hyper alimentation (6) Severe protein-calorie malnutrition: Ongoing for 6-12 months or more. ?2nd to chronic JIMENA infection ?pancreatic mass -not confirmed or refuted on imagingfollow up with GI as outpatient as above Persistent poor postoperative p.o. 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 Saw pulmonary in fall 2018 - patient declined additional work-up and treatment at that time. (8) Essential (primary) hypertension: Will restart metoprolol due to ongoing tachycardia to assess whether appropriate or inappropriate. Continue lisinopril. (9) Tachycardia: Restart metoprolol as above Continue LR 125ml/hr Repeat EKG 06/02/2020 hypokalemia and hypomagnesemia will need to be replete IV form because the patient is taking poor oral intake (10) DVT prophylaxis: heparin 5000 BID, Admission and Anticipated Discharge Date Admission Date: May 25, 2020 Subjective this pt continues to feel poorly, she has abdominal pain. she has increasing wbc. surgery has recommended change of antibiotics and repeat CT. St is not clear cut, shows pancreatic inflammation and possible renal infarct Review of Systems Review of Systems: Mild distress and fatigue no headache, blurry or double vision no speech or swallowing issues no chest pain, pressure or palpitations no shortness of breath, cough or wheezes Generalized abdominal pain, mild nausea without vomiting, small amount of diarrhea no dysuria, hematuria or frequency no focal joint pain or swelling no back pain, CVA tenderness or radicular pain no bruising, bleeding or rashes no focal signs of weakness or numbness or altered sensation no complaints or anxiety or depression. Physical Exam Physical Exam: The patient appeared fatigued tired and weak and Vital signs as documented. Head exam is normocephalic atraumatic no scleral icterus Neck is without JVD, thyromegaly, or carotid bruits. Lungs are clear diminished at the bases right greater than left Cardiac exam, Rhythm is regular.. No murmurs, rubs or gallops. Abdominal exam reveals normal distended and tender, Extremities are mildly edematous and both pedal pulses are normal. Neurologic exam is alert and oriented, no focal loss of strength or sensation Skin is without bruises or rashes Psychologically is without concerns for anxiety or depression Results & Data Results & Data ([facility]) Vital Signs (Past 12 Hours) Vital Signs Temp Pulse Pulse Resp BP Pulse Ox 06/03/20 09:18 97 H 18 143/78 H 95 06/03/20 07:56 97.3 F L 102 H 16 166/73 H 94 06/03/20 05:06 99 H 158/74 H PG Care Time/CCT Total # of Minutes Spent Total Time Spent with Patient: Total time spent is greater than 50% in coordination of care (as documented) at patient's floor/unit and/or counseling patient: Coding Level of Care Code 48569 Subseq Hosp Care Lvl 3 Diagnoses Acute pancreatitis K85.92 Acute pancreatitis complication: infected necrosis Pancreatitis type: unspecified pancreatitis type Choledocholithiasis K80.50 Sepsis A41.9; R65.20 Sepsis type: sepsis due to unspecified organism Sepsis acute organ dysfunction status: with acute organ dysfunction Severe sepsis acute organ dysfunction type: unspecified Severe sepsis shock status: without septic shock ATN (acute tubular necrosis) N17.0 Ileus K56.7 Severe protein-calorie malnutrition E43 JIMENA (mycobacterium avium-intracellulare) A31.0 Essential (primary) hypertension I10 Tachycardia R00.0 DVT prophylaxis Z29.9 (1) Acute pancreatitis Acute pancreatitis complication: infected necrosis Pancreatitis type: unspecified pancreatitis type Qualified Code(s): K85.92 - Acute pancreatitis with infected necrosis, unspecified (2) Sepsis Sepsis type: sepsis due to unspecified organism Sepsis acute organ dysfunction status: with acute organ dysfunction Severe sepsis acute organ dysfunction type: unspecified Severe sepsis shock status: without septic shock Qualified Code(s): A41.9 - Sepsis, unspecified organism; R65.20 - Severe sepsis without septic shock
[2020-06-03] MEDS ORDERED: TPN/PPN CONSULT PHARMACY PRN (14:31)
--- NOTE | 2020-06-03 15:02 | Pharmacy Report ---
Pharmacy PN Initial Consult - Date of Service June 03, 2020 - Scope Pharmacy has been consulted to manage parenteral nutrition orders and order appropriate labs. As part of the Nutrition Support Team guidelines, pharmacy will work in conjunction with dietary when determining the patients caloric needs. - Subjective The patient is a 84 year old F admitted on 05/25/20 00:37 for ACUTE PANCREATITIS. Patient is to receive parenteral nutrition for post op ileus, severe protein malnutrition. Pertinent PMH: s/p ERCP with pancreatic and biliary stent placement on 05/26, s/p lap cholecystectomy 05/28/20, acute pancreatitis, sepsis - receiving Zosyn d/t persistent leukocytosis, post-op ileus (received dulcolax, miralax, now relastor), severe protein-calorie malnutrition ongoing for 6-12 months - currently persistent PO intake post-operatively. 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 - Assessment PPN to be used short term to help "bridge nutritional gap" until full PO intake restored Minimize volume as much as possible per hospitalist. - Plan For day 1 of PN administration, the following will be ordered: Macronutrients Amino acids 60 grams/day Dextrose 100 grams/day Lipids 20 grams/day Micronutrients Combined electrolytes 20 mL - contains 35 mEq Na, 20 meq K, 4.5 mEq Ca, 5 mEq Mg, 35 mEq Cl, 29.5 mEq acetate per 20 mL Potassium phosphate 21 mMol Multivitamins 10 mL Trace Elements 10 mL Total volume 1400 mL to be infused over 24 hrs will provide 780 kcal/day Final osmolarity 878 mOsm/L (maximum for PPN is 900 mOsm/L) Labs to be ordered per PN order protocol Pharmacy will follow and adjust parenteral nutrition orders on a daily basis. Thank you.
[2020-06-03 15:17] LABS: Potassium 3.4 mmol/L (3.5-5.1)
[2020-06-03 15:22] LABS: Magnesium 1.6 mg/dl (1.8-2.4); Phosphorus 1.8 mg/dl (2.5-4.9)
[2020-06-03] MEDS: METHYLNALTREXONE BROMIDE 12 MG/0.6 ML VIAL SQ SCH (15:54)
[2020-06-03] MEDS ORDERED: TPN IV SCH (16:00)
[2020-06-03] MEDS ORDERED: DEXTROSE 10% 1,000 ML IV PRN (16:00)
[2020-06-03] MEDS ORDERED: PERIPHERAL PN IV SCH (16:00)
[2020-06-03] MEDS ORDERED: FUROSEMIDE 10 MG in SYRINGE 0 ML IV SCH (16:00)
[2020-06-03] MEDS: PIPERACILLIN/TAZOBACTAM 3.375 GM in DEXTROSE 5% 100 ML IV SCH (17:59)
[2020-06-03] MEDS ORDERED: MIRTAZAPINE TAB 15 MG TAB PO ONE (23:45)
[2020-06-04] MEDS: PIPERACILLIN/TAZOBACTAM 3.375 GM in DEXTROSE 5% 100 ML IV SCH ×3 (01:19→18:20)
[2020-06-04 07:02] LABS: BUN Creatinine Ratio 11.2 (10-20); Calcium 7.3 mg/dl (8.5-10.1); Creatinine Clr Calc Pharmacy 49.9 ml/min; Est GFR (African American) 93.6; Est GFR (Non-African American) 80.8; Magnesium 1.5 mg/dl (1.8-2.4); Phosphorus 2.3 mg/dl (2.5-4.9); Potassium 2.9 mmol/L (3.5-5.1)
[2020-06-04] MEDS: HEPARIN SOD 5,000 UNIT/0.5 ML VIAL SQ SCH ×2 (08:37→21:26)
[2020-06-04] MEDS: METOPROLOL TARTRATE 25 MG TAB PO SCH ×2 (08:37→21:26)
[2020-06-04] MEDS: lisinopriL 20 MG TAB PO SCH (08:38)
[2020-06-04] MEDS: PANTOprazole 40 MG TAB PO SCH (08:38)
[2020-06-04] MEDS: SIMETHICONE 80 MG CHEW PO PRN (08:39)
[2020-06-04] MEDS ORDERED: POTASSIUM CHLORIDE 10 MEQ / 100ML WTR IV STA (08:51)
[2020-06-04 09:23] LABS: Mean Corpuscular Hgb Conc 33.3 g/dL (32-36); Platelet Count 441 K/uL (130-400)
[2020-06-04] MEDS: POTASSIUM CHLORIDE / WTR 10 MEQ/100 ML PLCT IV SCH ×5 (09:31→14:05)
[2020-06-04] MEDS: MAGNESIUM SULFATE / D5W 1 GM/100 ML BAG IV SCH ×2 (09:36→11:10)
[2020-06-04 09:47] LABS: ALC (manual) 0.87 K/uL (1.2-3.4); ANC (manual) 12.48 K/uL (1.4-6.5); Basophils # (manual) 0.13 K/uL (0-0.2); Basophils % (manual) 0.9 %; Hematocrit (blood only) 32.7 % (37-47); Hemoglobin 10.9 g/dL (12.0-16.0); Lymphocytes # (manual) 0.87 K/uL (1.2-3.4); Lymphocytes % (manual) 6.2 %; Mean Corpuscular Hemoglobin 28.5 pg (25-34); Mean Corpuscular Volume 85.6 fL (80-100); Monocytes # (manual) 0.49 K/uL (0.11-0.59); Monocytes % (manual) 3.5 %; Neutrophils # (manual) 12.48 K/uL (1.4-6.5); Neutrophils % (manual) 89.4 %; RBC Morphology Unremarkable; RDW Coefficient of Variation 13.6 % (11.5-14.5); RDW Standard Deviation 42.4 fL (36.4-46.3); Red Blood Count 3.82 M/uL (4.2-5.4); White Blood Count 13.96 K/uL (4.8-10.8)
--- NOTE | 2020-06-04 12:27 | Surgery Progress Note ---
Date of Service pt is stable, intake poor, pt denies abdominal pain, no fever, C-diff is negative, CT scan - 5x7cm fluid collection at head of pancreas. WBC down to 13,000 from 16,000. June 04, 2020 Assessment & Plan (1) Acute cholecystitis due to biliary calculus: POD # 5 s/p laparoscopic cholecystectomy - afebrile, persistent leukocytosis of 14K - still having abdominal bloating , gas pains, passing flatus - hypokalemia and hypomagnesium - weakness Plan: Full liquids Add boost BID, in between meals or sip throughout day recommended Encouraged ambulation to help increase GI motility Consider changing to IV Zosyn given persistent leukocytosis. May need CT scan of abd/pelvis if wbc increases but would hold off right now. incentive spirometer scds for dvt prophylaxis continue PT/OT 06/03/2020 12:13PM I recommend to do CT scan abd+ pelvis with IV contrast to R/O pancreatic abscess or necrosis , D/W benefits, risks and alternatives of CT scan, pt agrees with the CT scan, change IV zosyn, D/C cipro and flagyl, D/W hospitalist who agrees with plan, check stool C-diff repeat labs in am, will F/U 06/04/2020, 12:24PM stable, consult GI doctor for possible drainage fluid collection at head of pancreas, or transfer to tertiary medical center. D/W hospitalist, continue treatment, will F/U (2) Choledocholithiasis: POD # 7 s/p ERCP with pancreatic and biliary stent placement. Common bile duct sludge present. (3) Acute pancreatitis: elevated lipase preop resolved Plan as above Dr. Izaguirre was present during my examination and agrees with above. Subjective this pt continues to feel poorly, she has abdominal pain. she has increasing wbc. surgery has recommended change of antibiotics and repeat CT. St is not clear cut, shows pancreatic inflammation and possible renal infarct Review of Systems Constitutional: as per Subjective / HPI Eyes: as per Subjective / HPI Ear, Nose, Mouth, Throat: as per Subjective / HPI Respiratory: as per Subjective / HPI Cardiovascular: as per Subjective / HPI Additional Comments: HTN, abnormal EKG Gastrointestinal: as per Subjective / HPI Genitourinary: as per Subjective / HPI Musculoskeletal: as per Subjective / HPI Integumentary: as per Subjective / HPI Neurologic: as per Subjective / HPI Psychiatric: as per Subjective / HPI Endocrine: as per Subjective / HPI Hematologic / Lymphatic: as per Subjective / HPI Allergy / Immunological: as per Subjective / HPI Physical Exam Constitutional: WD/WN, vitals as above well developed and + ill appearing Eyes: PERRL, conjunctivae normal, anicteric sclerae ENMT: external ear and nose normal, oropharynx normal Neck: trachea midline, no thyromegaly Respiratory: normal respiratory effort, lungs clear to auscultation Cardiovascular: RRR, no murmur, no edema Rate/Rhythm: regular rate and regular rhythm Heart Sounds: normal S1 and normal S2 Gastrointestinal (Abdomen): normal bowel sounds, soft, nontender, no hepatosplenomegaly Percussion/Palpation: abdomen soft no distend, BS + Musculoskeletal: no cyanosis or clubbing, extremities motor strength 5/5 Skin: no rashes, warm and dry Neurologic: patellar DTR's 2+ bilat, sensation intact awake Psychiatric: Orientation: alert and oriented x 3 Results & Data Vital Signs (Past 12 Hours) Vital Signs Temp Pulse Resp BP Pulse Ox 06/04/20 07:19 36.8 C 101 H 18 166/72 H 94 (1) Acute pancreatitis Acute pancreatitis complication: infected necrosis Pancreatitis type: unspecified pancreatitis type Qualified Code(s): K85.92 - Acute pancreatitis with infected necrosis, unspecified
--- NOTE | 2020-06-04 12:49 | Gastroenterology Progress Note ---
Date of Service June 04, 2020 Assessment & Plan (1) Acute pancreatitis: 84 y/o female admitted with severe abd pain, found to have acute pancreatitis, gallstones in the GB neck/proximal cystic duct and CBD, possible pancreatic mass on imaging, along with leukocytosis. She underwent ERCP with biliary sludge noted which was swept, and 1 plastic CBD stent and 1 plastic PD stent placed. Initially her symptoms were improve and she went for CCY. Prolonged post-operative course with persistnet abd pain, bloating, decreased appetite Repeat CTAP w/ interval development of an irregular fluid collection in the region of the pancreatic head, likely representing an acute necrotic collection. There are no gas bubbles present within the collection to indicate infection. - Check LFTs to ensure biliary patency - Start Bentyl 10 mg TID - Start Creon with meals - Continue ABX per primary service - Continue IVF - Analgesia/antiemetics PRN - Bowel regimen (Miralax daily) - Repeat ERCP 4 weeks to remove stents, with EUS to f/u on pancreatitis - Repeat CTAP in about 4 weeks to assess fluid collection Thank you for allowing us to participate in the care of this patient. Please call with any acute changes, questions or concerns. Please see addendum below with additional recommendation from my supervising physician. Admission and Anticipated Discharge Date Admission Date: May 25, 2020 Supervising Physician Co-Signing Physician Notes I saw and evaluated the patient. She presented with gallstone pancreatitis and underwent ERCP last week in addition to cholecystectomy. We were consulted with regard to persistent discomfort and a fluid collection seen around her pancreas. The patient notes that she has persistent postprandial discomfort without fevers and she denies having nausea or vomiting today. She reports having liquid stools several times per day but not passing much gas. She is on chronic pain medications for her pancreatitis and was given a dose of Relistor yesterday. Physical exam Elderly female, wasted appearing Abdomen: Mild tenderness, protuberant, but he noted Bilateral lower extremity edema noted Impression: Patient presented with gallstone pancreatitis now with symptoms that seem to be related to an persistent ileus. Would attempt to try and minimize narcotics and continue with Relistor as you are doing. The patient does have a 7 cm magdy-pancreatic fluid collection at this point it would be too early to recommended intervention on this. Recommendations Bentyl 10 mg 3 times daily Try to minimize use of narcotics Continue use of Relistor Recommend screening for C. difficile infection Subjective GI asked to re-evaluate Persistent abd pain s/p CCY, ERCP for gallstone panc Reimaged, concerning for fluid collection No recent LFTs Review of Systems Constitutional: + weakness and + anorexia; no chills and no fatigue Respiratory: no cough, no dyspnea and no pain with cough Cardiovascular: no chest pain, no dyspnea and no dyspnea on exertion Gastrointestinal: + abdominal pain, + bloating, + nausea and + change in stools; no change in bowel habits, no diarrhea/loose stools, no blood in stools and no melena Physical Exam Constitutional: no acute distress and not ill appearing elderly appearing female in chair Neck: trachea midline Respiratory: normal respiratory effort Cardiovascular: Rate/Rhythm: regular rhythm Extremities: + edema Gastrointestinal (Abdomen): Percussion/Palpation: + abdomen tender and abdomen soft; no guarding, abdomen not rigid, no abdominal mass and no ascites Results & Data ([facility]) Vital Signs (Past 12 Hours) Vital Signs Temp Pulse Resp BP Pulse Ox 06/04/20 07:19 36.8 C 101 H 18 166/72 H 94 (1) Acute pancreatitis Acute pancreatitis complication: infected necrosis Pancreatitis type: unspecified pancreatitis type Qualified Code(s): K85.92 - Acute pancreatitis with infected necrosis, unspecified
--- NOTE | 2020-06-04 14:34 | Hospitalist Progress Note ---
Date of Service June 04, 2020 Assessment & Plan (1) Acute pancreatitis: Secondary to choledocholithiasis as below. Lipase improved s/p ERCP lipase recheck 06/03 due to sluggish postoperative course and remains normal Patient with very poor nutrition postoperatively with moderate to severe protein malnutrition. Antibiotics changed to Zosyn therapy white count reduced from 16,000-13,[address] scan on 06/03 IMPRESSION: 1. Interval development of bilateral pleural effusions 2. Interval placement of biliary and pancreatic stents 3. Decreasing peripancreatic inflammatory stranding 4. Interval development of an irregular fluid collection in the region of the pancreatic head, likely representing an acute necrotic collection. There are no gas bubbles present within the collection to indicate infection. 5. No evidence of bowel obstruction. No evidence of free air 6. Rectosigmoid bowel wall edema. There is also evidence for edema within several small bowel loops. 7. Diffuse body wall edema 8. Uterine fibroids 9. Focus of decreased attenuation involving the periphery of the right kidney, possibly representing a renal infarct GI medicine is recommended Bentyl and Creon along with continued antibiotic and supportive care if the patient does develop signs and symptoms of systemic infection or abscess formation she likely would need interventional radiology drainage of this fluid collection of her pancreatic head GI planning for outpt f/u in 4 weeks for stent removal and EUS for eval of possible mass (2) Choledocholithiasis: s/p ERCP with pancreatic and biliary stent placement on 05/26 with signifi cant improvement in symptoms 05/28/20 lap cholecystectomy GI planning for out pt f/u in 4 weeks for stent removal and EUS for eval of possible mass CT abdomen/pelvis 05/25/20 IMPRESSION: 1. Findings compatible with acute severe pancreatitis. Ill-defined decreased attenuation of the pancreatic head and uncinate process is likely secondary to interstitial edema with developing pancreatic necrosis also within the differential, however not well evaluated without the use of IV contrast. No drainable fluid collection. 2. Mild gallbladder distention. No cholelithiasis identified. 3. Postoperative changes of prior right hemicolectomy. 4. 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 5. Prior granulomatous disease (3) Sepsis: Suspected on admission -With persistent leukocytosis changed to Zosyn therapy on 06/03/2020 some improvement of leukocytosis - (4) ATN (acute tubular necrosis): Sepsis-associated.Resolved however high concern for infection with leukocytosis and general poor progression of hot postoperative course Cr WNL (5) Ileus: MiraLAX 17g PO daily as per GI recommendations Advancing diet slowly, PO intake has improved Dilaudid use is likely contributing may consider Relistor Given poor p.o. intake may consider peripheral hyper alimentation (6) Severe protein-calorie malnutrition: Ongoing for 6-12 months or more. ?2nd to chronic JIMENA infection ?pancreatic mass -not confirmed or refuted on imagingfollow up with GI as outpatient as above Persistent poor postoperative p.o. 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 Saw pulmonary in fall 2018 - patient declined additional work-up and treatment at that time. (8) Essential (primary) hypertension: Will restart metoprolol due to ongoing tachycardia to assess whether appropriate or inappropriate. Continue lisinopril. (9) Tachycardia: Restart metoprolol as above Now on peripheral hyperalimentation Repeat EKG 06/02/2020 hypokalemia and hypomagnesemia will need to be replete IV form because the patient is taking poor oral intake (10) DVT prophylaxis: heparin 5000 BID, Admission and Anticipated Discharge Date Admission Date: May 25, 2020 Subjective Patient is somewhat improved today she still struggling the at oral intake and. She did have some mild decrease in her potassium and magnesium with initiation of PPN. Phosphorus has been stable. I did a personal discussion with Dr. Izaguirre regarding her pancreatic head fluid collection. Gastroenterology is also away then and feels we do not need to act immediately unless there is more overt signs that this is an infected fluid collection rather than just necrotic area of her pancreas. LFTs and lipase have been favorable Review of Systems Review of Systems: Moderate distress and fatigue no headache, blurry or double vision no speech or swallowing issues no chest pain, pressure or palpitations no shortness of breath, cough or wheezes Continues with generalized abdominal pain, mild nausea without vomiting, producing some stool no dysuria, hematuria or frequency no focal joint pain or swelling no back pain, CVA tenderness or radicular pain no bruising, bleeding or rashes no focal signs of weakness or numbness or altered sensation no complaints or anxiety or depression. Physical Exam Physical Exam: The patient appeared fatigued tired and weak but somewhat improved from 06/03 Vital signs as documented. Head exam is normocephalic atraumatic no scleral icterus Neck is without JVD, thyromegaly, or carotid bruits. Lungs are clear diminished at the bases is able to have better air movement on 06/04 Cardiac exam, Rhythm is regular.. No murmurs, rubs or gallops. Abdominal exam reveals normal distended and tender, tenderness is mostly at the surgical site Extremities are mildly edematous and both pedal pulses are normal. Neurologic exam is alert and oriented, no focal loss of strength or sensation Skin is without bruises or rashes Psychologically is without concerns for anxiety or depression Results & Data Results & Data ([facility]) Vital Signs (Past 12 Hours) Vital Signs Temp Pulse Resp BP Pulse Ox 06/04/20 07:19 98.2 F 101 H 18 166/72 H 94 PG Care Time/CCT Total # of Minutes Spent Total Time Spent with Patient: Total time spent is greater than 50% in coordination of care (as documented) at patient's floor/unit and/or counseling patient: Coding Level of Care Code 41388 Subseq Hosp Care Lvl 3 Diagnoses Acute pancreatitis K85.92 Acute pancreatitis complication: infected necrosis Pancreatitis type: unspecified pancreatitis type Choledocholithiasis K80.50 Sepsis A41.9; R65.20 Sepsis type: sepsis due to unspecified organism Sepsis acute organ dysfunction status: with acute organ dysfunction Severe sepsis acute organ dysfunction type: unspecified Severe sepsis shock status: without septic shock ATN (acute tubular necrosis) N17.0 Ileus K56.7 Severe protein-calorie malnutrition E43 JIMENA (mycobacterium avium-intracellulare) A31.0 Essential (primary) hypertension I10 Tachycardia R00.0 DVT prophylaxis Z29.9 (1) Acute pancreatitis Acute pancreatitis complication: infected necrosis Pancreatitis type: unspecified pancreatitis type Qualified Code(s): K85.92 - Acute pancreatitis with infected necrosis, unspecified (2) Sepsis Sepsis type: sepsis due to unspecified organism Sepsis acute organ dysfunction status: with acute organ dysfunction Severe sepsis acute organ dysfunction type: unspecified Severe sepsis shock status: without septic shock Qualified Code(s): A41.9 - Sepsis, unspecified organism; R65.20 - Severe sepsis without septic shock
--- NOTE | 2020-06-04 15:06 | Pharmacy Report ---
PHA: Parenteral Nutrition Con - Date of Service June 04, 2020 - Scope Pharmacy was consulted on 06/03/2020 to manage parenteral nutrition orders for this patient. - Subjective The patient is currently on day #2 of peripheral parenteral nutrition for post op ileus, severe protein malnutrition. - Objective Height: 5 ft 2 in Weight: 56.1 kg Diet: Full Liquid Intake & Output (24hrs):: Intake & Output 06/02/20 06/03/20 06/04/20 06/05/20 06:59 06:59 06:59 06:59 Intake Total 1170 / 1170 1410.000 / 1410.000 845 / 845 2098.333 / 2098.333 Output Total / 300 / 300 600 / 600 Balance 1169 / 1169 1410.000 / 1410.000 545 / 545 1498.333 / 1498.333 Weight 57.6 kg 57.6 kg 56.1 kg Laboratory Data (Last 24 Hr):: 06/03/20 06/04/20 06/04/20 08:55 05:46 13:59 Sodium 139 Potassium 3.4 L 2.9 L 4.3 D Chloride 100 Carbon Dioxide 34 H BUN 7 Creatinine 0.64 Glucose 126 H Calcium 7.3 L Phosphorus 1.8 L 2.3 L Magnesium 1.6 L 1.5 L Nutrition Assessment:: Please refer to the Notes section of the EMR for the most recent right of way man note. - Assessment 06/04: * Concerns for refeeding syndrome given slight drop in Magnesium and large decrease in Potassium * K+ decreased from 3.4 to 2.9 today - repleted with 50 mEq KCl IV - repeat K+ following 4th K-rider was 4.3 * Decreased total caloric intake for today just to ensure patient was not refeeding * Thiamine 100 mg will be added to bag 06/03: * PPN to be used short term to help "bridge nutritional gap" until full PO intake restored * Minimize volume as much as possible per hospitalist - Plan For day #2 of PN administration, the following will be ordered: Macronutrients Amino acids 65 grams/day Dextrose 75 grams/day Lipids 0 grams/day Micronutrients Sodium chloride 50 mEq Potassium phosphate 21 mMol Potassium chloride 50 mEq Magnesium sulfate 12.18 mEq Calcium gluconate 4.65 mEq Multivitamins 10 mL Trace Elements 1 mL Thiamine 100 mg Total volume 1400 mL to be infused over 24 hrs will provide 515 kcal/day Final osmolarity 868 mOsm/L (maximum for PPN is 900 mOsm/L) Labs, as indicated, will be ordered per protocol Pharmacy will continue to follow and adjust parenteral nutrition orders on a daily basis. Thank you for allowing us to participate in the care of this patient.
[2020-06-04] MEDS ORDERED: PERIPHERAL PN IV SCH (16:00)
[2020-06-04] MEDS ORDERED: TPN IV SCH (16:00)
[2020-06-04] MEDS: PANCREAZE (LIPASE 10,500U) CAP PO SCH (16:40)
[2020-06-04] MEDS: DICYCLOMINE HCL 10 MG CAP PO SCH (21:26)
[2020-06-05] MEDS: PIPERACILLIN/TAZOBACTAM 3.375 GM in DEXTROSE 5% 100 ML IV SCH ×3 (02:30→18:00)
[2020-06-05] MEDS: PANCREAZE (LIPASE 10,500U) CAP PO SCH ×3 (08:46→16:16)
[2020-06-05] MEDS: lisinopriL 20 MG TAB PO SCH (08:46)
[2020-06-05] MEDS: METOPROLOL TARTRATE 25 MG TAB PO SCH ×2 (08:46→21:00)
[2020-06-05] MEDS: PANTOprazole 40 MG TAB PO SCH (08:46)
[2020-06-05] MEDS: DICYCLOMINE HCL 10 MG CAP PO SCH ×3 (08:46→21:00)
--- NOTE | 2020-06-05 10:10 | Gastroenterology Progress Note ---
Date of Service June 05, 2020 Assessment & Plan (1) Acute pancreatitis: 84 y/o female admitted with severe abd pain, found to have acute pancreatitis, gallstones in the GB neck/proximal cystic duct and CBD, possible pancreatic mass on imaging, along with leukocytosis. She underwent ERCP with biliary sludge noted which was swept, and 1 plastic CBD stent and 1 plastic PD stent placed. Initially her symptoms were improve and she went for CCY. Prolonged post-operative course with persistent abd pain, bloating, decreased appetite Repeat CTAP w/ ileus, interval development of an irregular fluid collection in the region of the pancreatic head, likely representing an acute necrotic collec tion. There are no gas bubbles present within the collection to indicate infection. - Management of ileus - Limit narcotics - Relistor - Bowel regimen - OOB in amy encouarged - LFTs were ordered - Start Bentyl 10 mg TID - Consider Creon with meals - Continue ABX per primary service - Continue IVF - Analgesia/antiemetics PRN - Bowel regimen (Miralax daily) - Repeat ERCP 4 weeks to remove stents, with EUS to f/u on pancreatitis - Repeat CTAP in about 4 weeks to assess fluid collection Will sign off. Thank you for allowing us to participate in the care of this patient. Please call with any acute changes, questions or concerns. Please see addendum below with additional recommendation from my supervising physician. Admission and Anticipated Discharge Date Admission Date: May 25, 2020 Supervising Physician Co-Signing Physician Notes I saw and evaluated the patient with Ms. Wills. 84 y/o female admitted with severe abd pain, found to have acute pancreatitis, gallstones in the GB neck/proximal cystic duct and CBD, possible pancreatic mass on imaging, along with leukocytosis. She underwent ERCP with biliary sludge noted which was swept, and 1 plastic CBD stent and 1 plastic PD stent placed by Dr. Rousseau. Repeat CTAP w/ ileus, interval development of an irregular fluid collection in the region of the pancreatic head, likely representing an acute necrotic collection. There are no gas bubbles present within the collection to indicate infection. - Management of ileus - Limit narcotics - Relistor to be tried - OOB in amy encouarged - LFTs were ordered - Start Bentyl 10 mg TID - Consider Creon with meals - Continue ABX per primary service - Continue IVF - Repeat ERCP 4 weeks to remove stents, with EUS to f/u on pancreatitis - Repeat CTAP in about 4 weeks to assess fluid collection Subjective c.diff negative no pain reported this am resting comfortable Review of Systems Constitutional: no fever Cardiovascular: no chest pain Gastrointestinal: no abdominal pain Physical Exam Constitutional: + thin; no acute distress and not ill appearing Respiratory: normal respiratory effort Gastrointestinal (Abdomen): Percussion/Palpation: abdomen soft; abdomen nontender Results & Data ([facility]) Vital Signs (Past 12 Hours) Vital Signs Temp Pulse Pulse Resp BP Pulse Ox 06/05/20 07:30 36.5 C 99 H 16 154/67 H 94 06/04/20 23:20 36.3 C L 96 H 22 148/72 H 94 (1) Acute pancreatitis Acute pancreatitis complication: infected necrosis Pancreatitis type: unspecified pancreatitis type Qualified Code(s): K85.92 - Acute pancreatitis with infected necrosis, unspecified
[2020-06-05 10:28] LABS: Basophils # (auto) 0.02 K/uL (0-0.2); Basophils % (auto) 0.2 %; Eosinophils # (auto) 0.06 K/uL (0-0.5); Eosinophils % (auto) 0.5 %; Hematocrit (blood only) 32.7 % (37-47); Hemoglobin 10.8 g/dL (12.0-16.0); Immature Granulocytes # (auto) 0.11 K/uL (0.00-0.02); Immature Granulocytes % (auto) 0.8 %; Lymphocytes % (auto) 3.8 %; Mean Corpuscular Hemoglobin 28.4 pg (25-34); Mean Corpuscular Volume 86.1 fL (80-100); Mean Platelet Volume 8.9 fL (7.4-10.4); Monocytes # (auto) 0.71 K/uL (0.11-0.59); Monocytes % (auto) 5.4 %; Neutrophils # (auto) 11.69 K/uL (1.4-6.5); Neutrophils % (auto) 89.3 %; Platelet Count 437 K/uL (130-400); RDW Coefficient of Variation 13.9 % (11.5-14.5); RDW Standard Deviation 43.7 fL (36.4-46.3); White Blood Count 13.09 K/uL (4.8-10.8)
[2020-06-05 10:55] LABS: BUN Creatinine Ratio 22.2 (10-20); Calcium 7.4 mg/dl (8.5-10.1); Creatinine Clr Calc Pharmacy 50.7 ml/min; Est GFR (African American) 94.1; Est GFR (Non-African American) 81.2; Potassium 4.3 mmol/L (3.5-5.1)
[2020-06-05 10:56] LABS: Albumin Level 1.5 gm/dl (3.4-5.0); BUN Creatinine Ratio 21.3 (10-20); Calcium 7.4 mg/dl (8.5-10.1); Creatinine Clr Calc Pharmacy 47.7 ml/min; Est GFR (African American) 92.2; Est GFR (Non-African American) 79.6; Potassium 4.3 mmol/L (3.5-5.1)
[2020-06-05 11:00] LABS: Bilirubin Direct 0.1 mg/dl (0-0.2); Bilirubin,Total 0.3 mg/dl (0.2-1); Phosphorus 3.3 mg/dl (2.5-4.9); Total Protein 4.7 gm/dl (6.4-8.2)
[2020-06-05] MEDS: HEPARIN SOD 5,000 UNIT/0.5 ML VIAL SQ SCH ×2 (11:09→21:00)
--- NOTE | 2020-06-05 12:42 | Surgery Progress Note ---
Date of Service stable, pt denies abdominal pain, pt wants to eat regular food, no fever, June 05, 2020 Assessment & Plan (1) Acute cholecystitis due to biliary calculus: POD # 5 s/p laparoscopic cholecystectomy - afebrile, persistent leukocytosis of 14K - still having abdominal bloating , gas pains, passing flatus - hypokalemia and hypomagnesium - weakness Plan: Full liquids Add boost BID, in between meals or sip throughout day recommended Encouraged ambulation to help increase GI motility Consider changing to IV Zosyn given persistent leukocytosis. May need CT scan of abd/pelvis if wbc increases but would hold off right now. incentive spirometer scds for dvt prophylaxis continue PT/OT 06/03/2020 12:13PM I recommend to do CT scan abd+ pelvis with IV contrast to R/O pancreatic abscess or necrosis , D/W benefits, risks and alternatives of CT scan, pt agrees with the CT scan, change IV zosyn, D/C cipro and flagyl, D/W hospitalist who agrees with plan, check stool C-diff repeat labs in am, will F/U 06/04/2020, 12:24PM stable, consult GI doctor for possible drainage fluid collection at head of pancreas, or transfer to tertiary medical center. D/W hospitalist, continue treatment, will F/U 06/05/2020 12:40PM stable, continue treatment, pt should transfer to tertiary [facility] for possible drainage fluid collection on pancreatic head, (2) Choledocholithiasis: POD # 7 s/p ERCP with pancreatic and biliary stent placement. Common bile duct sludge present. (3) Acute pancreatitis: elevated lipase preop resolved Plan as above Dr. Izaguirre was present during my examination and agrees with above. Supervising Physician Co-Signing Physician Notes I saw and evaluated the patient. She presented with gallstone pancreatitis and underwent ERCP last week in addition to cholecystectomy. We were consulted with regard to persistent discomfort and a fluid collection seen around her pancreas. The patient notes that she has persistent postprandial discomfort without fevers and she denies having nausea or vomiting today. She reports having liquid stools several times per day but not passing much gas. She is on chronic pain medications for her pancreatitis and was given a dose of Relistor yesterday. Physical exam Elderly female, wasted appearing Abdomen: Mild tenderness, protuberant, but he noted Bilateral lower extremity edema noted Impression: Patient presented with gallstone pancreatitis now with symptoms that seem to be related to an persistent ileus. Would attempt to try and minimize narcotics and continue with Relistor as you are doing. The patient does have a 7 cm magdy-pancreatic fluid collection at this point it would be too early to recommended intervention on this. Recommendations Bentyl 10 mg 3 times daily Try to minimize use of narcotics Continue use of Relistor Recommend screening for C. difficile infection Subjective c.diff negative no pain reported this am resting comfortable Review of Systems Constitutional: as per Subjective / HPI Eyes: as per Subjective / HPI Ear, Nose, Mouth, Throat: as per Subjective / HPI Respiratory: as per Subjective / HPI Cardiovascular: as per Subjective / HPI Additional Comments: HTN, abnormal EKG Gastrointestinal: as per Subjective / HPI Genitourinary: as per Subjective / HPI Musculoskeletal: as per Subjective / HPI Integumentary: as per Subjective / HPI Neurologic: as per Subjective / HPI Psychiatric: as per Subjective / HPI Endocrine: as per Subjective / HPI Hematologic / Lymphatic: as per Subjective / HPI Allergy / Immunological: as per Subjective / HPI Physical Exam Constitutional: WD/WN, vitals as above well developed and + ill appearing Eyes: PERRL, conjunctivae normal, anicteric sclerae ENMT: external ear and nose normal, oropharynx normal Neck: trachea midline, no thyromegaly Respiratory: normal respiratory effort, lungs clear to auscultation Cardiovascular: RRR, no murmur, no edema Rate/Rhythm: regular rate and regular rhythm Heart Sounds: normal S1 and normal S2 Gastrointestinal (Abdomen): normal bowel sounds, soft, nontender, no hepatosplenomegaly Percussion/Palpation: abdomen soft NT, ND, no distend, BS + Musculoskeletal: no cyanosis or clubbing, extremities motor strength 5/5 Skin: no rashes, warm and dry Neurologic: patellar DTR's 2+ bilat, sensation intact awake Psychiatric: Orientation: alert and oriented x 3 Results & Data Vital Signs (Past 12 Hours) Vital Signs Temp Pulse Resp BP Pulse Ox 06/05/20 07:30 36.5 C 99 H 16 154/67 H 94 (1) Acute pancreatitis Acute pancreatitis complication: infected necrosis Pancreatitis type: unspecified pancreatitis type Qualified Code(s): K85.92 - Acute pancreatitis with infected necrosis, unspecified
[2020-06-05] MEDS ORDERED: PERIPHERAL PN IV SCH (16:00)
[2020-06-05] MEDS ORDERED: TPN IV SCH (16:00)
[2020-06-05] MEDS: METHYLNALTREXONE BROMIDE 12 MG/0.6 ML VIAL SQ SCH (16:16)
--- NOTE | 2020-06-05 17:55 | Hospitalist Progress Note ---
Date of Service June 05, 2020 Assessment & Plan (1) Acute pancreatitis: Secondary to choledocholithiasis as below. Lipase improved s/p ERCP lipase recheck 06/03 due to sluggish postoperative course and remains normal Patient with very poor nutrition postoperatively with moderate to severe protein malnutrition. Antibiotics changed to Zosyn therapy white count reduced from 16,000-13,[address] scan on 06/03 IMPRESSION: 1. Interval development of bilateral pleural effusions 2. Interval placement of biliary and pancreatic stents 3. Decreasing peripancreatic inflammatory stranding 4. Interval development of an irregular fluid collection in the region of the pancreatic head, likely representing an acute necrotic collection. There are no gas bubbles present within the collection to indicate infection. 5. No evidence of bowel obstruction. No evidence of free air 6. Rectosigmoid bowel wall edema. There is also evidence for edema within several small bowel loops. 7. Diffuse body wall edema 8. Uterine fibroids 9. Focus of decreased attenuation involving the periphery of the right kidney, possibly representing a renal infarct GI medicine is recommended Bentyl and Creon along with continued antibiotic and supportive care if the patient does develop signs and symptoms of systemic infection or abscess formation she likely would need interventional radiology drainage of this fluid collection of her pancreatic head GI planning for outpt f/u in 4 weeks for stent removal and EUS for eval of possible mass (2) Choledocholithiasis: s/p ERCP with pancreatic and biliary stent placement on 05/26 with signifi cant improvement in symptoms 05/28/20 lap cholecystectomy GI planning for out pt f/u in 4 weeks for stent removal and EUS for eval of possible mass CT abdomen/pelvis 05/25/20 IMPRESSION: 1. Findings compatible with acute severe pancreatitis. Ill-defined decreased attenuation of the pancreatic head and uncinate process is likely secondary to interstitial edema with developing pancreatic necrosis also within the differential, however not well evaluated without the use of IV contrast. No drainable fluid collection. 2. Mild gallbladder distention. No cholelithiasis identified. 3. Postoperative changes of prior right hemicolectomy. 4. 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 5. Prior granulomatous disease (3) Sepsis: Suspected on admission -With persistent leukocytosis changed to Zosyn therapy on 06/03/2020 some improvement of leukocytosis - (4) ATN (acute tubular necrosis): Sepsis-associated.Resolved however high concern for infection with leukocytosis and general poor progression of hot postoperative course Cr WNL (5) Ileus: MiraLAX 17g PO daily as per GI recommendations Advancing diet slowly, still not resilient p.o. intake Dilaudid use is likely contributing may consider Relistor Remains on PPN at this time (6) Severe protein-calorie malnutrition: Ongoing for 6-12 months or more. ?2nd to chronic JIMENA infection ?pancreatic mass -not confirmed or refuted on imagingfollow up with GI as outpatient as above Persistent poor postoperative p.o. 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 Saw pulmonary in fall 2018 - patient declined additional work-up and treatment at that time. (8) Essential (primary) hypertension: Will restart metoprolol due to ongoing tachycardia to assess whether appropriate or inappropriate. Continue lisinopril. (9) Tachycardia: Restart metoprolol as above Now on peripheral hyperalimentation Repeat EKG (10) DVT prophylaxis: heparin 5000 BID, Admission and Anticipated Discharge Date Admission Date: May 25, 2020 Subjective c.diff negative 06/03 Patient has persistent discomfort and decreased oral intake she remains on peripheral hyperalimentation hopeful as her white count diminishes that she will eventually begin eating again we can stop her peripheral hyperalimentation. She is having some loose bowel movements at this time Review of Systems Review of Systems: Moderate distress and fatigue no headache, blurry or double vision no speech or swallowing issues no chest pain, pressure or palpitations no shortness of breath, cough or wheezes Continues with generalized abdominal pain, mild nausea without vomiting, abdominal discomfort usually worsened after eating no dysuria, hematuria or frequency no focal joint pain or swelling no back pain, CVA tenderness or radicular pain no bruising, bleeding or rashes no focal signs of weakness or numbness or altered sensation no complaints or anxiety or depression. Physical Exam Physical Exam: The patient remains fatigued tired and apprehensive about eating Vital signs as documented. Head exam is normocephalic atraumatic no scleral icterus Neck is without JVD, thyromegaly, or carotid bruits. Lungs are clear diminished at the bases is able to have better air movement on 06/04 Cardiac exam, Rhythm is regular.. No murmurs, rubs or gallops. Abdominal exam reveals normal bowel sounds with less tenderness no tenderness over the left upper quadrant to correlate with the pancreatic fluid collection is causing her discomfort at this time Extremities are mildly edematous and both pedal pulses are normal. Neurologic exam is alert and oriented, no focal loss of strength or sensation Skin is without bruises or rashes Psychologically is without concerns for anxiety or depression Results & Data Results & Data ([facility]) Vital Signs (Past 12 Hours) Vital Signs Temp Pulse Resp BP Pulse Ox 06/05/20 15:37 97.5 F L 101 H 20 144/72 H 97 06/05/20 07:30 97.7 F 99 H 16 154/67 H 94 PG Care Time/CCT Total # of Minutes Spent Total Time Spent with Patient: Total time spent is greater than 50% in coord ination of care (as documented) at patient's floor/unit and/or counseling patient: Coding Level of Care Code 37127 Subseq Hosp Care Lvl 2 Diagnoses Acute pancreatitis K85.92 Acute pancreatitis complication: infected necrosis Pancreatitis type: unspecified pancreatitis type Choledocholithiasis K80.50 Sepsis A41.9; R65.20 Sepsis type: sepsis due to unspecified organism Sepsis acute organ dysfunction status: with acute organ dysfunction Severe sepsis acute organ dysfunction type: unspecified Severe sepsis shock status: without septic shock ATN (acute tubular necrosis) N17.0 Ileus K56.7 Severe protein-calorie malnutrition E43 JIMENA (mycobacterium avium-intracellulare) A31.0 Essential (primary) hypertension I10 Tachycardia R00.0 DVT prophylaxis Z29.9 (1) Acute pancreatitis Acute pancreatitis complication: infected necrosis Pancreatitis type: unspecified pancreatitis type Qualified Code(s): K85.92 - Acute pancreatitis with infected necrosis, unspecified (2) Sepsis Sepsis type: sepsis due to unspecified organism Sepsis acute organ dysfunction status: with acute organ dysfunction Severe sepsis acute organ dysfunction type: unspecified Severe sepsis shock status: without septic shock Qualified Code(s): A41.9 - Sepsis, unspecified organism; R65.20 - Severe sepsis without septic shock
[2020-06-06] MEDS: SIMETHICONE 80 MG CHEW PO PRN (01:23)
[2020-06-06] MEDS: PIPERACILLIN/TAZOBACTAM 3.375 GM in DEXTROSE 5% 100 ML IV SCH ×3 (02:12→17:57)
[2020-06-06 06:10] LABS: BUN Creatinine Ratio 24.3 (10-20); Calcium 7.5 mg/dl (8.5-10.1); Creatinine Clr Calc Pharmacy 48.4 ml/min; Est GFR (African American) 92.7; Magnesium 1.9 mg/dl (1.8-2.4); Potassium 4.4 mmol/L (3.5-5.1)
[2020-06-06 06:11] LABS: Phosphorus 3.4 mg/dl (2.5-4.9)
[2020-06-06] MEDS: PANCREAZE (LIPASE 10,500U) CAP PO SCH ×3 (07:41→15:51)
[2020-06-06] MEDS: lisinopriL 20 MG TAB PO SCH (07:53)
[2020-06-06] MEDS: PANTOprazole 40 MG TAB PO SCH (07:54)
[2020-06-06] MEDS: DICYCLOMINE HCL 10 MG CAP PO SCH ×3 (07:54→20:41)
[2020-06-06] MEDS: METOPROLOL TARTRATE 25 MG TAB PO SCH ×2 (07:54→20:41)
[2020-06-06] MEDS: HEPARIN SOD 5,000 UNIT/0.5 ML VIAL SQ SCH ×2 (09:17→20:42)
[2020-06-06] MEDS ORDERED: DAPTOMYCIN CONSULT ACTIVE PRN (09:33)
[2020-06-06] MEDS: DAPTOmycin 200 MG in SYRINGE 0 ML IV SCH (10:29)
--- NOTE | 2020-06-06 11:07 | Surgery Progress Note ---
Date of Service June 06, 2020 Assessment & Plan (1) Acute cholecystitis due to biliary calculus: POD # 9 s/p laparoscopic cholecystectomy -afebrile, hypertensive and tachycardic - abdomen is soft, nondistended - + bowel function - severe malnutrition on PPN - UTI - enterococcus and coag neg staph - Repeat CT scan on 06/03/2020 showing interval development of an irregular fluid collection in the region of the pancreatic head, likely representing an acute necrotic collection. There are no gas bubbles present within the collection to indicate infection. - Transition to IV Zosyn on 06/03/2020 with improvement of leukocytosis of 16K-13K (not checked today) Plan: GI recommending IV abx for pancreatic head necrotic collection. May need IR drainage if leukocytosis increases or concern for increasing size of collection. Repeat CT scan in 4 weeks recommended No acute surgical intervention recommended Prolonged postoperative course given malnutrition and deconditioning Continue PT/OT Consider Daptomycin for coag neg staph in urine culture continue medical management continue incentive spirometry Continue SCDs/Heparin for DVT prophylaxis Okay from surgical standpoint to advance to low fiber diet today, continue boost supplementation. Dr. Izaguirre has seen and examined pt, agrees with above. Subjective feeling slightly better than yesterday but very vague with her answers denies abdominal pain today states her abdomen was "uncomfortable" yesterday denies nausea or vomiting states the liquids taste good but unable to eat very much of them and gets full quickly passing gas and had liquid bowel movements this am walking hallway but gets easily fatigued afterwards Physical Exam Constitutional: no acute distress and not ill appearing elderly female, fatigued Respiratory: normal respiratory effort; no respiratory distress and no labored breathing Gastrointestinal (Abdomen): Inspection/Auscultation: abdomen normal to inspection and normal bowel sounds; abdomen not distended Percussion/Palpation: abdomen soft; abdomen nontender, no guarding and abdomen not rigid Skin: no rashes, warm and dry + incision (covered with dressings/ c/d/i) Psychiatric: Orientation: alert Affect: + flat affect Results & Data Vital Signs (Past 12 Hours) Vital Signs Temp Pulse Pulse Resp BP BP Pulse Ox 06/06/20 10:41 96 H 133/67 06/06/20 07:47 36.3 C L 101 H 16 176/71 H 94 06/05/20 23:18 36.8 C 96 H 24 146/70 H 93 Laboratory Results 06/06/20 06/06/20 06/06/20 Range/Units 06:11 05:19 04:30 Sodium 138 (136-145) mmol/L Potassium 4.4 (3.5-5.1) mmol/L Chloride 103 (98-107) mmol/L Carbon Dioxide 31 (21-32) mmol/L Anion Gap 4.0 (3-11) BUN 16 (7-18) mg/dl Creatinine 0.66 (0.6-1.2) mg/dl Est Cr Clr Drug Dosing 48.4 ml/min Est GFR ( Amer) 92.7 Est GFR (Non-Af Amer) 80.0 BUN/Creatinine Ratio 24.3 H (10-20) Glucose 119 H (70-99) mg/dl POC Glucose 124 H (70-99) mg/dl Calcium 7.5 L (8.5-10.1) mg/dl Phosphorus 3.4 (2.5-4.9) mg/dl Magnesium 1.9 (1.8-2.4) mg/dl Stl C. diff Tox B Gene Negative Cdiff Gene (Neg) 06/06/20 06/05/20 Range/Units 00:01 18:53 Sodium (136-145) mmol/L Potassium (3.5-5.1) mmol/L Chloride (98-107) mmol/L Carbon Dioxide (21-32) mmol/L Anion Gap (3-11) BUN (7-18) mg/dl Creatinine (0.6-1.2) mg/dl Est Cr Clr Drug Dosing ml/min Est GFR ( Amer) Est GFR (Non-Af Amer) BUN/Creatinine Ratio (10-20) Glucose (70-99) mg/dl POC Glucose 116 H 124 H (70-99) mg/dl Calcium (8.5-10.1) mg/dl Phosphorus (2.5-4.9) mg/dl Magnesium (1.8-2.4) mg/dl Stl C. diff Tox B Gene (Neg) Microbiology 06/03/20 16:15 Urine Culture - Preliminary Urine,Clean Catch Enterococcus species Coag neg staph not saprophytic
--- NOTE | 2020-06-06 13:07 | Pharmacy Report ---
PHA: Parenteral Nutrition Con - Date of Service June 06, 2020 - Scope Pharmacy was consulted on 06/03/2020 to manage parenteral nutrition orders for this patient. - Subjective The patient is currently on day #4 of peripheral parenteral nutrition for post op ileus, severe protein malnutrition - Objective Height: 5 ft 2 in Weight: 55.4 kg Diet: Full Liquid Intake & Output (24hrs):: Intake & Output 06/04/20 06/05/20 06/06/20 06/07/20 06:59 06:59 06:59 06:59 Intake Total 845 / 845 3523.581 / 3523.581 1114.752 / 1114.752 Output Total 300 / 300 2400 / 2400 3250 / 3250 351 / 351 Balance 545 / 545 1123.581 / 1123.581 -2135.248 / -2135.248 -351 / -351 Weight 57.6 kg 55.4 kg 55.4 kg Laboratory Data (Last 24 Hr):: 06/06/20 05:19 Sodium 138 Potassium 4.4 Chloride 103 Carbon Dioxide 31 BUN 16 Creatinine 0.66 Glucose 119 H Calcium 7.5 L Phosphorus 3.4 Magnesium 1.9 Nutrition Assessment:: Please refer to the Notes section of the EMR for the most recent valve assembler note. - Assessment 06/06: * Still not tolerating PO intake well. Able to consume small amounts of liquids but then complains of abdominal pain * Recommended placing PICC if patient to be on PPN for > 7 days 06/04: * Concerns for refeeding syndrome given slight drop in Magnesium and large decrease in Potassium * K+ decreased from 3.4 to 2.9 today - repleted with 50 mEq KCl IV - repeat K+ following 4th K-rider was 4.3 * Decreased total caloric intake for today just to ensure patient was not refeeding * Thiamine 100 mg will be added to bag 06/03: * PPN to be used short term to help "bridge nutritional gap" until full PO intake restored * Minimize volume as much as possible per hospitalist - Plan For day #4 of PN administration, the following will be ordered: Macronutrients Amino acids 65 grams/day Dextrose 80 grams/day Lipids 20 grams/day Micronutrients Sodium chloride 60 mEq Potassium phosphate 18 mMol Potassium chloride 40 mEq Magnesium sulfate 12.18 mEq Calcium gluconate 4.65 mEq Multivitamins 10 mL Trace Elements 1 mL Thiamine 100 mg Total volume 1400 mL to be infused over 24 hrs will provide 732 kcal/day Final osmolarity 899.5 mOsm/L (maximum for PPN is 900 mOsm/L) Labs, as indicated, will be ordered per protocol Pharmacy will continue to follow and adjust parenteral nutrition orders on a daily basis. Thank you for allowing us to participate in the care of this patient.
--- NOTE | 2020-06-06 15:16 | Hospitalist Progress Note ---
Date of Service June 06, 2020 Assessment & Plan (1) Acute pancreatitis: Secondary to choledocholithiasis as below. Lipase improved s/p ERCP lipase recheck 06/03 due to sluggish postoperative course and remains normal Patient with very poor nutrition postoperatively with moderate to severe protein malnutrition. Antibiotics changed to Zosyn therapy white count reduced from 16,000-13,[address] scan on 06/03 IMPRESSION: 1. Interval development of bilateral pleural effusions 2. Interval placement of biliary and pancreatic stents 3. Decreasing peripancreatic inflammatory stranding 4. Interval development of an irregular fluid collection in the region of the pancreatic head, likely representing an acute necrotic collection. There are no gas bubbles present within the collection to indicate infection. 5. No evidence of bowel obstruction. No evidence of free air 6. Rectosigmoid bowel wall edema. There is also evidence for edema within several small bowel loops. 7. Diffuse body wall edema 8. Uterine fibroids 9. Focus of decreased attenuation involving the periphery of the right kidney, possibly representing a renal infarct GI medicine had recommended Bentyl and Creon along with continued antibiotic and supportive care if the patient does develop signs and symptoms of systemic infection or abscess formation she likely would need interventional radiology drainage of this fluid collection of her pancreatic head, she has not had pain in left upper quadrant GI planning for outpt f/u in 4 weeks for stent removal and EUS for eval of possible mass (2) Choledocholithiasis: s/p ERCP with pancreatic and biliary stent placement on 05/26 with significant improvement in symptoms 05/28/20 lap cholecystectomy GI planning for out pt f/u in 4 weeks for stent removal and EUS for eval of possible mass CT abdomen/pelvis 05/25/20 IMPRESSION: 1. Findings compatible with acute severe pancreatitis. Ill-defined decreased attenuation of the pancreatic head and uncinate process is likely secondary to interstitial edema with developing pancreatic necrosis also within the differential, however not well evaluated without the use of IV contrast. No drainable fluid collection. 2. Mild gallbladder distention. No cholelithiasis identified. 3. Postoperative changes of prior right hemicolectomy. 4. 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 5. Prior granulomatous disease (3) Sepsis: Suspected on admission -With persistent leukocytosis changed to Zosyn therapy on 06/03/2020 some improvement of leukocytosis, complete 7 days of zosyn now that urine shows enterocccus staph UTI may explain leukocytosis seen earlyier, changing antibiotics to daptomycin - (4) ATN (acute tubular necrosis): Sepsis-associated.Resolved however high concern for urine infection with leukocytosis and continue surveilence for pancreatic fluid collection infection, general poor progression of hot postoperative course Cr WNL (5) Ileus: MiraLAX 17g PO daily as per GI recommendations Advancing diet slowly, still not resilient p.o. intake Dilaudid use is likely contributing now using Relistor Remains on PPN at this time (6) Severe protein-calorie malnutrition: Ongoing for 6-12 months or more. ?2nd to chronic JIMENA infection ?pancreatic mass -not confirmed or refuted on imagingfollow up with GI as outpatient as above Persistent poor postoperative p.o. 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 Saw pulmonary in fall 2018 - patient declined additional work-up and treatment at that time. (8) Essential (primary) hypertension: Will restart metoprolol due to ongoing tachycardia to assess whether appropriate or inappropriate. Continue lisinopril. (9) Tachycardia: Restart metoprolol as above Now on peripheral hyperalimentation Repeat EKG (10) DVT prophylaxis: heparin 5000 BID, Admission and Anticipated Discharge Date Admission Date: May 25, 2020 Subjective c.diff negative 06/03 this pt is slowly slowly getting better, she has still poor po intake, she is still wtih ppn urine cutlure grew enterococcus and coag neg staph will treat both with dapto mycin Review of Systems Review of Systems: Moderate distress and fatigue no headache, blurry or double vision no speech or swallowing issues no chest pain, pressure or palpitations no shortness of breath, cough or wheezes Continues with generalized abdominal pain, mild nausea without vomiting, abdominal discomfort usually worsened after eating no dysuria, hematuria or frequency no focal joint pain or swelling no back pain, CVA tenderness or radicular pain no bruising, bleeding or rashes no focal signs of weakness or numbness or altered sensation no complaints or anxiety or depression. Physical Exam Physical Exam: The patient remains fatigued tired and apprehensive about eating Vital signs as documented. Head exam is normocephalic atraumatic no scleral icterus Neck is without JVD, thyromegaly, or carotid bruits. Lungs are clear diminished at the bases is able to have better air movement on 06/04 Cardiac exam, Rhythm is regular.. No murmurs, rubs or gallops. Abdominal exam reveals normal bowel sounds with less tenderness no tenderness over the left upper quadrant to correlate with the pancreatic fluid collection is causing her discomfort at this time Extremities are mildly edematous and both pedal pulses are normal. Neurologic exam is alert and oriented, no focal loss of strength or sensation Skin is without bruises or rashes Psychologically is without concerns for anxiety or depression Results & Data Results & Data ([facility]) Vital Signs (Past 12 Hours) Vital Signs Temp Pulse Pulse Resp BP BP Pulse Ox 06/06/20 14:50 97.5 F L 96 H 18 146/63 H 97 06/06/20 10:41 96 H 133/67 06/06/20 07:47 97.3 F L 101 H 16 176/71 H 94 PG Care Time/CCT Total # of Minutes Spent Total Time Spent with Patient: Total time spent is greater than 50% in co ordination of care (as documented) at patient's floor/unit and/or counseling patient: Coding Level of Care Code 05452 Subseq Hosp Care Lvl 3 Diagnoses Acute pancreatitis K85.92 Acute pancreatitis complication: infected necrosis Pancreatitis type: unspecified pancreatitis type Choledocholithiasis K80.50 Sepsis A41.9; R65.20 Sepsis type: sepsis due to unspecified organism Sepsis acute organ dysfunction status: with acute organ dysfunction Severe sepsis acute organ dysfunction type: unspecified Severe sepsis shock status: without septic shock ATN (acute tubular necrosis) N17.0 Ileus K56.7 Severe protein-calorie malnutrition E43 JIMENA (mycobacterium avium-intracellulare) A31.0 Essential (primary) hypertension I10 Tachycardia R00.0 DVT prophylaxis Z29.9 (1) Acute pancreatitis Acute pancreatitis complication: infected necrosis Pancreatitis type: unspecified pancreatitis type Qualified Code(s): K85.92 - Acute pancreatitis with infected necrosis, unspecified (2) Sepsis Sepsis type: sepsis due to unspecified organism Sepsis acute organ dysfunction status: with acute organ dysfunction Severe sepsis acute organ dysfunction type: unspecified Severe sepsis shock status: without septic shock Qualified Code(s): A41.9 - Sepsis, unspecified organism; R65.20 - Severe sepsis without septic shock
[2020-06-06] MEDS ORDERED: TPN IV SCH (16:00)
[2020-06-06] MEDS ORDERED: PERIPHERAL PN IV SCH (16:00)
[2020-06-07] MEDS: PIPERACILLIN/TAZOBACTAM 3.375 GM in DEXTROSE 5% 100 ML IV SCH ×3 (02:33→17:19)
[2020-06-07] MEDS: PANCREAZE (LIPASE 10,500U) CAP PO SCH ×3 (08:20→17:12)
[2020-06-07] MEDS: DICYCLOMINE HCL 10 MG CAP PO SCH ×3 (08:20→21:15)
[2020-06-07] MEDS: METOPROLOL TARTRATE 25 MG TAB PO SCH ×2 (08:20→21:15)
[2020-06-07] MEDS: lisinopriL 20 MG TAB PO SCH (08:21)
[2020-06-07] MEDS: HEPARIN SOD 5,000 UNIT/0.5 ML VIAL SQ SCH ×2 (08:21→21:16)
[2020-06-07] MEDS: PANTOprazole 40 MG TAB PO SCH (08:21)
[2020-06-07 08:53] LABS: Calcium 7.7 mg/dl (8.5-10.1); Creatinine Clr Calc Pharmacy 49.9 ml/min; Est GFR (African American) 93.6; Est GFR (Non-African American) 80.8; Magnesium 2.1 mg/dl (1.8-2.4); Potassium 4.3 mmol/L (3.5-5.1)
[2020-06-07 08:58] LABS: Phosphorus 3.6 mg/dl (2.5-4.9)
--- NOTE | 2020-06-07 09:40 | Surgery Progress Note ---
Date of Service June 07, 2020 Assessment & Plan (1) Acute cholecystitis due to biliary calculus: POD # 10 s/p laparoscopic cholecystectomy -afebrile, hypertensive and tachycardic - abdomen is soft, nondistended - + bowel function - severe malnutrition on PPN - UTI - enterococcus and coag neg staph - Repeat CT scan on 06/03/2020 showing interval development of an irregular fluid collection in the region of the pancreatic head, likely representing an acute necrotic collection. There are no gas bubbles present within the collection to indicate infection. - Transition to IV Zosyn on 06/03/2020 with improvement of leukocytosis of 16K-13K (not checked today) Plan: GI recommending IV abx for pancreatic head necrotic collection. May need IR drainage if leukocytosis increases or concern for increasing size of collection. Repeat CT scan in 4 weeks recommended No acute surgical intervention recommended Prolonged postoperative course given malnutrition and deconditioning Continue PT/OT On Daptomycin for coag neg staph in urine culture continue medical management continue incentive spirometry Continue SCDs/Heparin for DVT prophylaxis On low fiber diet, continue boost supplementation. No new recommendations. Subjective Pain when she moves position. Notes early satiety and can only tolerate small amounts of PO intake. On PPN for malnutrition. Physical Exam Constitutional: + thin; no acute distress Respiratory: normal respiratory effort, lungs clear to auscultation Cardiovascular: Rate/Rhythm: + tachycardic Gastrointestinal (Abdomen): Inspection/Auscultation: abdomen normal to inspection Percussion/Palpation: abdomen soft tender and firm in epigastric area, incisions/ dressings clean and dry Results & Data Vital Signs (Past 12 Hours) Vital Signs Temp Pulse Pulse Resp BP Pulse Ox 06/07/20 07:30 36.2 C L 95 H 16 161/67 H 97 06/07/20 00:04 37.0 C 06/06/20 23:09 36.4 C L 97 H 18 156/72 H 93
[2020-06-07] MEDS: DAPTOmycin 200 MG in SYRINGE 0 ML IV SCH (10:07)
[2020-06-07] MEDS: METHYLNALTREXONE BROMIDE 12 MG/0.6 ML VIAL SQ SCH (15:38)
--- NOTE | 2020-06-07 15:51 | Hospitalist Progress Note ---
Date of Service June 07, 2020 Assessment & Plan (1) Acute pancreatitis: Secondary to choledocholithiasis as below. Lipase improved s/p ERCP lipase recheck 06/03 due to sluggish postoperative course and remains normal Patient with very poor nutrition postoperatively with moderate to severe protein malnutrition. Antibiotics changed to Zosyn therapy white count reduced Repeat CT scan on 06/03 IMPRESSION: 1. Interval development of bilateral pleural effusions 2. Interval placement of biliary and pancreatic stents 3. Decreasing peripancreatic inflammatory stranding 4. Interval development of an irregular fluid collection in the region of the pancreatic head, likely representing an acute necrotic collection. There are no gas bubbles present within the collection to indicate infection. 5. No evidence of bowel obstruction. No evidence of free air 6. Rectosigmoid bowel wall edema. There is also evidence for edema within several small bowel loops. 7. Diffuse body wall edema 8. Uterine fibroids 9. Focus of decreased attenuation involving the periphery of the right kidney, possibly representing a renal infarct GI medicine had recommended Bentyl and Creon along with continued antibiotic and supportive care if the patient does develop signs and symptoms of systemic infection or abscess formation she likely would need interventional radiology drainage of this fluid collection of her pancreatic head, she has not had pain in left upper quadrant GI planning for outpt f/u in 4 weeks for stent removal and EUS for eval of possible mass (2) Choledocholithiasis: s/p ERCP with pancreatic and biliary stent placement on 05/26 with significant improvement in symptoms 05/28/20 lap cholecystectomy GI planning for out pt f/u in 4 weeks for stent removal and EUS for eval of possible mass CT abdomen/pelvis 05/25/20 IMPRESSION: 1. Findings compatible with acute severe pancreatitis. Ill-defined decreased attenuation of the pancreatic head and uncinate process is likely secondary to interstitial edema with developing pancreatic necrosis also within the differential, however not well evaluated without the use of IV contrast. No drainable fluid collection. 2. Mild gallbladder distention. No cholelithiasis identified. 3. Postoperative changes of prior right hemicolectomy. 4. 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 5. Prior granulomatous disease (3) Sepsis: Suspected on admission -With persistent leukocytosis changed to Zosyn therapy on 06/03/2020 some improvement of leukocytosis, complete 7 days of zosyn 06/03 urine shows enterocccus staph UTI may explain leukocytosis seen earlier, changing antibiotics to daptomycin will treat for 7 days - (4) ATN (acute tubular necrosis): Sepsis-associated.Resolved however high concern for urine infection with leukocytosis and continue surveilence for pancreatic fluid collection infection, general poor progression of hot postoperative course Cr WNL (5) Ileus: MiraLAX 17g PO daily as per GI recommendations Advancing diet slowly, still not resilient p.o. intake Dilaudid use is likely contributing now using Relistor last day of ppn 06/07 (6) Severe protein-calorie malnutrition: Ongoing for 6-12 months or more. ?2nd to chronic JIMENA infection ?pancreatic mass -not confirmed or refuted on imagingfollow up with GI as outpatient as above Persistent poor postoperative p.o. 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 Saw pulmonary in fall 2018 - patient declined additional work-up and treatment at that time. (8) Essential (primary) hypertension: Will restart metoprolol due to ongoing tachycardia to assess whether appropriate or inappropriate. Continue lisinopril. (9) Tachycardia: Restart metoprolol as above Now on peripheral hyperalimentation Repeat EKG (10) DVT prophylaxis: heparin 5000 BID, pt has some calf pain on 06/07 will check doppler and apply warm compress Admission and Anticipated Discharge Date Admission Date: May 25, 2020 Subjective c.diff negative 06/03 this pt continues to improve, we did begin treating uti. now on 06/07 complains of right calf pain, will check doppler urine cutlure grew enterococcus and coag neg staph will treat both with daptomycin Review of Systems Review of Systems: Moderate distress and fatigue no headache, blurry or double vision no speech or swallowing issues no chest pain, pressure or palpitations no shortness of breath, cough or wheezes Continues with generalized abdominal pain, mild nausea without vomiting, abdominal discomfort usually worsened after eating no dysuria, hematuria or frequency no focal joint pain or swelling no back pain, CVA tenderness or radicular pain no bruising, bleeding or rashes no focal signs of weakness or numbness or altered sensation no complaints or anxiety or depression. Constitutional: + fatigue and + anorexia; no fever and no chills Gastrointestinal: + abdominal pain and + bloating; no vomiting Physical Exam Physical Exam: The patient remains fatigued tired and apprehensive about eating Vital signs as documented. Head exam is normocephalic atraumatic no scleral icterus Neck is without JVD, thyromegaly, or carotid bruits. Lungs are clear diminished at the bases is able to have better air movement on 06/04 Cardiac exam, Rhythm is regular.. No murmurs, rubs or gallops. Abdominal exam reveals normal bowel sounds with less tenderness no tenderness over the left upper quadrant to correlate with the pancreatic fluid collection is causing her discomfort at this time Extremities are mildly edematous and both pedal pulses are normal. Neurologic exam is alert and oriented, no focal loss of strength or sensation Skin is without bruises or rashes Psychologically is without concerns for anxiety or depression Results & Data Results & Data ([facility]) Vital Signs (Past 12 Hours) Vital Signs Temp Pulse Resp BP Pulse Ox 06/07/20 07:30 97.2 F L 95 H 16 161/67 H 97 PG Care Time/CCT Total # of Minutes Spent Total Time Spent with Patient: Total time spent is greater than 50% in coordination of care (as documented) at patient's floor/unit and/or counseling patient: Coding Level of Care Code 77610 Subseq Hosp Care Lvl 3 Diagnoses Acute pancreatitis K85.92 Acute pancreatitis complication: infected necrosis Pancreatitis type: unspecified pancreatitis type Choledocholithiasis K80.50 Sepsis A41.9; R65.20 Sepsis type: sepsis due to unspecified organism Sepsis acute organ dysfunction status: with acute organ dysfunction Severe sepsis acute organ dysfunction type: unspecified Severe sepsis shock status: without septic shock ATN (acute tubular necrosis) N17.0 Ileus K56.7 Severe protein-calorie malnutrition E43 JIMENA (mycobacterium avium-intracellulare) A31.0 Essential (primary) hypertension I10 Tachycardia R00.0 DVT prophylaxis Z29.9 (1) Acute pancreatitis Acute pancreatitis complication: infected necrosis Pancreatitis type: unspecified pancreatitis type Qualified Code(s): K85.92 - Acute pancreatitis with infected necrosis, unspecified (2) Sepsis Sepsis type: sepsis due to unspecified organism Sepsis acute organ dysfunction status: with acute organ dysfunction Severe sepsis acute organ dysfunction type: unspecified Severe sepsis shock status: without septic shock Qualified Code(s): A41.9 - Sepsis, unspecified organism; R65.20 - Severe sepsis without septic shock
[2020-06-07] MEDS: ACETAMINOPHEN 325 MG TAB PO PRN (17:12)
--- NOTE | 2020-06-07 19:41 | Ultrasound Report ---
RIGHT LOWER EXTREMITY VENOUS DOPPLER CLINICAL HISTORY: Right lower extremity pain and swelling. COMPARISON STUDY: No previous studies for comparison. TECHNIQUE: Sonography of the deep venous system of the right lower extremity was performed. Compress ion and augmentation were evaluated. FINDINGS: The right common femoral, superficial femoral and popliteal veins were compressible. Augme ntation was normal. Flow was shown within the deep calf vessels. Right lower extremity subcutaneous e tay was noted. IMPRESSION: No evidence of deep venous thrombus within the right lower extremity. ACT 112: Negative or not required by law. Electronically signed by: Suleman Salazar M.D. 06/07/2020 7:40 PM
[2020-06-08] MEDS: PIPERACILLIN/TAZOBACTAM 3.375 GM in DEXTROSE 5% 100 ML IV SCH ×3 (01:10→18:45)
[2020-06-08] MEDS: PANCREAZE (LIPASE 10,500U) CAP PO SCH ×3 (06:00→15:29)
[2020-06-08 06:42] LABS: BUN Creatinine Ratio 22.6 (10-20); Calcium 7.8 mg/dl (8.5-10.1); Creatinine Clr Calc Pharmacy 47.5 ml/min; Est GFR (African American) 92.1; Est GFR (Non-African American) 79.4; Phosphorus 3.4 mg/dl (2.5-4.9); Potassium 3.8 mmol/L (3.5-5.1)
--- NOTE | 2020-06-08 07:26 | Hospitalist Progress Note ---
Date of Service June 08, 2020 Assessment & Plan (1) Acute pancreatitis: Secondary to choledocholithiasis, s/p ERCP lipase recheck 06/03 Patient with very poor nutrition postoperatively with moderate to severe protein malnutrition did require PPN for approximately 5 days. Antibiotics changed to Zosyn therapy white count reduced last dose 06/01/[address] scan on 06/03 IMPRESSION: 1. Interval development of bilateral pleural effusions 2. Interval placement of biliary and pancreatic stents 3. Decreasing peripancreatic inflammatory stranding 4. Interval development of an irregular fluid collection in the region of the pancreatic head, likely representing an acute necrotic collection. There are no gas bubbles present within the collection to indicate infection. 5. No evidence of bowel obstruction. No evidence of free air 6. Rectosigmoid bowel wall edema. There is also evidence for edema within several small bowel loops. 7. Diffuse body wall edema 8. Uterine fibroids 9. Focus of decreased attenuation involving the periphery of the right kidney, possibly representing a renal infarct GI medicine had recommended Bentyl and Creon along with continued antibiotic and supportive care patient is slowly and steadily improving however if the patient does develop signs and symptoms of systemic infection or abscess formation she likely would need interventional radiology drainage of this fluid collection of her pancreatic head, she has not had pain in left upper quadrant GI planning for outpt f/u in 4 weeks for stent removal and EUS for eval of possible mass (2) Choledocholithiasis: s/p ERCP with pancreatic and biliary stent placement on 05/26 with significant improvement in serum markers 05/28/20 lap cholecystectomy GI planning for out pt f/u in 4 weeks for stent removal and EUS for eval of poss ible mass CT abdomen/pelvis 05/25/20 IMPRESSION: 1. Findings compatible with acute severe pancreatitis. Ill-defined decreased attenuation of the pancreatic head and uncinate process is likely secondary to interstitial edema with developing pancreatic necrosis also within the differential, however not well evaluated without the use of IV contrast. No drainable fluid collection. 2. Mild gallbladder distention. No cholelithiasis identified. 3. Postoperative changes of prior right hemicolectomy. 4. 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 5. Prior granulomatous disease (3) Sepsis: Suspected on admission -With persistent leukocytosis changed to Zosyn therapy on 06/03/2020 some improvement of leukocytosis, complete 7 days of zosyn 06/03 urine shows enterocccus staph UTI may explain leukocytosis seen earlier, changing antibiotics to daptomycin will treat for 7 days is however was not noticed or started till 06/06 last dose will be 06/13 - (4) ATN (acute tubular necrosis): Sepsis-associated.Resolved however high concern for urine infection with leukocytosis and continue surveilence for pancreatic fluid collection infection, (5) Ileus: MiraLAX 17g PO daily as per GI recommendations Advancing diet slowly, still not resilient p.o. intake Dilaudid use is likely contributing now using Relistor Creon and Bentyl last day of ppn 06/07 (6) Severe protein-calorie malnutrition: Ongoing for 6-12 months or more. ?2nd to chronic JIMENA infection ?pancreatic mass -not confirmed or refuted on imagingfollow up with GI as outpatient as above Persistent poor postoperative p.o. intake instituted peripheral nutrition on 06/03 -06/07 with pharmacy oversight. 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 Saw pulmonary in fall 2018 - patient declined additional work-up and treatment at that time. (8) Essential (primary) hypertension: restart metoprolol due to ongoing tachycardia Continue lisinopril. (9) Tachycardia: Restart metoprolol as above (10) DVT prophylaxis: heparin 5000 BID, pt has some calf pain on 06/07 negative Doppler for DVT continue heparin therapy Overall her prolonged hospital stay of 14 days and poor nutritional advancement likely make half-way placement inevitable for this patient Admission and Anticipated Discharge Date Admission Date: May 25, 2020 Subjective c.diff negative 06/03 this pt continues to improve, her appetite is not as robust as we would like we did begin treating uti. urine culture grew enterococcus and coag neg staph will treat both with daptomycin started on 06/06 also Zosyn per surgery x7 days started on 06/03 on 06/07 complains of right calf pain, negative Doppler for DVT Review of Systems Review of Systems: Moderate distress and fatigue no headache, blurry or double vision no speech or swallowing issues no chest pain, pressure or palpitations no shortness of breath, cough or wheezes Continues with generalized abdominal pain, mild nausea without vomiting, abdominal discomfort usually worsened after eating abdominal feels firm no dysuria, hematuria or frequency Right leg pain mostly calf pain no back pain, CVA tenderness or radicular pain no bruising, bleeding or rashes no focal signs of weakness or numbness or altered sensation no complaints or anxiety or depression. Physical Exam Physical Exam: The patient remains fatigued tired and apprehensive about eating Vital signs as documented. Head exam is normocephalic atraumatic no scleral icterus Neck is without JVD, thyromegaly, or carotid bruits. Lungs are clear diminished at the bases is able to have better air movement on 06/04 Cardiac exam, Rhythm is regular.. No murmurs, rubs or gallops. Abdominal exam reveals normal bowel sounds with less tenderness feels somewhat firm mostly tender in the right upper quadrant Extremities are mildly edematous and both pedal pulses are normal right calf discomfort negative for DVT by Doppler Neurologic exam is alert and oriented, no focal loss of strength or sensation Skin is without bruises or rashes Psychologically is without concerns for anxiety or depression Results & Data Results & Data ([facility]) Vital Signs (Past 12 Hours) Vital Signs Temp Pulse Resp BP Pulse Ox 06/07/20 23:33 97.5 F L 89 18 135/66 95 PG Care Time/CCT Total # of Minutes Spent Total Time Spent with Patient: Total time spent is greater than 50% in coordination of care (as documented) at patient's floor/unit and/or counseling patient: Coding Level of Care Code 01684 Subseq Hosp Care Lvl 3 Diagnoses Acute pancreatitis K85.92 Acute pancreatitis complication: infected necrosis Pancreatitis type: unspecified pancreatitis type Choledocholithiasis K80.50 Sepsis A41.9; R65.20 Sepsis acute organ dysfunction status: with acute organ dysfunction Sepsis type: sepsis due to unspecified organism Severe sepsis acute organ dysfunction type: unspecified Severe sepsis shock status: without septic shock ATN (acute tubular necrosis) N17.0 Ileus K56.7 Severe protein-calorie malnutrition E43 JIMENA (mycobacterium avium-intracellulare) A31.0 Essential (primary) hypertension I10 Tachycardia R00.0 DVT prophylaxis Z29.9 (1) Sepsis Sepsis acute organ dysfunction status: with acute organ dysfunction Sepsis type: sepsis due to unspecified organism Severe sepsis acute organ dysfunction type: unspecified Severe sepsis shock status: without septic shock Qualified Code(s): A41.9 - Sepsis, unspecified organism; R65.20 - Severe sepsis without septic shock (2) Acute pancreatitis Acute pancreatitis complication: infected necrosis Pancreatitis type: unspecified pancreatitis type Qualified Code(s): K85.92 - Acute pancreatitis with infected necrosis, unspecified
--- NOTE | 2020-06-08 08:12 | Ultrasound Report ---
LEFT LOWER EXTREMITY VENOUS DOPPLER HISTORY: Left calf pain COMPARISON STUDY: None. FINDINGS: There is normal compressibility, flow, and augmentation within the left lower extremity devin p venous system. IMPRESSION: No DVT within the left lower extremity. ACT 112: Negative or not required by law. Electronically signed by: Anthony Lang M.D. 06/08/2020 8:11 AM
[2020-06-08] MEDS: METOPROLOL TARTRATE 25 MG TAB PO SCH ×2 (08:47→20:43)
[2020-06-08] MEDS: HEPARIN SOD 5,000 UNIT/0.5 ML VIAL SQ SCH ×2 (08:48→20:45)
[2020-06-08] MEDS: lisinopriL 20 MG TAB PO SCH (08:49)
[2020-06-08] MEDS: PANTOprazole 40 MG TAB PO SCH (08:49)
[2020-06-08] MEDS: DICYCLOMINE HCL 10 MG CAP PO SCH ×3 (08:50→20:43)
[2020-06-08] MEDS: DAPTOmycin 200 MG in SYRINGE 0 ML IV SCH (09:36)
--- NOTE | 2020-06-08 14:56 | Surgery Progress Note ---
Date of Service June 08, 2020 Assessment & Plan (1) Acute cholecystitis due to biliary calculus: POD # 11 s/p laparoscopic cholecystectomy -starting to regain appetite. On full liquids. If continues to tolerate, OK to advance. On boost supplement. PPN stopped 06/07. - UTI - enterococcus and coag neg staph - Repeat CT scan on 06/03/2020 showing interval development of an irregular fluid collection in the region of the pancreatic head, likely representing an acute necrotic collection. There are no gas bubbles present within the collection to indicate infection. - Transitioned to IV Zosyn on 06/03/2020. Plan: GI recommending IV abx for pancreatic head necrotic collection. May need IR drainage if leukocytosis increases or concern for increasing size of collection. Repeat CT scan in 4 weeks recommended No acute surgical intervention recommended Prolonged postoperative course given malnutrition and deconditioning Continue PT/OT On Daptomycin for coag neg staph in urine culture continue medical management continue incentive spirometry Continue SCDs/Heparin for DVT prophylaxis On full liquid diet, OK to advance as tolerated. Subjective Feeling much better. Was able to eat most of her tray today. No complaints of abdominal pain. Review of Systems Review of Systems: All systems reviewed & are unremarkable except as noted in HPI & below Physical Exam Constitutional: WD/WN, vitals as above Respiratory: normal respiratory effort, lungs clear to auscultation Cardiovascular: RRR, no murmur, no edema Gastrointestinal (Abdomen): Inspection/Auscultation: normal bowel sounds Percussion/Palpation: + abdomen tender (epigastrium), + guarding (mild) and abdomen soft; no abdominal mass incisions clean Neurologic: moves all extremities; no focal motor deficits Psychiatric: Orientation: alert and oriented x 3 Results & Data Vital Signs (Past 12 Hours) Vital Signs Temp Pulse Resp BP Pulse Ox 06/08/20 07:25 36.2 C L 101 H 16 162/65 H 97 Laboratory Results Abnormal lab results 06/08/20 Range/Units 05:13 BUN/Creatinine Ratio 22.6 H (10-20) Calcium 7.8 L (8.5-10.1) mg/dl
[2020-06-08] MEDS ORDERED: MELATONIN 3 MG TAB PO ONE (21:00)
[2020-06-09] MEDS: PIPERACILLIN/TAZOBACTAM 3.375 GM in DEXTROSE 5% 100 ML IV SCH ×3 (01:27→18:41)
[2020-06-09] MEDS: METOPROLOL TARTRATE 25 MG TAB PO SCH ×2 (09:25→20:19)
[2020-06-09] MEDS: PANCREAZE (LIPASE 10,500U) CAP PO SCH ×3 (09:25→15:26)
[2020-06-09] MEDS: DICYCLOMINE HCL 10 MG CAP PO SCH ×3 (09:25→20:19)
[2020-06-09] MEDS: PANTOprazole 40 MG TAB PO SCH (09:25)
[2020-06-09] MEDS: HEPARIN SOD 5,000 UNIT/0.5 ML VIAL SQ SCH ×2 (09:26→20:18)
[2020-06-09] MEDS: lisinopriL 20 MG TAB PO SCH (09:26)
[2020-06-09 09:51] LABS: Basophils # (auto) 0.05 K/uL (0-0.2); Basophils % (auto) 0.8 %; Eosinophils # (auto) 0.09 K/uL (0-0.5); Eosinophils % (auto) 1.4 %; Hemoglobin 10.2 g/dL (12.0-16.0); Immature Granulocytes # (auto) 0.03 K/uL (0.00-0.02); Immature Granulocytes % (auto) 0.5 %; Lymphocytes # (auto) 0.88 K/uL (1.2-3.4); Lymphocytes % (auto) 13.2 %; Mean Corpuscular Hemoglobin 28.7 pg (25-34); Mean Corpuscular Hgb Conc 32.9 g/dL (32-36); Mean Corpuscular Volume 87.1 fL (80-100); Mean Platelet Volume 8.5 fL (7.4-10.4); Monocytes # (auto) 0.45 K/uL (0.11-0.59); Monocytes % (auto) 6.8 %; Neutrophils # (auto) 5.16 K/uL (1.4-6.5); Neutrophils % (auto) 77.3 %; Platelet Count 543 K/uL (130-400); RDW Coefficient of Variation 14.3 % (11.5-14.5); RDW Standard Deviation 45.1 fL (36.4-46.3); Red Blood Count 3.56 M/uL (4.2-5.4); White Blood Count 6.66 K/uL (4.8-10.8)
[2020-06-09 10:25] LABS: Albumin Level 1.8 gm/dl (3.4-5.0); BUN Creatinine Ratio 15.2 (10-20); Calcium 8.1 mg/dl (8.5-10.1); Creatinine Clr Calc Pharmacy 46.1 ml/min; Est GFR (African American) 91.2; Est GFR (Non-African American) 78.6; Potassium 3.5 mmol/L (3.5-5.1)
[2020-06-09 10:28] LABS: Albumin Globulin Ratio 0.5 (0.9-2); Bilirubin,Total 0.4 mg/dl (0.2-1); Globulin 3.5 gm/dl (2.5-4.0); Total Protein 5.3 gm/dl (6.4-8.2)
[2020-06-09] MEDS: DAPTOmycin 200 MG in SYRINGE 0 ML IV SCH (10:55)
--- NOTE | 2020-06-09 12:12 | Surgery Progress Note ---
Date of Service pt is stable, poor nutrition, no abdominal pain, no nausea, no vomiting, no fever, normal WBC, June 09, 2020 Assessment & Plan (1) Acute cholecystitis due to biliary calculus: POD # 112 s/p laparoscopic cholecystectomy -starting to regain appetite. On full liquids. If continues to tolerate, OK to advance. On boost supplement. PPN stopped 06/07. - UTI - enterococcus and coag neg staph - Repeat CT scan on 06/03/2020 showing interval development of an irregular fluid collection in the region of the pancreatic head, likely representing an acute necrotic collection. There are no gas bubbles present within the collection to indicate infection. - Transitioned to IV Zosyn on 06/03/2020. Plan: GI recommending IV abx for pancreatic head necrotic collection. may stop zosyn on 06/12/2020 if WBC normal no fever. May need IR drainage if leukocytosis increases or concern for increasing size of collection. may need transfer to Tertiary for drainage. Repeat CT scan in 4 weeks recommended No acute surgical intervention recommended Prolonged postoperative course given malnutrition and deconditioning Continue PT/OT On Daptomycin for coag neg staph in urine culture continue medical management continue incentive spirometry Continue SCDs/Heparin for DVT prophylaxis On full liquid diet, OK to advance as tolerated. sign off today, please call with questions, Thanks, Supervising Physician Co-Signing Physician Notes I saw and evaluated the patient. She presented with gallstone pancreatitis and underwent ERCP last week in addition to cholecystectomy. We were consulted with regard to persistent discomfort and a fluid collection seen around her pancreas. The patient notes that she has persistent postprandial discomfort without fevers and she denies having nausea or vomiting today. She reports having liquid stools several times per day but not passing much gas. She is on chronic pain medications for her pancreatitis and was given a dose of Relistor yesterday. Physical exam Elderly female, wasted appearing Abdomen: Mild tenderness, protuberant, but he noted Bilateral lower extremity edema noted Impression: Patient presented with gallstone pancreatitis now with symptoms that seem to be related to an persistent ileus. Would attempt to try and minimize narcotics and continue with Relistor as you are doing. The patient does have a 7 cm magdy-pancreatic fluid collection at this point it would be too early to recommended intervention on this. Recommendations Bentyl 10 mg 3 times daily Try to minimize use of narcotics Continue use of Relistor Recommend screening for C. difficile infection Subjective c.diff negative 06/03 this pt continues to improve, her appetite is not as robust as we would like we did begin treating uti. urine culture grew enterococcus and coag neg staph will treat both with daptomycin started on 06/06 also Zosyn per surgery x7 days started on 06/03 on 06/07 complains of right calf pain, negative Doppler for DVT Review of Systems Constitutional: as per Subjective / HPI Eyes: as per Subjective / HPI Ear, Nose, Mouth, Throat: as per Subjective / HPI Respiratory: as per Subjective / HPI Cardiovascular: as per Subjective / HPI Additional Comments: HTN, abnormal EKG Gastrointestinal: as per Subjective / HPI Genitourinary: as per Subjective / HPI Musculoskeletal: as per Subjective / HPI Integumentary: as per Subjective / HPI Neurologic: as per Subjective / HPI Psychiatric: as per Subjective / HPI Endocrine: as per Subjective / HPI Hematologic / Lymphatic: as per Subjective / HPI Allergy / Immunological: as per Subjective / HPI Physical Exam Constitutional: WD/WN, vitals as above well developed and + ill appearing Eyes: PERRL, conjunctivae normal, anicteric sclerae ENMT: external ear and nose normal, oropharynx normal Neck: trachea midline, no thyromegaly Respiratory: normal respiratory effort, lungs clear to auscultation Cardiovascular: RRR, no murmur, no edema Rate/Rhythm: regular rate and regular rhythm Heart Sounds: normal S1 and normal S2 Gastrointestinal (Abdomen): normal bowel sounds, soft, nontender, no hepatosplenomegaly Percussion/Palpation: abdomen soft Musculoskeletal: no cyanosis or clubbing, extremities motor strength 5/5 Skin: no rashes, warm and dry Neurologic: patellar DTR's 2+ bilat, sensation intact awake Psychiatric: Orientation: alert and oriented x 3 Results & Data Vital Signs (Past 12 Hours) Vital Signs Temp Pulse Resp BP Pulse Ox 06/09/20 07:25 36.4 C L 93 H 18 183/74 H 97 Laboratory Results Abnormal lab results 06/09/20 06/09/20 Range/Units 09:37 09:37 RBC 3.56 L (4.2-5.4) M/uL Hgb 10.2 L (12.0-16.0) g/dL Hct 31.0 L (37-47) % Plt Count 543 H (130-400) K/uL Lymph # (Auto) 0.88 L (1.2-3.4) K/uL Immature Gran # (Auto) 0.03 H (0.00-0.02) K/uL Glucose 108 H (70-99) mg/dl Calcium 8.1 L (8.5-10.1) mg/dl Alkaline Phosphatase 21 L (45-117) U/L Total Protein 5.3 L (6.4-8.2) gm/dl Albumin 1.8 L (3.4-5.0) gm/dl Albumin/Globulin Ratio 0.5 L (0.9-2)
[2020-06-09] MEDS: METHYLNALTREXONE BROMIDE 12 MG/0.6 ML VIAL SQ SCH (15:26)
--- NOTE | 2020-06-09 15:48 | Hospitalist Progress Note ---
Date of Service June 09, 2020 Assessment & Plan (1) Acute pancreatitis: Secondary to choledocholithiasis, s/p ERCP lipase recheck 06/03 Patient with very poor nutrition postoperatively with moderate to severe protein malnutrition did require PPN for approximately 5 days. Antibiotics changed to Zosyn therapy white count reduced last dose 06/01/[address] scan on 06/03 IMPRESSION: 1. Interval development of bilateral pleural effusions 2. Interval placement of biliary and pancreatic stents 3. Decreasing peripancreatic inflammatory stranding 4. Interval development of an irregular fluid collection in the region of the pancreatic head, likely representing an acute necrotic collection. There are no gas bubbles present within the collection to indicate infection. 5. No evidence of bowel obstruction. No evidence of free air 6. Rectosigmoid bowel wall edema. There is also evidence for edema within several small bowel loops. 7. Diffuse body wall edema 8. Uterine fibroids 9. Focus of decreased attenuation involving the periphery of the right kidney, possibly representing a renal infarct Continue Bentyl and Creon along with continued antibiotic and supportive care per GI. If intervention is required for pancreatic collection would need to transfer to tertiary care for IR - at this time no indicators of worsening infection - VSS, no leukocytosis GI planning for outpt f/u in 4 weeks for stent removal and EUS for eval of possible mass (2) Choledocholithiasis: s/p ERCP with pancreatic and biliary stent placement on 05/26 with significant improvement in serum markers 05/28/20 lap cholecystectomy GI planning for out pt f/u in 4 weeks for stent removal and EUS for eval of possible mass Surgery has signed off (3) Sepsis: Suspected on admission -With persistent leukocytosis changed to Zosyn therapy on 06/03/2020 some improvement of leukocytosis, complete 7 days of zosyn Urine shows enterocccus staph UTI may explain leukocytosis seen earlier, changin g antibiotics to daptomycin will treat for 7 days - last dose will be 06/13 (4) ATN (acute tubular necrosis): Sepsis-associated.Resolved (5) Ileus: MiraLAX 17g PO daily as per GI recommendations Advancing diet slowly, poor po intake this admission Dilaudid use is likely contributing -continue Relistor, Creon, and Bentyl last day of ppn 06/07 Patient has been having bowel movements (6) Severe protein-calorie malnutrition: Ongoing for 6-12 months or more. ?2nd to chronic JIMENA infection ?pancreatic mass -not confirmed or refuted on imagingfollow up with GI as outpatient as above Persistent poor postoperative p.o. intake instituted peripheral nutrition on 06/03 -06/07 with pharmacy oversight. 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 Saw pulmonary in fall 2018 - patient declined additional work-up and treatment at that time. (8) Essential (primary) hypertension: Continue metoprolol, lisinopril. (9) Tachycardia: Resolved, continue metoprolol (10) DVT prophylaxis: heparin 5000 BID, pt has some calf pain on 06/07 negative Doppler for DVT continue heparin therapy Plan is for [facility] after discharge Admission and Anticipated Discharge Date Admission Date: May 25, 2020 Subjective Ms. Benavides is very fatigued today. No specific complaints. ROS Constitutional: no chills, aches, sweats or fever Respiratory: no sob,cough, sputum, or wheezing Cardiac: no chest pain, palpitations, edema, orthopnea or lightheadedness GI: no abdominal pain, nausea, vomiting, diarrhea or constipation : no dysuria or hesitancy Extremities: no joint pain or weakness Skin: no rash All other systems reviewed and negative Physical Exam Physical Exam: General: no distress Eyes: normal inspection, PERLL Respiratory: chest non tender, clear to auscultation, normal breath sounds, no respiratory distress, no accessory muscle use Cardiac: regular rate and rhythm, no rub or gallop, no murmur, no edema, no jvd GI/: active bowel sounds, mild abdominal tenderness to palpation, soft, non distended Extremities: normal range of motion, normal strength, non tender Neuro/Psych: alert and oriented x 3, normal mood and affect Skin: normal color, dry Results & Data Results & Data ([facility]) Vital Signs (Past 12 Hours) Vital Signs Temp Pulse Resp BP BP Pulse Ox 06/09/20 15:15 36.3 C L 90 20 145/66 H 98 06/09/20 07:25 36.4 C L 93 H 18 183/74 H 97 PG Care Time/CCT Total # of Minutes Spent Total Time Spent with Patient: Total time spent is greater than 50% in coordination of care (as documented) at patient's floor/unit and/or counseling patient: Coding Level of Care Code 83645 Subseq Hosp Care Lvl 3 Diagnoses Acute pancreatitis K85.92 Acute pancreatitis complication: infected necrosis Pancreatitis type: unspecified pancreatitis type Choledocholithiasis K80.50 Sepsis A41.9; R65.20 Sepsis type: sepsis due to unspecified organism Sepsis acute organ dysfunction status: with acute organ dysfunction Severe sepsis acute organ dysfunction type: unspecified Severe sepsis shock status: without septic shock ATN (acute tubular necrosis) N17.0 Ileus K56.7 Severe protein-calorie malnutrition E43 JIMENA (mycobacterium avium-intracellulare) A31.0 Essential (primary) hypertension I10 Tachycardia R00.0 DVT prophylaxis Z29.9 (1) Acute pancreatitis Acute pancreatitis complication: infected necrosis Pancreatitis type: unspecified pancreatitis type Qualified Code(s): K85.92 - Acute pancreatitis with infected necrosis, unspecified (2) Sepsis Sepsis type: sepsis due to unspecified organism Sepsis acute organ dysfunction status: with acute organ dysfunction Severe sepsis acute organ dysfunction type: unspecified Severe sepsis shock status: without septic shock Qualified Code(s): A41.9 - Sepsis, unspecified organism; R65.20 - Severe sepsis without septic shock
[2020-06-10] MEDS: PIPERACILLIN/TAZOBACTAM 3.375 GM in DEXTROSE 5% 100 ML IV SCH ×2 (02:12→21:44)
[2020-06-10 06:29] LABS: Hematocrit (blood only) 29.2 % (37-47); Hemoglobin 9.7 g/dL (12.0-16.0); Mean Corpuscular Hgb Conc 33.2 g/dL (32-36); Mean Corpuscular Volume 87.4 fL (80-100); Mean Platelet Volume 8.6 fL (7.4-10.4); Platelet Count 579 K/uL (130-400); RDW Coefficient of Variation 14.4 % (11.5-14.5); RDW Standard Deviation 45.5 fL (36.4-46.3); Red Blood Count 3.34 M/uL (4.2-5.4); White Blood Count 5.96 K/uL (4.8-10.8)
[2020-06-10 06:49] LABS: Calcium 8.1 mg/dl (8.5-10.1); Creatinine Clr Calc Pharmacy 51.4 ml/min; Est GFR (African American) 94.5; Est GFR (Non-African American) 81.5; Potassium 3.3 mmol/L (3.5-5.1)
[2020-06-10] MEDS: PANCREAZE (LIPASE 10,500U) CAP PO SCH ×3 (08:06→16:55)
[2020-06-10] MEDS ORDERED: POTASSIUM CHLORIDE 20 MEQ TABCR PO ONE (09:00)
[2020-06-10] MEDS: lisinopriL 20 MG TAB PO SCH (09:51)
[2020-06-10] MEDS: DICYCLOMINE HCL 10 MG CAP PO SCH ×3 (09:51→20:23)
[2020-06-10] MEDS: PANTOprazole 40 MG TAB PO SCH (09:51)
[2020-06-10] MEDS: METOPROLOL TARTRATE 25 MG TAB PO SCH ×2 (09:51→20:23)
[2020-06-10] MEDS: HEPARIN SOD 5,000 UNIT/0.5 ML VIAL SQ SCH ×2 (09:56→20:23)
[2020-06-10] MEDS: DAPTOmycin 200 MG in SYRINGE 0 ML IV SCH (10:01)
[2020-06-10] MEDS ORDERED: POTASSIUM CHLORIDE 20 MEQ/15 ML UDC PO ONE (10:45)
--- NOTE | 2020-06-10 15:54 | Hospitalist Progress Note ---
Date of Service June 10, 2020 Assessment & Plan (1) Acute pancreatitis: Secondary to choledocholithiasis, s/p ERCP lipase recheck 06/03 Patient with very poor nutrition postoperatively with moderate to severe protein malnutrition did require PPN for approximately 5 days. Antibiotics changed to Zosyn therapy white count reduced last dose 06/01/2020 CT 06/03 showed irregular fluid collection in the region of the pancreatic head, likely representing an acute necrotic collection. There are no gas bubbles present within the collection to indicate infection. Continue Bentyl and Creon Zosyn to continue until 06/12 per surgery note and supportive care per GI. If intervention is required for pancreatic collection would need to transfer to tertiary care for IR - at this time no indicators of worsening infection - VSS, no leukocytosis for the past two days, no fevers. However, if patient continues to have fatigue and anorexia tomorrow may want to repeat CT to assess collection. GI planning for outpt f/u in 4 weeks for stent removal and EUS for eval of possible mass (2) Choledocholithiasis: s/p ERCP with pancreatic and biliary stent placement on 05/26 with significant improvement in serum markers 05/28/20 lap cholecystectomy GI planning for out pt f/u in 4 weeks for stent removal and EUS for eval of possible mass Surgery has signed off (3) Sepsis: Suspected on admission -With persistent leukocytosis changed to Zosyn therapy on 06/03/2020 some improvement of leukocytosis Urine shows enterocccus staph UTI may explain leukocytosis seen earlier, changing antibiotics to daptomycin will treat for 7 days - last dose will be 06/13 (4) ATN (acute tubular necrosis): Sepsis-associated.Resolved (5) Ileus: MiraLAX 17g PO daily as per GI recommendations Advancing diet slowly, poor po intake this admission Dilaudid use is likely contributing -continue Relistor, Creon, and Bentyl last day of ppn 06/07 Patient has been having bowel movements, 1-2 loose bms per day Cdiff was negative (6) Severe protein-calorie malnutrition: Ongoing for 6-12 months or more. ?2nd to chronic JIMENA infection ?pancreatic mass -not confirmed or refuted on imagingfollow up with GI as outpatient as above Persistent poor postoperative p.o. intake instituted peripheral nutrition on 06/03 -06/07 with pharmacy oversight. 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 Saw pulmonary in fall 2018 - patient declined additional work-up and treatment at that time. (8) Essential (primary) hypertension: Continue metoprolol, lisinopril. (9) Tachycardia: Resolved, continue metoprolol (10) DVT prophylaxis: heparin 5000 BID, pt has some calf pain on 06/07 negative Doppler for DVT bilaterally Plan is for [facility] after discharge Jose Miguel Monte updated over the phone Admission and Anticipated Discharge Date Admission Date: May 25, 2020 Subjective Ms. Benavides continues to be very fatigued but otherwise has no specific complaints. Tolerating her diet but has little appetite. Has been drinking her Boost supplement ROS Constitutional: no chills, aches, sweats or fever Respiratory: no sob,cough, sputum, or wheezing Cardiac: no chest pain, palpitations, edema, orthopnea or lightheadedness GI: no abdominal pain, nausea, vomiting, diarrhea or constipation : no dysuria or hesitancy Extremities: no joint pain or weakness Skin: no rash All other systems reviewed and negative Physical Exam Physical Exam: General: no distress Eyes: normal inspection, PERLL Respiratory: chest non tender, clear to auscultation, normal breath sounds, no respiratory distress, no accessory muscle use Cardiac: regular rate and rhythm, no rub or gallop, no murmur, bilateral lower extremity edema, no jvd GI/: active bowel sounds, mild lower abdominal tenderness to palpation, soft, non distended Extremities: normal range of motion, normal strength, non tender Neuro/Psych: alert and oriented x 3, normal mood and affect Skin: normal color, dry Results & Data Results & Data ([facility]) Vital Signs (Past 12 Hours) Vital Signs Temp Pulse Resp BP Pulse Ox 06/10/20 07:56 36.7 C 93 H 16 179/69 H 95 PG Care Time/CCT Total # of Minutes Spent Total Time Spent with Patient: Total time spent is greater than 50% in coordination of care (as documented) at patient's floor/unit and/or counseling patient: Coding Level of Care Code 73600 Subseq Hosp Care Lvl 3 Diagnoses Acute pancreatitis K85.92 Acute pancreatitis complication: infected necrosis Pancreatitis type: unspecified pancreatitis type Choledocholithiasis K80.50 Sepsis A41.9; R65.20 Sepsis type: sepsis due to unspecified organism Sepsis acute organ dysfunction status: with acute organ dysfunction Severe sepsis acute organ dysfunction type: unspecified Severe sepsis shock status: without septic shock ATN (acute tubular necrosis) N17.0 Ileus K56.7 Severe protein-calorie malnutrition E43 JIMENA (mycobacterium avium-intracellulare) A31.0 Essential (primary) hypertension I10 Tachycardia R00.0 DVT prophylaxis Z29.9 (1) Acute pancreatitis Acute pancreatitis complication: infected necrosis Pancreatitis type: unspecified pancreatitis type Qualified Code(s): K85.92 - Acute pancreatitis with infected necrosis, unspecified (2) Sepsis Sepsis type: sepsis due to unspecified organism Sepsis acute organ dysfunction status: with acute organ dysfunction Severe sepsis acute organ dysfunction type: unspecified Severe sepsis shock status: without septic shock Qualified Code(s): A41.9 - Sepsis, unspecified organism; R65.20 - Severe sepsis without septic shock
[2020-06-10] MEDS ORDERED: PIPERACILL/TAZOBAC CONSULT ACTIVE PRN (16:02)
[2020-06-10] MEDS ORDERED: PIPERACILLIN/TAZOBACTAM 3.375 GM in DEXTROSE 5% 100 ML IV STA (16:18)
[2020-06-11] MEDS: PIPERACILLIN/TAZOBACTAM 3.375 GM in DEXTROSE 5% 100 ML IV SCH ×3 (05:28→22:01)
[2020-06-11 06:37] LABS: Basophils # (auto) 0.06 K/uL (0-0.2); Eosinophils # (auto) 0.11 K/uL (0-0.5); Eosinophils % (auto) 1.9 %; Hemoglobin 10.1 g/dL (12.0-16.0); Immature Granulocytes # (auto) 0.02 K/uL (0.00-0.02); Immature Granulocytes % (auto) 0.3 %; Lymphocytes # (auto) 0.86 K/uL (1.2-3.4); Lymphocytes % (auto) 14.6 %; Mean Corpuscular Hemoglobin 28.9 pg (25-34); Mean Corpuscular Hgb Conc 32.6 g/dL (32-36); Mean Corpuscular Volume 88.6 fL (80-100); Mean Platelet Volume 8.6 fL (7.4-10.4); Monocytes # (auto) 0.75 K/uL (0.11-0.59); Monocytes % (auto) 12.8 %; Neutrophils # (auto) 4.08 K/uL (1.4-6.5); Neutrophils % (auto) 69.4 %; Platelet Count 610 K/uL (130-400); RDW Coefficient of Variation 14.6 % (11.5-14.5); RDW Standard Deviation 47.4 fL (36.4-46.3); White Blood Count 5.88 K/uL (4.8-10.8)
[2020-06-11 07:12] LABS: BUN Creatinine Ratio 10.4 (10-20); Calcium 8.4 mg/dl (8.5-10.1); Creatinine Clr Calc Pharmacy 47.5 ml/min; Est GFR (African American) 92.1; Est GFR (Non-African American) 79.4; Potassium 3.4 mmol/L (3.5-5.1)
[2020-06-11 07:15] LABS: Albumin Globulin Ratio 0.5 (0.9-2); Bilirubin,Total 0.4 mg/dl (0.2-1); Globulin 3.8 gm/dl (2.5-4.0); Total Protein 5.8 gm/dl (6.4-8.2)
[2020-06-11] MEDS: PANCREAZE (LIPASE 10,500U) CAP PO SCH ×3 (08:31→15:19)
[2020-06-11] MEDS: DICYCLOMINE HCL 10 MG CAP PO SCH ×3 (08:32→21:56)
[2020-06-11] MEDS: lisinopriL 20 MG TAB PO SCH (08:32)
[2020-06-11] MEDS: METOPROLOL TARTRATE 25 MG TAB PO SCH ×2 (08:32→21:57)
[2020-06-11] MEDS: PANTOprazole 40 MG TAB PO SCH (08:32)
[2020-06-11] MEDS: HEPARIN SOD 5,000 UNIT/0.5 ML VIAL SQ SCH ×2 (08:33→21:57)
[2020-06-11] MEDS ORDERED: POTASSIUM CHLORIDE 20 MEQ/15 ML UDC PO STA (09:01)
[2020-06-11] MEDS: DAPTOmycin 200 MG in SYRINGE 0 ML IV SCH (09:37)
[2020-06-11] MEDS ORDERED: SODIUM CHLORIDE 0.9% 500 ML IV SCH (12:15)
--- NOTE | 2020-06-11 15:52 | Hospitalist Progress Note ---
Date of Service June 11, 2020 Assessment & Plan (1) Acute pancreatitis: Secondary to choledocholithiasis, s/p ERCP lipase recheck 06/03 Patient with very poor nutrition postoperatively with moderate to severe protein malnutrition did require PPN for approximately 5 days. Antibiotics changed to Zosyn therapy white count reduced last dose 06/01/2020 CT 06/03 showed irregular fluid collection in the region of the pancreatic head, likely representing an acute necrotic collection. There are no gas bubbles present within the collection to indicate infection. Continue Bentyl and Creon Zosyn to continue until 06/12 per surgery note and supportive care per GI. If intervention is required for pancreatic collection would need to transfer to tertiary care for IR - at this time no indicators of worsening infection - VSS, no leukocytosis for the past two days, no fevers. However, patient is very fatigued with increasing inflammatory markers. Will recheck CT today. Will give 500 mls of fluid starting [address] to help protect her kidneys GI planning for outpt f/u in 4 weeks for stent removal and EUS for eval of possible mass (2) Choledocholithiasis: s/p ERCP with pancreatic and biliary stent placement on 05/26 with significant improvement in serum markers 05/28/20 lap cholecystectomy GI planning for out pt f/u in 4 weeks for stent removal and EUS for eval of possible mass Surgery has signed off (3) Sepsis: Suspected on admission -With persistent leukocytosis changed to Zosyn therapy on 06/03/2020 some improvement of leukocytosis Urine shows enterocccus staph UTI may explain leukocytosis seen earlier, changing antibiotics to daptomycin will treat for 7 days - last dose will be 06/13 (4) ATN (acute tubular necrosis): Sepsis-associated.Resolved (5) Ileus: MiraLAX 17g PO daily as per GI recommendations Advancing diet slowly, poor po intake this admission Dilaudid use is likely contributing -continue Creon, and Bentyl last day of ppn 06/07 Patient has been having bowel movements, 1-2 loose bms per day, discontinued relistor Cdiff was negative (6) Severe protein-calorie malnutrition: Ongoing for 6-12 months or more. ?2nd to chronic JIMENA infection ?pancreatic mass -not confirmed or refuted on imagingfollow up with GI as outpatient as above Persistent poor postoperative p.o. intake instituted peripheral nutrition on 06/03 -06/07 with pharmacy oversight. 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 Saw pulmonary in fall 2018 - patient declined additional work-up and treatment at that time. (8) Essential (primary) hypertension: Continue metoprolol, lisinopril. (9) Tachycardia: Resolved, continue metoprolol (10) DVT prophylaxis: heparin 5000 BID, pt has some calf pain on 06/07 negative Doppler for DVT bilaterally Plan is for [facility] after discharge Admission and Anticipated Discharge Date Admission Date: May 25, 2020 Subjective Ms. Benavides continues to be quite fatigued. She denies any pain. She is having trouble swallowing which is limiting her intake. ROS Constitutional: no chills, aches, sweats or fever Respiratory: no sob,cough, sputum, or wheezing Cardiac: no chest pain, palpitations, edema, orthopnea or lightheadedness GI: no abdominal pain, nausea, vomiting, diarrhea or constipation : no dysuria or hesitancy Extremities: no joint pain or weakness Skin: no rash All other systems reviewed and negative Physical Exam Physical Exam: General: no distress, frail appearing Eyes: normal inspection, PERLL Respiratory: chest non tender, clear to auscultation, normal breath sounds, no respiratory distress, no accessory muscle use Cardiac: regular rate and rhythm, no rub or gallop, no murmur, no edema, no jvd GI/: active bowel sounds, no abd pain or tenderness, soft, non distended Extremities: normal range of motion, normal strength, non tender Neuro/Psych: alert and oriented x 3, normal mood and affect Skin: pale, dry Results & Data Results & Data ([facility]) Vital Signs (Past 12 Hours) Vital Signs Temp Pulse Resp BP BP Pulse Ox 06/11/20 15:41 36.7 C 94 H 18 124/65 98 06/11/20 07:19 36.7 C 91 H 20 182/69 H 96 PG Care Time/CCT Total # of Minutes Spent Total Time Spent with Patient: Total time spent is greater than 50% in coordination of care (as documented) at patient's floor/unit and/or counseling patient: Coding Level of Care Code 53441 Subseq Hosp Care Lvl 3 Diagnoses Acute pancreatitis K85.92 Acute pancreatitis complication: infected necrosis Pancreatitis type: unspecified pancreatitis type Choledocholithiasis K80.50 Sepsis A41.9; R65.20 Sepsis type: sepsis due to unspecified organism Sepsis acute organ dysfunction status: with acute organ dysfunction Severe sepsis acute organ dysfunction type: unspecified Severe sepsis shock status: without septic shock ATN (acute tubular necrosis) N17.0 Ileus K56.7 Severe protein-calorie malnutrition E43 JIMENA (mycobacterium avium-intracellulare) A31.0 Essential (primary) hypertension I10 Tachycardia R00.0 DVT prophylaxis Z29.9 (1) Acute pancreatitis Acute pancreatitis complication: infected necrosis Pancreatitis type: unspecified pancreatitis type Qualified Code(s): K85.92 - Acute pancreatitis with infected necrosis, unspecified (2) Sepsis Sepsis type: sepsis due to unspecified organism Sepsis acute organ dysfunction status: with acute organ dysfunction Severe sepsis acute organ dysfunction type: unspecified Severe sepsis shock status: without septic shock Qualified Code(s): A41.9 - Sepsis, unspecified organism; R65.20 - Severe sepsis without septic shock
[2020-06-11 16:42] LABS: Hematocrit (blood only) 31.4 % (37-47); Hemoglobin 10.2 g/dL (12.0-16.0); Mean Corpuscular Hemoglobin 28.6 pg (25-34); Mean Corpuscular Hgb Conc 32.5 g/dL (32-36); Mean Platelet Volume 8.7 fL (7.4-10.4); Platelet Count 595 K/uL (130-400); RDW Coefficient of Variation 14.5 % (11.5-14.5); RDW Standard Deviation 46.6 fL (36.4-46.3); Red Blood Count 3.57 M/uL (4.2-5.4); White Blood Count 6.61 K/uL (4.8-10.8)
[2020-06-11] MEDS ORDERED: IOVERSOL 100ml IV PRN (19:20)
--- NOTE | 2020-06-11 19:42 | CT Scan Report ---
CT OF THE ABDOMEN AND PELVIS WITH CONTRAST CLINICAL HISTORY: necrotic pancreatitis COMPARISON STUDY: CT of the abdomen and pelvis June 03, 2020. TECHNIQUE: Following IV administration of 93 mL of Optiray-320, axial images of the abdomen and pelvi s were obtained from the lung bases to the proximal femurs. Images were reviewed in the axial, sagitt al, and coronal planes. IV contrast was administered without complication. Automated exposure contro l was utilized for the study. A dose lowering technique was utilized adhering to the principles of A TRISH. CT DOSE: 248.25 mGy.cm FINDINGS: Imaged portions of the lower chest demonstrate small to moderate bilateral pleural effusion s with associated atelectasis. These effusions have decreased since CT of June 03, 2020. Anasarca has also improved. Biliary and pancreatic ductal stents are in place. Pneumobilia is noted. There is no biliary ductal dilatation. No hepatic lesions are present. There are calcified granulomas within the spleen. The adrenal glands and left kidney are unremarkable. An ill-defined 1.4 cm hypodense focus wi thin the midpole of the right kidney has slightly decreased in conspicuity since prior CT. There is n o hydronephrosis. No pancreatic ductal dilatation is present. A large hypodense collection within the pancreatic head and uncinate process has mildly decreased in size since CT of June 03, 2020. This me asures 6.3 x 4.7 x 5 cm. It previously measured 7 x 7 x 6 cm. No new fluid collections are present. A ssociated mesenteric infiltration has slightly decreased. There is no evidence for a bowel obstructio n. Major vasculature is patent. A fibroid is incidentally noted. No suspicious osseous lesions are no princess. No pneumatosis, free air or portal venous gas is present. Right colon resection is noted. IMPRESSION: 1. Interval improvement since CT of June 03, 2020. Mild decrease in size of a large hypodense collect ion within the pancreatic head and uncinate process consistent with an acute necrotic collection. Dec rease in associated mesenteric fluid and infiltration with minimal enhancement. 2. Small to moderate bilateral pleural effusions which have decreased in size. Interval improvement i n anasarca. 3. Biliary and pancreatic ductal stents in place. ACT 112: Negative or not required by law. Electronically signed by: Suleman Salazar M.D. 06/11/2020 7:41 PM
[2020-06-12] MEDS: PIPERACILLIN/TAZOBACTAM 3.375 GM in DEXTROSE 5% 100 ML IV SCH (05:40)
[2020-06-12 06:39] LABS: Basophils # (auto) 0.05 K/uL (0-0.2); Basophils % (auto) 0.8 %; Eosinophils # (auto) 0.17 K/uL (0-0.5); Eosinophils % (auto) 2.8 %; Hematocrit (blood only) 30.9 % (37-47); Immature Granulocytes # (auto) 0.02 K/uL (0.00-0.02); Immature Granulocytes % (auto) 0.3 %; Lymphocytes % (auto) 16.6 %; Mean Corpuscular Hemoglobin 28.5 pg (25-34); Mean Corpuscular Hgb Conc 32.4 g/dL (32-36); Mean Platelet Volume 8.6 fL (7.4-10.4); Monocytes # (auto) 0.64 K/uL (0.11-0.59); Monocytes % (auto) 10.6 %; Neutrophils # (auto) 4.16 K/uL (1.4-6.5); Neutrophils % (auto) 68.9 %; Platelet Count 557 K/uL (130-400); RDW Coefficient of Variation 14.7 % (11.5-14.5); RDW Standard Deviation 47.2 fL (36.4-46.3); Red Blood Count 3.51 M/uL (4.2-5.4); White Blood Count 6.04 K/uL (4.8-10.8)
[2020-06-12 07:07] LABS: BUN Creatinine Ratio 8.8 (10-20); Calcium 8.3 mg/dl (8.5-10.1); Creatinine Clr Calc Pharmacy 47.5 ml/min; Est GFR (African American) 92.1; Est GFR (Non-African American) 79.4; Magnesium 1.7 mg/dl (1.8-2.4); Phosphorus 2.4 mg/dl (2.5-4.9); Potassium 3.4 mmol/L (3.5-5.1)
[2020-06-12] MEDS ORDERED: POTASSIUM CHLORIDE 20 MEQ/15 ML UDC PO ONE (09:45)
[2020-06-12] MEDS: PANCREAZE (LIPASE 10,500U) CAP PO SCH ×2 (10:44→13:28)
[2020-06-12] MEDS: lisinopriL 20 MG TAB PO SCH (10:44)
[2020-06-12] MEDS: PANTOprazole 40 MG TAB PO SCH (10:44)
[2020-06-12] MEDS: METOPROLOL TARTRATE 25 MG TAB PO SCH (10:45)
[2020-06-12] MEDS: DICYCLOMINE HCL 10 MG CAP PO SCH ×2 (10:45→13:28)
[2020-06-12] MEDS: HEPARIN SOD 5,000 UNIT/0.5 ML VIAL SQ SCH (10:45)
[2020-06-12] MEDS: DAPTOmycin 200 MG in SYRINGE 0 ML IV SCH (10:53)
[2020-06-12] MEDS ORDERED: MAGNESIUM OXIDE 400 MG TAB PO SCH (12:15)
--- NOTE | 2020-06-12 13:13 | Discharge Summary ---
Date of Service June 12, 2020 Admission HPI Per Admitting Provider Milady Benavides is an 84 year old woman with a PMH significant for hypertension and cecal volvulus with partial colectomy in 2018 she presents today with 1 day history of severe epigastric abdominal pain and nausea with vomiting. She was in her usual state of health up until this morning, she was out in the yard doing yard work yesterday, she lives by herself at home, her sister lives [place] within a baseball throw [place] of her house and her son also lives locally and checks in on her regularly. She is accompanied by her son at present who helps with a history as patient is in too much pain to give her history. Patient nurses no symptoms [place] the abdominal pain and vomiting, she says that she has not had fevers chills shortness of breath chest pain bowel changes urinary changes or any other concerns patient denies weight loss however her son says she has been steadily losing weight and muscle mass over the course of the last year or 2. He tells me that she has stopped eating solid food and is just eating a meal replacement liquid known as quotation [place]ah [place] quotation jonah she has not talked to her family about this but the son discovered it today when he went to see her at her house. On arrival to emergency department patient ascending extreme pain tachycardic hypertensive afebrile saturating well on room air no increased work of breathing or tachypnea. Lab work was significant for an elevated white count of 17.08 with hemoglobin of 16.2, elevated ESR of 25, hyponatremia 134, and an CHARANJIT with a creatinine of 1.3 above her normal baseline. Patient had elevated AST ALT at 105 and 91 respectively, and her lipase was 4736. CT abdomen was ordered which shows a possible mass or obstruction in the head of the pancreas, pancreatitis with possible necrosis. Patient was given 1 dose of Zosyn, a dose of morphine, and 1 L normal saline. On my evaluation patient was asked in extreme pain had difficulty having a conversation with me, patient was oriented to person place time and situation, patient did tell me very clearly that she would not want any extreme measures taken to save her life, she would not want chest compressions she would not want a breathing tube and she would not want any electrical shocks. She is since using any medication, her and son are both concerned about opiate pain medication, patient in the past is declined antibiotics. 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 An appointment with pulmonology patient declined treatment. Principal Diagnosis Pancreatitis Discharge Exam Constitutional + thin Respiratory normal respiratory effort, lungs clear to auscultation Cardiovascular RRR, no murmur, no edema Gastrointestinal (Abdomen) Inspection/Auscultation: abdomen normal to inspection and normal bowel sounds; abdomen not distended Percussion/Palpation: abdomen soft; abdomen nontender Musculoskeletal generalized weakness Skin no rashes, warm and dry Neurologic moves all extremities and awake Psychiatric A+Ox3, euthymic affect Discharge Data Allergies Allergy/AdvReac Type Severity Reaction Status Date / Time codeine Allergy Unknown ? Verified 05/24/20 22:19 Consultations 05/24/20 23:05 ED Decision to Admit Stat 05/25/20 20:51 Consult Gastroenterology Routine 05/26/20 13:13 Consult General Surgery Routine 06/04/20 12:27 Consult Gastroenterology Routine Procedures Performed Operation Date: 05/26/20 09:40 Actual Procedures p Endoscopic Retrograde Cholangiopancreatogram(Not Applicable) - Leora Rousseau MD Operation Date: 05/28/20 07:15 Actual Procedures p Laparoscopic Cholecystectomy(Not Applicable) - Edmund Izaguirre MD Ordered Studies 05/24/20 21:57 CT abd pelvis wo con Urgent 05/25/20 02:04 MR MRCP Urgent 05/26/20 FL ERCP biliary ductal Routine 06/03/20 12:27 CT abd pelvis IV con only Stat 06/07/20 15:41 US venous doppler LE RT Routine 06/07/20 20:56 US venous doppler LE LT Routine 06/11/20 12:12 CT abd pelvis IV con only Routine Hospital Course (1) Acute pancreatitis: Secondary to choledocholithiasis, s/p ERCP Lipase resolved to normal 06/03 Patient with very poor nutrition postoperatively with moderate to severe protein malnutrition did require PPN for approximately [address] 06/03 showed irregular fluid collection in the region of the pancreatic head, likely representing an acute necrotic collection. There are no gas bubbles present within the collection to indicate infection. Continue Bentyl and Creon Zosyn given unitl 06/12 per surgery recommendation - 8 day regimen provided - and supportive care per GI. Patient is improving - no leukocytosis, no fever, repeat CT 06/11 showed interval improvement of collection and mesenteric edema. If patient were to decline and intervention is required for pancreatic collection would need to transfer to tertiary care for IR GI planning for outpt f/u in 4 weeks for stent removal and EUS for eval of possible mass (2) Choledocholithiasis: s/p ERCP with pancreatic and biliary stent placement on 05/26 with significant improvement in serum markers 05/28/20 lap cholecystectomy GI planning for out pt f/u in 4 weeks for stent removal and EUS for eval of poss ible mass Surgery has signed off (3) Sepsis: Suspected on admission -With persistent leukocytosis - Zosyn therapy as above with resolution of leukocytosis Urine shows enterocccus staph UTI may explain leukocytosis seen earlier, changing antibiotics to daptomycin will treat for 7 days - last dose was 06/12 (4) ATN (acute tubular necrosis): Sepsis-associated.Resolved (5) Ileus: MiraLAX 17g PO daily as per GI recommendations Advancing diet slowly, poor po intake this admission Dilaudid use was likely contributing and has been discontinued -continue Creon, and Bentyl last day of ppn 06/07 Patient has been having bowel movements, 1-2 loose bms per day, discontinued Relistor Cdiff was negative (6) Severe protein-calorie malnutrition: Ongoing for 6-12 months or more. ?2nd to chronic JIMENA infection ?pancreatic mass -not confirmed or refuted on imagingfollow up with GI as outpatient as above Persistent poor postoperative p.o. intake instituted peripheral nutrition on 06/03 -06/07 with pharmacy oversight. 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 Saw pulmonary in fall 2018 - patient declined additional work-up and treatment at that time. (8) Essential (primary) hypertension: Continue metoprolol, lisinopril. (9) Tachycardia: Resolved, continue metoprolol (10) DVT prophylaxis: heparin 5000 BID while inpatient, pt had some calf pain on 06/07 negative Doppler for DVT bilaterally Dispo: Patient continues to have significant fatigue. Given that all of her labs and imaging show improvement and vital signs are stable with no fevers, her deconditioning is probably the source of her fatigue and discharging to start rehab the best next step. Blood cultures were drawn given her fatigue yesterday 06/11 and are pending, however I think it is very unlikely that a bacteremia is the source of her exhaustion as she completed a course of Zosyn and daptomycin today. Patient's son Lavell updated. She will go to [facility] after discharge Total Time Total Time Spent Total Time Spent (In Minutes): greater than 30 minutes Discharge Plan Discharge Items Patient Disposition: Transfer Inpatient Rehab Fac Reason For Visit: ACUTE PANCREATITIS Discharge Diagnosis: Acute pancreatitis Condition on Discharge: Good Activity: Resume your previous activity Non-emergency contact: Primary Care Provider and Surgeon Call non-emergency contact if: you have any medication questions and your symptoms worsen Follow-up/Referrals: David Lee MD [Primary Care Provider] - Diet: Low Fiber and Low Fat Diet Comment: advance diet as tolerated, slippery minced and moist Addtl Attending Provider Instructions: (1) Acute pancreatitis: Secondary to choledocholithiasis, status post ERCP Lipase elevation resolved on 06/03 Patient with very poor nutrition postoperatively with moderate to severe protein malnutrition did require PPN for approximately 5 days. Antibiotics changed to Zosyn therapy white count reduced last dose 06/01/2020 CT 06/03 showed irregular fluid collection in the region of the pancreatic head, likely representing an acute necrotic collection. There are no gas bubbles present within the collection to indicate infection. Repeat CT 06/11 showed interval improvement with decrease in the hypodense collection within the pancreatic head. No further intervention is necessary as patient is improving however if patient were to become febrile with increased leukocytosis she would need to be referred to tertiary care for IR drainage of the collection. Antibiotics completed 06/12 - Continue Bentyl and Creon - follow up with gastroenterology outpatient follow up in 4 weeks for stent rem oval and EUS for eval of possible mass. Will need repeat CT in 4 weeks (2) Choledocholithiasis: s/p ERCP with pancreatic and biliary stent placement on 05/26 with significant improvement in serum markers 05/28/20 lap cholecystectomy GI planning for out pt f/u in 4 weeks for stent removal and EUS for eval of possible mass (3) Sepsis: Suspected on admission -With persistent leukocytosis changed to Zosyn therapy on 06/03/2020 some improvement of leukocytosis Urine shows enterocccus staph UTI may explain leukocytosis seen earlier, daptomycin given for 7 days - last dose was 06/12 (4) ATN (acute tubular necrosis): Sepsis-associated.Resolved (5) Ileus: Continue MiraLAX 17g PO daily as per GI recommendations Advancing diet slowly, poor po intake this admission -continue Creon, and Bentyl last day of PPN was 06/07 and albumin remains low but better (around 2) Patient has been having bowel movements, 1-2 loose bms per day, discontinued relistor 06/11 Cdiff was negative (6) Severe protein-calorie malnutrition: Ongoing for 6-12 months or more. Possibly secondary to chronic JIMENA infection Questionable pancreatic mass -not confirmed or refuted on imagingfollow up with GI as outpatient as above Persistent poor postoperative p.o. intake instituted peripheral nutrition on 06/03 -06/07 with pharmacy oversight. 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 Saw pulmonary in fall 2018 - patient declined additional work-up and treatment at that time. (8) Essential (primary) hypertension: Continue metoprolol, lisinopril. Post-Surgical ~Discharge Instructions Activity Recommendations: - lifting limitation: (25 pounds for 3-4 weeks), - exercise/sex/sports limit: (nonstrenuous for 2 weeks or until cleared by surgeon - driving or machine use limit: (none for 1 week), - Shower/bathe limit: (may shower) Diet: - Resume previous diet SPECIAL CARE INSTRUCTIONS: - May shower. Let water run over area and pat dry. - Leave steri strips on for one week and then remove - Call the surgeon's office with any questions or concerns - - (ex. temperature higher than 101 degrees F, excessive bleeding or pain). MEDICATIONS: - Resume previous medications unless instructed otherwise by your surgeon. - May alternate extra strength Tylenol and Ibuprofen as needed for pain. - Ibuprofen 600 mg every 6 hours as needed (Take with food) - Tylenol 500 mg every 6 hours as needed FOLLOW UP VISIT: - If not already scheduled, please call the office to schedule a two week follow-up appointment. Office number Pending Studies at Discharge: No Stand-Alone Forms: My [facility] Skilled Items Patient informed of condition?: Yes DNR: Yes Discharge Level of Care: Acute rehab Communicable Disease: No Discharge Prognosis: Stable Lines: None Urinary Catheter: No Medications and DC Order Prescriptions: New acetaminophen 325 mg Tablet 650 mg PO Q4H PRN (Reason: pain) Qty: 60 RF: 0 dicyclomine 10 mg Capsule 10 mg PO TID Qty: 30 RF: 0 Creon 36,000-114,000- 180,000 unit Capsule,Delayed Release(Dr/Ec) 1 cap PO AC Qty: 90 RF: 0 magnesium oxide 400 mg (241.3 mg magnesium) Tablet 400 mg PO BID Qty: 60 RF: 0 pantoprazole 40 mg Tablet,Delayed Release (Dr/Ec) 40 mg PO DAILY Qty: 30 RF: 0 potassium chloride 20 mEq packet 20 meq PO DAILY Qty: 30 RF: 0 Continued (DME) Flutter Valve Device See Dose Instructions .ROUTE .MEDSUPPLY Qty: 1 RF: 0 metoprolol tartrate 25 mg Tablet 25 mg PO BID Qty: 30 RF: 0 lisinopril 20 mg tablet 20 mg PO DAILY RF: 0 Discharge Orders: Discharge Order (Routine); Ordered 06/12/20 Ordered By: Dian Rose Admission Data Admit Date/Time: 05/25/20 00:37 Attending Provider: Terry Soares Admit Provider: Cipriano Gannon Primary Care Provider: David Lee Other Providers: [facility] ; Diogenes Pruitt ; Myah Andrews ; Edmund Izaguirre ; Ana Lilia Saavedra ; Cecilia Law ; Natasha Mccann ; Codi Zhu ; Bhupinder Hurtado ; Nadege Valle ; Jessica Manzanares ; Gwen Alvarado ; Carlos Wood ; Thuan Redmond ; Yoli Dawn ; Mariann Altamirano ; Shana Bettencourt ; Leora Rousseau Other Interventions: Discharge Summary Assessment (RN) Last Done: 06/12/20 14:15 DC Date/Time DO NOT enter until pt leaves facility: 06/12/20 15:00 Supervising Physician Co-Signing Physician Notes I supervised Dian Rose NP on this patient's care. I examined the patient today independently of her. I discussed the plan of care with her with the plan being as written in her note except for any following changes/exceptions: None. Still with fatigue today, but localizing complaints. CT a/p from yesterday shows improvement in the necrotic area and reduced swelling. Overall, she is ready for discharge and rehab can hopefully work on her nutrition and functional status. Coding Level of Care Code D/C Day Management >30 mins Diagnoses Acute pancreatitis K85.92 Acute pancreatitis complication: infected necrosis Pancreatitis type: unspecified pancreatitis type Choledocholithiasis K80.50 Sepsis A41.9; R65.20 Sepsis acute organ dysfunction status: with acute organ dysfunction Sepsis type: sepsis due to unspecified organism Severe sepsis acute organ dysfunction type: unspecified Severe sepsis shock status: without septic shock ATN (acute tubular necrosis) N17.0 Ileus K56.7 Severe protein-calorie malnutrition E43 JIMENA (mycobacterium avium-intracellulare) A31.0 Essential (primary) hypertension I10 Tachycardia R00.0 DVT prophylaxis Z29.9
== END 2020-06-12 15:00 | DRG 853 ==
LOC: ED 21:00 → 2S 05-25 00:37 → SUATTDRO 05-25 00:37 → 2S 05-25 01:46 → 3N 05-31 14:50

== ENCOUNTER 2020-08-08 10:55 | Inpatient (IN) ==
[2020-08-08] MEDS ORDERED: ONDANSETRON INJ 2 MG/ML 2 ML VIAL IV STA (11:35)
[2020-08-08] MEDS ORDERED: HYDROmorphone INJ 0.5 MG/0.5 ML SYR IV PRN (11:35)
[2020-08-08] MEDS ORDERED: SODIUM CHLORIDE 0.9% 1000ML 500 ML IV ONE ×2 (11:35→13:55)
[2020-08-08 12:05] LABS: Basophils # (auto) 0.01 K/uL (0-0.2); Hematocrit (blood only) 39.6 % (37-47); Hemoglobin 12.7 g/dL (12.0-16.0); Immature Granulocytes # (auto) 0.05 K/uL (0.00-0.02); Immature Granulocytes % (auto) 0.2 %; Lymphocytes # (auto) 0.86 K/uL (1.2-3.4); Lymphocytes % (auto) 4.2 %; Mean Corpuscular Hemoglobin 26.8 pg (25-34); Mean Corpuscular Hgb Conc 32.1 g/dL (32-36); Mean Corpuscular Volume 83.7 fL (80-100); Mean Platelet Volume 8.6 fL (7.4-10.4); Monocytes # (auto) 0.37 K/uL (0.11-0.59); Monocytes % (auto) 1.8 %; Neutrophils # (auto) 18.96 K/uL (1.4-6.5); Neutrophils % (auto) 93.8 %; Platelet Count 560 K/uL (130-400); RDW Coefficient of Variation 14.2 % (11.5-14.5); RDW Standard Deviation 43.6 fL (36.4-46.3); Red Blood Count 4.73 M/uL (4.2-5.4); White Blood Count 20.25 K/uL (4.8-10.8)
[2020-08-08 12:19] LABS: iSTAT Creatinine 0.8 mg/dl (0.6-1.3); iSTAT Hemoglobin 13.9 g/dl (12.0-16.0); iSTAT Ionized Calcium 1.21 mmol/l (1.12-1.32); iSTAT Potassium 4.6 mmol/L (3.3-5.0)
[2020-08-08 12:22] LABS: Alanine Aminotransferase 20 U/L (12-78); Albumin Level 3.3 gm/dl (3.4-5.0); Aspartate Aminotransferase 16 U/L (15-37); BUN Creatinine Ratio 21.5 (10-20); Blood Urea Nitrogen 21 mg/dl (7-18); Calcium 9.5 mg/dl (8.5-10.1); Carbon Dioxide 31 mmol/L (21-32); Chloride 100 mmol/L (98-107); Est GFR (African American) 60.1; Est GFR (Non-African American) 51.9; Glucose 128 mg/dl (70-99); Potassium 4.6 mmol/L (3.5-5.1); Sodium 137 mmol/L (136-145)
[2020-08-08 12:25] LABS: Albumin Globulin Ratio 0.7 (0.9-2); Alkaline Phosphatase 24 U/L (45-117); Bilirubin,Total 0.6 mg/dl (0.2-1); Globulin 4.7 gm/dl (2.5-4.0); Lipase 11721 U/L (73-393)
[2020-08-08] MEDS ORDERED: IOVERSOL 100ml IV ONE (12:29)
--- NOTE | 2020-08-08 12:32 | Emergency Department Note ---
History of Present Illness General Chief complaint: Abdominal Pain Stated complaint: LOWER ABD PAIN Time Seen by Provider: 08/08/20 11:04 Source: patient, family, RN notes reviewed and old records reviewed Mode of arrival: ambulatory Limitations: no limitations History of Present Illness Provider complaint: Abdominal pain Onset (ago): day(s) 1 Location: abdomen Radiation: back Severity: severe Pain Consistency: + constant Maximum Pain Intensity: 10 Current Pain Intensity: 10 Quality: + stabbing Relieved By: + immobilization Exacerbated By: + movement Associated symptoms: + nausea/vomiting; no chest pain and no loss of appetite Treatments prior to arrival: none This is an 85-year-old female who presents emergency department complaining of severe abdominal pain. Patient reports the pain started this morning and has been getting increasingly worse. Patient does have a history of a volvulus. She describes the pain as a sharp sensation radiating into her back. She reports immobilization makes the pain better however movement makes the pain much worse. She has not taken anything for the pain. Home Medications Home Medications Medication Instructions Recorded Confirmed Type metoprolol tartrate 25 mg PO BID #30 tab 11/23/18 08/08/20 Rx Flutter Valve #1 ea 07/27/19 11/26/19 Rx lisinopril 20 mg PO QAM 05/24/20 08/08/20 History dicyclomine 10 mg PO TID #30 cap 06/12/20 08/08/20 Rx magnesium oxide 400 mg PO BID #60 tab 06/12/20 08/08/20 Rx [id number] [Pancreaze] 1 cap PO AC 08/08/20 08/08/20 History pantoprazole 40 mg PO QAM 08/08/20 08/08/20 History potassium chloride 20 meq PO QAM 08/08/20 08/08/20 History Allergies Allergy/AdvReac Type Severity Reaction Status Date / Time No Known Allergies Allergy Verified 08/08/20 13:22 Past Med/Surg History Medical History (Updated 08/08/20 @ 15:38 by Main Blancas MD) Anemia chronic, stable with hgb in the 10-11 range per chart review GERD (gastroesophageal reflux disease) Hx of pancreatitis Hypertension Memory problem Osteoarthritis Poor historian information obtained from son Surgical History History of anesthesia reaction INCREASED CONFUSION History of cataract surgery History of cholecystectomy History of ERCP History of hemicolectomy "INTESTINES COLLAPSED" History of tooth extraction Family History Unknown Family history non-contributory Social History Smoking Status: Never smoker Second Hand Exposure: Yes (IN THE PAST); Hx Alcohol Use: Yes Alcohol type: wine Hx Substance Use: No Preferred Language: [place] Communication Ability: Effective Visual Impairment: No Limitations Residence Life Coordinator Required: No Beliefs That Will Affect Care: None marital status: / Current Living Situation: Alone current occupational status: retired Feels Safe at Home: Yes during the past year weight has: decreased > 10 lbs Review of Systems A total of 10 systems reviewed and were otherwise negative Physical Exam Vital Signs Vital Signs - 24 hr 08/08/20 10:59 08/08/20 11:40 08/08/20 12:00 Temperature 36.5 C Temperature Source Oral Pulse Rate 109 H 105 H Pulse Rate [Right Finger] Pulse Rate from SpO2 Sensor 104 H Pulse Rhythm Regular Pulse Strength Normal Respiratory Rate 18 31 H Respiratory Effort / Characteristics Non-Labored Spontaneous Respiratory Depth Normal Respiratory Pattern Regular Blood Pressure 142/89 H 190/170 H Blood Pressure [Right Arm] Blood Pressure Mean 106 181 Blood Pressure Mean [Right Arm] Blood Pressure Position Sitting Pulse Oximetry 97 95 92 Oxygen Delivery Method Room Air Room Air Sepsis Recent Fever Within 48 Hours No Sepsis New/Unexplained Change in Mental Status N/A Sepsis Action Taken by Nursing No Action Required 08/08/20 12:43 08/08/20 13:00 08/08/20 13:30 Temperature Temperature Source Pulse Rate 110 H 110 H 108 H Pulse Rate [Right Finger] Pulse Rate from SpO2 Sensor 109 H 109 H Pulse Rhythm Pulse Strength Respiratory Rate 21 26 H 17 Respiratory Effort / Characteristics Respiratory Depth Respiratory Pattern Blood Pressure 172/55 H 156/77 H 164/51 H Blood Pressure [Right Arm] Blood Pressure Mean 108 106 85 Blood Pressure Mean [Right Arm] Blood Pressure Position Pulse Oximetry 95 94 Oxygen Delivery Method Sepsis Recent Fever Within 48 Hours Sepsis New/Unexplained Change in Mental Status Sepsis Action Taken by Nursing 08/08/20 14:00 08/08/20 14:30 08/08/20 15:00 Temperature Temperature Source Pulse Rate 100 H 98 H 96 H Pulse Rate [Right Finger] 97 H Pulse Rate from SpO2 Sensor 100 H 98 H 97 H Pulse Rhythm Pulse Strength Respiratory Rate 16 16 20 Respiratory Effort / Characteristics Respiratory Depth Respiratory Pattern Blood Pressure 129/46 L 114/44 L 130/59 L Blood Pressure [Right Arm] 130/59 L Blood Pressure Mean 91 74 97 Blood Pressure Mean [Right Arm] 82 Blood Pressure Position Pulse Oximetry 93 94 93 Oxygen Delivery Method Sepsis Recent Fever Within 48 Hours Sepsis New/Unexplained Change in Mental Status Sepsis Action Taken by Nursing VITAL SIGNS - Vital signs and nursing notes were reviewed. GENERAL - 85-year-old female appearing stated age who is in moderate distress. Communicates well with provider and answers questions appropriately. SKIN - Without rashes. HEAD - NC/AT. EYES - PERRL with EOMI bilaterally. Sclera anicteric. Palpebral conjunctiva pink and moist with no injection noted. EARS - No deformities of external structures noted on gross examination bilaterally. No pain elicited with palpation of the tragus bilaterally. External auditory canals without discharge or otorrhea. Tympanic membranes pearly rodriguez without retraction or bulging. No fluid or purulent material visualized behind the TM. Handle of malleus, umbo, cone of light, pars tensa/flaccid all easily visualized. NOSE - Midline and without cyanosis. No epistaxis or purulent drainage noted. Septum midline without deviation or septal hematoma noted. MOUTH/OROPHARYNX - Without perioral cyanosis. Buccal mucosa pink and moist and without leukoplakia. Tongue midline with equal elevation of palate bilaterally. No tonsillar hypertrophy, erythema, or exudates noted. dentition noted. NECK - Neck with FROM. Supple to palpation. lymphadenopathy noted. No nuchal rigidity. LUNGS - Chest wall symmetric without accessory muscle use, intercostals retractions, or central cyanosis. Normal vesicular breath sounds CTA B/L. No wheezes, rales, or rhonchi appreciated. CARDIAC - RRR with S1/S2. No murmur, rubs, or gallops appreciated. ABDOMEN - Abdominal contour without pulsations or visible masses. BS normoactive all four quadrants. Diffusely tender all quadrants + Guarding, No palpable masses, hepatosplenomegaly, or ascites noted. EXTREMITIES - No clubbing or peripheral cyanosis. No pretibial edema present. +3/5 radial, posterior tibial, and dorsalis pedis pulses palpated throughout. +5/5 strength noted in UE/LE bilaterally. NEUROLOGIC - Cranial nerves II through XII grossly intact. Sensory intact to light touch throughout. Patellar reflexes +2/4. PSYCH - A&Ox3 and cooperates fully with examiner. Pt is very pleasant and interacts well with examiner. Course Administered Medications Hydromorphone HCl (Hydromorphone Inj 0.5 Mg/0.5 Ml Syr) 0.25 mg IV Q15M PRN PRN Reason: Pain Stop: 08/22/20 11:34 Last Admin: 08/08/20 11:55 Dose: 0.25 mg Documented by: [id number] Sodium Chloride (Nss 1000ml) 1,000 mls @ 999 mls/hr IV .Q1H1M STA Stop: 08/08/20 15:53 Last Admin: 08/08/20 15:01 Dose: 999 mls/hr Documented by: [id number] Discontinued Medications Sodium Chloride (Nss 1000ml) 500 mls @ 999 mls/hr IV .Q31M ONE Stop: 08/08/20 12:05 Last Infusion: 08/08/20 12:40 Dose: 0 mls/hr Documented by: [id number] Admin: 08/08/20 11:50 Dose: 999 mls/hr Documented by: [id number] Piperacillin Sod/Tazobactam Sod (Zosyn) 4.5 gm in 120 mls @ 240 mls/hr IV NOW ONE Stop: 08/08/20 13:11 Last Infusion: 08/08/20 14:11 Dose: 0 mls/hr Documented by: [id number] Admin: 08/08/20 13:16 Dose: 240 mls/hr Documented by: [id number] Acetaminophen (Ofirmev) 1,000 mg in 100 mls @ 400 mls/hr IV NOW STA Stop: 08/08/20 13:02 Last Infusion: 08/08/20 13:40 Dose: 0 mls/hr Documented by: [id number] Admin: 08/08/20 13:17 Dose: 400 mls/hr Documented by: [id number] Promethazine HCl (Phenergan) 12.5 mg in 50.5 mls @ 202 mls/hr IV NOW STA Stop: 08/08/20 13:02 Last Infusion: 08/08/20 13:40 Dose: 0 mls/hr Documented by: [id number] Admin: 08/08/20 13:17 Dose: 202 mls/hr Documented by: [id number] Sodium Chloride (Nss 1000ml) 500 mls @ 999 mls/hr IV .Q31M ONE Stop: 08/08/20 14:25 Last Infusion: 08/08/20 15:01 Dose: 0 mls/hr Documented by: [id number] Admin: 08/08/20 13:45 Dose: 999 mls/hr Documented by: [id number] Ioversol (Ioversol 100ml) 94 ml IV ONCE ONE Stop: 08/08/20 12:30 Last Admin: 08/08/20 12:30 Dose: 94 ml Documented by: [id number] Morphine Sulfate (Morphine Sulfate 4 Mg/Ml 1 Ml Carp\\Vial) 4 mg IV NOW STA Stop: 08/08/20 12:49 Last Admin: 08/08/20 13:15 Dose: 4 mg Documented by: [id number] Ondansetron HCl (Ondansetron Inj 2 Mg/Ml 2 Ml Vial) 4 mg IV NOW STA Stop: 08/08/20 11:36 Last Admin: 08/08/20 11:51 Dose: 4 mg Documented by: [id number] Medical Decision Making Differential Diagnosis Appendicitis, ovarian cyst, ovarian torsion, ectopic , TOA, PID, infections, diverticulitis, UTI, obstruction, mesenteric ischemia, aortic pathology, inflammatory bowel disease, renal colic, PUD, pancreatitis, biliary pathology, hernia, volvulus, constipation, as well as other pathologies. Medical Records Attestation: I reviewed the patient's medical records. Home Medications Current Medication List: was personally reviewed by me Laboratory Data Attestation: I reviewed the patient's lab results. Result diagrams: 08/08/20 11:58 08/08/20 11:58 Lab Results 08/08/20 08/08/20 08/08/20 Range/Units 11:58 11:58 11:58 WBC 20.25 H (4.8-10.8) K/uL RBC 4.73 (4.2-5.4) M/uL Hgb 12.7 (12.0-16.0) g/dL POC Hgb (12.0-16.0) g/dl Hct 39.6 (37-47) % POC Hct (37-47) % MCV 83.7 (80-100) fL MCH 26.8 (25-34) pg MCHC 32.1 (32-36) g/dL RDW Std Deviation 43.6 (36.4-46.3) fL RDW Coeff of [place] 14.2 (11.5-14.5) % Plt Count 560 H (130-400) K/uL MPV 8.6 (7.4-10.4) fL Immature Gran % (Auto) 0.2 % Neut % (Auto) 93.8 % Lymph % (Auto) 4.2 % [place] % (Auto) 1.8 % Eos % (Auto) 0.0 % Baso % (Auto) 0.0 % Neut # (Auto) 18.96 H (1.4-6.5) K/uL Lymph # (Auto) 0.86 L (1.2-3.4) K/uL [place] # (Auto) 0.37 (0.11-0.59) K/uL Eos # (Auto) 0.00 (0-0.5) K/uL Baso # (Auto) 0.01 (0-0.2) K/uL Immature Gran # (Auto) 0.05 H (0.00-0.02) K/uL PT (9.0-12.0) Seconds INR (0.9-1.1) APTT (21.0-31.0) Seconds PTT Ratio POC Sodium (135-144) mmol/L Sodium 137 (136-145) mmol/L POC Potassium (3.3-5.0) mmol/L Potassium 4.6 (3.5-5.1) mmol/L POC Chloride (101-112) mmol/L Chloride 100 (98-107) mmol/L Carbon Dioxide 31 (21-32) mmol/L POC Total CO2 (24-31) mmol/L Anion Gap 6.0 (3-11) POC Anion Gap (16-25) mmol/L POC BUN (7-18) mg/dl BUN 21 H (7-18) mg/dl Creatinine 0.98 (0.6-1.2) mg/dl POC Creatinine (0.6-1.3) mg/dl Est Cr Clr Drug Dosing Not Reportable Est GFR ( Amer) 60.1 Est GFR (Non-Af Amer) 51.9 BUN/Creatinine Ratio 21.5 H (10-20) Glucose 128 H (70-99) mg/dl POC Glucose (other) (70-99) mg/dl Calcium 9.5 (8.5-10.1) mg/dl POC Ioniz Calcium Jojo (1.12-1.32) mmol/l Total Bilirubin 0.6 (0.2-1) mg/dl AST 16 (15-37) U/L ALT 20 (12-78) U/L Alkaline Phosphatase 24 L (45-117) U/L Total Creatine Kinase 17 L (26-192) U/L CK-MB (CK-2) < 1.0 (0.5-3.6) ng/ml CK/CKMB % Calc TNP Troponin I < 0.015 (0-0.045) ng/ml Total Protein 8.0 (6.4-8.2) gm/dl Albumin 3.3 L (3.4-5.0) gm/dl Globulin 4.7 H (2.5-4.0) gm/dl Albumin/Globulin Ratio 0.7 L (0.9-2) Lipase 54829 H (73-393) U/L 08/08/20 08/08/20 Range/Units 11:58 12:06 WBC (4.8-10.8) K/uL RBC (4.2-5.4) M/uL Hgb (12.0-16.0) g/dL POC Hgb 13.9 (12.0-16.0) g/dl Hct (37-47) % POC Hct 41 (37-47) % MCV (80-100) fL MCH (25-34) pg MCHC (32-36) g/dL RDW Std Deviation (36.4-46.3) fL RDW Coeff of [place] (11.5-14.5) % Plt Count (130-400) K/uL MPV (7.4-10.4) fL Immature Gran % (Auto) % Neut % (Auto) % Lymph % (Auto) % [place] % (Auto) % Eos % (Auto) % Baso % (Auto) % Neut # (Auto) (1.4-6.5) K/uL Lymph # (Auto) (1.2-3.4) K/uL [place] # (Auto) (0.11-0.59) K/uL Eos # (Auto) (0-0.5) K/uL Baso # (Auto) (0-0.2) K/uL Immature Gran # (Auto) (0.00-0.02) K/uL PT 11.5 (9.0-12.0) Seconds INR 1.1 (0.9-1.1) APTT 25.5 (21.0-31.0) Seconds PTT Ratio 0.9 POC Sodium 136 (135-144) mmol/L Sodium (136-145) mmol/L POC Potassium 4.6 (3.3-5.0) mmol/L Potassium (3.5-5.1) mmol/L POC Chloride 97 L (101-112) mmol/L Chloride (98-107) mmol/L Carbon Dioxide (21-32) mmol/L POC Total CO2 25 (24-31) mmol/L Anion Gap (3-11) POC Anion Gap 19.0 (16-25) mmol/L POC BUN 22 H (7-18) mg/dl BUN (7-18) mg/dl Creatinine (0.6-1.2) mg/dl POC Creatinine 0.8 (0.6-1.3) mg/dl Est Cr Clr Drug Dosing Est GFR ( Amer) Est GFR (Non-Af Amer) BUN/Creatinine Ratio (10-20) Glucose (70-99) mg/dl POC Glucose (other) 132 H (70-99) mg/dl Calcium (8.5-10.1) mg/dl POC Ioniz Calcium Jojo 1.21 (1.12-1.32) mmol/l Total Bilirubin (0.2-1) mg/dl AST (15-37) U/L ALT (12-78) U/L Alkaline Phosphatase (45-117) U/L Total Creatine Kinase (26-192) U/L CK-MB (CK-2) (0.5-3.6) ng/ml CK/CKMB % Calc Troponin I (0-0.045) ng/ml Total Protein (6.4-8.2) gm/dl Albumin (3.4-5.0) gm/dl Globulin (2.5-4.0) gm/dl Albumin/Globulin Ratio (0.9-2) Lipase (73-393) U/L Imaging Data Radiologist's Impression: [place] [phone] CT Scan Report Patient: VEE CHUA Admit Date: 08/08/20 MR#: [id number] Address1: [address] [place] [address] Acct ID:[id number] Address2: [facility] [address] Date: 1935 [facility] Zip: [place] [address] Age: 85 Location: ED Sex: F Room/Bed: Att Phy: Diagnosis: LOWER ABD PAIN Josefa Phy: David Ramos M.D. Service Date: 08/08/20 Fam Phy: Interpreting Phy: Suleman Salazar MD Admit Phy: Ordering Phy: Main Blancas MD cc: ~ CT OF THE ABDOMEN AND PELVIS WITH CONTRAST CLINICAL HISTORY: Diffuse abdominal pain. COMPARISON STUDY: CT of the abdomen and pelvis June 11, 2020. TECHNIQUE: Following IV administration of 94 mL of Optiray-320, axial images of the abdomen and pelvis were obtained from the lung bases to the proximal femurs. Images were reviewed in the axial, sagittal, and coronal planes. IV contrast was administered without complication. Automated exposure control was utilized for the study. A dose lowering technique was utilized adhering to the principles of ALARA. CT DOSE: 247.75 mGy.cm FINDINGS: Bilateral pleural effusions have resolved since exam of June 11, 2020. There is bronchiectasis within the lingula with mild opacity suggestive of atelectasis. There are mild tree-in-bud nodules within the left lower lobe. No pneumatosis, free air or portal venous gas is present. The gallbladder is surgically absent. Caliber of the common bile duct is at the upper limits of normal. The biliary and pancreatic stents shown on exam of June 11, 2020 have been removed. The intrapancreatic fluid collection within the pancreatic head and uncinate process has moderately decreased in size since CT of June 11, 2020. This now measures 2.8 cm. It previously measured 4.7 cm. This collection likely communicates with the main pancreatic duct. There may be small developing peripancreatic fluid collections that measure up to 1.6 cm. Wall thickening of the distal stomach is noted. Peripancreatic ascites and infiltration has increased. Ascites within the abdomen and pelvis is now noted. Mesenteric infiltration shown on prior exam has diminished. There are postoperative findings from a right hemicolectomy. There are few prominent gas-filled loops of small bowel. No transition point is identified. Note is made of wall thickening of a left abdominal jejunal loop shown on axial image 227 of 406. The main, right and left portal veins are patent. The splenic vein is patent. 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 This has developed since prior exam. No pseudoaneurysm is identified on this non-CTA exam. Suspected uterine fibroids are noted. No suspicious osseous lesions. A left adrenal nodule is unchanged from earlier exams. This is benign. IMPRESSION: 1. Interval increase in peripancreatic fluid with development of a small amount of ascites within the abdomen and pelvis. The findings suggest acute pancreatitis. 2. Interval decrease in size of the intrapancreatic fluid collection within the pancreatic head and uncinate process since prior CT of June 11, 2020. Several possible small developing peripancreatic fluid collections. Upper abdominal infiltration and ascites. Stomach wall thickening which is likely reactive and accentuated by underdistention. 3. Interval development of severe narrowing of the distal superior mesenteric vein just proximal to the portosplenic confluence. 4. Several loops of mildly dilated small bowel. The findings favor an ileus. A p artial small bowel distention could appear similar but is considered less likely. 5. Wall thickening and mesenteric infiltration of a left abdominal jejunal loop. This could be due to underdistention or represent a nonspecific enteritis. ACT 112: Negative or not required by law. Electronically signed by: Suleman Salazar M.D. 08/08/2020 12:52 PM Dictated: 08/08/20 1233 Transcribed: 08/08/20 1233 ECG Data Attestation: I personally reviewed and interpreted this ECG as follows: Indication: abdominal pain Rate (beats per minute): 111 Rhythm: sinus tachycardia Findings: no ST depression and no ST elevation Comparison ECG Date: from (05/27/2020) Change: no significant change MDM Narrative Patient was seen and evaluated as above in room C7. Review was performed of nursing notes and vital signs. I did review pertinent previous visits and patient history. After obtaining a thorough history and physical examination the above work up was performed. This is an 85-year-old female who presents emergency department complaining of diffuse abdominal pain. Patient does have a history of pancreatitis. Using shared medical decision making with the patient family patient was sent for CAT scan of the abdomen pelvis. This was concerning for acute pancreatitis with an elevation in her white blood cell count. She was started on broad-spectrum antibiotics and discussed with gastroenterology who asked that the patient be admitted to the medicine service. The patient was given a broad-spectrum of pain medication including Dilaudid Tylenol morphine Zofran. Repeat examination revealed improvement the patient's symptoms. While in the department, I personally reevaluated the patient several times and each time the patient was found to be resting comfortably. The patient was educated upon management, educated upon todays findings/results, educated upon importance of follow up from today's visit, educated upon symptoms in which to return, had questions answered prior to discharge, verbalized understanding, and was discharged home in good condition. An order was placed for continuous cardiac monitoring. The monitor shows a rate of 96 with Normal Sinus rhythm. The patient was evaluated during the global COVID-19 pandemic, and that diagnosis was suspected/considered upon their initial presentation. Their evaluation, treatment and testing was consistent with current guidelines for patients who present with complaints or symptoms that may be related to COVID- 19. Impression & Plan Abdominal pain, Acute pancreatitis Discharge Plan Visit Data Chief Complaint: Abdominal Pain Stated Complaint: LOWER ABD PAIN ED Provider: Main Blancas Discharge Problem: Abdominal pain, Acute pancreatitis Forms Stand Alone Forms: [facility] Prescriptions Prescriptions: No Action (DME) Flutter Valve Device See Dose Instructions .ROUTE .MEDSUPPLY Qty: 1 RF: 0 metoprolol tartrate 25 mg Tablet 25 mg PO BID Qty: 30 RF: 0 Pancreaze 10,500-35,500- 61,500 unit capsule,delayed release(DR/EC) 1 cap PO AC RF: 0 potassium chloride 20 mEq packet 20 meq PO QAM RF: 0 pantoprazole 40 mg tablet,delayed release (DR/EC) 40 mg PO QAM RF: 0 lisinopril 20 mg tablet 20 mg PO QAM RF: 0 dicyclomine 10 mg Capsule 10 mg PO TID Qty: 30 RF: 0 magnesium oxide 400 mg (241.3 mg magnesium) Tablet 400 mg PO BID Qty: 60 RF: 0 Discharge Problem: Abdominal pain Qualifiers: Abdominal location: unspecified location Qualified Code(s): R10.9 - Unspecified abdominal pain Acute pancreatitis Qualifiers: Pancreatitis type: unspecified pancreatitis type Acute pancreatitis complication: unspecified Qualified Code(s): K85.90 - Acute pancreatitis without necrosis or infection, unspecified
[2020-08-08] MEDS ORDERED: PIPERACILL/TAZOBAC CONSULT ACTIVE PRN ×2 (12:42→16:17)
[2020-08-08] MEDS ORDERED: PIPERACILLIN/TAZOBACTAM 4.5 GM/120 ML BAG IV ONE (12:42)
[2020-08-08] MEDS ORDERED: MoRPHine SULFATE 4 MG/ML 1 ML CARP\\VIAL IV STA (12:48)
[2020-08-08] MEDS ORDERED: ACETAMINOPHEN 1,000 MG/100 ML VIAL IV STA (12:48)
[2020-08-08] MEDS ORDERED: PROMETHAZINE 12.5 MG/50.5 ML BAG IV STA (12:48)
--- NOTE | 2020-08-08 12:53 | CT Scan Report ---
CT OF THE ABDOMEN AND PELVIS WITH CONTRAST CLINICAL HISTORY: Diffuse abdominal pain. COMPARISON STUDY: CT of the abdomen and pelvis June 11, 2020. TECHNIQUE: Following IV administration of 94 mL of Optiray-320, axial images of the abdomen and pelvi s were obtained from the lung bases to the proximal femurs. Images were reviewed in the axial, sagitt al, and coronal planes. IV contrast was administered without complication. Automated exposure contro l was utilized for the study. A dose lowering technique was utilized adhering to the principles of A TRISH. CT DOSE: 247.75 mGy.cm FINDINGS: Bilateral pleural effusions have resolved since exam of June 11, 2020. There is bronchiecta sis within the lingula with mild opacity suggestive of atelectasis. There are mild tree-in-bud nodule s within the left lower lobe. No pneumatosis, free air or portal venous gas is present. The gallbladd er is surgically absent. Caliber of the common bile duct is at the upper limits of normal. The biliar y and pancreatic stents shown on exam of June 11, 2020 have been removed. The intrapancreatic fluid c ollection within the pancreatic head and uncinate process has moderately decreased in size since CT o f June 11, 2020. This now measures 2.8 cm. It previously measured 4.7 cm. This collection likely com municates with the main pancreatic duct. There may be small developing peripancreatic fluid collectio ns that measure up to 1.6 cm. Wall thickening of the distal stomach is noted. Peripancreatic ascites and infiltration has increased. Ascites within the abdomen and pelvis is now noted. Mesenteric infilt ration shown on prior exam has diminished. There are postoperative findings from a right hemicolectom y. There are few prominent gas-filled loops of small bowel. No transition point is identified. Note i s made of wall thickening of a left abdominal jejunal loop shown on axial image 227 of 406. The main, right and left portal veins are patent. The splenic vein is patent. However, there is severe narrowi ng of the superior mesenteric vein just proximal to the portosplenic confluence. This has developed s nidhi prior exam. No pseudoaneurysm is identified on this non-CTA exam. Suspected uterine fibroids are noted. No suspicious osseous lesions. A left adrenal nodule is unchanged from earlier exams. This is benign. IMPRESSION: 1. Interval increase in peripancreatic fluid with development of a small amount of ascites within the abdomen and pelvis. The findings suggest acute pancreatitis. 2. Interval decrease in size of the intrapancreatic fluid collection within the pancreatic head and u ncinate process since prior CT of June 11, 2020. Several possible small developing peripancreatic flu id collections. Upper abdominal infiltration and ascites. Stomach wall thickening which is likely reza ctive and accentuated by underdistention. 3. Interval development of severe narrowing of the distal superior mesenteric vein just proximal to t he portosplenic confluence. 4. Several loops of mildly dilated small bowel. The findings favor an ileus. A partial small bowel di stention could appear similar but is considered less likely. 5. Wall thickening and mesenteric infiltration of a left abdominal jejunal loop. This could be due to underdistention or represent a nonspecific enteritis. ACT 112: Negative or not required by law. Electronically signed by: Suleman Salazar M.D. 08/08/2020 12:52 PM
[2020-08-08 13:13] LABS: INR 1.1 (0.9-1.1); Partial Thromboplastin Ratio 0.9; Partial Thromboplastin Time 25.5 Seconds (21.0-31.0); Prothrombin Time 11.5 Seconds (9.0-12.0)
[2020-08-08 13:26] LABS: Creatine Kinase 17 U/L (26-192); Creatine Kinase MB < 1.0 ng/ml (0.5-3.6); Troponin I < 0.015 ng/ml (0-0.045)
--- NOTE | 2020-08-08 14:16 | Electrocardiogram Report ---
Test Reason : Blood Pressure : / mmHG Vent. Rate : 111 BPM Atrial Rate : 111 BPM P-R Int : 122 ms QRS Dur : 054 ms QT Int : 328 ms P-R-T Axes : 080 036 072 degrees QTc Int : 446 ms Poor data quality, interpretation may be adversely affected Sinus tachycardia Left atrial enlargement Abnormal ECG When compared with ECG of 27-MAY-2020 14:49, No significant change was found Confirmed by Estuardo Nuñez ([id number]) on 08/08/2020 2:16:03 PM Referred By: REFERRED SELF Confirmed By:Estuardo Nuñez
--- NOTE | 2020-08-08 14:42 | History & Physical Report ---
Date of Service August 08, 2020 Assessment & Plan (1) Acute pancreatitis: Severe pancreatitis after recent gallstone pancreatitis diagnosis in May with prolonged hospitalization, necrosis and poor nutrition. ?Disrupted duct Hold lisinopril ?Drug-induced NSS 1L bolus only given in ER, stat addition 1L now, will defer additional fluid management to ICU team. Recommend admission to ICU given previously severe pancreatitis with recurrence, possible peritonitis and severe protein calorie malnutrition - discussed with Dr Casillas. Consult gastroenterology -discussed case with Dr. Redmond Possible infected pancreatic necrosis - elevated WBC, however afebrile. Started on Zosyn. (2) Severe protein-calorie malnutrition: N.p.o. nutrition assessment. (3) Elevated serum creatinine: Not diagnostic of CHARANJIT since Cr < 1.5x baseline. Iv fluids as above. (4) HTN (hypertension): Hold lisinopril and metoprolol pending improvement in her blood pressure. Admission and Anticipated Discharge Date Admission Date: August 08, 2020 History of Present Illness Chief Complaint: Abdominal pain Primary Care Provider: David Lee MD Arely Benavides is an 85-year-old female with recent hospitalization for pancreatitis who presents to the ER with severe abdominal pain. The patient reports slowly increasing abdominal pain since her biliary stents were removed on July 11 although history from her is difficult at this time as she has been given morphine and appears somewhat confused. Discussed with her son over the phone who reports she had been doing very well after her ERCP procedure initially but does not drink a lot of fluids generally. She only complained of abdominal pain last night mildly and more severely this morning. No nausea or vomiting. Unknown if exacerbated by food but she currently does not feel like she can eat. No change in her bowel movements. The patient reports severe 10/10 pain when she came to the ER, currently 0/10 at rest but 10/10 with any palpation. Radiates around to her back. She had a recent prolonged admission from May 24- due to acute pancreatitis secondary to choledocholithiasis. Very poor nutrition postoperatively requiring PPN for 5 days. Given broad spectrum antibiotics due to concerns for necrotic pancreatitis and fluid collection as possible source of an infection. There was a possibility that she may require transfer to a tertiary care center for IR drainage although she continued to improve and was eventually discharged on June 12. Allergies Allergy/AdvReac Type Severity Reaction Status Date / Time No Known Allergies Allergy Verified 08/08/20 13:22 Home Medications Home Medications Medication Instructions Recorded Confirmed Type metoprolol tartrate 25 mg PO BID #30 tab 11/23/18 08/08/20 Rx Flutter Valve #1 ea 07/27/19 11/26/19 Rx lisinopril 20 mg PO QAM 05/24/20 08/08/20 History dicyclomine 10 mg PO TID #30 cap 06/12/20 08/08/20 Rx magnesium oxide 400 mg PO BID #60 tab 06/12/20 08/08/20 Rx [id number] [Pancreaze] 1 cap PO AC 08/08/20 08/08/20 History pantoprazole 40 mg PO QAM 08/08/20 08/08/20 History potassium chloride 20 meq PO QAM 08/08/20 08/08/20 History Past Med/Surg History Medical History (Updated 08/10/20 @ 02:25 by Shawn Medeiros MD) Anemia chronic, stable with hgb in the 10-11 range per chart review GERD (gastroesophageal reflux disease) Hx of pancreatitis Hypertension Memory problem Osteoarthritis Poor historian information obtained from son Surgical History History of anesthesia reaction INCREASED CONFUSION History of cataract surgery History of cholecystectomy History of ERCP History of hemicolectomy "INTESTINES COLLAPSED" History of tooth extraction Family History Unknown Family history non-contributory Social History Smoking Status: Never smoker Second Hand Exposure: Yes (IN THE PAST); Hx Alcohol Use: No Hx Substance Use: No Preferred Language: Urdu Communication Ability: Effective Visual Impairment: No Limitations Roller 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 Required: No Beliefs That Will Affect Care: None marital status: / Current Living Situation: Alone current occupational status: retired Feels Safe at Home: Yes during the past year weight has: decreased > 10 lbs Review of Systems Review of Systems: All systems reviewed & are unremarkable except as noted in HPI & below Physical Exam Constitutional: well developed, + cachectic and + frail appearing; + not well nourished and no acute distress Eyes: + abnormal pupil size (pupils contricted b/l equal) ENMT: Mouth: + dry oral mucous membranes Neck: trachea midline Respiratory: normal respiratory effort, lungs clear to auscultation Cardiovascular: Rate/Rhythm: regular rhythm and + tachycardic Heart Sounds: no murmur Vessels: no JVD Extremities: normal capillary refill; no calf tenderness and no pedal edema Gastrointestinal (Abdomen): Inspection/Auscultation: + abdomen distended and + hypoactive bowel sounds Percussion/Palpation: + abdomen tender (diffusely throughout), + guarding and abdomen soft; abdomen not rigid Neurologic: moves all extremities, awake and + confused Psychiatric: Orientation: alert and oriented to place; + not oriented to person and + not oriented to time Genitourinary: no CVA tenderness Lymphatic: no cervical or axillary lymphadenopathy Results & Data Results & Data ([facility]) Vital Signs (Past 12 Hours) Vital Signs Temp Pulse Resp BP Pulse Ox 08/08/20 13:00 110 H 26 H 156/77 H 95 08/08/20 12:43 110 H 21 172/55 H 08/08/20 12:00 105 H 31 H 190/170 H 92 08/08/20 11:40 95 08/08/20 10:59 36.5 C 109 H 18 142/[address] OF THE ABDOMEN AND PELVIS WITH CONTRAST IMPRESSION: 1. Interval increase in peripancreatic fluid with development of a small amount of ascites within the abdomen and pelvis. The findings suggest acute pancreatitis. 2. Interval decrease in size of the intrapancreatic fluid collection within the pancreatic head and uncinate process since prior CT of June 11, 2020. Several possible small developing peripancreatic fluid collections. Upper abdominal infiltration and ascites. Stomach wall thickening which is likely reactive and accentuated by underdistention. 3. Interval development of severe narrowing of the distal superior mesenteric vein just proximal to the portosplenic confluence. 4. Several loops of mildly dilated small bowel. The findings favor an ileus. A partial small bowel distention could appear similar but is considered less likely. 5. Wall thickening and mesenteric infiltration of a left abdominal jejunal loop. This could be due to underdistention or represent a nonspecific enteritis. XR chest 1V portable IMPRESSION: 1. No renal calcifications, likely postinflammatory 2. No evidence of failure 3. No evidence of lobar consolidation 4. Ill-defined opacities within the left midlung zone likely atelectatic although an infectious/inflammatory process could appear similar ECG Indication: abdominal pain Rate (beats per minute): 111 Rhythm: sinus tachycardia Findings: no acute ischemic change Comparison ECG Date: from (May,) Change: no significant change Code Status & VTE Plan Code Status DNR/DNI as confirmed with the patient and her son. Discussed vasopressors which she would be amenable to. VTE Prophylaxis Plan VTE Prophylaxis will be ordered: Yes PG Care Time/CCT Total # of Minutes Spent Total Time Spent with Patient: Total time spent is greater than 50% in coordination of care (as documented) at patient's floor/unit and/or counseling patient: Coding Level of Care Code 64940 Initial Inpt Care Lvl 3 Diagnoses Acute pancreatitis K85.12 Pancreatitis type: biliary Acute pancreatitis complication: infected necrosis Severe protein-calorie malnutrition E43 Elevated serum creatinine R79.89 HTN (hypertension) I10 Hypertension type: essential hypertension (1) HTN (hypertension) Hypertension type: essential hypertension Qualified Code(s): I10 - Essential (primary) hypertension (2) Acute pancreatitis Pancreatitis type: biliary Acute pancreatitis complication: infected necrosis Qualified Code(s): K85.12 - Biliary acute pancreatitis with infected necrosis
[2020-08-08] MEDS ORDERED: SODIUM CHLORIDE 0.9% 1000ML 1,000 ML IV ONE (14:53)
--- NOTE | 2020-08-08 14:54 | XRay Report ---
XR chest 1V portable CLINICAL HISTORY: shortness of breath COMPARISON STUDY: 05/26/2019 FINDINGS: The cardiac and mediastinal contours are normal. There is no lobar consolidation. There is no failure. There are no pleural effusions. There are ill-defined opacities within the left midlung z one, likely atelectatic although an infectious/inflammatory processes could appear similar. The patie nt has persistent symptoms, then follow-up radiography would be recommended. Note is made of calcifie d hilar and mediastinal lymph nodes[ IMPRESSION: 1. No renal calcifications, likely postinflammatory 2. No evidence of failure 3. No evidence of lobar consolidation 4. Ill-defined opacities within the left midlung zone likely atelectatic although an infectious/infla mmatory process could appear similar ACT 112: Negative or not required by law. Electronically signed by: Matt Coe M.D. 08/08/2020 2:53 PM
[2020-08-08] MEDS ORDERED: SODIUM CHLORIDE 0.9% 1000ML 1,000 ML IV STA (14:55)
--- NOTE | 2020-08-08 14:56 | Gastrointestinal Consultation ---
Date of Consultation August 08, 2020 Supervising Physician Co-Signing Physician Notes I was unable to dictate in A&P of note. 85 year old female w/ history of severe gallstone pancreatitis in May s/p CCY and ERPC w/ stentplacement and later removal who is admitted w/ severe pancre atitis biochemically and on imaging. Concern for disrupted duct vs other etiology. - Consider ICU level of care - Low threshold for transfer - Strict I&O - Trend PRIVATE SECURITY GUARD - Fluid hydration - LR - Needs 2 pt drop in HGB - Analgesia PRN - Antiemetics PRN - Given leukocytosis, continue IV ABX Thank you for allowing us to participate in the care of this patient. Please call with any acute changes, questions or concerns. Please see addendum below with additional recommendation from my supervising physician. I have personally seen and examined the patient with ALVAREZ Calderón. Her note reflects my exam and findings. I agree with her impression and plan. Recurrent severe pancreatitis and possible infected pancreatic fluid collection. The intra pancreatic collection is smaller but the surrounding collection is larger possibly from this new acute attack. She requires aggressive hydration and need to see creatinine drop and Hgb drop a least down to baseline of 10 as a sign of adequate volume resuscitation. She needs monitoring in ICU setting especially since she is at risk for CHF from hydration needed. Doubt biliary origin of this acute attack. She is at high risk for significant morbidity and even mortality from this process. Thuan Redmond M.D. History of Present Illness Reason for Consultation: pancreatitis Requesting Physician: Mala Attending Physician: Mala History of Present Illness 85 year old female with history of severe gallstone panc s/p ccy and ERCP w/ stenting in May and stent removal in June who presents with severe abd pain, lipase > 10,000, leukocytosis at 20,000 and imaging concerning for acute pancreaitits. Pt was seen and evaluated, chart reviewed. Suggests severe pain started about 48 hours ago. No nausea/vomiting reported to me. No change in BM. Feels tired, weak, disoriented. CTAP: . Interval increase in peripancreatic fluid with development of a small amount of ascites within the abdomen and pelvis. The findings suggest acute pancreatitis. 2. Interval decrease in size of the intrapancreatic fluid collection within the pancreatic head and uncinate process since prior CT of June 11, 2020. Several possible small developing peripancreatic fluid collections. Upper abdominal infiltration and ascites. Stomach wall thickening which is likely reactive and accentuated by underdistention. 3. Interval development of severe narrowing of the distal superior mesenteric vein just proximal to the portosplenic confluence. 4. Several loops of mildly dilated small bowel. The findings favor an ileus. A partial small bowel distention could appear similar but is considered less likely. 5. Wall thickening and mesenteric infiltration of a left abdominal jejunal loop. This could be due to underdistention or represent a nonspecific enteritis. Allergies Allergy/AdvReac Type Severity Reaction Status Date / Time No Known Allergies Allergy Verified 08/08/20 13:22 Home Medications Home Medications Medication Instructions Recorded Confirmed Type metoprolol tartrate 25 mg PO BID #30 tab 11/23/18 08/08/20 Rx Flutter Valve #1 ea 07/27/19 11/26/19 Rx lisinopril 20 mg PO QAM 05/24/20 08/08/20 History dicyclomine 10 mg PO TID #30 cap 06/12/20 08/08/20 Rx magnesium oxide 400 mg PO BID #60 tab 06/12/20 08/08/20 Rx [id number]-vobeujsh-ppvhrwz [Pancreaze] 1 cap PO AC 08/08/20 08/08/20 History pantoprazole 40 mg PO QAM 08/08/20 08/08/20 History potassium chloride 20 meq PO QAM 08/08/20 08/08/20 History Patient History Medical History (Updated 08/08/20 @ 14:45 by Shawn Medeiros MD) Anemia chronic, stable with hgb in the 10-11 range per chart review GERD (gastroesophageal reflux disease) Hx of pancreatitis Hypertension Memory problem Osteoarthritis Poor historian information obtained from son Surgical History History of anesthesia reaction INCREASED CONFUSION History of cataract surgery History of cholecystectomy History of ERCP History of hemicolectomy "INTESTINES COLLAPSED" History of tooth extraction Family History Unknown Family history non-contributory Social History Smoking Status: Never smoker Second Hand Exposure: Yes (IN THE PAST); Hx Alcohol Use: Yes Alcohol type: wine Hx Substance Use: No Preferred Language: Honduran Communication Ability: Effective Visual Impairment: No Limitations Creative Services Specialist Required: No Beliefs That Will Affect Care: None marital status: / Current Living Situation: Alone current occupational status: retired Feels Safe at Home: Yes during the past year weight has: decreased > 10 lbs Review of Systems Constitutional: + fatigue, + malaise, + weakness and + anorexia Respiratory: no cough and no dyspnea Cardiovascular: no chest pain and no dyspnea Gastrointestinal: + abdominal pain; no coffee ground emesis, no hematemesis, no change in bowel habits, no blood in stools and no melena Physical Exam Constitutional: + acute distress (verbalized pain), + ill appearing (acute on chronic) and + thin Neck: trachea midline Respiratory: normal respiratory effort Cardiovascular: Rate/Rhythm: regular rhythm and + tachycardic Gastrointestinal (Abdomen): Inspection/Auscultation: normal bowel sounds Percussion/Palpation: + abdomen tender (just recieved IV analgesia, pain improved but tender w/ palpation) and abdomen soft; no guarding, abdomen not rigid, no abdominal mass and no ascites Skin: no rashes, warm and dry Results & Data ([facility]) Vital Signs (Past 12 Hours) Vital Signs Temp Pulse Resp BP Pulse Ox 08/08/20 13:00 110 H 26 H 156/77 H 95 08/08/20 12:43 110 H 21 172/55 H 08/08/20 12:00 105 H 31 H 190/170 H 92 08/08/20 11:40 95 08/08/20 10:59 36.5 C 109 H 18 142/89 H 97 Laboratory Results 08/08/20 08/08/20 08/08/20 Range/Units 12:06 11:58 11:58 WBC (4.8-10.8) K/uL RBC (4.2-5.4) M/uL Hgb (12.0-16.0) g/dL POC Hgb 13.9 (12.0-16.0) g/dl Hct (37-47) % POC Hct 41 (37-47) % MCV (80-100) fL MCH (25-34) pg MCHC (32-36) g/dL RDW Std Deviation (36.4-46.3) fL RDW Coeff of Sidney (11.5-14.5) % Plt Count (130-400) K/uL MPV (7.4-10.4) fL Immature Gran % (Auto) % Neut % (Auto) % Lymph % (Auto) % Davis % (Auto) % Eos % (Auto) % Baso % (Auto) % Neut # (Auto) (1.4-6.5) K/uL Lymph # (Auto) (1.2-3.4) K/uL Davis # (Auto) (0.11-0.59) K/uL Eos # (Auto) (0-0.5) K/uL Baso # (Auto) (0-0.2) K/uL Immature Gran # (Auto) (0.00-0.02) K/uL PT 11.5 (9.0-12.0) Seconds INR 1.1 (0.9-1.1) APTT 25.5 (21.0-31.0) Seconds PTT Ratio 0.9 POC Sodium 136 (135-144) mmol/L Sodium (136-145) mmol/L POC Potassium 4.6 (3.3-5.0) mmol/L Potassium (3.5-5.1) mmol/L POC Chloride 97 L (101-112) mmol/L Chloride (98-107) mmol/L Carbon Dioxide (21-32) mmol/L POC Total CO2 25 (24-31) mmol/L Anion Gap (3-11) POC Anion Gap 19.0 (16-25) mmol/L POC BUN 22 H (7-18) mg/dl BUN (7-18) mg/dl Creatinine (0.6-1.2) mg/dl POC Creatinine 0.8 (0.6-1.3) mg/dl Est Cr Clr Drug Dosing Est GFR ( Amer) Est GFR (Non-Af Amer) BUN/Creatinine Ratio (10-20) Glucose (70-99) mg/dl POC Glucose (other) 132 H (70-99) mg/dl Calcium (8.5-10.1) mg/dl POC Ioniz Calcium Jojo 1.21 (1.12-1.32) mmol/l Total Bilirubin (0.2-1) mg/dl AST (15-37) U/L ALT (12-78) U/L Alkaline Phosphatase (45-117) U/L Total Creatine Kinase 17 L (26-192) U/L CK-MB (CK-2) < 1.0 (0.5-3.6) ng/ml CK/CKMB % Calc TNP Troponin I < 0.015 (0-0.045) ng/ml Total Protein (6.4-8.2) gm/dl Albumin (3.4-5.0) gm/dl Globulin (2.5-4.0) gm/dl Albumin/Globulin Ratio (0.9-2) Lipase (73-393) U/L 08/08/20 08/08/20 Range/Units 11:58 11:58 WBC 20.25 H (4.8-10.8) K/uL RBC 4.73 (4.2-5.4) M/uL Hgb 12.7 (12.0-16.0) g/dL POC Hgb (12.0-16.0) g/dl Hct 39.6 (37-47) % POC Hct (37-47) % MCV 83.7 (80-100) fL MCH 26.8 (25-34) pg MCHC 32.1 (32-36) g/dL RDW Std Deviation 43.6 (36.4-46.3) fL RDW Coeff of Sidney 14.2 (11.5-14.5) % Plt Count 560 H (130-400) K/uL MPV 8.6 (7.4-10.4) fL Immature Gran % (Auto) 0.2 % Neut % (Auto) 93.8 % Lymph % (Auto) 4.2 % Davis % (Auto) 1.8 % Eos % (Auto) 0.0 % Baso % (Auto) 0.0 % Neut # (Auto) 18.96 H (1.4-6.5) K/uL Lymph # (Auto) 0.86 L (1.2-3.4) K/uL Davis # (Auto) 0.37 (0.11-0.59) K/uL Eos # (Auto) 0.00 (0-0.5) K/uL Baso # (Auto) 0.01 (0-0.2) K/uL Immature Gran # (Auto) 0.05 H (0.00-0.02) K/uL PT (9.0-12.0) Seconds INR (0.9-1.1) APTT (21.0-31.0) Seconds PTT Ratio POC Sodium (135-144) mmol/L Sodium 137 (136-145) mmol/L POC Potassium (3.3-5.0) mmol/L Potassium 4.6 (3.5-5.1) mmol/L POC Chloride (101-112) mmol/L Chloride 100 (98-107) mmol/L Carbon Dioxide 31 (21-32) mmol/L POC Total CO2 (24-31) mmol/L Anion Gap 6.0 (3-11) POC Anion Gap (16-25) mmol/L POC BUN (7-18) mg/dl BUN 21 H (7-18) mg/dl Creatinine 0.98 (0.6-1.2) mg/dl POC Creatinine (0.6-1.3) mg/dl Est Cr Clr Drug Dosing Not Reportable Est GFR ( Amer) 60.1 Est GFR (Non-Af Amer) 51.9 BUN/Creatinine Ratio 21.5 H (10-20) Glucose 128 H (70-99) mg/dl POC Glucose (other) (70-99) mg/dl Calcium 9.5 (8.5-10.1) mg/dl POC Ioniz Calcium Jojo (1.12-1.32) mmol/l Total Bilirubin 0.6 (0.2-1) mg/dl AST 16 (15-37) U/L ALT 20 (12-78) U/L Alkaline Phosphatase 24 L (45-117) U/L Total Creatine Kinase (26-192) U/L CK-MB (CK-2) (0.5-3.6) ng/ml CK/CKMB % Calc Troponin I (0-0.045) ng/ml Total Protein 8.0 (6.4-8.2) gm/dl Albumin 3.3 L (3.4-5.0) gm/dl Globulin 4.7 H (2.5-4.0) gm/dl Albumin/Globulin Ratio 0.7 L (0.9-2) Lipase 71755 H (73-393) U/L
--- NOTE | 2020-08-08 15:33 | Critical Care Consultation ---
Date of Consultation August 08, 2020 Assessment & Plan (1) Acute pancreatitis: --Acute pancreatitis BISAP 2 Lipase greater than 11,000 with diffuse abdominal pain CT abdomen pelvis shows new peripancreatic fluid along with mild ascites and decreasing intrapancreatic fluid compared to before. Patient is only 43 Kgs Would give 7 mL/kg/h for the first 24 hours to maximum of 4 L and then go down on fluids. Pain management. Incentive spirometry. CRP: 17.9, procalcitonin negative The decreasing intra-pancreatic fluid might be because of rupture of 1 of the cysts that patient might be developing. Patient falls within the time range of forming pseudocysts. Which is usually 6 to 8 weeks after the acute episode. 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 Plan: Insert Marie catheter for strict in and out Patient has peritoneal signs on physical examination there is decrease in size of the intrapancreatic collection which she had on 06/11/[address] abdomen is showing mild peripancreatic fluid as well as ascites fluid. I am worried this could be rupture off that cyst causing her abdominal pain and increased lipase. I will give her antibiotics to cover gram-negative and anaerobes. I discussed the case personally with Dr. Suleman Salazar who said there is definitely no free air in the abdomen. But he is not able to rule out rupture of the previous pancreatic cyst given that the last CT scan was approximately 2 months ago. Patient is only 43 kg and not been to give her more than 4.5 L in the first 24 hours at the there will be risk of pulmonary edema. We will get Marie catheter and to have strict in and outs. O2 saturation as needed. BiPAP as needed Start p.o. diet when patient is able to. Follow-up lactic acid. I do not think any intervention into the belly is indicated right now. If there is any clinical deterioration will think about it. I will get in touch with GI to discuss the case personally. I have personally spent 65 minutes of critical care time in the direct management of this patient. This is a life/limb threatening event. This includes time spent evaluating patient, direct bedside care, chart review, placing orders, interpretation of diagnostic studies, discussion with consultants, patient, and family members, as well as other required patient management activities. This time is exclusive of all separately billable procedures, and teaching time and separate from and in addition to any other critical care service time. Please note the above document was generated using voice recognition software. It may contain grammatical, syntax or spelling errors. (2) Hypertension: History of Present Illness History of Present Illness 85-year-old female with recently admitted to the hospital back in May for acute pancreatitis with prolonged stay in the hospital. She had a pancreatic and biliary stent placed on 05/26/2020. The stents were removed on 07/11/2020. She presents to the hospital today with complaints of epigastric pain. As per the patient abdominal pain started couple of days back. Patient had CT abdomen pelvis done in the ED which showed no pleural effusion. Decrease in the intrapancreatic collection from 4.7 cm to 2.8 cm. There is increasing peripancreatic fluid with development of small amount of ascites within the abdomen and pelvis. 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 Caliber of the common bile duct at the upper limits of normal. In the time of examination patient stated that her pain is better controlled than before but she is still complaining of pain. Pain started approximately 2 days ago. Sharp. Nonradiating. It is not associated with nausea or vomiting. She states that she has not tried to eat anything thinking that it might make her nauseous. Denies any fever or chills. No dysuria. No diarrhea. Denies any shortness of breath, no chest pain, no headache, no blurry vision. Social history: Patient is a non-smoker. Allergies Allergy/AdvReac Type Severity Reaction Status Date / Time No Known Allergies Allergy Verified 08/08/20 13:22 Home Medications Home Medications Medication Instructions Recorded Confirmed Type metoprolol tartrate 25 mg PO BID #30 tab 11/23/18 08/08/20 Rx Flutter Valve #1 ea 07/27/19 11/26/19 Rx lisinopril 20 mg PO QAM 05/24/20 08/08/20 History dicyclomine 10 mg PO TID #30 cap 06/12/20 08/08/20 Rx magnesium oxide 400 mg PO BID #60 tab 06/12/20 08/08/20 Rx [id number] [Pancreaze] 1 cap PO AC 08/08/20 08/08/20 History pantoprazole 40 mg PO QAM 08/08/20 08/08/20 History potassium chloride 20 meq PO QAM 08/08/20 08/08/20 History Patient History Medical History (Updated 08/08/20 @ 15:38 by Main Blancas MD) Anemia chronic, stable with hgb in the 10-11 range per chart review GERD (gastroesophageal reflux disease) Hx of pancreatitis Hypertension Memory problem Osteoarthritis Poor historian information obtained from son Surgical History History of anesthesia reaction INCREASED CONFUSION History of cataract surgery History of cholecystectomy History of ERCP History of hemicolectomy "INTESTINES COLLAPSED" History of tooth extraction Family History Unknown Family history non-contributory Social History Smoking Status: Never smoker Second Hand Exposure: Yes (IN THE PAST); Hx Alcohol Use: No Hx Substance Use: No Preferred Language: Citizen Of [place] Communication Ability: Effective Visual Impairment: No Limitations Bin Operator Required: No Beliefs That Will Affect Care: None marital status: / Current Living Situation: Alone current occupational status: retired Feels Safe at Home: Yes during the past year weight has: decreased > 10 lbs Review of Systems Review of Systems: All systems reviewed & are unremarkable except as noted in HPI & below Physical Exam Physical Exam: Constitutional: No acute distress HEENT: EOMI, PERRLA Respiratory system: Good air entry bilaterally, no wheeze, no rhonchi, mild crackles bilateral lower lobes CVS: S1-S2 positive, no murmurs or gallops, tachycardia Abdomen: Diffuse abdominal tenderness, positive rebound, decreased bowel sounds x4 Extremities: +2 pulses bilaterally radialis/ dorsalis pedis, no cyanosis, no edema Neuro: Awake alert oriented x3 Psych: Normal mood and affect G/U: No Marie Skin: no rashes, warm and dry Lymphatic: no cervical or axillary lymphadenopathy Results & Data Results & Data ([facility]) Vital Signs (Past 12 Hours) Vital Signs Temp Pulse Pulse Resp BP BP Pulse Ox 08/08/20 15:00 96 H 97 H 20 130/59 L 130/59 L 93 08/08/20 14:30 98 H 16 114/44 L 94 08/08/20 14:00 100 H 16 129/46 L 93 08/08/20 13:30 108 H 17 164/51 H 94 08/08/20 13:00 110 H 26 H 156/77 H 95 08/08/20 12:43 110 H 21 172/55 H 08/08/20 12:00 105 H 31 H 190/170 H 92 08/08/20 11:40 95 08/08/20 10:59 36.5 C 109 H 18 142/89 H 97 08/08/20 11:58 08/08/20 11:58 Coding Level of Care Code Critical Care 1st 30-74 mins Diagnoses Acute pancreatitis K85.90 Acute pancreatitis complication: unspecified Pancreatitis type: unspecified pancreatitis type Hypertension I10 Time Spent (min) 65 (1) Acute pancreatitis Acute pancreatitis complication: unspecified Pancreatitis type: unspecified pancreatitis type Qualified Code(s): K85.90 - Acute pancreatitis without necrosis or infection, unspecified
[2020-08-08] MEDS ORDERED: ICU PROTOCOL FOR HYPERGLYCEMIA PRN (16:07)
[2020-08-08 16:22] LABS: C Reactive Protein 17.9 mg/dl (0-0.29); Magnesium 2.1 mg/dl (1.8-2.4); Phosphorus 4.2 mg/dl (2.5-4.9)
[2020-08-08] MEDS: LACTATED RINGER'S 1,000 ML IV SCH (16:41)
[2020-08-08] MEDS: PIPERACILLIN/TAZOBACTAM 3.375 GM in DEXTROSE 5% 100 ML IV SCH (17:23)
[2020-08-08 17:29] LABS: Alanine Aminotransferase 17 U/L (12-78); Albumin Globulin Ratio 0.7 (0.9-2); Albumin Level 2.6 gm/dl (3.4-5.0); Alkaline Phosphatase 20 U/L (45-117); Aspartate Aminotransferase 15 U/L (15-37); BUN Creatinine Ratio 25.9 (10-20); Bilirubin,Total 0.5 mg/dl (0.2-1); Blood Urea Nitrogen 20 mg/dl (7-18); Calcium 8.7 mg/dl (8.5-10.1); Carbon Dioxide 23 mmol/L (21-32); Chloride 104 mmol/L (98-107); Est GFR (African American) 80.5; Est GFR (Non-African American) 69.4; Globulin 3.6 gm/dl (2.5-4.0); Glucose 120 mg/dl (70-99); Sodium 136 mmol/L (136-145); Total Protein 6.2 gm/dl (6.4-8.2)
[2020-08-08 19:44] LABS: Appearance Urine Clear (Clear); Bacteria Urine Automated Negative (Negative); Bilirubin Urine Negative (Negative); Blood Urine Trace (Negative); Color Urine Yellow; Epithelial Cell Urine Auto >30 /lpf (0-5); Glucose Urine UA Negative (Negative); Ketones Urine Negative (Negative); Leukocyte Esterase Urine Negative (Negative); Nitrite Urine Negative (Negative); Protein Urine 1+ (Negative); Specific Gravity Urine > 1.045 (1.000-1.030); Urobilinogen Urine Negative (Negative)
[2020-08-08 19:59] LABS: Creatinine Urine Random 64.8 mg/dl; Potassium Random Urine 73.7 mmol/L; Uric Acid Urine Random 69.2 mg/dl
[2020-08-08 20:08] LABS: Cast Urine Automated 0 /lpf (0-5)
[2020-08-08] MEDS: HEPARIN SOD 5,000 UNIT/0.5 ML VIAL SQ SCH (20:33)
[2020-08-08] MEDS: METOPROLOL TARTRATE 25 MG TAB PO SCH (20:34)
[2020-08-09] MEDS: LACTATED RINGER'S 1,000 ML IV SCH ×2 (00:59→13:16)
[2020-08-09] MEDS: PIPERACILLIN/TAZOBACTAM 3.375 GM in DEXTROSE 5% 100 ML IV SCH ×3 (01:27→17:37)
[2020-08-09 05:50] LABS: Basophils # (auto) 0.01 K/uL (0-0.2); Basophils % (auto) 0.1 %; Eosinophils # (auto) 0.01 K/uL (0-0.5); Eosinophils % (auto) 0.1 %; Hematocrit (blood only) 28.7 % (37-47); Hemoglobin 9.1 g/dL (12.0-16.0); Immature Granulocytes # (auto) 0.04 K/uL (0.00-0.02); Immature Granulocytes % (auto) 0.2 %; Lymphocytes # (auto) 1.48 K/uL (1.2-3.4); Lymphocytes % (auto) 8.2 %; Mean Corpuscular Hemoglobin 26.7 pg (25-34); Mean Corpuscular Hgb Conc 31.7 g/dL (32-36); Mean Corpuscular Volume 84.2 fL (80-100); Mean Platelet Volume 8.5 fL (7.4-10.4); Monocytes # (auto) 0.78 K/uL (0.11-0.59); Monocytes % (auto) 4.3 %; Neutrophils # (auto) 15.66 K/uL (1.4-6.5); Neutrophils % (auto) 87.1 %; Platelet Count 371 K/uL (130-400); RDW Coefficient of Variation 14.6 % (11.5-14.5); RDW Standard Deviation 45.1 fL (36.4-46.3); Red Blood Count 3.41 M/uL (4.2-5.4); White Blood Count 17.98 K/uL (4.8-10.8)
[2020-08-09 05:52] LABS: Alanine Aminotransferase 12 U/L (12-78); Albumin Level 2.2 gm/dl (3.4-5.0); Aspartate Aminotransferase 11 U/L (15-37); Blood Urea Nitrogen 18 mg/dl (7-18); Calcium 8.2 mg/dl (8.5-10.1); Carbon Dioxide 28 mmol/L (21-32); Chloride 106 mmol/L (98-107); Est GFR (African American) 90.7; Est GFR (Non-African American) 78.3; Glucose 93 mg/dl (70-99); Magnesium 1.6 mg/dl (1.8-2.4); Potassium 3.6 mmol/L (3.5-5.1); Sodium 138 mmol/L (136-145)
[2020-08-09 05:56] LABS: Alkaline Phosphatase 20 U/L (45-117); Bilirubin Direct 0.2 mg/dl (0-0.2); Bilirubin,Total 0.5 mg/dl (0.2-1); Lipase 2765 U/L (73-393); Phosphorus 3.4 mg/dl (2.5-4.9); Total Protein 5.6 gm/dl (6.4-8.2)
[2020-08-09] MEDS ORDERED: MAGNESIUM SULFATE / D5W 1 GM/100 ML BAG IV ONE (06:56)
[2020-08-09] MEDS: HEPARIN SOD 5,000 UNIT/0.5 ML VIAL SQ SCH ×2 (08:18→20:20)
--- NOTE | 2020-08-09 08:49 | Critical Care Progress Note ---
Date of Service August 09, 2020 Assessment & Plan (1) Acute pancreatitis: Impression: 85-year-old female with complicated intra-abdominal history including cholecystectomy, pancreatic stents, and pancreatitis with pseudocyst development presented now with probable exacerbation/acute pancreatitis. She is admitted to the ICU for close observation and fluid resuscitation. 24-hour events: Patient was admitted to the ICU. She continued to receive IV fluids. Her abdominal pain is now resolved. She has had improvement in her biomarkers including lipase, serum creatinine, and hematocrit. Recommendations: --Acute pancreatitis Clinically improved and chemical markers appear improved with decreasing lipase, nondenominational of baseline hematocrit, and improvement in serum creatinine. Appreciate GI consultation and assistance. Continue conservative management. Patient was empirically placed on Zosyn for antimicrobial coverage. Will defer to GI utility of continued antibiotics at this point. Ideally, would consider CT-guided aspiration of the phlegmon to guide antimicrobial therapy however t here does not appear to be a focal enough area to aspirate and this procedure is not available at [facility]. I would favor discontinuation of antibiotics but will defer to GI. Defer diet to GI as well -- CHARANJIT Serum creatinine back to normal. Okay to discontinue Marie catheter at this point time. 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 Lactate is normal. Prognosis for venous mesenteric ischemia is not great and therapy is difficult other than systemic anticoagulation which is relatively contraindicated in the setting of significant pancreatitis --Hypertension Continue metoprolol --Bilateral middle lobe bronchiectasis Seems like Lady Revillo's disease Patient follows up as an outpatient with pulmonary No acute treatment indicated --DNR/DNI --Prophylaxis VTE: Heparin GI: Protonix Lines: Peripheral Diet: N.p.o. The patient appears appropriate to downgrade out of the ICU and transfer to the medical floor under the care of the hospitalist. Will sign off when she leaves the ICU. Feel free to contact us with additional critical care/pulmonary issues Please note the above document was generated using voice recognition software. It may contain grammatical, syntax or spelling errors. (2) Hypertension: Admission and Anticipated Discharge Date Admission Date: August 08, 2020 Subjective Patient seen and examined. Discussed with critical care ETE and patient at bedside as well as ICU nurse. The patient states that she slept reasonably well last night. She does not have much of an appetite but denies any significant abdominal pain. Her vital signs have been stable but she does remain slightly tachycardic this morning. She denies any nausea or vomiting or abdominal pain. Review of Systems Review of Systems: All systems reviewed & are unremarkable except as noted in HPI & below Physical Exam Constitutional: + cachectic and + frail appearing; no acute distress Neck: trachea midline, no thyromegaly Respiratory: normal respiratory effort, lungs clear to auscultation Cardiovascular: RRR, no murmur, no edema Gastrointestinal (Abdomen): Inspection/Auscultation: abdomen normal to inspection and normal bowel sounds; abdomen not distended Percussion/Palpation: abdomen nontender and no guarding Musculoskeletal: Extremities: extremities normal to inspection Skin: no rashes, warm and dry Neurologic: Nonfocal exam Lymphatic: no cervical lymphadenopathy Results & Data Results & Data ([facility]) Vital Signs (Past 12 Hours) Vital Signs Temp Pulse Resp BP Pulse Ox 08/09/20 08:00 37.3 C 96 H 21 165/61 H 96 08/09/20 07:00 96 H 20 162/65 H 96 08/09/20 04:00 95 H 16 129/52 L 95 08/09/20 03:00 99 H 19 151/52 H 94 08/09/20 02:00 100 H 23 151/54 H 92 08/09/20 01:00 99 H 18 146/54 H 94 08/09/20 00:00 99 H 18 143/57 H 95 08/08/20 23:00 102 H 18 145/53 H 97 08/08/20 22:00 101 H 18 138/51 L 91 08/08/20 21:00 99 H 31 H 146/52 H 96 Laboratory Results 08/09/20 05:18 08/09/20 05:18 Lipase decreased from over 11,000 down to 2700 Procalcitonin negative. Diagnostic Findings No new imaging Coding Level of Care Code 80724 Subseq Hosp Care Lv 3 Diagnoses Acute pancreatitis K85.90 Acute pancreatitis complication: unspecified Pancreatitis type: unspecified pancreatitis type Hypertension I10 (1) Acute pancreatitis Acute pancreatitis complication: unspecified Pancreatitis type: unspecified pancreatitis type Qualified Code(s): K85.90 - Acute pancreatitis without necrosis or infection, unspecified
[2020-08-09] MEDS: PANTOprazole 40 MG TAB PO SCH (09:43)
[2020-08-09] MEDS: METOPROLOL TARTRATE 25 MG TAB PO SCH ×2 (09:43→20:20)
[2020-08-09] MEDS: POTASSIUM CHLORIDE PWD 20 MEQ PACK PO SCH (09:43)
--- NOTE | 2020-08-09 17:59 | Gastroenterology Progress Note ---
Date of Service August 09, 2020 Assessment & Plan Admission and Anticipated Discharge Date Admission Date: August 08, 2020 Subjective Cont to have abdominal pain which pt describes as severe, poor appetite. + flatus, no BM. Resting, appears comfortable CV: RRR Resp: CTA abd: diffuse tender A/P: Pancreatitis; no evidence of organ dysfunction Marked leukocytosis SMV thrombosis - Please cont abx for now, bowel rest, analgesia. - Regarding SMV thrombosis - benefit of ac unclear, most literature suggests that AC does not improve outcomes (references: https://www.cghjournal.org/article/K7629-6265(57)41017-1/pdf; https://www.ncbi.nlm.nih.gov/pmc/articles/HGR3040828/). May consider w/u pro- thrombotic state as outpt, eventual re-imaging. Results & Data ([facility]) Vital Signs (Past 12 Hours) Vital Signs Temp Pulse Resp BP Pulse Ox 08/09/20 17:41 37.4 C 08/09/20 17:00 100 H 19 168/61 H 94 08/09/20 16:00 94 H 21 162/75 H 96 08/09/20 15:00 93 H 21 164/65 H 96 08/09/20 14:00 92 H 20 164/65 H 96 08/09/20 13:00 91 H 22 163/68 H 96 08/09/20 12:00 89 21 152/61 H 97 08/09/20 11:00 97 H 21 157/72 H 98 08/09/20 10:01 107 H 21 182/63 H 98 08/09/20 09:00 98 H 20 163/67 H 96 08/09/20 08:00 37.3 C 96 H 21 165/61 H 96 08/09/20 07:00 96 H 20 162/65 H 96
--- NOTE | 2020-08-09 18:12 | Hospitalist Progress Note ---
Date of Service August 09, 2020 Assessment & Plan (1) Acute pancreatitis: Severe pancreatitis based on nutritional state and imaging after recent gallstone pancreatitis diagnosis in May with prolonged hospitalization, necrosis and poor nutrition. Continue to hold lisinopril ?Drug-induced. Continue LR 80ml/hr. Although tachycardic she appears more euvolemic at the current time. Possible infected pancreatic necrosis - elevated WBC, afebrile. Continue Zosyn per GI recommendations. Appreciate ICU and GI management. Agree - she appears stable over the last 24 hours to come out of ICU. (2) Severe protein-calorie malnutrition: Restart diet when recommend by GI, currently on bowel rest. (3) Elevated serum creatinine: Appears back to baseline. Iv fluids as above. (4) HTN (hypertension): Hold lisinopril. Metoprolol restarted yesterday in ICU and maintaining pressures well, will continue. 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 (6) Leukocytosis: Purely pancreatitis vs. infected pancreatic necrosis. Would favor the former but will defer continuation of antibiotics to GI. (7) DVT prophylaxis: Heparin 5000 units SQ BID Admission and Anticipated Discharge Date Admission Date: August 08, 2020 Subjective Patient reports feeling much of the same today. Still does not have any appetite. No nausea or vomiting. No abdominal pain at rest but on any movement or palpation over any of her abdomen it is tender. No BM since admission. Passing flatus. No shortness of breath or chest pain. Passing urine ok. Review of Systems Review of Systems: All systems reviewed & are unremarkable except as noted in HPI & below Physical Exam Constitutional: well developed, + cachectic and + frail appearing; + not well nourished and no acute distress ENMT: Mouth: + dry oral mucous membranes Neck: trachea midline Respiratory: normal respiratory effort, lungs clear to auscultation Cardiovascular: Rate/Rhythm: regular rhythm and + tachycardic Heart Sounds: no murmur Vessels: no JVD Extremities: normal capillary refill Gastrointestinal (Abdomen): Inspection/Auscultation: + abdomen distended and + hypoactive bowel sounds Percussion/Palpation: + abdomen tender (diffusely throughout, unchanged), + guarding and abdomen soft; abdomen not rigid Skin: no rashes, warm and dry (No cellulitis) Neurologic: moves all extremities and awake; not confused Psychiatric: Orientation: alert, oriented to person, oriented to place and oriented to time Genitourinary: no CVA tenderness Results & Data Results & Data ([facility]) Vital Signs (Past 12 Hours) Vital Signs Temp Pulse Resp BP Pulse Ox 08/09/20 17:41 37.4 C 08/09/20 17:00 100 H 19 168/61 H 94 08/09/20 16:00 94 H 21 162/75 H 96 08/09/20 15:00 93 H 21 164/65 H 96 08/09/20 14:00 92 H 20 164/65 H 96 08/09/20 13:00 91 H 22 163/68 H 96 08/09/20 12:00 89 21 152/61 H 97 08/09/20 11:00 97 H 21 157/72 H 98 08/09/20 10:01 107 H 21 182/63 H 98 08/09/20 09:00 98 H 20 163/67 H 96 08/09/20 08:00 37.3 C 96 H 21 165/61 H 96 08/09/20 07:00 96 H 20 162/65 H 96 PG Care Time/CCT Total # of Minutes Spent Total Time Spent with Patient: Total time spent is greater than 50% in coordination of care (as documented) at patient's floor/unit and/or counseling patient: Coding Level of Care Code 79841 Subseq Hosp Care Lvl 3 Diagnoses Acute pancreatitis K85.12 Acute pancreatitis complication: infected necrosis Pancreatitis type: biliary Severe protein-calorie malnutrition E43 Elevated serum creatinine R79.89 HTN (hypertension) I10 Hypertension type: essential hypertension Superior mesenteric vein thrombosis K55.069 Leukocytosis D72.829 DVT prophylaxis Z29.9 (1) Acute pancreatitis Acute pancreatitis complication: infected necrosis Pancreatitis type: biliary Qualified Code(s): K85.12 - Biliary acute pancreatitis with infected necrosis (2) HTN (hypertension) Hypertension type: essential hypertension Qualified Code(s): I10 - Essential (primary) hypertension
[2020-08-09] MEDS: ACETAMINOPHEN 1,000 MG/100 ML VIAL IV PRN (22:21)
[2020-08-10] MEDS: LACTATED RINGER'S 1,000 ML IV SCH ×2 (01:40→13:16)
[2020-08-10] MEDS: PIPERACILLIN/TAZOBACTAM 3.375 GM in DEXTROSE 5% 100 ML IV SCH ×3 (02:15→17:55)
[2020-08-10 07:04] LABS: Basophils # (auto) 0.02 K/uL (0-0.2); Basophils % (auto) 0.2 %; Eosinophils # (auto) 0.06 K/uL (0-0.5); Eosinophils % (auto) 0.5 %; Hematocrit (blood only) 28.5 % (37-47); Immature Granulocytes # (auto) 0.03 K/uL (0.00-0.02); Immature Granulocytes % (auto) 0.2 %; Lymphocytes # (auto) 1.22 K/uL (1.2-3.4); Lymphocytes % (auto) 9.7 %; Mean Corpuscular Hemoglobin 26.5 pg (25-34); Mean Corpuscular Hgb Conc 31.6 g/dL (32-36); Mean Corpuscular Volume 84.1 fL (80-100); Mean Platelet Volume 8.9 fL (7.4-10.4); Monocytes # (auto) 0.63 K/uL (0.11-0.59); Neutrophils # (auto) 10.64 K/uL (1.4-6.5); Neutrophils % (auto) 84.4 %; Platelet Count 387 K/uL (130-400); RDW Coefficient of Variation 14.6 % (11.5-14.5); RDW Standard Deviation 45.1 fL (36.4-46.3); Red Blood Count 3.39 M/uL (4.2-5.4)
[2020-08-10 07:30] LABS: Calcium 8.7 mg/dl (8.5-10.1); Creatinine Clr Calc Pharmacy 46.2 ml/min; Est GFR (African American) 94.5; Est GFR (Non-African American) 81.5; Potassium 3.5 mmol/L (3.5-5.1)
[2020-08-10 07:33] LABS: Albumin Globulin Ratio 0.6 (0.9-2); Bilirubin,Total 0.6 mg/dl (0.2-1); Globulin 3.5 gm/dl (2.5-4.0); Total Protein 5.5 gm/dl (6.4-8.2)
[2020-08-10] MEDS: METOPROLOL TARTRATE 25 MG TAB PO SCH ×2 (08:40→20:28)
[2020-08-10] MEDS: POTASSIUM CHLORIDE PWD 20 MEQ PACK PO SCH (08:40)
[2020-08-10] MEDS: HEPARIN SOD 5,000 UNIT/0.5 ML VIAL SQ SCH ×2 (08:40→20:31)
[2020-08-10] MEDS: PANTOprazole 40 MG TAB PO SCH (08:40)
--- NOTE | 2020-08-10 10:05 | Hospitalist Progress Note ---
Date of Service August 10, 2020 Assessment & Plan (1) Acute pancreatitis: Severe pancreatitis based on nutritional state and imaging after recent gallstone pancreatitis diagnosis in May with prolonged hospitalization, necrosis and poor nutrition. Continue to hold lisinopril ?Drug-induced. 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 Continue Zosyn per GI recommendations. WBC down from 20k to 12k, no growth on blood cultures initially in ICU, transferred out on 08/09 (2) Severe protein-calorie malnutrition: resume full liquid diet try to get her to drink supplements (3) Elevated serum creatinine: Appears back to baseline. Iv fluids as above for another day, if intake is good could stop fluids tomorrow? (4) HTN (hypertension): Hold lisinopril. Metoprolol restarted yesterday in ICU and maintaining pressures well, will continue. 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 (6) Leukocytosis: Purely pancreatitis vs. infected pancreatic necrosis. Would favor the former but will defer continuation of antibiotics to GI. on zosyn WBC down to 12k from 20k (7) DVT prophylaxis: Heparin 5000 units SQ BID Admission and Anticipated Discharge Date Admission Date: August 08, 2020 Subjective patient sitting up in her chair, no distress she says she is really hungry, she "cannot wait to eat real food again" her pain is less intense, no nausea, + flatus but no BM at this time reviewed labs, lipase down to 400's, WBC down to 12k, Hb 9.0 no growth on blood cultures BUN and Cr are stable, electrolytes stable appreciate notes from GI Review of Systems Review of Systems: All systems reviewed & are unremarkable except as noted in Subjective Constitutional: + chills; no fever Respiratory: no cough and no dyspnea Cardiovascular: no chest pain and no edema Gastrointestinal: + abdominal pain (upper abdomen) and + constipation; no nausea, no vomiting and no diarrhea/loose stools Physical Exam Constitutional: WD/WN, vitals as above Eyes: PERRL, conjunctivae normal, anicteric sclerae ENMT: external ear and nose normal, oropharynx normal Neck: trachea midline, no thyromegaly Respiratory: normal respiratory effort, lungs clear to auscultation Cardiovascular: RRR, no murmur, no edema Gastrointestinal (Abdomen): Inspection/Auscultation: abdomen normal to inspection and normal bowel sounds Percussion/Palpation: + abdomen tender (epigastric), abdomen soft and + tympanic to percussion; no guarding and abdomen not rigid Musculoskeletal: no cyanosis or clubbing, extremities motor strength 5/5 Skin: no rashes, warm and dry Neurologic: patellar DTR's 2+ bilat, sensation intact and PERRL, EOMI, accommodation nl, no face palsy, no dysarthria Psychiatric: A+Ox3, euthymic affect Lymphatic: no cervical or axillary lymphadenopathy Results & Data Results & Data ([facility]) Vital Signs (Past 12 Hours) Vital Signs Temp Pulse Pulse Resp BP BP Pulse Ox 08/10/20 08:00 36.3 C L 88 94 H 20 153/69 H 97 08/10/20 04:00 36.4 C L 90 18 138/75 100 08/10/20 00:00 110 H 08/09/20 23:15 36.8 C 96 H 18 126/62 92 Laboratory Results Laboratory Results - last 24 hr 08/10/20 08/10/20 05:48 05:48 WBC 12.60 H RBC 3.39 L Hgb 9.0 L Hct 28.5 L MCV 84.1 MCH 26.5 MCHC 31.6 L RDW Std Deviation 45.1 RDW Coeff of [place] 14.6 H Plt Count 387 MPV 8.9 Immature Gran % (Auto) 0.2 Neut % (Auto) 84.4 Lymph % (Auto) 9.7 Dillon % (Auto) 5.0 Eos % (Auto) 0.5 Baso % (Auto) 0.2 Neut # (Auto) 10.64 H Lymph # (Auto) 1.22 Dillon # (Auto) 0.63 H Eos # (Auto) 0.06 Baso # (Auto) 0.02 Immature Gran # (Auto) 0.03 H Sodium 137 Potassium 3.5 Chloride 102 Carbon Dioxide 23 Anion Gap 12.0 H BUN 12 Creatinine 0.61 Est Cr Clr Drug Dosing 46.2 Est GFR ( Amer) 94.5 Est GFR (Non-Af Amer) 81.5 BUN/Creatinine Ratio 20.0 Glucose 72 Calcium 8.7 Total Bilirubin 0.6 AST 15 ALT 11 L Alkaline Phosphatase 21 L Total Protein 5.5 L Albumin 2.0 L Globulin 3.5 Albumin/Globulin Ratio 0.6 L Lipase 494 H Medications Administered Current Inpatient Medications Heparin Sodium (Porcine) (Heparin Sod 5,000 Unit/0.5 Ml Vial) 5,000 units SQ Q12 [facility] Stop: 09/07/20 20:59 Last Admin: 08/10/20 08:40 Dose: 5,000 units Documented by: Hydromorphone HCl (Hydromorphone Inj 0.5 Mg/0.5 Ml Syr) 0.25 mg IV Q1H PRN PRN Reason: Pain Stop: 08/22/20 11:34 Lactated Ringer's (Lr) 1,000 mls @ 80 mls/hr IV .[id number] [facility] Stop: 09/07/20 16:14 Last Admin: 08/10/20 01:40 Dose: 80 mls/hr Documented by: Piperacillin Sod/Tazobactam (Sod 3.375 gm/ Dextrose) 115 mls @ 28.75 mls/hr IV Q8H [facility]; Protocol Stop: 08/18/20 17:59 Last Infusion: 08/10/20 06:20 Dose: Infused Documented by: Acetaminophen (Ofirmev) 1,000 mg in 100 mls @ 400 mls/hr IV Q8H PRN PRN Reason: Pain or Fever Stop: 08/12/20 18:31 Last Infusion: 08/10/20 00:01 Dose: Infused Documented by: Metoprolol Tartrate (Metoprolol Tartrate 25 Mg Tab) 25 mg PO BID [facility] Stop: 09/07/20 20:59 Last Admin: 08/10/20 08:40 Dose: 25 mg Documented by: Miscellaneous Information (Piperacill/Tazobac Consult Active) 1 ea N/A UD PRN PRN Reason: Consult Stop: 09/07/20 16:16 Pantoprazole Sodium (Pantoprazole 40 Mg Tab) 40 mg PO QAM [facility] Stop: 09/08/20 08:59 Last Admin: 08/10/20 08:40 Dose: 40 mg Documented by: Potassium Chloride (Potassium Chloride Pwd 20 Meq Pack) 20 meq PO QAM [facility] Stop: 09/08/20 08:59 Last Admin: 08/10/20 08:40 Dose: 20 meq Documented by: PG Care Time/CCT Total # of Minutes Spent Total Time Spent with Patient: Total time spent is greater than 50% in coordination of care (as documented) at patient's floor/unit and/or counseling patient: Coding Level of Care Code 23275 Subseq Hosp Care Lvl 2 Diagnoses Acute pancreatitis K85.12 Acute pancreatitis complication: infected necrosis Pancreatitis type: biliary Severe protein-calorie malnutrition E43 Elevated serum creatinine R79.89 HTN (hypertension) I10 Hypertension type: essential hypertension Superior mesenteric vein thrombosis K55.069 Leukocytosis D72.829 DVT prophylaxis Z29.9 (1) Acute pancreatitis Acute pancreatitis complication: infected necrosis Pancreatitis type: biliary Qualified Code(s): K85.12 - Biliary acute pancreatitis with infected necrosis (2) HTN (hypertension) Hypertension type: essential hypertension Qualified Code(s): I10 - Essential (primary) hypertension
[2020-08-10] MEDS: ACETAMINOPHEN 1,000 MG/100 ML VIAL IV PRN ×2 (13:52→20:30)
[2020-08-10] MEDS: HYDROmorphone INJ 0.5 MG/0.5 ML SYR IV PRN ×2 (15:19→18:10)
[2020-08-11] MEDS: LACTATED RINGER'S 1,000 ML IV SCH (01:00)
[2020-08-11] MEDS: PIPERACILLIN/TAZOBACTAM 3.375 GM in DEXTROSE 5% 100 ML IV SCH ×3 (01:00→18:22)
[2020-08-11] MEDS: HYDROmorphone INJ 0.5 MG/0.5 ML SYR IV PRN (03:23)
[2020-08-11 07:10] LABS: Basophils # (auto) 0.02 K/uL (0-0.2); Basophils % (auto) 0.2 %; Eosinophils # (auto) 0.17 K/uL (0-0.5); Eosinophils % (auto) 1.9 %; Hematocrit (blood only) 29.5 % (37-47); Hemoglobin 9.3 g/dL (12.0-16.0); Immature Granulocytes # (auto) 0.02 K/uL (0.00-0.02); Immature Granulocytes % (auto) 0.2 %; Lymphocytes # (auto) 1.04 K/uL (1.2-3.4); Lymphocytes % (auto) 11.8 %; Mean Corpuscular Hemoglobin 26.2 pg (25-34); Mean Corpuscular Hgb Conc 31.5 g/dL (32-36); Mean Corpuscular Volume 83.1 fL (80-100); Mean Platelet Volume 8.5 fL (7.4-10.4); Monocytes # (auto) 0.53 K/uL (0.11-0.59); Neutrophils # (auto) 7.05 K/uL (1.4-6.5); Neutrophils % (auto) 79.9 %; Platelet Count 416 K/uL (130-400); RDW Coefficient of Variation 14.1 % (11.5-14.5); RDW Standard Deviation 43.1 fL (36.4-46.3); Red Blood Count 3.55 M/uL (4.2-5.4); White Blood Count 8.83 K/uL (4.8-10.8)
[2020-08-11 07:59] LABS: Albumin Globulin Ratio 0.5 (0.9-2); Albumin Level 1.9 gm/dl (3.4-5.0); BUN Creatinine Ratio 9.3 (10-20); Bilirubin,Total 0.5 mg/dl (0.2-1); Calcium 8.7 mg/dl (8.5-10.1); Creatinine Clr Calc Pharmacy 51.8 ml/min; Est GFR (African American) 98.9; Est GFR (Non-African American) 85.4; Globulin 3.7 gm/dl (2.5-4.0); Potassium 3.1 mmol/L (3.5-5.1); Total Protein 5.6 gm/dl (6.4-8.2)
[2020-08-11] MEDS: PANTOprazole 40 MG TAB PO SCH (08:09)
[2020-08-11] MEDS: HEPARIN SOD 5,000 UNIT/0.5 ML VIAL SQ SCH ×2 (08:09→20:32)
[2020-08-11] MEDS: POTASSIUM CHLORIDE PWD 20 MEQ PACK PO SCH (08:09)
[2020-08-11] MEDS: METOPROLOL TARTRATE 25 MG TAB PO SCH ×2 (08:09→20:32)
[2020-08-11] MEDS ORDERED: POTASSIUM CHLORIDE 10 MEQ / 100ML WTR IV STA (08:52)
--- NOTE | 2020-08-11 08:52 | Hospitalist Progress Note ---
Date of Service August 11, 2020 Assessment & Plan (1) Acute pancreatitis: Severe pancreatitis based after recent gallstone pancreatitis diagnosis in May with prolonged hospitalization, pancreatic necrosis and poor nutrition. Continue to hold lisinopril ?Drug-induced. 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 Continue Zosyn per GI recommendations. no growth on blood cultures initially in ICU, transferred out on 08/09 (2) Severe protein-calorie malnutrition: resume full liquid diet try to get her to drink supplements (3) HTN (hypertension): Hold lisinopril. 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 (5) Leukocytosis: Purely pancreatitis vs. infected pancreatic necrosis. Not appearing to be infectious at this time however GI medicine is still recommending patient remain on zosyn WBC down to normal (6) DVT prophylaxis: Heparin 5000 units SQ BID Admission and Anticipated Discharge Date Admission Date: August 08, 2020 Subjective Patient is slightly anxious and disappointed in her lack of progress. She continues with abdominal bloating and some mild abdominal pain. She is having some isolated systolic hypertension but overall just some general anxiety about still being in the hospital Review of Systems Review of Systems: Mild distress and fatigue no headache, blurry or double vision no speech or swallowing issues no chest pain, pressure or palpitations no shortness of breath, cough or wheezes Mild abdominal pain some bloating some liquid bowel movements no dysuria, hematuria or frequency no focal joint pain or swelling no back pain, CVA tenderness or radicular pain no bruising, bleeding or rashes no focal signs of weakness or numbness or altered sensation no complaints or anxiety or depression. Physical Exam Physical Exam: The patient appeared debilitated and weakened Vital signs as documented. Head exam is normocephalic atraumatic no scleral icterus Neck is without JVD, thyromegaly, or carotid bruits. Lungs are clear to auscultation, no focal loss of breath sounds Cardiac exam, Rhythm is regular.. No murmurs, rubs or gallops. Abdominal exam reveals normal bowel sounds, mildly distended and markedly tympanitic Extremities are nonedematous and both pedal pulses are normal. Neurologic exam is alert and oriented, no focal loss of strength or sensation Skin is with good healing of her abdominal wounds Psychologically is without concerns for anxiety or depression. Results & Data Results & Data ([facility]) Vital Signs (Past 12 Hours) Vital Signs Temp Pulse Pulse Resp BP BP Pulse Ox 08/11/20 07:21 93 H 08/11/20 07:04 98.1 F 88 17 191/76 H 196/70 H 96 08/11/20 04:17 170/65 H 08/11/20 03:18 97.3 F L 91 H 22 180/71 H 97 08/11/20 00:00 87 08/10/20 23:26 97.5 F L 83 18 153/66 H 93 PG Care Time/CCT Total # of Minutes Spent Total Time Spent with Patient: Total time spent is greater than 50% in coordination of care (as documented) at patient's floor/unit and/or counseling patient: Coding Level of Care Code 39044 Subseq Hosp Care Lvl 3 Diagnoses Acute pancreatitis K85.12 Acute pancreatitis complication: infected necrosis Pancreatitis type: biliary Severe protein-calorie malnutrition E43 HTN (hypertension) I10 Hypertension type: essential hypertension Superior mesenteric vein thrombosis K55.069 Leukocytosis D72.829 DVT prophylaxis Z29.9 (1) HTN (hypertension) Hypertension type: essential hypertension Qualified Code(s): I10 - Essential (primary) hypertension (2) Acute pancreatitis Acute pancreatitis complication: infected necrosis Pancreatitis type: biliary Qualified Code(s): K85.12 - Biliary acute pancreatitis with infected necrosis
[2020-08-11] MEDS ORDERED: MAGNESIUM SULFATE / D5W 1 GM/100 ML BAG IV ONE (09:00)
[2020-08-11] MEDS: POTASSIUM CHLORIDE / WTR 10 MEQ/100 ML PLCT IV SCH ×3 (09:50→12:06)
--- NOTE | 2020-08-11 11:00 | Gastroenterology Progress Note ---
Date of Service August 11, 2020 Assessment & Plan (1) Acute pancreatitis: Pt is a 85 y/o female followed for recurrent pancreatitis. She is s/p cholecystectomy. Previously had ERCP on 05/26/2020 s/p biliary sphincterectomy, biliary and pancreatic stents placements -> these were removed during repeat ERCP on 07/11/2020. She was suspected to have WON, and MRI to eval this is currently scheduled for 08/25/2020. CT abd/pelvis during this admissions showed decrease is intrapancreatic fludi collection but several new developing peripancreatic fluid collections are present. She also has new narrowing of distal SMV proximal to portosplenic confluence. - DC LR IVF - Replete electrolytes - Symptomatic management w antiemetics and analgesics prn - Advance diet slowly as tolerated to low fat diet. - ? SMV thrombosis: benefit of anticoagulation unclear. Will defer use for now and re-eval on future imaging. Would order doppler studies if abd pain increased, poor appetite, n/v to r/o portal vein thrombosis - We will follow Attg add: I interviewed and examined pt, reviewed chart and labs. Pt with slow improvement - less pain, + BM, terry clears with returning appetite. Abd markeldy tender on exam. Recs as above. Cont abx for empiric 7 d course. Admission and Anticipated Discharge Date Admission Date: August 08, 2020 Subjective Pt reports still some abd pain. Having loose stools. No rectal bleeding. Tolerating full liquid diet Review of Systems Review of Systems: All systems reviewed & are unremarkable except as noted in HPI & below Constitutional: as per Subjective / HPI Physical Exam Constitutional: WD/WN, vitals as above well groomed, cooperative and comfortable Eyes: PERRL, conjunctivae normal, anicteric sclerae ENMT: external ear and nose normal, oropharynx normal Respiratory: normal respiratory effort, lungs clear to auscultation Cardiovascular: RRR, no murmur, no edema Gastrointestinal (Abdomen): Inspection/Auscultation: normal bowel sounds Percussion/Palpation: + abdomen tender and abdomen soft Skin: no rashes, warm and dry no jaundice Psychiatric: A+Ox3, euthymic affect Lymphatic: no lymphedema Results & Data ([facility]) Vital Signs (Past 12 Hours) Vital Signs Temp Pulse Pulse Resp BP BP Pulse Ox 08/11/20 07:21 93 H 08/11/20 07:04 36.7 C 88 17 191/76 H 196/70 H 96 08/11/20 04:17 170/65 H 08/11/20 03:18 36.3 C L 91 H 22 180/71 H 97 08/11/20 00:00 87 08/10/20 23:26 36.4 C L 83 18 153/66 H 93 (1) Acute pancreatitis Acute pancreatitis complication: infected necrosis Pancreatitis type: biliary Qualified Code(s): K85.12 - Biliary acute pancreatitis with infected necrosis
[2020-08-11] MEDS: LORazepam 0.5 MG TAB PO PRN (18:23)
[2020-08-11] MEDS: HydrALAZINE HCL 20 MG/ML VIAL IV PRN (18:26)
[2020-08-11] MEDS: ACETAMINOPHEN 1,000 MG/100 ML VIAL IV PRN (22:21)
[2020-08-12] MEDS: PIPERACILLIN/TAZOBACTAM 3.375 GM in DEXTROSE 5% 100 ML IV SCH ×3 (01:52→17:05)
[2020-08-12] MEDS: HydrALAZINE HCL 20 MG/ML VIAL IV PRN (05:23)
[2020-08-12 06:58] LABS: Basophils # (auto) 0.01 K/uL (0-0.2); Basophils % (auto) 0.1 %; Eosinophils # (auto) 0.19 K/uL (0-0.5); Eosinophils % (auto) 2.3 %; Hematocrit (blood only) 30.8 % (37-47); Hemoglobin 9.9 g/dL (12.0-16.0); Immature Granulocytes # (auto) 0.01 K/uL (0.00-0.02); Immature Granulocytes % (auto) 0.1 %; Lymphocytes # (auto) 1.31 K/uL (1.2-3.4); Lymphocytes % (auto) 16.1 %; Mean Corpuscular Hemoglobin 26.3 pg (25-34); Mean Corpuscular Hgb Conc 32.1 g/dL (32-36); Mean Corpuscular Volume 81.7 fL (80-100); Mean Platelet Volume 8.2 fL (7.4-10.4); Monocytes % (auto) 7.4 %; Neutrophils # (auto) 6.03 K/uL (1.4-6.5); Platelet Count 408 K/uL (130-400); RDW Coefficient of Variation 14.2 % (11.5-14.5); RDW Standard Deviation 42.6 fL (36.4-46.3); Red Blood Count 3.77 M/uL (4.2-5.4); White Blood Count 8.15 K/uL (4.8-10.8)
[2020-08-12 07:28] LABS: Albumin Level 2.1 gm/dl (3.4-5.0); BUN Creatinine Ratio 7.7 (10-20); Calcium 8.3 mg/dl (8.5-10.1); Creatinine Clr Calc Pharmacy 49.4 ml/min; Est GFR (African American) 97.2; Est GFR (Non-African American) 83.8; Magnesium 1.7 mg/dl (1.8-2.4); Potassium 3.3 mmol/L (3.5-5.1)
[2020-08-12 07:30] LABS: Albumin Globulin Ratio 0.6 (0.9-2); Bilirubin,Total 0.4 mg/dl (0.2-1); Globulin 3.7 gm/dl (2.5-4.0); Total Protein 5.8 gm/dl (6.4-8.2)
[2020-08-12] MEDS: METOPROLOL TARTRATE 25 MG TAB PO SCH ×2 (08:30→20:13)
[2020-08-12] MEDS: POTASSIUM CHLORIDE PWD 20 MEQ PACK PO SCH (08:31)
[2020-08-12] MEDS: HEPARIN SOD 5,000 UNIT/0.5 ML VIAL SQ SCH ×2 (08:31→20:13)
[2020-08-12] MEDS: PANTOprazole 40 MG TAB PO SCH (08:33)
--- NOTE | 2020-08-12 08:53 | Gastroenterology Progress Note ---
Date of Service August 12, 2020 Assessment & Plan (1) Acute pancreatitis: Pt is a 85 y/o female followed for recurrent pancreatitis. She is s/p cholecystectomy. Previously had ERCP on 05/26/2020 s/p biliary sphincterectomy, biliary and pancreatic stents placements -> these were removed during repeat ERCP on 07/11/2020. She was suspected to have WON, and MRI to eval this is currently scheduled for 08/25/2020. CT abd/pelvis during this admissions showed decrease is intrapancreatic fludi collection but several new developing peripancreatic fluid collections are present. She also has new narrowing of distal SMV proximal to portosplenic confluence. She reports some post prandial abd pain but no pain on palpation on exam. Abd soft, BS present. - Empiric antibx x 7 days - Replete electrolytes - Symptomatic management w antiemetics and analgesics prn - Advance diet slowly as tolerated to low fat diet. - ? SMV thrombosis: benefit of anticoagulation unclear. Will defer use for now and re-eval on future imaging. Would order doppler studies if abd pain increased, poor appetite, n/v to r/o portal vein thrombosis - GI will follow peripherally Attg add: I interviewed and examined pt, reviewed chart and labs. Pt continued to improve. She has mild pain after eating. Plan to cont abx as above, MRCP as outpt, also outpt dopplers in 2-3 mos to eval for resolution of SMV thrombosis, consider heme consult for w/u hyper coag as outpt. Admission and Anticipated Discharge Date Admission Date: August 08, 2020 Subjective Pt denies abd pain, n/v. Does get abd pain when she eats. No BM today Review of Systems Review of Systems: All systems reviewed & are unremarkable except as noted in HPI & below Physical Exam Constitutional: WD/WN, vitals as above well groomed, cooperative and comfortable Eyes: PERRL, conjunctivae normal, anicteric sclerae ENMT: external ear and nose normal, oropharynx normal Respiratory: normal respiratory effort, lungs clear to auscultation Cardiovascular: RRR, no murmur, no edema Gastrointestinal (Abdomen): normal bowel sounds, soft, nontender, no hepatosplenomegaly Skin: no rashes, warm and dry no jaundice Psychiatric: A+Ox3, euthymic affect Lymphatic: no lymphedema Results & Data ([facility]) Vital Signs (Past 12 Hours) Vital Signs Temp Pulse Pulse Resp BP Pulse Ox 08/12/20 07:07 36.5 C 101 H 18 172/69 H 94 08/12/20 04:00 36.4 C L 103 H 16 193/74 H 93 08/11/20 23:30 99 H 08/11/20 22:56 36.7 C 98 H 16 161/73 H 98 (1) Acute pancreatitis Acute pancreatitis complication: infected necrosis Pancreatitis type: biliary Qualified Code(s): K85.12 - Biliary acute pancreatitis with infected necrosis
[2020-08-12] MEDS ORDERED: POTASSIUM CHLORIDE 10 MEQ / 100ML WTR IV STA (09:06)
--- NOTE | 2020-08-12 09:09 | Hospitalist Progress Note ---
Date of Service August 12, 2020 Assessment & Plan (1) Acute pancreatitis: Severe pancreatitis after recent gallstone pancreatitis diagnosis in May with prolonged hospitalization, pancreatic necrosis and poor nutrition. Possibly secondary to lisinopril, hold lisinopril ?Drug-induced. 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 Continue Zosyn per GI recommendations. Recommend 7 day course no growth on blood cultures initially in ICU, transferred out on 08/09 (2) Severe protein-calorie malnutrition: resume full liquid diet try to get her to drink supplements (3) HTN (hypertension): Hold lisinopril. 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 If abdominal pain worsens will eval for portal vein thrombosis (5) Leukocytosis: Purely pancreatitis vs. infected pancreatic necrosis. Not appearing to be infectious at this time however GI medicine is still recommending patient remain on zosyn last dose 08/15 WBC down to normal (6) DVT prophylaxis: Heparin 5000 units SQ BID Admission and Anticipated Discharge Date Admission Date: August 08, 2020 Subjective Patient is having a good day today very little abdominal pain having liquid bowel movements able to get out of bed still resistant to remove the Marie catheter at this time Review of Systems Review of Systems: Mild distress and fatigue no headache, blurry or double vision no speech or swallowing issues no chest pain, pressure or palpitations no shortness of breath, cough or wheezes Mild abdominal pain some bloating continues with liquid bowel movements no dysuria, hematuria or frequency no focal joint pain or swelling no back pain, CVA tenderness or radicular pain no bruising, bleeding or rashes no focal signs of weakness or numbness or altered sensation no complaints or anxiety or depression. Physical Exam Physical Exam: The patient appeared debilitated and weakened slightly improved from 921 Vital signs as documented. Head exam is normocephalic atraumatic no scleral icterus Neck is without JVD, thyromegaly, or carotid bruits. Lungs are clear to auscultation, no focal loss of breath sounds Cardiac exam, Rhythm is regular.. No murmurs, rubs or gallops. Abdominal exam reveals normal bowel sounds, less distended and tympanitic Extremities are nonedematous and both pedal pulses are normal. Neurologic exam is alert and oriented, no focal loss of strength or sensation Skin is with good healing of her abdominal wounds Psychologically is without concerns for anxiety or depression. Results & Data Results & Data ([facility]) Vital Signs (Past 12 Hours) Vital Signs Temp Pulse Pulse Resp BP Pulse Ox 08/12/20 07:07 97.7 F 101 H 18 172/69 H 94 08/12/20 04:00 97.5 F L 103 H 16 193/74 H 93 08/11/20 23:30 99 H 08/11/20 22:56 98.1 F 98 H 16 161/73 H 98 PG Care Time/CCT Total # of Minutes Spent Total Time Spent with Patient: Total time spent is greater than 50% in coordination of care (as documented) at patient's floor/unit and/or counseling patient: Coding Level of Care Code 20124 Subseq Hosp Care Lvl 2 Diagnoses Acute pancreatitis K85.12 Acute pancreatitis complication: infected necrosis Pancreatitis type: biliary Severe protein-calorie malnutrition E43 HTN (hypertension) I10 Hypertension type: essential hypertension Superior mesenteric vein thrombosis K55.069 Leukocytosis D72.829 DVT prophylaxis Z29.9 (1) HTN (hypertension) Hypertension type: essential hypertension Qualified Code(s): I10 - Essential (primary) hypertension (2) Acute pancreatitis Acute pancreatitis complication: infected necrosis Pancreatitis type: biliary Qualified Code(s): K85.12 - Biliary acute pancreatitis with infected necrosis
[2020-08-12] MEDS: POTASSIUM CHLORIDE / WTR 10 MEQ/100 ML PLCT IV SCH ×3 (09:24→11:38)
[2020-08-12] MEDS: MAGNESIUM SULFATE / D5W 1 GM/100 ML BAG IV SCH ×2 (09:24→11:14)
[2020-08-12] MEDS: bisacodyL 5 MG TABEC PO SCH (20:13)
[2020-08-12] MEDS: LORazepam 0.5 MG TAB PO PRN (20:14)
[2020-08-13] MEDS: PIPERACILLIN/TAZOBACTAM 3.375 GM in DEXTROSE 5% 100 ML IV SCH ×3 (01:52→17:07)
[2020-08-13 07:35] LABS: Basophils # (auto) 0.02 K/uL (0-0.2); Basophils % (auto) 0.2 %; Eosinophils # (auto) 0.26 K/uL (0-0.5); Hematocrit (blood only) 29.1 % (37-47); Hemoglobin 9.4 g/dL (12.0-16.0); Immature Granulocytes # (auto) 0.04 K/uL (0.00-0.02); Immature Granulocytes % (auto) 0.5 %; Lymphocytes # (auto) 1.22 K/uL (1.2-3.4); Lymphocytes % (auto) 14.2 %; Mean Corpuscular Hemoglobin 26.4 pg (25-34); Mean Corpuscular Hgb Conc 32.3 g/dL (32-36); Mean Corpuscular Volume 81.7 fL (80-100); Mean Platelet Volume 8.4 fL (7.4-10.4); Monocytes # (auto) 0.71 K/uL (0.11-0.59); Monocytes % (auto) 8.3 %; Neutrophils # (auto) 6.35 K/uL (1.4-6.5); Neutrophils % (auto) 73.8 %; Platelet Count 432 K/uL (130-400); RDW Coefficient of Variation 14.3 % (11.5-14.5); Red Blood Count 3.56 M/uL (4.2-5.4)
[2020-08-13 08:04] LABS: BUN Creatinine Ratio 9.9 (10-20); Calcium 8.2 mg/dl (8.5-10.1); Creatinine Clr Calc Pharmacy 45.2 ml/min; Potassium 3.7 mmol/L (3.5-5.1)
[2020-08-13 08:07] LABS: Albumin Globulin Ratio 0.6 (0.9-2); Bilirubin,Total 0.2 mg/dl (0.2-1); Globulin 3.5 gm/dl (2.5-4.0); Total Protein 5.5 gm/dl (6.4-8.2)
[2020-08-13] MEDS: HEPARIN SOD 5,000 UNIT/0.5 ML VIAL SQ SCH ×2 (09:17→20:18)
[2020-08-13] MEDS: POTASSIUM CHLORIDE PWD 20 MEQ PACK PO SCH (09:18)
[2020-08-13] MEDS: PANTOprazole 40 MG TAB PO SCH (09:18)
[2020-08-13] MEDS: METOPROLOL TARTRATE 25 MG TAB PO SCH ×2 (09:18→20:18)
--- NOTE | 2020-08-13 10:11 | Gastroenterology Progress Note ---
Date of Service August 13, 2020 Assessment & Plan (1) Acute pancreatitis: Pt is a 85 y/o female followed for recurrent pancreatitis. She is s/p cholecystectomy. Previously had ERCP on 05/26/2020 s/p biliary sphincterectomy, biliary and pancreatic stents placements -> these were removed during repeat ERCP on 07/11/2020. She was suspected to have WON, and MRI to eval this is currently scheduled for 08/25/2020. CT abd/pelvis during this admissions showed decrease is intrapancreatic fludi collection but several new developing peripancreatic fluid collections are present. She also has new narrowing of distal SMV proximal to portosplenic confluence. Tolerating [place] diet w/o abd pain, n/v. Bowels move w Dulcolax - Empiric antibx x 7 days - Replete electrolytes - Symptomatic management w antiemetics and analgesics prn - Advance diet slowly as tolerated to low fat diet. - ? SMV thrombosis: benefit of anticoagulation unclear. Will defer use for now and re-eval on future imaging. Consider Heme/Onc for hypercoagulation workup - MRI to follow fluid collection in pancreas already scheduled in August. - GI will sign off; pls recall prn Attg add: I interviewed and examined pt, reviewed chart and labs. Pt much improved, with no pain, + BM, and non tender abdomen. Recs as above. Admission and Anticipated Discharge Date Admission Date: August 08, 2020 Subjective Pt tolerated [place] diet w/o abd pain, n/v. Had BM today. Review of Systems Review of Systems: All systems reviewed & are unremarkable except as noted in HPI & below Physical Exam Constitutional: WD/WN, vitals as above well groomed, cooperative and comfortable Eyes: PERRL, conjunctivae normal, anicteric sclerae ENMT: external ear and nose normal, oropharynx normal Respiratory: normal respiratory effort, lungs clear to auscultation Cardiovascular: RRR, no murmur, no edema Gastrointestinal (Abdomen): normal bowel sounds, soft, nontender, no hepatosplenomegaly Skin: no rashes, warm and dry no jaundice Psychiatric: A+Ox3, euthymic affect Lymphatic: no lymphedema Results & Data ([facility]) Vital Signs (Past 12 Hours) Vital Signs Temp Pulse Pulse Resp BP Pulse Ox 08/13/20 07:23 36.3 C L 101 H 18 174/68 H 96 08/13/20 07:00 95 H 08/13/20 03:15 36.5 C 100 H 16 167/72 H 97 08/13/20 00:00 103 H 08/12/20 22:49 36.3 C L 99 H 18 149/70 H 94 (1) Acute pancreatitis Acute pancreatitis complication: infected necrosis Pancreatitis type: biliary Qualified Code(s): K85.12 - Biliary acute pancreatitis with infected necrosis
--- NOTE | 2020-08-13 16:56 | Hospitalist Progress Note ---
Date of Service August 13, 2020 Assessment & Plan (1) Acute pancreatitis: Severe pancreatitis after recent gallstone pancreatitis diagnosis in May with prolonged hospitalization, pancreatic necrosis and poor nutrition. Possibly secondary to lisinopril, hold lisinopril ?Drug-induced. 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 Recommend 7 day course last day 08/15 no growth on blood cultures, GI medicine to [facility]ie is planning reimaging of her abdomen in August this is already been scheduled initially in ICU, transferred out on 08/09 (2) Severe protein-calorie malnutrition: Tolerating advancement of diet (3) HTN (hypertension): Hold lisinopril. 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 If abdominal pain worsens will eval for portal vein thrombosis (5) Leukocytosis: Purely pancreatitis vs. infected pancreatic necrosis. Not appearing to be infectious at this time however GI medicine is still recommending patient remain on zosyn last dose 08/15 WBC down to normal (6) DVT prophylaxis: Heparin 5000 units SQ BID Admission and Anticipated Discharge Date Admission Date: August 08, 2020 Subjective Patient feels better every day she is less abdominal pain she is ambulating in her room Marie catheter was removed recommendations from GI medicine is for 7 days of intravenous antibiotics being the last day will be 08/15 Review of Systems Review of Systems: Mild distress and fatigue no headache, blurry or double vision no speech or swallowing issues no chest pain, pressure or palpitations no shortness of breath, cough or wheezes Mild abdominal pain some bloating continues with liquid bowel movements no dysuria, hematuria or frequency no focal joint pain or swelling no back pain, CVA tenderness or radicular pain no bruising, bleeding or rashes no focal signs of weakness or numbness or altered sensation no complaints or anxiety or depression. Constitutional: + chills; no fever Gastrointestinal: + abdominal pain (upper abdomen) and + constipation; no nausea, no vomiting and no diarrhea/loose stools Physical Exam Physical Exam: The patient appeared debilitated and weakened slightly improved from 921 Vital signs as documented. Head exam is normocephalic atraumatic no scleral icterus Neck is without JVD, thyromegaly, or carotid bruits. Lungs are clear to auscultation, no focal loss of breath sounds Cardiac exam, Rhythm is regular.. No murmurs, rubs or gallops. Abdominal exam reveals normal bowel sounds, less distended and tympanitic Extremities are nonedematous and both pedal pulses are normal. Neurologic exam is alert and oriented, no focal loss of strength or sensation Skin is with good healing of her abdominal wounds Psychologically is without concerns for anxiety or depression. Results & Data Results & Data ([facility]) Vital Signs (Past 12 Hours) Vital Signs Temp Pulse Pulse Resp BP Pulse Ox 08/13/20 16:00 89 08/13/20 15:54 97.7 F 97 H 16 167/69 H 96 08/13/20 11:26 97.5 F L 90 17 152/80 H 96 08/13/20 07:23 97.3 F L 101 H 18 174/68 H 96 08/13/20 07:00 95 H PG Care Time/CCT Total # of Minutes Spent Total Time Spent with Patient: Total time spent is greater than 50% in coordination of care (as documented) at patient's floor/unit and/or counseling patient: Coding Level of Care Code 65406 Subseq Hosp Care Lvl 2 Diagnoses Acute pancreatitis K85.12 Acute pancreatitis complication: infected necrosis Pancreatitis type: biliary Severe protein-calorie malnutrition E43 HTN (hypertension) I10 Hypertension type: essential hypertension Superior mesenteric vein thrombosis K55.069 Leukocytosis D72.829 DVT prophylaxis Z29.9 (1) Acute pancreatitis Acute pancreatitis complication: infected necrosis Pancreatitis type: biliary Qualified Code(s): K85.12 - Biliary acute pancreatitis with infected necrosis (2) HTN (hypertension) Hypertension type: essential hypertension Qualified Code(s): I10 - Essential (primary) hypertension
[2020-08-13] MEDS: bisacodyL 5 MG TABEC PO SCH (20:18)
[2020-08-13] MEDS: LORazepam 0.5 MG TAB PO PRN (21:09)
[2020-08-14] MEDS: PIPERACILLIN/TAZOBACTAM 3.375 GM in DEXTROSE 5% 100 ML IV SCH ×3 (01:18→17:26)
[2020-08-14 07:15] LABS: Basophils # (auto) 0.01 K/uL (0-0.2); Basophils % (auto) 0.1 %; Eosinophils # (auto) 0.34 K/uL (0-0.5); Eosinophils % (auto) 4.3 %; Hematocrit (blood only) 30.7 % (37-47); Hemoglobin 9.8 g/dL (12.0-16.0); Immature Granulocytes # (auto) 0.08 K/uL (0.00-0.02); Lymphocytes # (auto) 2.16 K/uL (1.2-3.4); Lymphocytes % (auto) 27.3 %; Mean Corpuscular Hemoglobin 26.3 pg (25-34); Mean Corpuscular Hgb Conc 31.9 g/dL (32-36); Mean Corpuscular Volume 82.5 fL (80-100); Mean Platelet Volume 8.3 fL (7.4-10.4); Monocytes # (auto) 0.49 K/uL (0.11-0.59); Monocytes % (auto) 6.2 %; Neutrophils # (auto) 4.84 K/uL (1.4-6.5); Neutrophils % (auto) 61.1 %; Platelet Count 455 K/uL (130-400); RDW Coefficient of Variation 14.6 % (11.5-14.5); RDW Standard Deviation 44.2 fL (36.4-46.3); Red Blood Count 3.72 M/uL (4.2-5.4); White Blood Count 7.92 K/uL (4.8-10.8)
[2020-08-14 07:56] LABS: Albumin Level 2.2 gm/dl (3.4-5.0); BUN Creatinine Ratio 6.3 (10-20); Calcium 8.5 mg/dl (8.5-10.1); Creatinine Clr Calc Pharmacy 37.1 ml/min; Est GFR (African American) 87.3; Est GFR (Non-African American) 75.3; Potassium 3.6 mmol/L (3.5-5.1)
[2020-08-14 07:58] LABS: Albumin Globulin Ratio 0.6 (0.9-2); Bilirubin,Total 0.2 mg/dl (0.2-1); Globulin 3.6 gm/dl (2.5-4.0); Total Protein 5.8 gm/dl (6.4-8.2)
[2020-08-14] MEDS: METOPROLOL TARTRATE 25 MG TAB PO SCH ×2 (08:28→21:29)
[2020-08-14] MEDS: POTASSIUM CHLORIDE PWD 20 MEQ PACK PO SCH (08:28)
[2020-08-14] MEDS: PANTOprazole 40 MG TAB PO SCH (08:28)
[2020-08-14] MEDS: HEPARIN SOD 5,000 UNIT/0.5 ML VIAL SQ SCH ×2 (08:46→21:29)
[2020-08-14] MEDS ORDERED: bisacodyL 5 MG TABEC PO PRN (09:58)
[2020-08-14] MEDS: HYDROmorphone INJ 0.5 MG/0.5 ML SYR IV PRN ×4 (10:06→23:32)
[2020-08-14] MEDS ORDERED: HYDROmorphone INJ 1 MG/ML SYRINGE IV STA (11:20)
[2020-08-14] MEDS ORDERED: HYDROmorphone INJ 0.5 MG/0.5 ML SYR IV STA (11:32)
[2020-08-14] MEDS ORDERED: PROMETHAZINE HCL 12.5 MG in SODIUM CHLORIDE 0.9% 50 ML IV PRN (14:08)
[2020-08-14] MEDS ORDERED: ONDANSETRON INJ 2 MG/ML 2 ML VIAL IV PRN (14:08)
[2020-08-14] MEDS ORDERED: IOVERSOL 100ml IV ONE (16:16)
[2020-08-14] MEDS: LORazepam 0.5 MG TAB PO PRN ×2 (16:32→23:32)
--- NOTE | 2020-08-14 16:50 | CT Scan Report ---
ABDOMEN AND PELVIS CT WITH IV AND ORAL CONTRAST CT DOSE: 241.82 mGycm HISTORY: Acute generalized abdominal pain in a patient with findings recent findings suggestive of ac [place] pancreatitis.. progressive abd pain with ? pancreatic cysts TECHNIQUE: Multiaxial CT images of the abdomen and pelvis were performed following the IV administrat ion of 94 cc of Optiray 320 and oral contrast. A dose lowering technique was utilized adhering to e principles of ALARA. COMPARISON STUDY: CT abdomen and pelvis 08/08/2020, 06/11/2020 FINDINGS: Interval development of small pleural effusions with dependent predominant bibasilar consol idation. Mild intralobular septal thickening.. Study is mildly motion degraded. There is no pneumatos is or pneumoperitoneum. Cardiomegaly. Scattered calcified granulomata of the spleen. Unchanged mild n odular thickening of the left renal vein. Normal right adrenal gland. Cholecystectomy. Liver is unrem arkable. Patency of the hepatic and portal veins. The splenic vein is also patent. There is mild melvin nal narrowing of the distal superior mesenteric vein just proximal to the portal splenic confluence w hich has improved from prior. Peripancreatic fluid edema with interstitial pancreatic edema redemonstrated suggestive of acute panc reatitis. Pancreatic duct measures Limits of normal at 2.8 mm. Peripancreatic fluid collection within the pancreatic head and uncinate p rocess on image 177 series 3 appears stable from comparison measuring 2.5 x 2.1 cm. Several possible small developing peripancreatic fluid collections with interval development of a 4.6 x 2.1 cm fluid c ollection interposed between the stomach and superior margin of the pancreatic body and tail. This de monstrates mild peripheral enhancement. Additionally, there is a new 3.3 x 1.1 cm fluid collection ad jacent to the lesser curvature of the gastric body on image 192 series 3. Extensive plaque the abdomi nal aorta. No adenopathy. Heterogeneous enlarged uterus suggests uterine fibroids. There is a cortical scarring are suggested w ithin the right kidney. Air within the nondependent urinary bladder. Enteric contrast of the distal e sophagus. Moderate wall thickening of the stomach and proximal duodenum. Scattered air-fluid levels a re noted within the large bowel. Generalized body wall edema. Tarlov cysts of the sacrum. Degenerativ e changes of the spine, pelvis and hips. No acute fracture. IMPRESSION: 1. Findings of ongoing acute pancreatitis with unchanged size of the intrahepatic pancreatic fluid co llection within the pancreatic head and uncinate process. There is increased size of the acute peripa ncreatic collections as above. 2. Moderate wall thickening of the stomach is likely reactive. 3. No small bowel obstruction. 4. Decreased narrowing of the distal superior mesenteric vein just proximal to the portal splenic con fluence without thrombus. 5. New small pleural effusions with dependent bibasilar atelectasis and possible mild pulmonary edema . 6. Additional findings as above. ACT 112: Negative or not required by law. The above report was generated using voice recognition software. It may contain grammatical, syntax o r spelling errors. Electronically signed by: David Egan M.D. 08/14/2020 4:49 PM
--- NOTE | 2020-08-14 16:51 | Hospitalist Progress Note ---
Date of Service August 14, 2020 Assessment & Plan (1) Acute pancreatitis: Severe pancreatitis after recent gallstone pancreatitis diagnosis in May with prolonged hospitalization, pancreatic necrosis and poor nutrition. Possibly secondary to lisinopril, hold lisinopril ?Drug-induced. Patient is has had escalation of her pain on 08/14/2020. 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 Recommend 7 day course last day 08/15 no growth on blood cultures, GI medicine to Stefanie is planning reimaging of her abdomen in August this is already been scheduled initially in ICU, transferred out on 08/09 (2) Severe protein-calorie malnutrition: Patient remains with malnutrition unable to advance diet on 08/14 due to significant pain (3) HTN (hypertension): Hold lisinopril. 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 If abdominal pain worsens will eval for portal vein thrombosis (5) Leukocytosis: Purely pancreatitis vs. infected pancreatic necrosis. Not appearing to be infectious at this time however GI medicine is still recommending patient remain on zosyn last dose 08/15 WBC down to normal labs look relatively good with exception of chronic elevation of her lipase and seemingly her pain is out of proportion to her objective findings (6) DVT prophylaxis: Heparin 5000 units SQ BID Admission and Anticipated Discharge Date Admission Date: August 08, 2020 Subjective This patient had a profound worsening of her abdominal pain in the late morning of 08/14. Is associate with nausea it was diffuse she was exquisitely tender to palpation. She did have active bowel sounds present on examination. He was given medications for pain and nausea and a CT scan with oral contrast was ordered. GI medicine was made aware Review of Systems Review of Systems: Moderate distress and fatigue no headache, blurry or double vision no speech or swallowing issues no chest pain, pressure or palpitations no shortness of breath, cough or wheezes Patient has had worsening of abdominal pain associated with some guarding and mild rebound tenderness no dysuria, hematuria or frequency no focal joint pain or swelling no back pain, CVA tenderness or radicular pain no bruising, bleeding or rashes no focal signs of weakness or numbness or altered sensation no complaints or anxiety or depression. Gastrointestinal: + abdominal pain (upper abdomen) Physical Exam Physical Exam: The patient appeared debilitated and weakened slightly improved from 921 Vital signs as documented. Head exam is normocephalic atraumatic no scleral icterus Neck is without JVD, thyromegaly, or carotid bruits. Lungs are clear to auscultation, no focal loss of breath sounds Cardiac exam, Rhythm is regular.. No murmurs, rubs or gallops. Abdominal exam reveals normal bowel sounds, patient is physically tender e specially to exam with some guarding and some mild rebound Extremities are nonedematous and both pedal pulses are normal. Neurologic exam is alert and oriented, no focal loss of strength or sensation Skin is with good healing of her abdominal wounds Psychologically is without concerns for anxiety or depression. Results & Data Results & Data ([facility]) Vital Signs (Past 12 Hours) Vital Signs Temp Pulse Pulse Resp BP Pulse Ox 08/14/20 16:00 92 H 08/14/20 14:59 97.3 F L 93 H 16 173/69 H 96 08/14/20 10:49 97.7 F 94 H 20 175/66 H 94 08/14/20 07:40 97.9 F 98 H 18 171/79 H 96 08/14/20 07:29 92 H PG Care Time/CCT Total # of Minutes Spent Total Time Spent with Patient: Total time spent is greater than 50% in coordination of care (as documented) at patient's floor/unit and/or counseling patient: Coding Level of Care Code 77740 Subseq Hosp Care Lvl 3 Diagnoses Acute pancreatitis K85.12 Acute pancreatitis complication: infected necrosis Pancreatitis type: biliary Severe protein-calorie malnutrition E43 HTN (hypertension) I10 Hypertension type: essential hypertension Superior mesenteric vein thrombosis K55.069 Leukocytosis D72.829 DVT prophylaxis Z29.9 (1) Acute pancreatitis Acute pancreatitis complication: infected necrosis Pancreatitis type: biliary Qualified Code(s): K85.12 - Biliary acute pancreatitis with infected necrosis (2) HTN (hypertension) Hypertension type: essential hypertension Qualified Code(s): I10 - Essential (primary) hypertension
[2020-08-14] MEDS ORDERED: TPN/PPN CONSULT PHARMACY PRN (17:23)
[2020-08-14] MEDS: LACTATED RINGER'S 1,000 ML IV SCH (19:02)
[2020-08-15] MEDS: PIPERACILLIN/TAZOBACTAM 3.375 GM in DEXTROSE 5% 100 ML IV SCH ×3 (01:29→18:28)
[2020-08-15] MEDS: LACTATED RINGER'S 1,000 ML IV SCH ×2 (07:11→16:16)
[2020-08-15 07:28] LABS: BUN Creatinine Ratio 8.3 (10-20); Calcium 8.9 mg/dl (8.5-10.1); Creatinine Clr Calc Pharmacy 39.7 ml/min; Est GFR (African American) 91.2; Est GFR (Non-African American) 78.6; Magnesium 1.7 mg/dl (1.8-2.4); Potassium 4.1 mmol/L (3.5-5.1)
[2020-08-15 07:29] LABS: Phosphorus 3.5 mg/dl (2.5-4.9)
[2020-08-15] MEDS: POTASSIUM CHLORIDE PWD 20 MEQ PACK PO SCH (07:38)
[2020-08-15] MEDS: HEPARIN SOD 5,000 UNIT/0.5 ML VIAL SQ SCH ×2 (07:38→20:42)
[2020-08-15] MEDS: PANTOprazole 40 MG TAB PO SCH (07:39)
[2020-08-15] MEDS: METOPROLOL TARTRATE 25 MG TAB PO SCH ×2 (07:39→20:41)
[2020-08-15] MEDS: HYDROmorphone INJ 0.5 MG/0.5 ML SYR IV PRN (07:43)
[2020-08-15] MEDS ORDERED: METOPROLOL TARTRATE 1 MG/ML VIAL IV PRN (08:15)
[2020-08-15] MEDS ORDERED: MAGNESIUM SULFATE / D5W 1 GM/100 ML BAG IV ONE (09:00)
[2020-08-15] MEDS ORDERED: DEXTROSE 5% 1,000 ML IV PRN (10:36)
--- NOTE | 2020-08-15 11:16 | Gastroenterology Progress Note ---
Date of Service August 15, 2020 Assessment & Plan (1) Acute pancreatitis: Pt is a 85 y/o female followed for recurrent pancreatitis. She is s/p cholecystectomy. Previously had ERCP on 05/26/2020 s/p biliary sphincterectomy, biliary and pancreatic stents placements -> these were removed during repeat ERCP on 07/11/2020. She was suspected to have WON, and MRI to eval this is currently scheduled for 08/25/2020. CT abd/pelvis during this admissions showed decrease is intrapancreatic fludi collection but several new developing peripancreatic fluid collections are present. She also has new narrowing of distal SMV proximal to portosplenic confluence. CT repeated yesterday for increased abd pain and increased size of pancreatic fluid collection is noted. Though no indication to aspirate as collection is not matured. No signs of bowel obstruction noted. - Obtain MRCP to r/o pancreatic ductal disruption - Empiric antibx x 7 days - Replete electrolytes - Symptomatic management w antiemetics and analgesics prn - Advance diet slowly as tolerated to low fat diet. - ? SMV narrowing w/o thrombus noted on last CT 08/14 - Dulcolax 10mg PO PRN constipation Admission and Anticipated Discharge Date Admission Date: August 08, 2020 Supervising Physician Co-Signing Physician Notes I performed a history and physical examination of the patient today, including specifically on physical exam - soft abdomen. I have discussed the patient's management with the advanced practitioner. Please refer to the nurse practitioner's note for the documented findings and plan of care. Patient had prior acute severe gallstone pancreatitis, she developed pancreatic necrosis at that time, during her repeat ERCP her EUS showed a developing peripancreatic WON at the head area. Now she presented with recurrent pancreatitis again however her LFTs are normal. She has multiple fluid collections near the pancreas however they are still without a mature wall to warrant drainage. Clinically she actually looks fine, she was resting in bed with no pain and her labs are reassuring with no leukocytosis and normal kidney function. MRCP reviewed and no clear evidence of disrupted PD with small volume ascites. At this point there is no clear evidence of PD fistula to warrant urgent ERCP and PD stenting. Continue hydration and pain control. Advance her PO diet as tolerated. She will need follow up closely as OP once current pancreatitis resolves. Subjective Pt had increased abd pain yesterday, repeat CT abd/pelvis w developing pancreatic fluid collection This AM she reports no pain but on palpation, abd is tender and mildly distended, not passing flatus Review of Systems Review of Systems: All systems reviewed & are unremarkable except as noted in HPI & below Physical Exam Constitutional: WD/WN, vitals as above well groomed, cooperative and comfortable Eyes: PERRL, conjunctivae normal, anicteric sclerae ENMT: external ear and nose normal, oropharynx normal Respiratory: normal respiratory effort, lungs clear to auscultation Cardiovascular: RRR, no murmur, no edema Gastrointestinal (Abdomen): Inspection/Auscultation: + abdomen distended (mild) and + hypoactive bowel sounds Percussion/Palpation: + abdomen tender Skin: no rashes, warm and dry no jaundice Psychiatric: A+Ox3, euthymic affect Lymphatic: no lymphedema Results & Data ([facility]) Vital Signs (Past 12 Hours) Vital Signs Temp Pulse Pulse Resp BP Pulse Ox 08/15/20 07:33 36.6 C 118 H 20 174/73 H 95 08/15/20 07:20 119 H 08/15/20 04:34 36.5 C 113 H 18 167/68 H 95 08/14/20 23:33 36.3 C L 114 H 18 177/68 H 95 (1) Acute pancreatitis Acute pancreatitis complication: infected necrosis Pancreatitis type: biliary Qualified Code(s): K85.12 - Biliary acute pancreatitis with infected necrosis
--- NOTE | 2020-08-15 11:39 | Magnetic Resonance Report ---
MR MRCP CLINICAL HISTORY: Severe abdominal pain. Evaluate for pancreatic ductal disruption. COMPARISON STUDY: CT scan dated 07/14/2020 FINDINGS: A breath-hold MRCP was performed. MIP images were acquired. [place] images reveal incidental prominent sacral Tarlov cyst. There is low volume ascites. There are small bilateral pleural effusions. There is no evidence of intra or extrahepatic biliary ductal dilatation. There are no filling defects to indicate a calculus. The gallbladder is surgically absent. The common bile duct measures 4 mm. There is smooth narrowing o f the distal common bile duct, likely secondary to pancreatic head inflammation although a neoplastic process would be difficult to exclude the certainty. There is no pancreatic ductal dilatation. The pancreatic duct at the level of the previously identifi ed cystic pancreatic head lesion is difficult to discern. Continuity of the duct at this level cannot be determined. There are peripancreatic inflammatory changes consistent with pancreatitis. There is a fluid collection present within the lesser sac. IMPRESSION: 1. Small bilateral pleural effusions 2. Low volume ascites 3. Peripancreatic inflammatory changes consistent with pancreatitis 4. Persistent fluid collection the region of the lesser sac 5. No evidence of biliary or pancreatic ductal dilatation. 6. Smooth narrowing of distal common bile duct likely secondary to inflammatory change although a chad plastic stricture cannot be excluded 7. The pancreatic duct is not well visualized at the level of the recently described pancreatic head fluid collection. Duct continuity at this level cannot be determined. ACT 112: Negative or not required by law. Electronically signed by: Matt Coe M.D. 08/15/2020 11:38 AM
--- NOTE | 2020-08-15 13:54 | Hospitalist Progress Note ---
Date of Service August 15, 2020 Assessment & Plan (1) Acute pancreatitis: Severe pancreatitis after recent gallstone pancreatitis diagnosis in May with prolonged hospitalization, pancreatic necrosis and poor nutrition. Possibly secondary to lisinopril, hold lisinopril ?Drug-induced. Patient is has had escalation of her pain on 08/14/2020. CT scan IMPRESSION: 1. Findings of ongoing acute pancreatitis with unchanged size of the intrahepatic pancreatic fluid collection within the pancreatic head and uncinate process. There is increased size of the acute peripancreatic collections as above. 2. Moderate wall thickening of the stomach is likely reactive. 3. No small bowel obstruction. 4. Decreased narrowing of the distal superior mesenteric vein just proximal to the portal splenic confluence without thrombus. 5. New small pleural effusions with dependent bibasilar atelectasis and possible mild pulmonary edema. MRCP 08/15/20 IMPRESSION: 1. Small bilateral pleural effusions 2. Low volume ascites 3. Peripancreatic inflammatory changes consistent with pancreatitis 4. Persistent fluid collection the region of the lesser sac 5. No evidence of biliary or pancreatic ductal dilatation. 6. Smooth narrowing of distal common bile duct likely secondary to inflammatory change although a neoplastic stricture cannot be excluded 7. The pancreatic duct is not well visualized at the level of the recently described pancreatic head fluid collection. Duct continuity at this level cannot be determined. 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 Recommend 7 day course last day 08/15 no growth on blood cultures, GI medicine to Stefanie is planning reimaging of her abdomen in August this is already been scheduled initially in ICU, transferred out on 08/09 (2) Severe protein-calorie malnutrition: Patient remains with malnutrition unable to advance diet on 08/14 due to significant pain (3) HTN (hypertension): Hold lisinopril. 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 If abdominal pain worsens will eval for portal vein thrombosis (5) Leukocytosis: Purely pancreatitis vs. infected pancreatic necrosis. Not appearing to be infectious at this time however GI medicine is still recommending patient remain on zosyn last dose 08/15 WBC down to normal labs look relatively good with exception of chronic elevation of her lipase and seemingly her pain is out of proportion to her objective findings (6) DVT prophylaxis: Heparin 5000 units SQ BID Admission and Anticipated Discharge Date Admission Date: August 08, 2020 Subjective l Patient persistently painful she has no appetite still just tired and washed out. MRCP is not conclusive about a pancreatic duct rupture or discontinuation. GI medicine is continued to be involved talking about assuring nutrition and continue supportive care Review of Systems Review of Systems: Moderate distress and fatigue no headache, blurry or double vision no speech or swallowing issues no chest pain, pressure or palpitations no shortness of breath, cough or wheezes Patient continues with abdominal pain associated with some guarding and mild re bound tenderness no dysuria, hematuria or frequency no focal joint pain or swelling no back pain, CVA tenderness or radicular pain no bruising, bleeding or rashes no focal signs of weakness or numbness or altered sensation no complaints or anxiety or depression. Physical Exam Physical Exam: The patient appeared debilitated and weakened slightly improved from 921 Vital signs as documented. Head exam is normocephalic atraumatic no scleral icterus Neck is without JVD, thyromegaly, or carotid bruits. Lungs are clear to auscultation, no focal loss of breath sounds Cardiac exam, Rhythm is regular.. No murmurs, rubs or gallops. Abdominal exam reveals normal bowel sounds, patient is physically tender especially to exam with some guarding and some mild rebound Extremities are nonedematous and both pedal pulses are normal. Neurologic exam is alert and oriented, no focal loss of strength or sensation Skin is with good healing of her abdominal wounds Psychologically is with concern for depression. Results & Data Results & Data ([facility]) Vital Signs (Past 12 Hours) Vital Signs Temp Pulse Pulse Resp BP Pulse Ox 08/15/20 11:35 97.7 F 97 H 20 146/70 H 96 08/15/20 07:33 97.9 F 118 H 20 174/73 H 95 08/15/20 07:20 119 H 08/15/20 04:34 97.7 F 113 H 18 167/68 H 95 PG Care Time/CCT Total # of Minutes Spent Total Time Spent with Patient: Total time spent is greater than 50% in coordination of care (as documented) at patient's floor/unit and/or counseling patient: Coding Level of Care Code 06566 Subseq Hosp Care Lv 3 Diagnoses Acute pancreatitis K85.12 Acute pancreatitis complication: infected necrosis Pancreatitis type: biliary Severe protein-calorie malnutrition E43 HTN (hypertension) I10 Hypertension type: essential hypertension Superior mesenteric vein thrombosis K55.069 Leukocytosis D72.829 DVT prophylaxis Z29.9 (1) HTN (hypertension) Hypertension type: essential hypertension Qualified Code(s): I10 - Essential (primary) hypertension (2) Acute pancreatitis Acute pancreatitis complication: infected necrosis Pancreatitis type: biliary Qualified Code(s): K85.12 - Biliary acute pancreatitis with infected necrosis
--- NOTE | 2020-08-15 14:44 | Pharmacy Report ---
Pharmacy PN Initial Consult - Date of Service August 15, 2020 - Scope Pharmacy has been consulted to manage parenteral nutrition orders and order appropriate labs. As part of the Nutrition Support Team guidelines, pharmacy will work in conjunction with dietary when determining the patients caloric needs. - Subjective The patient is a 85 year old F admitted on 08/08/20 15:17 for ACUTE PANCREATITIS. Patient is to receive parenteral nutrition for acute pancreatitis /NPO status Pertinent PMH: GERD, pancreatitis - Objective Height: 5 ft 2 in Weight: 42.3 kg Diet: NPO Vascular Access:: peripheral Intake & Output (Last 24Hrs): Intake & Output 08/13/20 08/14/20 08/15/20 08/16/20 06:59 06:59 06:59 06:59 Intake Total 1256.814 / 1975.344 4486 / 1130 465 / 465 1403.146 / 1403.146 Output Total 1601 / 1601 402 / 402 201 / 201 200 / 200 Balance -344.186 / -344.186 728 / 728 264 / 264 1203.146 / 1203.146 Weight 43.3 kg 42.7 kg 43.1 kg 42.3 kg Laboratory Data (Last 24 Hrs):: 08/15/20 08/15/20 06:07 06:07 Sodium 135 L Potassium 4.1 Chloride 99 Carbon Dioxide 29 BUN 6 L Creatinine 0.68 Glucose 102 H Calcium 8.9 Phosphorus 3.5 Magnesium 1.7 L Triglycerides 83 Nutrition Assessment:: Please refer to the Notes section of the EMR for the most recent carbon rod inserter note. - Assessment 85 yo female admitted with acute pancreatitis, initially improved with worsening today. Patient was made NPO yesterday, EN vs PN. peripheral parenteral nutrition to be started today. MRCP today. Discussed with carbon rod inserter, patient is a high feeding risk and will use caution with dextrose administration. Patient is receiving zosyn which provides ~15 gm of dextrose/day, originally plan to stop today but now continuing. F: LR @ 80 ml/hr E: WNL except Na 135 mmol/L, Magnesium 1.7 mg/dl (replaced with 1 gm) N: currently NPO was on clears previously, increased abdominal pain. Albumin 2.2 gm/dl, glucose 102 mg/dL - Plan For day 1 of PN administration, the following will be ordered: Macronutrients Amino acids 40 grams/day Dextrose 50 grams/day Lipids 10 grams/day Micronutrients Combined electrolytes 30 mL - contains 35 mEq Na, 20 meq K, 4.5 mEq Ca, 5 mEq Mg, 35 mEq Cl, 29.5 mEq acetate per 20 mL Sodium phosphate 21 MMol Sodium chloride 10 mEq Potassium chloride 10 mEq Magnesium sulfate 4.06 mEq Multivitamins 10 mL Trace Elements 10 mL Additional additives: Thiamine 100 mg/Folic acid 1 mg Total volume 1000 mL to be infused over 24 hrs will provide 430 kcal/day Final osmolarity 892.75 mOsm/L (maximum for PPN is 900 mOsm/L) Labs to be ordered per PN order protocol; LR rate will be adjusted to 38 ml/hr when ppn is hung. This ppn will provide ~10 kcal/kg/day (~11 kcal/kg/day with zosyn) due to high feeding risk. Monitor closely. Pharmacy will follow and adjust parenteral nutrition orders on a daily basis. Thank you.
[2020-08-15] MEDS ORDERED: Custom Peripheral Pn 1,000 ML in TPN BAG 0 ML IV SCH (16:00)
[2020-08-15] MEDS ORDERED: [UNRECOGNIZED DRUG - REMARK] ONE (16:00)
[2020-08-16] MEDS: PIPERACILLIN/TAZOBACTAM 3.375 GM in DEXTROSE 5% 100 ML IV SCH ×2 (02:30→10:37)
[2020-08-16 07:20] LABS: Calcium 8.3 mg/dl (8.5-10.1); Creatinine Clr Calc Pharmacy 49.5 ml/min; Est GFR (African American) 97.2; Est GFR (Non-African American) 83.8; Potassium 3.7 mmol/L (3.5-5.1)
[2020-08-16 07:21] LABS: Phosphorus 3.2 mg/dl (2.5-4.9)
[2020-08-16] MEDS: METOPROLOL TARTRATE 25 MG TAB PO SCH ×2 (08:22→20:07)
[2020-08-16] MEDS: HEPARIN SOD 5,000 UNIT/0.5 ML VIAL SQ SCH ×3 (08:24→20:04)
--- NOTE | 2020-08-16 16:02 | Hospitalist Progress Note ---
Date of Service August 16, 2020 Assessment & Plan (1) Acute pancreatitis: Severe pancreatitis after recent gallstone pancreatitis diagnosis in May with prolonged hospitalization, pancreatic necrosis and poor nutrition. Possibly secondary to lisinopril, hold lisinopril ?Drug-induced. Patient is has had escalation of her pain on 08/14/2020. CT scan IMPRESSION: 1. Findings of ongoing acute pancreatitis with unchanged size of the intrahepatic pancreatic fluid collection within the pancreatic head and uncinate process. There is increased size of the acute peripancreatic collections as above. 2. Moderate wall thickening of the stomach is likely reactive. 3. No small bowel obstruction. 4. Decreased narrowing of the distal superior mesenteric vein just proximal to the portal splenic confluence without thrombus. 5. New small pleural effusions with dependent bibasilar atelectasis and possible mild pulmonary edema. MRCP 08/15/20 IMPRESSION: 1. Small bilateral pleural effusions 2. Low volume ascites 3. Peripancreatic inflammatory changes consistent with pancreatitis 4. Persistent fluid collection the region of the lesser sac 5. No evidence of biliary or pancreatic ductal dilatation. 6. Smooth narrowing of distal common bile duct likely secondary to inflammatory change although a neoplastic stricture cannot be excluded 7. The pancreatic duct is not well visualized at the level of the recently described pancreatic head fluid collection. Duct continuity at this level cannot be determined. Restart clear liquid diet and see how she does. 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 Recommend 7 day course last day 08/15 no growth on blood cultures, GI medicine to [facility] is planning reimaging of her abdomen in August this is already been scheduled initially in ICU, transferred out on 08/09 (2) Severe protein-calorie malnutrition: Patient remains with malnutrition unable to advance diet on 08/14 due to significant pain (3) HTN (hypertension): Hold lisinopril. 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 If abdominal pain worsens will eval for portal vein thrombosis (5) Leukocytosis: Purely pancreatitis vs. infected pancreatic necrosis. Not appearing to be infectious at this time however GI medicine is still recommending patient remain on zosyn last dose 08/15 WBC down to normal labs look relatively good with exception of chronic elevation of her lipase and seemingly her pain is out of proportion to her objective findings (6) DVT prophylaxis: Heparin 5000 units SQ BID Admission and Anticipated Discharge Date Admission Date: August 08, 2020 Subjective Patient persistently painful she has no appetite still just tired and washed out. MRCP is not conclusive about a pancreatic duct rupture or discontinuation. GI medicine is continued to be involved talking about assuring nutrition and continue supportive care Review of Systems Review of Systems: Moderate distress and fatigue no headache, blurry or double vision no speech or swallowing issues no chest pain, pressure or palpitations no shortness of breath, cough or wheezes Patient continues with abdominal pain associated with some guarding and mild rebound tenderness no dysuria, hematuria or frequency no focal joint pain or swelling no back pain, CVA tenderness or radicular pain no bruising, bleeding or rashes no focal signs of weakness or numbness or altered sensation no complaints or anxiety or depression. Physical Exam Physical Exam: The patient appeared debilitated and weakened slightly improved from 921 Vital signs as documented. Head exam is normocephalic atraumatic no scleral icterus Neck is without JVD, thyromegaly, or carotid bruits. Lungs are clear to auscultation, no focal loss of breath sounds Cardiac exam, Rhythm is regular.. No murmurs, rubs or gallops. Abdominal exam reveals normal bowel sounds, patient is physically tender especially to exam with some guarding and some mild rebound Extremities are nonedematous and both pedal pulses are normal. Neurologic exam is alert and oriented, no focal loss of strength or sensation Skin is with good healing of her abdominal wounds Psychologically is with concern for depression. Results & Data Results & Data ([facility]) Vital Signs (Past 12 Hours) Vital Signs Temp Pulse Pulse Resp BP Pulse Ox 08/16/20 15:25 97.7 F 92 H 16 158/66 H 95 08/16/20 11:59 98.6 F 88 16 152/74 H 08/16/20 09:31 100 H 08/16/20 07:35 98.2 F 91 H 16 152/71 H 08/16/20 04:06 98.2 F 93 H 18 162/77 H 91 PG Care Time/CCT Total # of Minutes Spent Total Time Spent with Patient: Total time spent is greater than 50% in coordination of care (as documented) at patient's floor/unit and/or counseling patient: Coding Level of Care Code 63150 Subseq Hosp Care Lvl 3 Diagnoses Acute pancreatitis K85.12 Acute pancreatitis complication: infected necrosis Pancreatitis type: biliary Severe protein-calorie malnutrition E43 HTN (hypertension) I10 Hypertension type: essential hypertension Superior mesenteric vein thrombosis K55.069 Leukocytosis D72.829 DVT prophylaxis Z29.9 (1) Acute pancreatitis Acute pancreatitis complication: infected necrosis Pancreatitis type: biliary Qualified Code(s): K85.12 - Biliary acute pancreatitis with infected necrosis (2) HTN (hypertension) Hypertension type: essential hypertension Qualified Code(s): I10 - Essential (primary) hypertension
[2020-08-16] MEDS: CIPROFLOXACIN 500 MG TAB PO SCH (20:07)
[2020-08-16] MEDS: metroNIDAZOLE 500 MG TAB PO SCH (20:07)
[2020-08-16] MEDS ORDERED: MELATONIN 3 MG TAB PO PRN (20:55)
[2020-08-16] MEDS: LACTATED RINGER'S 1,000 ML IV SCH (21:58)
[2020-08-17 06:43] LABS: BUN Creatinine Ratio 14.1 (10-20); Calcium 8.2 mg/dl (8.5-10.1); Creatinine Clr Calc Pharmacy 59.9 ml/min; Est GFR (African American) 104.4; Est GFR (Non-African American) 90.1; Magnesium 1.5 mg/dl (1.8-2.4); Potassium 3.4 mmol/L (3.5-5.1)
[2020-08-17 06:55] LABS: Phosphorus 2.4 mg/dl (2.5-4.9)
[2020-08-17] MEDS: HEPARIN SOD 5,000 UNIT/0.5 ML VIAL SQ SCH ×2 (08:05→20:13)
[2020-08-17] MEDS: CIPROFLOXACIN 500 MG TAB PO SCH ×2 (08:06→20:13)
[2020-08-17] MEDS: metroNIDAZOLE 500 MG TAB PO SCH ×3 (08:06→20:13)
[2020-08-17] MEDS: METOPROLOL TARTRATE 25 MG TAB PO SCH ×2 (08:06→20:13)
[2020-08-17] MEDS ORDERED: POTASSIUM PHOS 3 MMOL/1 ML INFUSION IV STA (08:07)
[2020-08-17] MEDS ORDERED: MAGNESIUM SULFATE / D5W 1 GM/100 ML BAG IV ONE (08:30)
[2020-08-17] MEDS ORDERED: POTASSIUM PHOSPHATE 15 MMOL in SODIUM CHLORIDE 0.9% 250 ML IV ONE (08:45)
[2020-08-17] MEDS: LACTATED RINGER'S 1,000 ML IV SCH (14:28)
--- NOTE | 2020-08-17 14:33 | Hospitalist Progress Note ---
Date of Service August 17, 2020 Assessment & Plan (1) Acute pancreatitis: Severe pancreatitis after recent gallstone pancreatitis diagnosis in May with prolonged hospitalization, pancreatic necrosis and poor nutrition. Possibly secondary to lisinopril, hold lisinopril ?Drug-induced. Patient is has had escalation of her pain on 08/14/2020. CT scan IMPRESSION: 1. Findings of ongoing acute pancreatitis with unchanged size of the intrahepatic pancreatic fluid collection within the pancreatic head and uncinate process. There is increased size of the acute peripancreatic collections as above. 2. Moderate wall thickening of the stomach is likely reactive. 3. No small bowel obstruction. 4. Decreased narrowing of the distal superior mesenteric vein just proximal to the portal splenic confluence without thrombus. 5. New small pleural effusions with dependent bibasilar atelectasis and possible mild pulmonary edema. MRCP 08/15/20 IMPRESSION: 1. Small bilateral pleural effusions 2. Low volume ascites 3. Peripancreatic inflammatory changes consistent with pancreatitis 4. Persistent fluid collection the region of the lesser sac 5. No evidence of biliary or pancreatic ductal dilatation. 6. Smooth narrowing of distal common bile duct likely secondary to inflammatory change although a neoplastic stricture cannot be excluded 7. The pancreatic duct is not well visualized at the level of the recently described pancreatic head fluid collection. Duct continuity at this level cannot be determined. Restart clear liquid diet 08/16, some discussion if full liquid diet may have provoked recurrence, extensive family discussion on 08/16 if not improved by early next week may consi chidi tertiary referral Possible infected pancreatic necrosis - Continue Zosyn per GI recommendations. Recommend 7 day course last day 08/15 no growth on blood cultures, GI medicine to [facility] is planning reimaging of her abdomen in August this is already been scheduled initially in ICU, transferred out on 08/09 (2) Severe protein-calorie malnutrition: Patient remains with malnutrition unable to advance diet on 08/14 due to significant pain (3) HTN (hypertension): Hold lisinopril. Will offer hydralazine as needed Metoprolol restarted has mostly isolated systolic hypertension which may be from pain or anxiety will offer anxiolytic medication (4) Superior mesenteric vein thrombosis: on repeat imaging concern for thrombosis has not be re confirmed (5) Leukocytosis: Purely pancreatitis vs. infected pancreatic necrosis. Not appearing to be infectious at this time however GI medicine is still recommending patient remain on zosyn last dose 08/15 WBC down to normal labs look relatively good with exception of low potassium and phosphorus (6) DVT prophylaxis: Heparin 5000 units SQ BID Admission and Anticipated Discharge Date Admission Date: August 08, 2020 Subjective Continuing supportive care and watchful waiting. Patient looks somewhat improved today she is tolerating clear liquid diet. she claims of less pain and examination is consistent with that she is tolerating a clear liquid diet at the present time Review of Systems Review of Systems: Moderate distress and fatigue no headache, blurry or double vision no speech or swallowing issues no chest pain, pressure or palpitations no shortness of breath, cough or wheezes Patient continues with slightly less abdominal pain has had resolution of guarding and rebound tenderness no dysuria, hematuria or frequency no focal joint pain or swelling no back pain, CVA tenderness or radicular pain no bruising, bleeding or rashes no focal signs of weakness or numbness or altered sensation no complaints or anxiety or depression. Physical Exam Physical Exam: The patient appeared debilitated and weakened slightly improved from 921 Vital signs as documented. Head exam is normocephalic atraumatic no scleral icterus Neck is without JVD, thyromegaly, or carotid bruits. Lungs are clear to auscultation, no focal loss of breath sounds Cardiac exam, Rhythm is regular.. No murmurs, rubs or gallops. Abdominal exam reveals normal bowel sounds, tenderness is much less than 08/16 Extremities are nonedematous and both pedal pulses are normal. Neurologic exam is alert and oriented, no focal loss of strength or sensation Skin is with good healing of her abdominal wounds Psychologically is with concern for depression. Results & Data Results & Data ([facility]) Vital Signs (Past 12 Hours) Vital Signs Temp Pulse Pulse Resp BP Pulse Ox 08/17/20 12:06 97.7 F 88 151/77 H 96 08/17/20 10:28 90 08/17/20 07:55 97.7 F 76 18 168/73 H 96 08/17/20 03:05 97.9 F 91 H 19 170/66 H 95 PG Care Time/CCT Total # of Minutes Spent Total Time Spent with Patient: Total time spent is greater than 50% in coordination of care (as documented) at patient's floor/unit and/or counseling patient: Coding Level of Care Code 01388 Subseq Hosp Care Lvl 2 Diagnoses Acute pancreatitis K85.12 Acute pancreatitis complication: infected necrosis Pancreatitis type: biliary Severe protein-calorie malnutrition E43 HTN (hypertension) I10 Hypertension type: essential hypertension Superior mesenteric vein thrombosis K55.069 Leukocytosis D72.829 DVT prophylaxis Z29.9 (1) Acute pancreatitis Acute pancreatitis complication: infected necrosis Pancreatitis type: biliary Qualified Code(s): K85.12 - Biliary acute pancreatitis with infected necrosis (2) HTN (hypertension) Hypertension type: essential hypertension Qualified Code(s): I10 - Essential (primary) hypertension
[2020-08-17] MEDS: ACETAMINOPHEN 325 MG TAB PO PRN (21:27)
[2020-08-18 06:43] LABS: BUN Creatinine Ratio 10.9 (10-20); Calcium 8.4 mg/dl (8.5-10.1); Est GFR (African American) 105.2; Est GFR (Non-African American) 90.8; Magnesium 1.9 mg/dl (1.8-2.4); Phosphorus 2.5 mg/dl (2.5-4.9); Potassium 3.5 mmol/L (3.5-5.1)
[2020-08-18] MEDS: metroNIDAZOLE 500 MG TAB PO SCH ×3 (08:37→20:11)
[2020-08-18] MEDS: METOPROLOL TARTRATE 25 MG TAB PO SCH ×3 (08:38→20:11)
[2020-08-18] MEDS: CIPROFLOXACIN 500 MG TAB PO SCH ×2 (08:39→20:11)
[2020-08-18] MEDS: HEPARIN SOD 5,000 UNIT/0.5 ML VIAL SQ SCH ×3 (08:39→20:15)
--- NOTE | 2020-08-18 15:55 | Hospitalist Progress Note ---
Date of Service August 18, 2020 Assessment & Plan (1) Acute pancreatitis: Severe pancreatitis after recent gallstone pancreatitis diagnosis in May with prolonged hospitalization, pancreatic necrosis and poor nutrition. Possibly secondary to lisinopril, hold lisinopril ?Drug-induced. Patient is has had escalation of her pain on 08/14/2020. CT scan IMPRESSION: 1. Findings of ongoing acute pancreatitis with unchanged size of the intrahepatic pancreatic fluid collection within the pancreatic head and uncinate process. There is increased size of the acute peripancreatic collections as above. 2. Moderate wall thickening of the stomach is likely reactive. 3. No small bowel obstruction. 4. Decreased narrowing of the distal superior mesenteric vein just proximal to the portal splenic confluence without thrombus. 5. New small pleural effusions with dependent bibasilar atelectasis and possible mild pulmonary edema. MRCP 08/15/20 IMPRESSION: 1. Small bilateral pleural effusions 2. Low volume ascites 3. Peripancreatic inflammatory changes consistent with pancreatitis 4. Persistent fluid collection the region of the lesser sac 5. No evidence of biliary or pancreatic ductal dilatation. 6. Smooth narrowing of distal common bile duct likely secondary to inflammatory change although a neoplastic stricture cannot be excluded 7. The pancreatic duct is not well visualized at the level of the recently described pancreatic head fluid collection. Duct continuity at this level cannot be determined. 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 Will offer hydralazine as needed Metoprolol restarted, BP up today in 180's systolic, will increase Lopressor to 25mg TID (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 infected pancreatic necrosis. Not appearing to be infectious at this time however GI medicine is still recommending patient remain on zosyn last dose 08/15 WBC down to normal labs look relatively good with exception of low potassium and phosphorus (6) DVT prophylaxis: Heparin 5000 units SQ BID Admission and Anticipated Discharge Date Admission Date: August 08, 2020 Subjective patient feeling well, no abdominal pain at all, tolerating clear liquids, asking for more food discussed we could advance to full liquid, low fat and see how she does labs stable today patient ambulating in the hallway with therapy, walking independently Review of Systems Review of Systems: All systems reviewed & are unremarkable except as noted in Subjective Physical Exam Constitutional: WD/WN, vitals as above Eyes: PERRL, conjunctivae normal, anicteric sclerae ENMT: external ear and nose normal, oropharynx normal Neck: trachea midline, no thyromegaly Respiratory: normal respiratory effort, lungs clear to auscultation Cardiovascular: RRR, no murmur, no edema Gastrointestinal (Abdomen): Inspection/Auscultation: abdomen normal to inspection and normal bowel sounds; abdomen not distended Percussion/Palpation: abdomen soft and + tympanic to percussion; abdomen nontender, no guarding and abdomen not rigid Musculoskeletal: no cyanosis or clubbing, extremities motor strength 5/5 Skin: no rashes, warm and dry Neurologic: patellar DTR's 2+ bilat, sensation intact and PERRL, EOMI, accommodation nl, no face palsy, no dysarthria Psychiatric: A+Ox3, euthymic affect Lymphatic: no cervical or axillary lymphadenopathy Results & Data Results & Data ([facility]) Vital Signs (Past 12 Hours) Vital Signs Temp Pulse Resp BP Pulse Ox 08/18/20 15:15 37 C 86 20 152/71 H 98 08/18/20 11:01 36.4 C L 82 20 184/69 H 95 08/18/20 10:00 82 18 180/70 H 97 08/18/20 07:41 36.6 C 89 18 180/63 H 90 08/18/20 05:00 36.6 C 70 18 147/76 H 92 Laboratory Results Laboratory Results - last 24 hr 08/18/20 05:28 Sodium 136 Potassium 3.5 Chloride 103 Carbon Dioxide 27 Anion Gap 7.0 BUN 5 L Creatinine 0.44 L Est Cr Clr Drug Dosing 64.0 Est GFR ( Amer) 105.2 Est GFR (Non-Af Amer) 90.8 BUN/Creatinine Ratio 10.9 Glucose 88 Calcium 8.4 L Phosphorus 2.5 Magnesium 1.9 Medications Administered Current Inpatient Medications Acetaminophen (Acetaminophen 325 Mg Tab) 650 mg PO Q4H PRN PRN Reason: headache, pain Stop: 09/16/20 20:53 Last Admin: 08/17/20 21:27 Dose: 650 mg Documented by: Ciprofloxacin (Ciprofloxacin 500 Mg Tab) 500 mg PO BID [facility]; Protocol Stop: 08/26/20 20:59 Last Admin: 08/18/20 08:39 Dose: 500 mg Documented by: Heparin Sodium (Porcine) (Heparin Sod 5,000 Unit/0.5 Ml Vial) 5,000 units SQ Q12 [facility] Stop: 09/07/20 20:59 Last Admin: 08/18/20 08:39 Dose: Not Given Documented by: Hydralazine HCl (Hydralazine Hcl 20 Mg/Ml Vial) 10 mg IV Q8 PRN PRN Reason: Blood Pressure - High Stop: 09/10/20 17:35 Last Admin: 08/12/20 05:23 Dose: 10 mg Documented by: Hydromorphone HCl (Hydromorphone Inj 0.5 Mg/0.5 Ml Syr) 0.25 mg IV Q1H PRN PRN Reason: Pain Stop: 08/22/20 11:34 Last Admin: 08/15/20 07:43 Dose: 0.25 mg Documented by: Promethazine HCl 12.5 mg/ (Sodium Chloride) 50.5 mls @ 202 mls/hr IV Q6H PRN PRN Reason: Nausea And Vomiting Stop: 09/13/20 14:07 Dextrose (D5w) 1,000 mls @ 0 mls/hr IV .Q0M PRN PRN Reason: protocol (see label comments) Stop: 09/14/20 10:35 Melatonin (Melatonin 3 Mg Tab) 3 mg PO HS PRN PRN Reason: Sleep Stop: 09/15/20 20:54 Last Admin: 08/16/20 22:03 Dose: 3 mg Documented by: Metoprolol Tartrate (Metoprolol Tartrate 1 Mg/Ml Vial) 5 mg IV Q4H PRN PRN Reason: HTN/HR - SEE COMMENTS Stop: 09/14/20 08:14 Metoprolol Tartrate (Metoprolol Tartrate 25 Mg Tab) 25 mg PO TID [facility] Stop: 09/17/20 13:59 Last Admin: 08/18/20 13:45 Dose: 25 mg Documented by: Metronidazole (Metronidazole 500 Mg Tab) 500 mg PO TID [facility]; Protocol Stop: 08/26/20 20:59 Last Admin: 08/18/20 13:45 Dose: 500 mg Documented by: Ondansetron HCl (Ondansetron Inj 2 Mg/Ml 2 Ml Vial) 4 mg IV Q6H PRN PRN Reason: Nausea Stop: 09/13/20 14:07 Last Admin: 08/14/20 14:22 Dose: 4 mg Documented by: PG Care Time/CCT Total # of Minutes Spent Total Time Spent with Patient: Total time spent is greater than 50% in coordination of care (as documented) at patient's floor/unit and/or counseling patient: Coding Level of Care Code 04661 Subseq Hosp Care Lvl 2 Diagnoses Acute pancreatitis K85.12 Acute pancreatitis complication: infected necrosis Pancreatitis type: biliary Severe protein-calorie malnutrition E43 HTN (hypertension) I10 Hypertension type: essential hypertension Superior mesenteric vein thrombosis K55.069 Leukocytosis D72.829 DVT prophylaxis Z29.9 (1) HTN (hypertension) Hypertension type: essential hypertension Qualified Code(s): I10 - Essential (primary) hypertension (2) Acute pancreatitis Acute pancreatitis complication: infected necrosis Pancreatitis type: biliary Qualified Code(s): K85.12 - Biliary acute pancreatitis with infected necrosis
[2020-08-18] MEDS: ACETAMINOPHEN 325 MG TAB PO PRN (20:10)
[2020-08-19] MEDS: ACETAMINOPHEN 325 MG TAB PO PRN ×2 (02:10→20:44)
[2020-08-19] MEDS: HydrALAZINE HCL 20 MG/ML VIAL IV PRN (05:42)
[2020-08-19] MEDS: METOPROLOL TARTRATE 25 MG TAB PO SCH ×3 (08:05→20:41)
[2020-08-19] MEDS: HEPARIN SOD 5,000 UNIT/0.5 ML VIAL SQ SCH ×2 (08:05→20:42)
[2020-08-19] MEDS: CIPROFLOXACIN 500 MG TAB PO SCH ×2 (08:05→20:41)
[2020-08-19] MEDS: metroNIDAZOLE 500 MG TAB PO SCH ×3 (08:05→20:42)
[2020-08-19 08:27] LABS: Basophils # (auto) 0.02 K/uL (0-0.2); Basophils % (auto) 0.3 %; Eosinophils # (auto) 0.09 K/uL (0-0.5); Eosinophils % (auto) 1.2 %; Hemoglobin 10.1 g/dL (12.0-16.0); Immature Granulocytes # (auto) 0.02 K/uL (0.00-0.02); Immature Granulocytes % (auto) 0.3 %; Lymphocytes # (auto) 1.78 K/uL (1.2-3.4); Lymphocytes % (auto) 23.6 %; Mean Corpuscular Hemoglobin 25.8 pg (25-34); Mean Corpuscular Hgb Conc 31.6 g/dL (32-36); Mean Corpuscular Volume 81.6 fL (80-100); Mean Platelet Volume 7.9 fL (7.4-10.4); Monocytes # (auto) 0.63 K/uL (0.11-0.59); Monocytes % (auto) 8.4 %; Neutrophils # (auto) 4.99 K/uL (1.4-6.5); Neutrophils % (auto) 66.2 %; Platelet Count 681 K/uL (130-400); RDW Standard Deviation 44.9 fL (36.4-46.3); Red Blood Count 3.92 M/uL (4.2-5.4); White Blood Count 7.53 K/uL (4.8-10.8)
[2020-08-19 09:02] LABS: Albumin Level 2.3 gm/dl (3.4-5.0); BUN Creatinine Ratio 7.9 (10-20); Calcium 9.1 mg/dl (8.5-10.1); Creatinine Clr Calc Pharmacy 54.1 ml/min; Est GFR (African American) 99.6; Est GFR (Non-African American) 85.9; Potassium 3.4 mmol/L (3.5-5.1)
[2020-08-19 09:05] LABS: Albumin Globulin Ratio 0.6 (0.9-2); Bilirubin,Total 0.3 mg/dl (0.2-1); Globulin 3.9 gm/dl (2.5-4.0); Total Protein 6.2 gm/dl (6.4-8.2)
--- NOTE | 2020-08-19 09:55 | Hospitalist Progress Note ---
Date of Service August 19, 2020 Assessment & Plan (1) Acute pancreatitis: Severe pancreatitis after recent gallstone pancreatitis diagnosis in May with prolonged hospitalization, pancreatic necrosis and poor nutrition. Possibly secondary to lisinopril, hold lisinopril ?Drug-induced. Patient is has had escalation of her pain on 08/14/2020. CT scan IMPRESSION: 1. Findings of ongoing acute pancreatitis with unchanged size of the intrahepatic pancreatic fluid collection within the pancreatic head and uncinate process. There is increased size of the acute peripancreatic collections as above. 2. Moderate wall thickening of the stomach is likely reactive. 3. No small bowel obstruction. 4. Decreased narrowing of the distal superior mesenteric vein just proximal to the portal splenic confluence without thrombus. 5. New small pleural effusions with dependent bibasilar atelectasis and possible mild pulmonary edema. MRCP 08/15/20 IMPRESSION: 1. Small bilateral pleural effusions 2. Low volume ascites 3. Peripancreatic inflammatory changes consistent with pancreatitis 4. Persistent fluid collection the region of the lesser sac 5. No evidence of biliary or pancreatic ductal dilatation. 6. Smooth narrowing of distal common bile duct likely secondary to inflammatory change although a neoplastic stricture cannot be excluded 7. The pancreatic duct is not well visualized at the level of the recently described pancreatic head fluid collection. Duct continuity at this level cannot be determined. 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 - treated with Zosyn per GI recommendations, completed 7 days on 08/15 no growth on blood cultures, GI medicine to [facility] is planning reimaging of her abdomen in August this is already been scheduled (2) Severe protein-calorie malnutrition: Patient remains with malnutrition unable to advance diet on 08/14 due to significant pain had some PPN but now stopped advance to low fat diet (3) HTN (hypertension): Hold lisinopril as it was possible drug induced pancreatitis Metoprolol restarted, increased Lopressor to 25mg TID, tolerating well (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 infected pancreatic necrosis. Not appearing to be infectious at this time however GI medicine is still recommending patient remain on zosyn last dose 08/15 WBC down to normal labs look relatively good with exception of low potassium and phosphorus (6) DVT prophylaxis: Heparin 5000 units SQ BID (7) Hypokalemia: low at 3.4 will give IV replacement Admission and Anticipated Discharge Date Admission Date: August 08, 2020 Subjective patient doing okay, she says she was up all night and now she is tired she said she just could not sleep, it was NOT due to pain, she had no abdominal pain yesterday or last night with full liquids she really wants to try food, will change to low fat diet today, add pancreatic enzymes checked labs today, CBC and CMP stable, lipase normal she is ambulating well, no dyspnea, no chest pain, no fever will remove nurse monitoring, she has been stable Review of Systems Review of Systems: All systems reviewed & are unremarkable except as noted in Subjective Physical Exam Constitutional: WD/WN, vitals as above Eyes: PERRL, conjunctivae normal, anicteric sclerae ENMT: external ear and nose normal, oropharynx normal Neck: trachea midline, no thyromegaly Respiratory: normal respiratory effort, lungs clear to auscultation Cardiovascular: RRR, no murmur, no edema Gastrointestinal (Abdomen): Inspection/Auscultation: abdomen normal to inspection and normal bowel sounds; abdomen not distended Percussion/Palpation: abdomen soft and + tympanic to percussion; abdomen nontender, no guarding and abdomen not rigid Musculoskeletal: no cyanosis or clubbing, extremities motor strength 5/5 Skin: no rashes, warm and dry Neurologic: patellar DTR's 2+ bilat, sensation intact and PERRL, EOMI, accommodation nl, no face palsy, no dysarthria Psychiatric: A+Ox3, euthymic affect Lymphatic: no cervical or axillary lymphadenopathy Results & Data Results & Data ([facility]) Vital Signs (Past 12 Hours) Vital Signs Temp Pulse Pulse Resp BP Pulse Ox 08/19/20 08:03 107 H 162/69 H 08/19/20 07:53 96 H 08/19/20 05:39 190/64 H 08/19/20 04:17 36.4 C L 88 18 184/65 H 94 08/19/20 01:26 89 08/18/20 22:53 36.6 C 91 H 18 163/64 H 96 Laboratory Results Laboratory Results - last 24 hr 08/19/20 08/19/20 08:15 08:15 WBC 7.53 RBC 3.92 L Hgb 10.1 L Hct 32.0 L MCV 81.6 MCH 25.8 MCHC 31.6 L RDW Std Deviation 44.9 RDW Coeff of [place] 15.0 H Plt Count 681 H MPV 7.9 Immature Gran % (Auto) 0.3 Neut % (Auto) 66.2 Lymph % (Auto) 23.6 [place] % (Auto) 8.4 Eos % (Auto) 1.2 Baso % (Auto) 0.3 Neut # (Auto) 4.99 Lymph # (Auto) 1.78 [place] # (Auto) 0.63 H Eos # (Auto) 0.09 Baso # (Auto) 0.02 Immature Gran # (Auto) 0.02 Sodium 136 Potassium 3.4 L Chloride 103 Carbon Dioxide 25 Anion Gap 8.0 BUN 4 L Creatinine 0.52 L Est Cr Clr Drug Dosing 54.1 Est GFR ( Amer) 99.6 Est GFR (Non-Af Amer) 85.9 BUN/Creatinine Ratio 7.9 L Glucose 94 Calcium 9.1 Total Bilirubin 0.3 AST 16 ALT 11 L Alkaline Phosphatase 22 L Total Protein 6.2 L Albumin 2.3 L Globulin 3.9 Albumin/Globulin Ratio 0.6 L Lipase 265 Medications Administered Current Inpatient Medications Acetaminophen (Acetaminophen 325 Mg Tab) 650 mg PO Q4H PRN PRN Reason: headache, pain Stop: 09/16/20 20:53 Last Admin: 08/19/20 02:10 Dose: 650 mg Documented by: Ciprofloxacin (Ciprofloxacin 500 Mg Tab) 500 mg PO BID [facility]; Protocol Stop: 08/26/20 20:59 Last Admin: 08/19/20 08:05 Dose: 500 mg Documented by: Heparin Sodium (Porcine) (Heparin Sod 5,000 Unit/0.5 Ml Vial) 5,000 units SQ Q12 [facility] Stop: 09/07/20 20:59 Last Admin: 08/19/20 08:05 Dose: Not Given Documented by: Hydralazine HCl (Hydralazine Hcl 20 Mg/Ml Vial) 10 mg IV Q8 PRN PRN Reason: Blood Pressure - High Stop: 09/10/20 17:35 Last Admin: 08/19/20 05:42 Dose: 10 mg Documented by: Hydromorphone HCl (Hydromorphone Inj 0.5 Mg/0.5 Ml Syr) 0.25 mg IV Q1H PRN PRN Reason: Pain Stop: 08/22/20 11:34 Last Admin: 08/15/20 07:43 Dose: 0.25 mg Documented by: Promethazine HCl 12.5 mg/ (Sodium Chloride) 50.5 mls @ 202 mls/hr IV Q6H PRN PRN Reason: Nausea And Vomiting Stop: 09/13/20 14:07 Dextrose (D5w) 1,000 mls @ 0 mls/hr IV .Q0M PRN PRN Reason: protocol (see label comments) Stop: 09/14/20 10:35 Melatonin (Melatonin 3 Mg Tab) 3 mg PO HS PRN PRN Reason: Sleep Stop: 09/15/20 20:54 Last Admin: 08/16/20 22:03 Dose: 3 mg Documented by: Metoprolol Tartrate (Metoprolol Tartrate 1 Mg/Ml Vial) 5 mg IV Q4H PRN PRN Reason: HTN/HR - SEE COMMENTS Stop: 09/14/20 08:14 Metoprolol Tartrate (Metoprolol Tartrate 25 Mg Tab) 25 mg PO TID [facility] Stop: 09/17/20 13:59 Last Admin: 08/19/20 08:05 Dose: 25 mg Documented by: Metronidazole (Metronidazole 500 Mg Tab) 500 mg PO TID [facility]; Protocol Stop: 08/26/20 20:59 Last Admin: 08/19/20 08:05 Dose: 500 mg Documented by: Non-Formulary Medication ([id number] [Pancreaze]) 1 cap PO AC [facility] Stop: 09/18/20 11:29 Ondansetron HCl (Ondansetron Inj 2 Mg/Ml 2 Ml Vial) 4 mg IV Q6H PRN PRN Reason: Nausea Stop: 09/13/20 14:07 Last Admin: 08/14/20 14:22 Dose: 4 mg Documented by: PG Care Time/CCT Total # of Minutes Spent Total Time Spent with Patient: Total time spent is greater than 50% in coordination of care (as documented) at patient's floor/unit and/or counseling patient: Coding Level of Care Code 99702 Subseq Hosp Care Lvl 2 Diagnoses Acute pancreatitis K85.12 Acute pancreatitis complication: infected necrosis Pancreatitis type: biliary Severe protein-calorie malnutrition E43 HTN (hypertension) I10 Hypertension type: essential hypertension 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
[2020-08-19] MEDS: POTASSIUM CHLORIDE / WTR 10 MEQ/100 ML PLCT IV SCH ×2 (10:37→11:41)
[2020-08-19] MEDS: PANCREAZE (LIPASE 10,500U) CAP PO SCH ×2 (11:41→17:21)
[2020-08-19] MEDS: MELATONIN 3 MG TAB PO SCH (20:42)
[2020-08-19] MEDS: ACETAMINOPHEN 500 MG TAB PO SCH (20:46)
[2020-08-20] MEDS: METOPROLOL TARTRATE 25 MG TAB PO SCH ×2 (09:02→12:39)
[2020-08-20] MEDS: HEPARIN SOD 5,000 UNIT/0.5 ML VIAL SQ SCH ×2 (09:04→20:20)
[2020-08-20] MEDS: PANCREAZE (LIPASE 10,500U) CAP PO SCH ×3 (09:07→16:54)
[2020-08-20] MEDS: metroNIDAZOLE 500 MG TAB PO SCH ×3 (09:07→20:19)
[2020-08-20] MEDS: CIPROFLOXACIN 500 MG TAB PO SCH ×2 (09:07→20:19)
--- NOTE | 2020-08-20 12:55 | Hospitalist Progress Note ---
Date of Service August 20, 2020 Assessment & Plan (1) Acute pancreatitis: Severe pancreatitis after recent gallstone pancreatitis diagnosis in May with prolonged hospitalization, pancreatic necrosis and poor nutrition. Possibly secondary to lisinopril, hold lisinopril ?Drug-induced. Patient is has had escalation of her pain on 08/14/2020. CT scan IMPRESSION: 1. Findings of ongoing acute pancreatitis with unchanged size of the intrahepatic pancreatic fluid collection within the pancreatic head and uncinate process. There is increased size of the acute peripancreatic collections as above. 2. Moderate wall thickening of the stomach is likely reactive. 3. No small bowel obstruction. 4. Decreased narrowing of the distal superior mesenteric vein just proximal to the portal splenic confluence without thrombus. 5. New small pleural effusions with dependent bibasilar atelectasis and possible mild pulmonary edema. MRCP 08/15/20 IMPRESSION: 1. Small bilateral pleural effusions 2. Low volume ascites 3. Peripancreatic inflammatory changes consistent with pancreatitis 4. Persistent fluid collection the region of the lesser sac 5. No evidence of biliary or pancreatic ductal dilatation. 6. Smooth narrowing of distal common bile duct likely secondary to inflammatory change although a neoplastic stricture cannot be excluded 7. The pancreatic duct is not well visualized at the level of the recently described pancreatic head fluid collection. Duct continuity at this level cannot be determined. 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 - treated with Zosyn per GI re commendations, completed 7 days on 08/15 no growth on blood cultures, [facility] in August this is already been scheduled (2) Severe protein-calorie malnutrition: working on improving oral intake drinking Ensure (3) HTN (hypertension): Hold lisinopril as it was possible drug induced pancreatitis Metoprolol restarted, increased Lopressor to 25mg TID, tolerating well will likely increase to 50mg BID today (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 infected pancreatic necrosis. Not appearing to be infectious at this time however GI medicine is still recommending patient remain on zosyn last dose 08/15 WBC down to normal labs look relatively good with exception of low potassium and phosphorus (6) DVT prophylaxis: Heparin 5000 units SQ BID (7) Hypokalemia: low at 3.4 will give IV replacement check tomorrow Admission and Anticipated Discharge Date Admission Date: August 08, 2020 Subjective patient doing okay, eating better, says she gets full quickly she is drinking Ensure to make sure she has protein and calories encouraged her to try to eat smaller meals more frequently no abdominal pain, no vomiting, no diarrhea she slept well last night with Tylenol and Melatonin no labs today Review of Systems Review of Systems: All systems reviewed & are unremarkable except as noted in Subjective Physical Exam Constitutional: WD/WN, vitals as above Eyes: PERRL, conjunctivae normal, anicteric sclerae ENMT: external ear and nose normal, oropharynx normal Neck: trachea midline, no thyromegaly Respiratory: normal respiratory effort, lungs clear to auscultation Cardiovascular: RRR, no murmur, no edema Gastrointestinal (Abdomen): Inspection/Auscultation: abdomen normal to inspection and normal bowel sounds; abdomen not distended Percussion/Palpation: abdomen soft and + tympanic to percussion; abdomen nontender, no guarding and abdomen not rigid Musculoskeletal: no cyanosis or clubbing, extremities motor strength 5/5 Skin: no rashes, warm and dry Neurologic: patellar DTR's 2+ bilat, sensation intact and PERRL, EOMI, accommodation nl, no face palsy, no dysarthria Psychiatric: A+Ox3, euthymic affect Lymphatic: no cervical or axillary lymphadenopathy Results & Data Results & Data ([facility]) Vital Signs (Past 12 Hours) Vital Signs BP 08/20/20 12:38 175/75 H Medications Administered Current Inpatient Medications Acetaminophen (Acetaminophen 325 Mg Tab) 650 mg PO Q4H PRN PRN Reason: headache, pain Stop: 09/16/20 20:53 Last Admin: 08/19/20 20:44 Dose: 650 mg Documented by: Acetaminophen (Acetaminophen 500 Mg Tab) 1,000 mg PO HS [facility] Stop: 09/18/20 20:59 Last Admin: 08/19/20 20:46 Dose: Not Given Documented by: Lipase/Protease/Amylase (Pancreaze (Lipase 10,500u) Cap) 1 cap PO AC [facility] Stop: 09/18/20 11:29 Last Admin: 08/20/20 12:36 Dose: 1 cap Documented by: Ciprofloxacin (Ciprofloxacin 500 Mg Tab) 500 mg PO BID [facility]; Protocol Stop: 08/26/20 20:59 Last Admin: 08/20/20 09:07 Dose: 500 mg Documented by: Heparin Sodium (Porcine) (Heparin Sod 5,000 Unit/0.5 Ml Vial) 5,000 units SQ Q12 [facility] Stop: 09/07/20 20:59 Last Admin: 08/20/20 09:04 Dose: Not Given Documented by: Hydralazine HCl (Hydralazine Hcl 20 Mg/Ml Vial) 10 mg IV Q8 PRN PRN Reason: Blood Pressure - High Stop: 09/10/20 17:35 Last Admin: 08/19/20 05:42 Dose: 10 mg Documented by: Hydromorphone HCl (Hydromorphone Inj 0.5 Mg/0.5 Ml Syr) 0.25 mg IV Q1H PRN PRN Reason: Pain Stop: 08/22/20 11:34 Last Admin: 08/15/20 07:43 Dose: 0.25 mg Documented by: Promethazine HCl 12.5 mg/ (Sodium Chloride) 50.5 mls @ 202 mls/hr IV Q6H PRN PRN Reason: Nausea And Vomiting Stop: 09/13/20 14:07 Dextrose (D5w) 1,000 mls @ 0 mls/hr IV .Q0M PRN PRN Reason: protocol (see label comments) Stop: 09/14/20 10:35 Melatonin (Melatonin 3 Mg Tab) 3 mg PO [facility] Stop: 09/18/20 20:59 Last Admin: 08/19/20 20:42 Dose: 3 mg Documented by: Metoprolol Tartrate (Metoprolol Tartrate 25 Mg Tab) 25 mg PO TID [facility] Stop: 09/17/20 13:59 Last Admin: 08/20/20 12:39 Dose: 25 mg Documented by: Metronidazole (Metronidazole 500 Mg Tab) 500 mg PO TID [facility]; Protocol Stop: 08/26/20 20:59 Last Admin: 08/20/20 12:40 Dose: 500 mg Documented by: Ondansetron HCl (Ondansetron Inj 2 Mg/Ml 2 Ml Vial) 4 mg IV Q6H PRN PRN Reason: Nausea Stop: 09/13/20 14:07 Last Admin: 08/14/20 14:22 Dose: 4 mg Documented by: PG Care Time/CCT Total # of Minutes Spent Total Time Spent with Patient: Total time spent is greater than 50% in coor dination of care (as documented) at patient's floor/unit and/or counseling patient: Coding Level of Care Code 57134 Subseq Hosp Care Lvl 2 Diagnoses Acute pancreatitis K85.12 Acute pancreatitis complication: infected necrosis Pancreatitis type: biliary Severe protein-calorie malnutrition E43 HTN (hypertension) I10 Hypertension type: essential hypertension 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
[2020-08-20] MEDS: MELATONIN 3 MG TAB PO SCH (20:19)
[2020-08-20] MEDS: ACETAMINOPHEN 500 MG TAB PO SCH (20:19)
[2020-08-20] MEDS: METOPROLOL TARTRATE 50 MG TAB PO SCH (20:20)
[2020-08-21 07:07] LABS: Hematocrit (blood only) 29.6 % (37-47); Hemoglobin 9.6 g/dL (12.0-16.0); Mean Corpuscular Hemoglobin 26.6 pg (25-34); Mean Corpuscular Hgb Conc 32.4 g/dL (32-36); Mean Platelet Volume 8.1 fL (7.4-10.4); Platelet Count 692 K/uL (130-400); RDW Coefficient of Variation 15.1 % (11.5-14.5); RDW Standard Deviation 45.3 fL (36.4-46.3); Red Blood Count 3.61 M/uL (4.2-5.4); White Blood Count 8.03 K/uL (4.8-10.8)
[2020-08-21 08:05] LABS: Albumin Globulin Ratio 0.6 (0.9-2); Albumin Level 2.3 gm/dl (3.4-5.0); BUN Creatinine Ratio 15.8 (10-20); Bilirubin,Total 0.2 mg/dl (0.2-1); Calcium 8.7 mg/dl (8.5-10.1); Creatinine Clr Calc Pharmacy 42.7 ml/min; Est GFR (African American) 92.1; Est GFR (Non-African American) 79.4; Globulin 3.8 gm/dl (2.5-4.0); Potassium 3.7 mmol/L (3.5-5.1); Total Protein 6.1 gm/dl (6.4-8.2)
[2020-08-21] MEDS: metroNIDAZOLE 500 MG TAB PO SCH ×3 (09:12→20:10)
[2020-08-21] MEDS: METOPROLOL TARTRATE 50 MG TAB PO SCH ×2 (09:12→20:10)
[2020-08-21] MEDS: PANCREAZE (LIPASE 10,500U) CAP PO SCH ×3 (09:12→15:54)
[2020-08-21] MEDS: HEPARIN SOD 5,000 UNIT/0.5 ML VIAL SQ SCH ×2 (09:13→20:10)
[2020-08-21] MEDS: CIPROFLOXACIN 500 MG TAB PO SCH ×2 (09:13→20:09)
--- NOTE | 2020-08-21 11:54 | Hospitalist Progress Note ---
Date of Service August 21, 2020 Assessment & Plan (1) Acute pancreatitis: Severe pancreatitis after recent gallstone pancreatitis diagnosis in May with prolonged hospitalization, pancreatic necrosis and poor nutrition. Possibly secondary to lisinopril, hold lisinopril ?Drug-induced. Patient is has had escalation of her pain on 08/14/2020. CT scan IMPRESSION: 1. Findings of ongoing acute pancreatitis with unchanged size of the intrahepatic pancreatic fluid collection within the pancreatic head and uncinate process. There is increased size of the acute peripancreatic collections as above. 2. Moderate wall thickening of the stomach is likely reactive. 3. No small bowel obstruction. 4. Decreased narrowing of the distal superior mesenteric vein just proximal to the portal splenic confluence without thrombus. 5. New small pleural effusions with dependent bibasilar atelectasis and possible mild pulmonary edema. MRCP 08/15/20 IMPRESSION: 1. Small bilateral pleural effusions 2. Low volume ascites 3. Peripancreatic inflammatory changes consistent with pancreatitis 4. Persistent fluid collection the region of the lesser sac 5. No evidence of biliary or pancreatic ductal dilatation. 6. Smooth narrowing of distal common bile duct likely secondary to inflammatory change although a neoplastic stricture cannot be excluded 7. The pancreatic duct is not well visualized at the level of the recently described pancreatic head fluid collection. Duct continuity at this level cannot be determined. 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 - treated with Zosyn per GI recommendations, completed 7 days on 08/15 no growth on blood cultures, GI medicine to [facility] is planning reimaging of her abdomen in August this is already been scheduled (2) Severe protein-calorie malnutrition: working on improving oral intake drinking Ensure she is doing much better over the past three days, if she continues to eat well, plan for d/c home on Tuesday (3) HTN (hypertension): Hold lisinopril as it was possible drug induced pancreatitis Metoprolol restarted, increased Lopressor to 25mg TID, tolerating well increase Lopressor to 50mg BID, tolerating well (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 infected pancreatic necrosis. Not appearing to be infectious at this time however GI medicine is still recommending patient remain on zosyn last dose 08/15 WBC down to normal (6) DVT prophylaxis: Heparin 5000 units SQ BID (7) Hypokalemia: up to 3.7 today Admission and Anticipated Discharge Date Admission Date: August 08, 2020 Subjective patient continues to improve, no pain at all her only complaint is early satiety, no nausea or vomiting, she is moving her bowels drinking her ensure her albumin is 2.3 today, it is stable, certainly not going down CBC and CMP stable updated her son at the bedside, hoping that she can go home this weekend, I agree Review of Systems Review of Systems: All systems reviewed & are unremarkable except as noted in Subjective Gastrointestinal: + early satiety; no abdominal pain, no nausea, no vomiting, no constipation and no diarrhea/loose stools Physical Exam Constitutional: WD/WN, vitals as above Eyes: PERRL, conjunctivae normal, anicteric sclerae ENMT: external ear and nose normal, oropharynx normal Neck: trachea midline, no thyromegaly Respiratory: normal respiratory effort, lungs clear to auscultation Cardiovascular: RRR, no murmur, no edema Gastrointestinal (Abdomen): Inspection/Auscultation: abdomen normal to inspection and normal bowel sounds; abdomen not distended Percussion/Palpation: abdomen soft and + tympanic to percussion; abdomen nontender, no guarding and abdomen not rigid Musculoskeletal: no cyanosis or clubbing, extremities motor strength 5/5 Skin: no rashes, warm and dry Neurologic: patellar DTR's 2+ bilat, sensation intact and PERRL, EOMI, accommodation nl, no face palsy, no dysarthria Psychiatric: A+Ox3, euthymic affect Lymphatic: no cervical or axillary lymphadenopathy Results & Data Results & Data ([facility]) Vital Signs (Past 12 Hours) Vital Signs Temp Pulse Resp BP Pulse Ox 08/21/20 08:19 36.3 C L 83 18 159/68 H 94 Laboratory Results Laboratory Results - last 24 hr 08/21/20 08/21/20 06:35 06:35 WBC 8.03 RBC 3.61 L Hgb 9.6 L Hct 29.6 L MCV 82.0 MCH 26.6 MCHC 32.4 RDW Std Deviation 45.3 RDW Coeff of [place] 15.1 H Plt Count 692 H MPV 8.1 Sodium 138 Potassium 3.7 Chloride 107 Carbon Dioxide 25 Anion Gap 7.0 BUN 10 D Creatinine 0.66 Est Cr Clr Drug Dosing 42.7 Est GFR ( Amer) 92.1 Est GFR (Non-Af Amer) 79.4 BUN/Creatinine Ratio 15.8 Glucose 98 Calcium 8.7 Total Bilirubin 0.2 AST 21 ALT 12 Alkaline Phosphatase 21 L Total Protein 6.1 L Albumin 2.3 L Globulin 3.8 Albumin/Globulin Ratio 0.6 L Medications Administered Current Inpatient Medications Acetaminophen (Acetaminophen 325 Mg Tab) 650 mg PO Q4H PRN PRN Reason: headache, pain Stop: 09/16/20 20:53 Last Admin: 08/19/20 20:44 Dose: 650 mg Documented by: Acetaminophen (Acetaminophen 500 Mg Tab) 1,000 mg PO HS [facility] Stop: 09/18/20 20:59 Last Admin: 08/20/20 20:19 Dose: 1,000 mg Documented by: Lipase/Protease/Amylase (Pancreaze (Lipase 10,500u) Cap) 1 cap PO AC [facility] Stop: 09/18/20 11:29 Last Admin: 08/21/20 11:25 Dose: 1 cap Documented by: Ciprofloxacin (Ciprofloxacin 500 Mg Tab) 500 mg PO BID [facility]; Protocol Stop: 08/26/20 20:59 Last Admin: 08/21/20 09:13 Dose: 500 mg Documented by: Heparin Sodium (Porcine) (Heparin Sod 5,000 Unit/0.5 Ml Vial) 5,000 units SQ Q12 [facility] Stop: 09/07/20 20:59 Last Admin: 08/21/20 09:13 Dose: Not Given Documented by: Hydralazine HCl (Hydralazine Hcl 20 Mg/Ml Vial) 10 mg IV Q8 PRN PRN Reason: Blood Pressure - High Stop: 09/10/20 17:35 Last Admin: 08/19/20 05:42 Dose: 10 mg Documented by: Hydromorphone HCl (Hydromorphone Inj 0.5 Mg/0.5 Ml Syr) 0.25 mg IV Q1H PRN PRN Reason: Pain Stop: 08/22/20 11:34 Last Admin: 08/15/20 07:43 Dose: 0.25 mg Documented by: Promethazine HCl 12.5 mg/ (Sodium Chloride) 50.5 mls @ 202 mls/hr IV Q6H PRN PRN Reason: Nausea And Vomiting Stop: 09/13/20 14:07 Dextrose (D5w) 1,000 mls @ 0 mls/hr IV .Q0M PRN PRN Reason: protocol (see label comments) Stop: 09/14/20 10:35 Melatonin (Melatonin 3 Mg Tab) 3 mg PO HS [facility] Stop: 09/18/20 20:59 Last Admin: 08/20/20 20:19 Dose: 3 mg Documented by: Metoprolol Tartrate (Metoprolol Tartrate 50 Mg Tab) 50 mg PO BID [facility] Stop: 09/19/20 20:59 Last Admin: 08/21/20 09:12 Dose: 50 mg Documented by: Metronidazole (Metronidazole 500 Mg Tab) 500 mg PO TID [facility]; Protocol Stop: 08/26/20 20:59 Last Admin: 08/21/20 09:12 Dose: 500 mg Documented by: Ondansetron HCl (Ondansetron Inj 2 Mg/Ml 2 Ml Vial) 4 mg IV Q6H PRN PRN Reason: Nausea Stop: 09/13/20 14:07 Last Admin: 08/14/20 14:22 Dose: 4 mg Documented by: PG Care Time/CCT Total # of Minutes Spent Total Time Spent with Patient: Total time spent is greater than 50% in coordination of care (as documented) at patient's floor/unit and/or counseling patient: Coding Level of Care Code 48226 Subseq Hosp Care Lvl 2 Diagnoses Acute pancreatitis K85.12 Acute pancreatitis complication: infected necrosis Pancreatitis type: biliary Severe protein-calorie malnutrition E43 HTN (hypertension) I10 Hypertension type: essential hypertension 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
[2020-08-21] MEDS: ACETAMINOPHEN 500 MG TAB PO SCH (20:10)
[2020-08-21] MEDS: MELATONIN 3 MG TAB PO SCH (20:10)
[2020-08-22] MEDS: PANCREAZE (LIPASE 10,500U) CAP PO SCH ×2 (07:32→11:22)
[2020-08-22] MEDS: CIPROFLOXACIN 500 MG TAB PO SCH (09:06)
[2020-08-22] MEDS: METOPROLOL TARTRATE 50 MG TAB PO SCH (09:07)
[2020-08-22] MEDS: metroNIDAZOLE 500 MG TAB PO SCH (09:07)
[2020-08-22] MEDS: HEPARIN SOD 5,000 UNIT/0.5 ML VIAL SQ SCH (09:08)
--- NOTE | 2020-08-22 11:09 | Discharge Summary ---
Date of Service August 22, 2020 Admission HPI Per Admitting Provider Arely Benavides is an 85-year-old female with recent hospitalization for pancreatitis who presents to the ER with severe abdominal pain. The patient reports slowly increasing abdominal pain since her biliary stents were removed on July 11 although history from her is difficult at this time as she has been given morphine and appears somewhat confused. Discussed with her son over the phone who reports she had been doing very well after her ERCP procedure initially but does not drink a lot of fluids generally. She only complained of abdominal pain last night mildly and more severely this morning. No nausea or vomiting. Unknown if exacerbated by food but she currently does not feel like she can eat. No change in her bowel movements. The patient reports severe 10/10 pain when she came to the ER, currently 0/10 at rest but 10/10 with any palpation. Radiates around to her back. She had a recent prolonged admission from May 24- due to acute pancreatitis secondary to choledocholithiasis. Very poor nutrition postoperatively requiring PPN for 5 days. Given broad spectrum antibiotics due to concerns for necrotic pancreatitis and fluid collection as possible source of an infection. There was a possibility that she may require transfer to a tertiary care center for IR drainage although she continued to improve and was eventually discharged on June 12. Principal Diagnosis Acute pancreatitis Discharge Exam Constitutional WD/WN, vitals as above Eyes PERRL, conjunctivae normal, anicteric sclerae ENMT external ear and nose normal, oropharynx normal Neck trachea midline, no thyromegaly Respiratory normal respiratory effort, lungs clear to auscultation Cardiovascular RRR, no murmur, no edema Gastrointestinal (Abdomen) Inspection/Auscultation: abdomen normal to inspection and normal bowel sounds; abdomen not distended Percussion/Palpation: abdomen soft and + tympanic to percussion; abdomen nontender, no guarding and abdomen not rigid Musculoskeletal no cyanosis or clubbing, extremities motor strength 5/5 Skin no rashes, warm and dry Neurologic patellar DTR's 2+ bilat, sensation intact and PERRL, EOMI, accommodation nl, no face palsy, no dysarthria Psychiatric A+Ox3, euthymic affect Lymphatic no cervical or axillary lymphadenopathy Discharge Data Allergies Allergy/AdvReac Type Severity Reaction Status Date / Time No Known Allergies Allergy Verified 08/08/20 13:22 Consultations 08/08/20 13:12 ED Decision to Admit Stat 08/08/20 13:56 Consult Gastroenterology Stat 08/08/20 16:07 Consult Case Management - Discharge Planning Routine Consult Supplier Development Manager Routine Ordered Studies 08/08/20 11:34 CT abd pelvis IV con only Stat 08/14/20 13:42 CT abd pelvis oral and IV con Routine 08/15/20 09:23 MR MRCP Routine Hospital Course (1) Acute pancreatitis: Severe pancreatitis after recent gallstone pancreatitis diagnosis in May with prolonged hospitalization, pancreatic necrosis and poor nutrition. Possibly secondary to lisinopril, hold lisinopril ?Drug-induced. Patient is has had escalation of her pain on 08/14/2020. CT scan IMPRESSION: 1. Findings of ongoing acute pancreatitis with unchanged size of the intrahepatic pancreatic fluid collection within the pancreatic head and uncinate process. There is increased size of the acute peripancreatic collections as above. 2. Moderate wall thickening of the stomach is likely reactive. 3. No small bowel obstruction. 4. Decreased narrowing of the distal superior mesenteric vein just proximal to the portal splenic confluence without thrombus. 5. New small pleural effusions with dependent bibasilar atelectasis and possible mild pulmonary edema. MRCP 08/15/20 IMPRESSION: 1. Small bilateral pleural effusions 2. Low volume ascites 3. Peripancreatic inflammatory changes consistent with pancreatitis 4. Persistent fluid collection the region of the lesser sac 5. No evidence of biliary or pancreatic ductal dilatation. 6. Smooth narrowing of distal common bile duct likely secondary to inflammatory change although a neoplastic stricture cannot be excluded 7. The pancreatic duct is not well visualized at the level of the recently described pancreatic head fluid collection. Duct continuity at this level cannot be determined. 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 - treated with Zosyn per GI recommendations, completed 7 days on 08/15 no growth on blood cultures discharge to home with home health, continue to advance diet as tolerated, home therapy for strength follow up with PCP can follow up with [facility] as needed (2) Severe protein-calorie malnutrition: working on improving oral intake drinking Ensure she is doing much better over the past 4 days, can discharge to home (3) HTN (hypertension): Hold lisinopril as it was possible drug induced pancreatitis increase Lopressor to 50mg BID, tolerating well, will continue this on discharge, new script given (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 infected pancreatic necrosis. Not appearing to be infectious at this time however GI medicine is still recommending patient remain on zosyn last dose 08/15 WBC down to normal (6) Hypokalemia: resolved with supplementation Total Time Total Time Spent Total Time Spent (In Minutes): 33 minutes Total Time Includes: Examination of the Patient, Discharge Planning, Medication Reconciliation and Other (updated her son over the phone, discussed discharge plans) Discharge Plan Discharge Items Patient Disposition: Home - Home Health Services Reason For Visit: ACUTE PANCREATITIS Discharge Diagnosis: Acute pancreatitis Condition on Discharge: Good Goals: stay well nourished and well hydrated get rest but also increase your activity, improve strength and mobility Activity: Resume your previous activity Non-emergency contact: Primary Care Provider Call non-emergency contact if: you have any medication questions and your symptoms worsen Follow-up/Referrals: David Lee MD [Primary Care Provider] - 08/26/20 2:30 pm (one week) Diet: Low Fat Addtl Attending Provider Instructions: Medications: - METOPROLOL: dose increased to 50mg twice a day because we stopped Lisinopril - LISINOPRIL: stopped this medication as it is possible that it caused the pancreatitis Pancreatitis: long complicated course but now improving, tolerating food without pain for several days continue to follow a low fat diet, use pancreatic enzymes try eating smaller, more frequent meals if possible, continue drinking Ensure three times a day for protein intake you completed a course of 7 days of antibiotics, no further antibiotics needed stay well hydrated Hypertension: as above, your metoprolol was INCREASED from 25mg to 50mg twice a day stop taking Lisinopril as possible cause of pancreatitis please follow up with Dr. Kristine Vaughan in a week if he has any concerns he can refer you to [facility] Pending Studies at Discharge: No Stand-Alone Forms: [employer], Smoking Cessation Medications and DC Order Prescriptions: New metoprolol tartrate 50 mg Tablet 50 mg PO BID 30 Days Qty: 60 RF: 3 Continued (DME) Flutter Valve Device See Dose Instructions .ROUTE .MEDSUPPLY Qty: 1 RF: 0 Pancreaze 10,500-35,500- 61,500 unit capsule,delayed release(DR/EC) 1 cap PO AC RF: 0 potassium chloride 20 mEq packet 20 meq PO QAM RF: 0 pantoprazole 40 mg tablet,delayed release (DR/EC) 40 mg PO QAM RF: 0 magnesium oxide 400 mg (241.3 mg magnesium) Tablet 400 mg PO BID Qty: 60 RF: 0 Discontinued metoprolol tartrate 25 mg Tablet 25 mg PO BID Qty: 30 RF: 0 lisinopril 20 mg tablet 20 mg PO QAM RF: 0 dicyclomine 10 mg Capsule 10 mg PO TID Qty: 30 RF: 0 Discharge Orders: Discharge Order (Routine); Ordered 08/22/20 Ordered By: Pawel Yusuf/Other Patient Handouts: Preventing Deep Vein Thrombosis Admission Data Admit Date/Time: 08/08/20 15:17 Attending Provider: Pawel Saavedra Admit Provider: Shawn Medeiros Primary Care Provider: David Lee Other Providers: [employer] [facility] ; Shawn Medeiros ; Thuan Redmond ; Ally Casillas Other Interventions: Discharge Summary Assessment (RN) Last Done: 08/22/20 11:17 Coding Level of Care Code D/C Day Management >30 mins Diagnoses Acute pancreatitis K85.12 Acute pancreatitis complication: infected necrosis Pancreatitis type: biliary Severe protein-calorie malnutrition E43 HTN (hypertension) I10 Hypertension type: essential hypertension 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
== END 2020-08-22 13:53 | disposition home health service (06) | DRG 438 ==
LOC: ED 10:55 → 1E 15:17 → SUATTDRO 15:17 → 1E 15:45 → 2S 08-09 18:36 → 2N 08-15 18:15 → 3W 08-19 23:28